=== PATIENT | female | born 1945 | race Caucasian/White ===

== ENCOUNTER 2016-06-17 09:09 | Inpatient (IN) | payer OTHER ==
[~2016-06-17] VITALS: Ht 160 cm; Wt 59.4 kg
[~2016-06-17 09:09] MED LIST: HYDROCHLOROTHIA25 M1 PO; TOPROL XL25 M1 PO
--- NOTE | 2016-06-17 09:21 | NUR ---
BIBA FROM HOME, C/O INCREASING WEAKNESS AND DIARRHEA X A FEW WEEKS. UNABLE TO GET OUT OF WHEELCHAIR INTO BED TODAY, WITH NEAR FALL. ALSO C/O DIZZINESS. RECENT WEIGHT LOSS.
--- NOTE | 2016-06-17 09:22 | NUR ---
ALSO REPORT SOB THIS AM, WITH LOW O2 SAT PER EMS (IN 80"S).
[2016-06-17 09:48] LABS: ABSOLUTE BASOPHIL COUNT 0 /CUMM (0.0-0.2); ABSOLUTE EOSINOPHIL COUNT 0.1 /CUMM (0.0-0.7); ABSOLUTE GRANULOCYTE CT 6.2 /CUMM (1.4-6.5); ABSOLUTE LYMPH COUNT 1.7 /CUMM (1.2-3.4); ABSOLUTE MONOCYTE COUNT 0.2 /CUMM (0.10-0.60); BASOPHIL % 0 % (0.0-2.0); GRANULOCYTE % 75.9 % (42.2-75.2); HEMATOCRIT 26.5 % (37-47); MEAN CORPUSCULAR HGB CONC 33.4 G/DL (33.0-37.0); MEAN CORPUSCULAR VOLUME 92.9 FL (81.0-99.0); MEAN PLATELET VOLUME 9.5 FL (7.4-10.4); PLATELET COUNT 204 /CUMM (130-400); RBC DISTRIBUTION WIDTH 25.7 % (11.5-14.5); RED BLOOD CELL CT 2.85 /CUMM (4.20-5.40); WHITE BLOOD CELL COUNT 8.1 /CUMM (4.8-10.8)
--- NOTE | 2016-06-17 09:50 | NUR ---
PT NOTED WITH CARIE LE SWELLING. STATES THIS STARTED TO OCCUR LAST WEEK. DENIES ANY HISTORY OF THIS OCCURING BEFORE. TRADE EDEMA NOTED. +PEDI PULSES.
[2016-06-17 09:52] LABS: PT 14.8 SEC (9.4-12.5); PTT 28 SEC (25-37)
--- NOTE | 2016-06-17 10:06 | ED GENERAL ADULT ---
History of Present Illness General Chief Complaint: General Adult Stated Complaint: BIBA INCREASED WEAKNESS Source: patient, family, old records, EMS Exam Limitations: no limitations Allergies Coded Allergies: Penicillins (UNKNOWN 03/15/16) Reconcile Medications Aspirin (Lite Coat Aspirin) 325 MG TABLET 1 TAB PO DAILY HEART HEALTH ( Reported) Atorvastatin Calcium 20 MG TABLET 1 TAB PO DAILY CHOL (Reported) Folic Acid 1 MG TABLET 1 TAB PO DAILY SUPPLEMENT (Reported) Methotrexate 2.5 MG TABLET 6 TAB PO QW ARTHRITIS (Reported) Metoprolol Succ XL (Toprol XL) 25 MG TAB 1 TAB PO DAILY htn Nystatin 100,000 UNIT/GRAM CREAM..G. 1 ROBIN TOP BID RASH (Reported) apply to affected area(s) Pantoprazole Sodium 40 MG TABLET.DR 1 TAB PO DAILY GERD (Reported) Tolterodine Tartrate 2 MG TABLET 1 TAB PO BID OVERACTIVE BLADDER (Reported) Triage Note: BIBA FROM HOME, C/O INCREASING WEAKNESS AND DIARRHEA X A FEW WEEKS. UNABLE TO GET OUT OF WHEELCHAIR INTO BED TODAY, WITH NEAR FALL. ALSO C/O DIZZINESS. Triage Nurses Notes Reviewed? yes HPI: Patient is a 70 year old female presents complaining of generalized weakness x 2 -3 weeks, worse today. Patient reports that she was unable to get out of her wheelchair this morning and fell against the bed. Patient normally ambulates with a walker. Diarrhea on Saturday and , 2-3 episodes of loose stools , none since then. Patient was having dyspnea this morning, which has since resolved. Weakness is severe, pain is 0/10. Denies chest pain, abdominal pain, head injury, fevers, chills, vomiting. (FABIOLA MADDOX) Vital Signs & Intake/Output Vital Signs & Intake/Output Vital Signs Date Time Temp Pulse Resp B/P Pulse O2 O2 Flow FiO2 Ox Delivery Rate 06/17 1512 96.2 86 16 143/72 100 Room Air 06/17 1144 94.7 86 16 147/72 100 Room Air 06/17 1040 88 136/74 06/17 0929 20 99 Room Air 06/17 0924 98.4 95 136/81 Past History Travel History Traveled to [place] past 21 day No Medical History Any Pertinent Medical History? see below for history Neurological: CVA Cardiovascular: hypertension, hyperlipidemia Gastrointestinal: GERD, hiatal hernia Musculoskeletal: rheumatoid arthritis Cancer(s): NONE Surgical History Surgical History: THYROID MASS REMOVED, OOPHRECTOMY Psychosocial History What is your primary language Mongolian Tobacco Use: Never used ETOH Use: denies use Family History Hx Contributory? No (FABIOLA MADDOX) Review of Systems Review of Systems Constitutional: Reports: malaise, weakness. Denies: chills, fever. EENTM: Reports: no symptoms. Respiratory: Denies: cough, short of breath. Cardiovascular: Denies: chest pain. GI: Reports: diarrhea (resolved). Denies: abdominal pain, nausea, vomiting. Musculoskeletal: Reports: no symptoms. Denies: back pain, neck pain. Skin: Reports: lesions (bed sores and rash left breast). Neurological/Psychological: Reports: weakness. Denies: headache, numbness, unable to move lower ext, unable to move upper ext. Hematologic/Endocrine: Reports: bruising. Denies: bleeding. Immunologic/Allergic: Denies: splenectomy. (FABIOLA MADDOX) Physical Exam Physical Exam General Appearance: alert, awake Head: atraumatic, normal appearance Eyes: Bilateral: normal appearance, PERRL, EOMI. Ears, Nose, Throat: hearing grossly normal, dry mucous membranes Neck: normal inspection, supple, full range of motion Respiratory: normal breath sounds, chest non-tender, no respiratory distress, lungs clear Cardiovascular: regular rate/rhythm Peripheral Pulses: 2+ dorsalis pedis (R), 2+ dorsalis pedis (L) Gastrointestinal: normal bowel sounds, soft, non-tender Rectal: heme negative stool Back: normal inspection Extremities: normal capillary refill, normal range of motion Neurologic/Psych: awake, alert, oriented x 3, legal researcher II-XII nml as tested, 3/5 bilateral lower extremity strength, 5/5 bilateral upper extremity strength Skin: warm/dry, 1 cm superficial ulceration, under left breast. skin breakdown Lymphatic: no anterior cervical bryan Core Measures ACS in differential dx? Yes ASA ordered for poss ACS? No-ACS ruled out CVA/TIA Diagnosis: No Severe Sepsis Present: No Septic Shock Present: No (FABIOLA MADDOX) Progress Differential Diagnoses I considered the following diagnoses in my evaluation of the patient: Diagnostic Imaging: Viewed by Me: Radiology Read. Discussed w/RAD: Radiology Read. Radiology Impression: PATIENT: ADRIEL LOAIZA PRESENT AGE: 70 PATIENT ACCOUNT NO: [id number] : 44 LOCATION: [facility] ORDERING PHYSICIAN: FABIOLA BENITEZ SERVICE DATE: 06/17/16 EXAM TYPE: US - US-LIMITED ABDOMEN EXAMINATION: US ABDOMEN LIMITED CLINICAL INFORMATION: Elevated liver function tests with weakness and elevated lactic acid. COMPARISON : None TECHNIQUE: Real-time imaging of the right upper quadrant abdominal viscera. FINDINGS: PANCREAS: Normal. LIVER: There is diffusely increased echogenicity consistent with fatty infiltration the hepatocellular disease of other etiology. No focal mass or intrahepatic bile duct dilatation is seen. GALLBLADDER: The gallbladder is difficult to differentiate from bowel with patient unable to follow breathing instructions. The gallbladder may be contracted with calculi causing shadowing. No free fluid collection no region of the gallbladder fossa was identified. No tenderness to palpation was elicited. COMMON BILE DUCT: Normal in caliber measuring 0.4 cm in diameter. RIGHT KIDNEY: Normal. No hydronephrosis. No renal calculi or focal parenchymal lesions. The kidney measures 9.1 cm in maximum dimension. FREE FLUID: None. IMPRESSION: Diffuse increased echogenicity of the liver which may be related to fatty infiltration. Gallbladder not definitely identified and contracted gallbladder with calculi not excluded. No tenderness to palpation present to suggest acute cholecystitis. DICTATED BY: MICK DEGROOT MD DATE/TIME DICTATED:06/17/161229 BROADCAST TRAFFIC COORDINATOR:LAYA DATE/TIME TRANSCRIBED:06/17/161229 CONFIDENTIAL, DO NOT COPY WITHOUT APPROPRIATE AUTHORIZATION. <Electronically signed in Other Vendor System> SIGNED BY: MICK DEGROOT MD 06/17/16 1240, PATIENT: ADRIEL LOAIZA PRESENT AGE: 70 PATIENT ACCOUNT NO: [id number] : 44 LOCATION: [facility] ORDERING PHYSICIAN: FABIOLA BENITEZ SERVICE DATE: 06/17/16 EXAM TYPE: CAT - CT ABD & PELVIS W/O IV CONTRAS EXAMINATION: CT ABDOMEN AND PELVIS WITHOUT CONTRAST CLINICAL INFORMATION: Weakness. Transaminitis. Lactic acid. Assess for intra-abdominal infection. COMPARISON: Abdominal ultrasound earlier today. TECHNIQUE: Multidetector volumetric imaging was performed from the superior aspect of the liver through the pubic symphysis. Sagittal and coronal reformatted images were obtained on the technologist's workstation. DLP: 227 mGy-cm. FINDINGS: Examination limited secondary to lack of intravenous contrast. LUNG BASES: Minimal subsegmental atelectasis at the bilateral lung bases. LIVER, GALLBLADDER, AND BILIARY TREE: Coarse calcification in the superior aspect of the liver. Slightly decreased hepatic radiodensity compared to the spleen could reflect a degree of hepatic steatosis. No suspicious hepatic lesion. No biliary ductal dilatation. Cholelithiasis is demonstrated without CT evidence of cholecystitis. PANCREAS: Suggestion of a 0.8 cm cyst extending anteriorly off the pancreatic head, axial image 23/75 and coronal image 29/83. No peripancreatic stranding. No pancreatic ductal dilatation. SPLEEN: Unremarkable. ADRENAL GLANDS: Unremarkable. KIDNEYS AND URETERS: No hydronephrosis. No convincing renal or ureteral calculi. Punctate calcification near the left renal hilum is favored to be vascular in nature. No suspicious renal mass. No asymmetric perinephric stranding. BLADDER: Predominantly decompressed. GASTROINTESTINAL TRACT: Bowel gas pattern is nonobstructive. No evidence of acute bowel inflammation. The appendix is not discretely delineated. ABDOMINAL WALL: No significant hernia is appreciated. Subcutaneous edema about the bilateral flanks and gluteal regions. No discrete fluid collection. LYMPH NODES: No pathologically enlarged lymph nodes are demonstrated. VASCULAR: Scattered atherosclerotic disease including coronary artery calcification. PELVIC VISCERA: No free pelvic fluid. The uterus is absent. No suspicious adnexal lesion. OSSEOUS STRUCTURES: No acute osseous abnormalities. Multilevel Schmorl's nodes/vertebral endplate compression, most notable at the inferior endplate of T11, superior endplate of L1, and superior endplate of L3. Multilevel degenerative changes of the spine. Decreased bone mineral density. IMPRESSION: 1. Cholelithiasis without CT evidence of cholecystitis. 2. No biliary ductal dilatation demonstrated. 3. Possible mild hepatic steatosis. 4. No acute bowel pathology demonstrated. 5. Suspect a 0.8 cm cyst extending anteriorly off of the pancreatic head. Recommend attention on follow-up imaging to ensure future stability. Comparison with any prior outside abdominal CT or MRI could be helpful to establish stability. 6. Additional findings as above. DICTATED BY: MILAGRO DUVAL MD DATE/TIME DICTATED:06/17/161433 BROADCAST TRAFFIC COORDINATOR:LAAY DATE/TIME TRANSCRIBED:06/17/161433 CONFIDENTIAL, DO NOT COPY WITHOUT APPROPRIATE AUTHORIZATION. <Electronically signed in Other Vendor System> SIGNED BY: MILAGRO DUVAL MD 06/17/16 1510 CXR Impression: PATIENT: ADRIEL LOAIZA PRESENT AGE: 70 PATIENT ACCOUNT NO: [id number] : 44 LOCATION: [facility] ORDERING PHYSICIAN: FABIOLA BENITEZ SERVICE DATE: 06/17/16-1014 EXAM TYPE: RAD - XRY- PORTABLE CHEST XRAY EXAMINATION: XR PORTABLE CHEST CLINICAL INFORMATION: Dyspnea. Weakness. Elevated lactic acid. COMPARISON: None. TECHNIQUE: Portable view of the chest was obtained. FINDINGS: Cardiac silhouette is not enlarged. There is tortuosity of the descending thoracic aorta. Hyperlucency is seen in the bilateral lungs compatible with emphysema. A focal oval 1.8 cm opacity is seen overlying the left sixth rib posteriorly. An underlying pulmonary lesion/ nodule is not excluded. No prior studies for comparison. No acute osseous abnormality. Advanced degenerative changes seen in the left shoulder. IMPRESSION : A vague rounded opacity is seen in the left upper lung overlying the left sixth rib posteriorly. Recommend CT thorax for further evaluation to exclude pulmonary lesion. Alternatively, follow-up PA and lateral chest radiographs could be obtained. The lungs are hyperlucent bilaterally suspicious for underlying emphysema. No evidence of pulmonary edema. DICTATED BY: JACK POMPA MD DATE/TIME DICTATED:06/17/161055 BROADCAST TRAFFIC COORDINATOR:LAYA DATE/TIME TRANSCRIBED:06/17/161055 CONFIDENTIAL, DO NOT COPY WITHOUT APPROPRIATE AUTHORIZATION. <Electronically signed in Other Vendor System> SIGNED BY: JACK POMPA MD 06/17/16 1103 Initial ED EKG: sinus rhythm at 86 bpm normal axis, normal intervals, nonspecific ST/T-wave changes, possible LVH Prior EKG: unchanged (ELIER BENITEZ,FABIOLA) Plan of Care: Orders Procedure Date/time Status Regular Diet 06/18 B Active Misc Message 06/17 1605 Active ED Holding Orders 06/17 1605 Active Vital Signs 06/17 1605 Active Code Status 06/17 1605 Active Patient Data 06/17 1555 Active Admit to inpatient 06/17 1541 Active LACTIC ACID 06/17 1228 Complete Add-on Test (ER Only) 06/17 1113 Active BLOOD CULTURE 06/17 1014 Active MISTAKE 06/17 1006 Active Telemetry/Gasoline Plant Operator 06/17 1006 Active Straight Cath 06/17 1006 Active URINALYSIS 06/17 1006 Complete LACTIC ACID 06/17 929 Complete TYPE & SCREEN (NOT X-MATCH) 06/17 929 Complete TROPONIN LEVEL 06/17 927 Complete PARTIAL THROMBOPLASTIN TIME 06/17 927 Complete PROTHROMBIN TIME 06/17 927 Complete COMPREHENSIVE METABOLIC PANEL 06/17 927 Complete CBC WITHOUT DIFFERENTIAL 06/17 927 Complete EKG 06/17 925 Active Laboratory Tests 06/17/16 1438: Lactic Acid 1.4 06/17/16 1138: Urinalysis MOD H, Urine Color YEL, Urine Clarity HAZY H, Urine pH 6.0, Ur Specific [place] 1.025, Urine Protein 30 H, Urine Ketones TRACE H, Urine Nitrite NEG, Urine Bilirubin MOD H, Urine Urobilinogen >=8.0 H, Ur Leukocyte Esterase NEG, Ur Microscopic SEDIMENT EXAMINED, Urine RBC 1-3, Urine WBC RARE, Ur Epithelial Cells MANY H, Hyaline Casts 10-15 H, Granular Casts 1-3 H, Urine Mucus MOD H, Urine Hemoglobin NEG, Urine Glucose NEG 06/17/16 1010: Anion Gap 16, Estimated GFR 49 L, BUN/Creatinine Ratio 29.1 H, Glucose 86, Calcium 8.3 L, Total Bilirubin 1.8 H, AST 227 H, ALT 122 H, Alkaline Phosphatase 195 H, Troponin I < 0.01, Total Protein 5.6 L, Albumin 2.3 L, Globulin 3.3, Albumin/Globulin Ratio 0.7 L 06/17/16 0930: Lactic Acid 5.0 H, PT 14.8 H, INR 1.41 H, APTT 28, CBC w Diff NO MAN DIFF REQ , RBC 2.85 L, MCV 92.9, MCH 31.0, RDW 25.7 H, MPV 9.5, Gran % 75.9 H, Lymphocytes % 20.4 L, Monocytes % 2.7, Eosinophils % 1.0, Basophils % 0 L, Absolute Granulocytes 6.2, Absolute Lymphocytes 1.7, Absolute Monocytes 0.2, Absolute Eosinophils 0.1, Absolute Basophils 0, PUBS MCHC 33.4 Microbiology 06/17 1438 BLOOD: Blood Culture - RECD 06/17 1120 BLOOD: Blood Culture - RECD Patient reevaluated multiple times. Results discussed with patient and her . Discussed with and seen by Dr. Gutierrez. Lactic acid improved with 1 liter normal saline. WBC normal, patient afebrile, no hypotension. Antibiotics deferred, as patient does not appear to meet criteria for sepsis. Discussed with Dr. Mendoza for admission (FABIOLA MADDOX) Departure Departure Time of Disposition: 1525 Disposition: STILL A PATIENT Condition: Stable Clinical Impression Primary Impression: Lactic acid acidosis Secondary Impressions: Generalized weakness, Transaminitis Referrals: KIMBERLEY BANERJEE MD (PCP/Family) Departure Forms: Customer Survey General Discharge Information Admission Note Spoke With: SHAHAB MENDOZA MD Documentation of Exam: Documentation of any treatments & extenuating circumstances including Concerns Regarding Discharge (functional status, medication knowledge or non-compliance, living conditions, etc.) that warrant an admission rather than observation: serial labs, serial exams, physical therapy consultation, GI consultation. Patient too weak to attempt ambulation, unsafe for discharge. (FABIOLA MADDOX) PA/EXTRACTOR LOADER AND UNLOADER Co-Sign Statement Statement: ED Attending supervision documentation- [X] I saw and evaluated the patient. I have also reviewed all the pertinent lab results and diagnostic results. I agree with the findings and the plan of care as documented in the PA's/EXTRACTOR LOADER AND UNLOADER's documentation. [] I have reviewed the ED Record and agree with the PA's/EXTRACTOR LOADER AND UNLOADER's documentation. [] Additions or exceptions (if any) to the PAs/EXTRACTOR LOADER AND UNLOADER's note and plan are summarized below: [] (CJ YOUNG,QUENTIN Parham) Critical Care Note Critical Care Note Critical Care Time: non-applicable (FABIOLA MADDOX)
--- NOTE | 2016-06-17 10:45 | NUR ---
ORTHOS PERFORMED ON PT. PT STATES SHE IS TOO WEAK TO TRY TO STAND UP. PT REPORTS THAT ON SATURDAY WHEN SHE HAD HER O/T EVAL SHE WAS DIZZY AND ON SATURDAY HER APPOINTMENT WAS CANCELLED DUE TO HER DIZZINESS WELL. PA AWARE.
--- NOTE | 2016-06-17 11:03 | RADIOLOGY REPORT ---
EXAMINATION: XR PORTABLE CHEST CLINICAL INFORMATION: Dyspnea. Weakness. Elevated lactic acid. COMPARISON: None. TECHNIQUE: Portable view of the chest was obtained. FINDINGS: Cardiac silhouette is not enlarged. There is tortuosity of the descending thoracic aorta. Hyperlucency is seen in the bilateral lungs compatible with emphysema. A focal oval 1.8 cm opacity is seen overlying the left sixth rib posteriorly. An underlying pulmonary lesion/nodule is not excluded. No prior studies for comparison. No acute osseous abnormality. Advanced degenerative changes seen in the left shoulder. IMPRESSION: A vague rounded opacity is seen in the left upper lung overlying the left sixth rib posteriorly. Recommend CT thorax for further evaluation to exclude pulmonary lesion. Alternatively, follow-up PA and lateral chest radiographs could be obtained. The lungs are hyperlucent bilaterally suspicious for underlying emphysema. No evidence of pulmonary edema.
--- NOTE | 2016-06-17 11:40 | NUR ---
URINE TRIO SENT TO LAB
--- NOTE | 2016-06-17 11:44 | NUR ---
PT STRAIGHT CATH FOR 200 CC DARK URINE, TOLERATED WELL, PT NOTED WITH TO BEDSORES ONE TO EACH UPPER INNER BUTTOCKS, MEASURE 3 CM X 3 CM, DRESSING REAPPLIED. PT DIFFICULT STICK , MST TO ATTEMPT SECOND SET OF BC AND PINK TOP. PT REPOSITIONED UP IN BED,
--- NOTE | 2016-06-17 12:04 | NUR ---
PT ALSO NOTED WITH REDNESS/EXCORIATION TO UNDER HER LT BREAST. PT STATES THAT THEY ARE GETTING BETTER FROM WHAT THEY WERE, HAS BEEN USING CREAM AT HOME FOR THEM.
--- NOTE | 2016-06-17 12:11 | NUR ---
PT TO U/S. PTS LEFT, STATES HE WILL CALL BACK SOON WITH A MEDICATION LIST.
--- NOTE | 2016-06-17 12:40 | ULTRASOUND REPORT ---
EXAMINATION: US ABDOMEN LIMITED CLINICAL INFORMATION: Elevated liver function tests with weakness and elevated lactic acid. COMPARISON: None TECHNIQUE: Real-time imaging of the right upper quadrant abdominal viscera. FINDINGS: PANCREAS: Normal. LIVER: There is diffusely increased echogenicity consistent with fatty infiltration the hepatocellular disease of other etiology. No focal mass or intrahepatic bile duct dilatation is seen. GALLBLADDER: The gallbladder is difficult to differentiate from bowel with patient unable to follow breathing instructions. The gallbladder may be contracted with calculi causing shadowing. No free fluid collection no region of the gallbladder fossa was identified. No tenderness to palpation was elicited. COMMON BILE DUCT: Normal in caliber measuring 0.4 cm in diameter. RIGHT KIDNEY: Normal. No hydronephrosis. No renal calculi or focal parenchymal lesions. The kidney measures 9.1 cm in maximum dimension. FREE FLUID: None. IMPRESSION: Diffuse increased echogenicity of the liver which may be related to fatty infiltration. Gallbladder not definitely identified and contracted gallbladder with calculi not excluded. No tenderness to palpation present to suggest acute cholecystitis.
--- NOTE | 2016-06-17 12:47 | NUR ---
SECOND RN UNABLE TO DRAW 2ND CULTURE OR BLOODWORK MST UNABLE TO WELL. LAB HERE TO ATTEMPT.
--- NOTE | 2016-06-17 12:52 | NUR ---
LAB AT BEDSIDE TO ATTEMPT DRAW, PINK, BOYER AND 2ND SET OF CULUTRES NEEDED
[2016-06-17] MEDS ORDERED: NYSTATIN15 G1 TOP (13:08)
[2016-06-17] MEDS ORDERED: LITE COAT ASPI325 MG PO (13:09)
[2016-06-17] MEDS ORDERED: PANTOPRAZOLE SO40 M1 PO (13:09)
[2016-06-17] MEDS ORDERED: ATORVASTATIN CA20 M1 PO (13:09)
[2016-06-17] MEDS ORDERED: METHOTREXATE2.5 M2 PO (13:09)
[2016-06-17] MEDS ORDERED: FOLIC ACID1 M1 PO (13:10)
[2016-06-17] MEDS ORDERED: TOLTERODINE TART2 M2 PO (13:10)
--- NOTE | 2016-06-17 13:18 | NUR ---
LAB UNABLE TO DRAW CULTURES
--- NOTE | 2016-06-17 14:18 | NUR ---
PT TO CAT SCAN. CAT SCAN CALLED SHORTLY AFTER STATING THAT HER IV BLEW OUT. PA AWARE
--- NOTE | 2016-06-17 14:44 | NUR ---
SECOND LINE OBTAINED AT THIS TIME. DR CORONA AT BEDSIDE TO DISCUSS PLAN OF CARE WITH PT AND HER
--- NOTE | 2016-06-17 15:10 | CT SCAN REPORT ---
EXAMINATION: CT ABDOMEN AND PELVIS WITHOUT CONTRAST CLINICAL INFORMATION: Weakness. Transaminitis. Lactic acid. Assess for intra-abdominal infection. COMPARISON: Abdominal ultrasound earlier today. TECHNIQUE: Multidetector volumetric imaging was performed from the superior aspect of the liver through the pubic symphysis. Sagittal and coronal reformatted images were obtained on the technologist's workstation. DLP: 227 mGy-cm. FINDINGS: Examination limited secondary to lack of intravenous contrast. LUNG BASES: Minimal subsegmental atelectasis at the bilateral lung bases. LIVER, GALLBLADDER, AND BILIARY TREE: Coarse calcification in the superior aspect of the liver. Slightly decreased hepatic radiodensity compared to the spleen could reflect a degree of hepatic steatosis. No suspicious hepatic lesion. No biliary ductal dilatation. Cholelithiasis is demonstrated without CT evidence of cholecystitis. PANCREAS: Suggestion of a 0.8 cm cyst extending anteriorly off the pancreatic head, axial image 23/75 and coronal image 29/83. No peripancreatic stranding. No pancreatic ductal dilatation. SPLEEN: Unremarkable. ADRENAL GLANDS: Unremarkable. KIDNEYS AND URETERS: No hydronephrosis. No convincing renal or ureteral calculi. Punctate calcification near the left renal hilum is favored to be vascular in nature. No suspicious renal mass. No asymmetric perinephric stranding. BLADDER: Predominantly decompressed. GASTROINTESTINAL TRACT: Bowel gas pattern is nonobstructive. No evidence of acute bowel inflammation. The appendix is not discretely delineated. ABDOMINAL WALL: No significant hernia is appreciated. Subcutaneous edema about the bilateral flanks and gluteal regions. No discrete fluid collection. LYMPH NODES: No pathologically enlarged lymph nodes are demonstrated. VASCULAR: Scattered atherosclerotic disease including coronary artery calcification. PELVIC VISCERA: No free pelvic fluid. The uterus is absent. No suspicious adnexal lesion. OSSEOUS STRUCTURES: No acute osseous abnormalities. Multilevel Schmorl's nodes/vertebral endplate compression, most notable at the inferior endplate of T11, superior endplate of L1, and superior endplate of L3. Multilevel degenerative changes of the spine. Decreased bone mineral density. IMPRESSION: 1. Cholelithiasis without CT evidence of cholecystitis. 2. No biliary ductal dilatation demonstrated. 3. Possible mild hepatic steatosis. 4. No acute bowel pathology demonstrated. 5. Suspect a 0.8 cm cyst extending anteriorly off of the pancreatic head. Recommend attention on follow-up imaging to ensure future stability. Comparison with any prior outside abdominal CT or MRI could be helpful to establish stability. 6. Additional findings as above.
--- NOTE | 2016-06-17 15:28 | History & Physical ---
MADHU BARRY 06/17/16 1528: General Information and HPI MD Statement: I have seen and personally examined ADRIEL LOAIZA and documented this H&P. The patient is a 70 year old F who presented with a patient stated chief complaint of weakness Source of Information: patient, old records Exam Limitations: no limitations History of Present Illness: 70-year-old woman with past medical history significant for rheumatoid arthritis on methotrexate, hypertension, hyperlipidemia, thyroid cancer status post surgery, history of stomach cancer in grandmother, recurrent falls brought here by for episode of witnessed mechanical fall. is at bedside. Patient had a fall earlier today when she was transferring from the bed to the wheelchair denies head strike, loss of consciousness, involuntary movements, bowel or bladder incontinence. The past 3 months she has fallen 2 times in both of them have been the conical falls due to weakness in her legs giving out. Patient also reports 47 pound weight loss over the past 6 months, decreased appetite and progressive weakness. States that she does have constipation denies any change in her stools, abdominal pain, nausea, vomiting. She did see a gastrointestinal specialist a few months ago and he recommended she do a CT abdomen as well as a colonoscopy but patient refused at that time. Allergies/Medications Allergies: Coded Allergies: Penicillins (UNKNOWN 03/15/16) Home Med list Aspirin (Lite Coat Aspirin) 325 MG TABLET 1 TAB PO DAILY HEART HEALTH ( Reported) Atorvastatin Calcium 20 MG TABLET 1 TAB PO DAILY CHOL (Reported) Folic Acid 1 MG TABLET 1 TAB PO DAILY SUPPLEMENT (Reported) Methotrexate 2.5 MG TABLET 6 TAB PO QW ARTHRITIS (Reported) Metoprolol Succ XL (Toprol XL) 25 MG TAB 1 TAB PO DAILY htn Nystatin 100,000 UNIT/GRAM CREAM..G. 1 ROBIN TOP BID RASH (Reported) apply to affected area(s) Pantoprazole Sodium 40 MG TABLET.DR 1 TAB PO DAILY GERD (Reported) Tolterodine Tartrate 2 MG TABLET 1 TAB PO BID OVERACTIVE BLADDER (Reported) Compliance With Home Meds: GOOD Past History Travel History Traveled to [place] past 21 day No Medical History Neurological: CVA Cardiovascular: hypertension, hyperlipidemia Gastrointestinal: GERD, hiatal hernia Musculoskeletal: rheumatoid arthritis Cancer(s): NONE Surgical History Surgical History: THYROID MASS REMOVED, OOPHRECTOMY Past Family/Social History Family History Relations & Conditions if any grandmother FHx: stomach cancer Psychosocial History ETOH Use: denies use Review of Systems Review of Systems Constitutional: Reports: malaise, weakness, unexplained weight loss. Denies: chills, diaphoresis, fever. Cardiovascular: Denies: chest pain, edema, orthopena, palpitations, peripheral edema, syncope. Respiratory: Denies: cough, hemoptysis, orthopnea, short of breath, sputum production, stridor, wheezing. GI: Denies: abdominal pain, bloating, constipation, diarrhea, distention, bowel incontinence, melena, nausea, bloody stool, changes in stool, vomiting, steatorrhea. Exam & Diagnostic Data Last 24 Hrs of Vital Signs/I&O Vital Signs Date Time Temp Pulse Resp B/P Pulse O2 O2 Flow FiO2 Ox Delivery Rate 06/17 1640 95.7 85 16 163/70 Room Air 06/17 1512 96.2 86 16 143/72 100 Room Air 06/17 1144 94.7 86 16 147/72 100 Room Air 06/17 1040 88 136/74 06/17 0929 20 99 Room Air 06/17 0924 98.4 95 136/81 Intake & Output 06/17 1600 06/17 0800 06/17 0000 Intake Total 10 Output Total Balance 10 Intake, IV 10 Patient 120 lb Weight Physical Exam General Appearance Alert, Oriented X3, Cooperative, No Acute Distress Cardiovascular Regular Rate, Normal S1, Normal S2 Lungs Clear to Auscultation, Normal Air Movement Abdomen Soft, Tenderness to palpation in lower abdomen Extremities cold extremities, increased swelling noted of left lower extremity Body Front and Back (Adult) 1) pressure ulcer 2) pressure ulcer 3) four areas of pressure ulcers under breast Last 24 Hrs of Labs/Taran: Laboratory Tests 06/17/16 1438: Lactic Acid 1.4 06/17/16 1138: Urinalysis MOD H, Urine Color YEL, Urine Clarity HAZY H, Urine pH 6.0, Ur Specific [place] 1.025, Urine Protein 30 H, Urine Ketones TRACE H, Urine Nitrite NEG, Urine Bilirubin MOD H, Urine Urobilinogen >=8.0 H, Ur Leukocyte Esterase NEG, Ur Microscopic SEDIMENT EXAMINED, Urine RBC 1-3, Urine WBC RARE, Ur Epithelial Cells MANY H, Hyaline Casts 10-15 H, Granular Casts 1-3 H, Urine Mucus MOD H, Urine Hemoglobin NEG, Urine Glucose NEG 06/17/16 1010: Anion Gap 16, Estimated GFR 49 L, BUN/Creatinine Ratio 29.1 H, Glucose 86, Calcium 8.3 L, Iron Pending, TIBC Pending, Ferritin Pending, Total Bilirubin 1.8 H, AST 227 H, ALT 122 H, Alkaline Phosphatase 195 H, Troponin I < 0.01, Total Protein 5.6 L, Albumin 2.3 L, Globulin 3.3, Albumin/Globulin Ratio 0.7 L, Vitamin B12 Pending, 25-OH Vitamin D Total Pending, Folate Pending 06/17/16 0930: Lactic Acid 5.0 H, PT 14.8 H, INR 1.41 H, APTT 28, CBC w Diff NO MAN DIFF REQ , RBC 2.85 L, MCV 92.9, MCH 31.0, RDW 25.7 H, MPV 9.5, Gran % 75.9 H, Lymphocytes % 20.4 L, Monocytes % 2.7, Eosinophils % 1.0, Basophils % 0 L, Absolute Granulocytes 6.2, Absolute Lymphocytes 1.7, Absolute Monocytes 0.2, Absolute Eosinophils 0.1, Absolute Basophils 0, PUBS MCHC 33.4 Microbiology 06/17 1438 BLOOD: Blood Culture - RECD 06/17 1120 BLOOD: Blood Culture - RECD Diagnostic Data CXR Results RAD - XRY-PORTABLE CHEST XRAY FINDINGS: Cardiac silhouette is not enlarged. There is tortuosity of the descending thoracic aorta. Hyperlucency is seen in the bilateral lungs compatible with emphysema. A focal oval 1.8 cm opacity is seen overlying the left sixth rib posteriorly. An underlying pulmonary lesion/nodule is not excluded. No prior studies for comparison. No acute osseous abnormality. Advanced degenerative changes seen in the left shoulder. IMPRESSION: A vague rounded opacity is seen in the left upper lung overlying the left sixth rib posteriorly. Recommend CT thorax for further evaluation to exclude pulmonary lesion. Alternatively, follow-up PA and lateral chest radiographs could be obtained. The lungs are hyperlucent bilaterally suspicious for underlying emphysema. No evidence of pulmonary edema. Other Results SERVICE DATE: 06/17/16 EXAM TYPE: US - US-LIMITED ABDOMEN FINDINGS: PANCREAS: Normal. LIVER: There is diffusely increased echogenicity consistent with fatty infiltration the hepatocellular disease of other etiology. No focal mass or intrahepatic bile duct dilatation is seen. GALLBLADDER: The gallbladder is difficult to differentiate from bowel with patient unable to follow breathing instructions. The gallbladder may be contracted with calculi causing shadowing. No free fluid collection no region of the gallbladder fossa was identified. No tenderness to palpation was elicited. COMMON BILE DUCT: Normal in caliber measuring 0.4 cm in diameter. RIGHT KIDNEY: Normal. No hydronephrosis. No renal calculi or focal parenchymal lesions. The kidney measures 9.1 cm in maximum dimension. FREE FLUID: None. IMPRESSION: Diffuse increased echogenicity of the liver which may be related to fatty infiltration. Gallbladder not definitely identified and contracted gallbladder with calculi not excluded. No tenderness to palpation present to suggest acute cholecystitis. CT ABD & PELVIS W/O IV CONTRAS FINDINGS: Examination limited secondary to lack of intravenous contrast. LUNG BASES: Minimal subsegmental atelectasis at the bilateral lung bases. LIVER, GALLBLADDER, AND BILIARY TREE: Coarse calcification in the superior aspect of the liver. Slightly decreased hepatic radiodensity compared to the spleen could reflect a degree of hepatic steatosis. No suspicious hepatic lesion. No biliary ductal dilatation. Cholelithiasis is demonstrated without CT evidence of cholecystitis. PANCREAS: Suggestion of a 0.8 cm cyst extending anteriorly off the pancreatic head, axial image 23/75 and coronal image 29/83. No peripancreatic stranding. No pancreatic ductal dilatation. SPLEEN: Unremarkable. ADRENAL GLANDS: Unremarkable. KIDNEYS AND URETERS: No hydronephrosis. No convincing renal or ureteral calculi. Punctate calcification near the left renal hilum is favored to be vascular in nature. No suspicious renal mass. No asymmetric perinephric stranding. BLADDER: Predominantly decompressed. GASTROINTESTINAL TRACT: Bowel gas pattern is nonobstructive. No evidence of acute bowel inflammation. The appendix is not discretely delineated. ABDOMINAL WALL: No significant hernia is appreciated. Subcutaneous edema about the bilateral flanks and gluteal regions. No discrete fluid collection. LYMPH NODES: No pathologically enlarged lymph nodes are demonstrated. VASCULAR: Scattered atherosclerotic disease including coronary artery calcification. PELVIC VISCERA: No free pelvic fluid. The uterus is absent. No suspicious adnexal lesion. OSSEOUS STRUCTURES: No acute osseous abnormalities. Multilevel Schmorl's nodes/vertebral endplate compression, most notable at the inferior endplate of T11, superior endplate of L1, and superior endplate of L3. Multilevel degenerative changes of the spine. Decreased bone mineral density. IMPRESSION: 1. Cholelithiasis without CT evidence of cholecystitis. 2. No biliary ductal dilatation demonstrated. 3. Possible mild hepatic steatosis. 4. No acute bowel pathology demonstrated. 5. Suspect a 0.8 cm cyst extending anteriorly off of the pancreatic head. Recommend attention on follow-up imaging to ensure future stability. Comparison with any prior outside abdominal CT or MRI could be helpful to establish stability. 6. Additional findings as above. Assessment/Plan Assessment: 70-year-old woman with past medical history significant for rheumatoid arthritis on methotrexate, hypertension, hyperlipidemia, thyroid cancer status post surgery, history of stomach cancer in grandmother, recurrent falls brought here by for episode of witnessed mechanical fall. As Ranked By This Provider Problem List: 1. Generalized weakness Assessment/Plan recurrent falls chronic anemia VS malignancy VS poor po intake will obtain GI consult 2. Transaminitis Assessment/Plan will repeat LFT tommorrow 3. Stage II decubitus ulcer Assessment/Plan wound care and wound consult 4. DVT prophylaxis 5. Full code status Core Measures/Miscellaneous Acute Coronary Syndrome ACS Diagnosis: No Cerebrovascular Accident CVA/TIA Diagnosis: No Congestive Heart Failure CHF Diagnosis: No Venous Thromboembolism VTE Risk Factors: Age > 40, Immobility, paresis VTE Prophylaxis Ordered Inpt: Mechanical (ALPS/TEDS) No Mech VTE prophylaxis d/t: No contraindications No VTE Pharm Prophylaxis d/t: Medical contraindication VTE Diagnosis: No VTE Type: NONE VTE Confirmed by (Test): NONE Severe Sepsis Severe Sepsis Present: No Septic Shock Septic Shock Present: No Miscellaneous Documentation Attending Case Discussed With: ALEJANDRO YOUNG,SHAHAB Chawla Primary Care Physician: KIMBERLEY BANERJEE MD Patient sees these Specialists None Level of Patient Care: General Medicine WILLIS CALLES MD 06/17/161928: Resident Review Statement Resident Statement: examined this patient, discussed with purchasing intern, agreed with purchasing intern, discussed with family Other Findings: 70-year-old female with past medical history of TIA, rheumatoid arthritis, hypertension, hyperlipidemia presents to the ED with complaints of weakness for the last 2-3 weeks which is worse today. History of fall 3 over the last 3 months, last fall yesterday. According to the it was more of weakness. Denies chest pain, palpitations, syncope, dizziness. Complains of diarrhea for 2 days about 5 days ago which resolved. Complaints of unintentional weight loss of about 47 pounds in the last 6 months. Poor by mouth intake for over 6 months. Increasing fatigue over the same period of time. Denies blood in stools. Never had colonoscopy or mammogram done. History of stomach cancer in grandmother never smoker nonalcoholic. Nice NSAID use On examination patient alert awake comfortable at rest Mucous membrane dry Cardiovascular: S1, S2 regular Respiratory: Bilateral breath sounds decreased Abdomen: Soft, tenderness present in the suprapubic area on deep palpation Extremities: Left leg more swollen than the right Back: Stage II pressure ulcers present Neurology grossly normal Assessment and plan 1. Weakness secondary to anemia versus underlying malignancy versus vitamin deficiency versus deconditioning: Patient remained stable will admit to general medical floor. We'll check iron studies, vitamin B12 and D. Guaiac in the ED was negative. Her CAT scan did not show evidence of abdominal malignancy. X- ray chest showed a 1.8 cm opacity overlying the left sixth rib posteriorly. Will obtain CAT scan in a.m. to rule out underlying malignancy. We'll obtain additional consult in a.m. PT consult in a.m. 2. Acute anemia: Etiology unknown no active evidence of bleeding. Iron studies were within normal limits. We'll continue to follow up on labs in a.m. Will obtain GI consult. Never had colonoscopy and endoscopy in the past. 3. Stage II pressure ulcers: We will obtain wound consult 4. Transaminitis: Urology unclear. Will recheck LFTs in a.m. 5. Elevated INR Full CODE STATUS DVT prophylaxis with ALPS YEIMI ALLENEEP 06/22/16 1039: Attending MD Review Statement Attending Statement Attending MD Statement: examined this patient, discuss w/resident/PA/CENTRAL SUPPLY MANAGER, agreed w/resident/PA/CENTRAL SUPPLY MANAGER, reviewed EMR data (avail) Attending Assessment/Plan: Pt admitted with falls at home and inability to walk with walker or get up from wheelchair. Found to have Acute anemia and lactic acidosis at admission. Pt gives h/o wt loss of 45 lbs since november last year. CXR done shows rounded opacity in left upper lung. will get CT chest to further evaluate that. Lactic acidosis resolved with hydration.cont with iv fluids. Sacral decubitus ulcer- will get wound care consult. Would also get PT Eval for recurrent falls. Will get nutrition consult for wt loos. GI consult in am for evaluation of anemai with wt loss. Increase LFTs- will repeat LFTs in am.
--- NOTE | 2016-06-17 16:17 | NUR ---
PT HAS BED ASSIGNMENT 220-1
--- NOTE | 2016-06-17 16:20 | NUR ---
HOUSE STAFF TO LAMAR.
[2016-06-17 19:05] VITALS: BP 132/70
--- NOTE | 2016-06-17 19:56 | Admission Certification ---
Admission Certification Certification Statement - As attending physician, I certify that at the time of - admission, based on clinical presentation, severity of - symptoms, need for further diagnostic testing and - therapeutic interventions, and risk of adverse outcomes - without in-hospital treatment, in my clinical assessment, - this patient requires an acute hospital stay for a minimum - of two nights or longer. I have also considered psychsocial - factors such as support system, advanced age, financial - issues, cognitive issues, and failed out-patient treatments, - past re-admission history, safety of patient, and lack of - compliance as applicable. Specific rationale supporting this admission is: lactic acidosis/ failure to thrive, Acute anemia/ Falls at home. decubitus ulcer sacral area.
--- NOTE | 2016-06-17 20:03 | PN- Att Addend ---
Attending MD Review Statement Attending Statement Attending MD Statement: examined this patient, discuss w/resident/PA/ADMIN ASST, agreed w/resident/PA/ADMIN ASST, reviewed EMR data (avail) Attending Assessment/Plan: Pt seen and examined at bedside. Pt admitted with falls at home and inability to walk with walker or get up from wheelchair. Found to have Acute anemia and lactic acidosis at admission. Pt gives h/o wt loss of 45 lbs since november last year. CXR done shows rounded opacity in left upper lung. will get CT chest to further evaluate that. Lactic acidosis resolved with hydration.cont with iv fluids. Sacral decubitus ulcer- will get wound care consult. Would also get PT Eval for recurrent falls. Will get nutrition consult for wt loos. GI consult in am for evaluation of anemai with wt loss. Increase LFTs- will repeat LFTs in am.
[2016-06-17 22:38] VITALS: BP 124/80
--- NOTE | 2016-06-18 01:11 | NUR ---
LATE ENTRY: PT UP TO FLOOR AT 1740. PT A/O X3, PT ON RA, VSS. AT BEDSIDE,. IV IN LF NOT FLUSHIGN AND REMOVED . NEW #24 PLACED TO LFA AND NS @100 ML.HR RUNNING PER ORDER. BREAKDOWN NOTED TO UNDERSIDE OF L BREAST. OPEN AREAS X 4 W 2X2 WOUND BASE 100% YELLOW. NYSTATIN APPLIED PER ORDER TO AREA. ABD SOFT, DENIES PAIN . L AND R BUTTOCKS WITH OPEN AREAS SEE SKIN MAN. AIR MATTRESS ORDERED. PT OFFLOADED OFF BUTTOCKS. PT DENIES NEED FOR PRN PAIN MED . OFFLOADED EFFECTIVE. BED ALARM IN PLACE. CALL CORONA USE INSTRUCTED. WILL MONITOR
[2016-06-18 05:37] VITALS: BP 120/80
--- NOTE | 2016-06-18 08:49 | PN- Housestaff ---
MADHU BARRY 06/18/16 0839: Subjective Follow-up For: weakness anemia Subjective: Seen and examined patient, continues to complain of weakness and tiredness. Denies chest pain, palpitations, shortness of breath. Review of Systems Constitutional: Reports: malaise, weakness. Denies: chills, diaphoresis, fever, unexplained weight loss. Cardiovascular: Denies: chest pain, edema, orthopena, palpitations, peripheral edema, syncope. Respiratory: Denies: cough, hemoptysis, orthopnea, short of breath, sputum production, stridor, wheezing. Objective Last 24 Hrs of Vital Signs/I&O Vital Signs Date Time Temp Pulse Resp B/P Pulse O2 O2 Flow FiO2 Ox Delivery Rate 06/18 0537 97.9 88 20 120/80 100 Room Air 06/17 2238 97.6 90 20 124/80 98 Room Air 06/17 1905 97.7 92 20 132/70 97 Room Air 06/17 1640 95.7 85 16 163/70 Room Air 06/17 1512 96.2 86 16 143/72 100 Room Air 06/17 1144 94.7 86 16 147/72 100 Room Air 06/17 1040 88 136/74 06/17 0929 20 99 Room Air 06/17 0924 98.4 95 136/81 Intake & Output 06/18 1600 06/18 0800 06/18 0000 Intake Total 800 440 Output Total 0 Balance 800 440 Intake, IV 800 200 Intake, Oral 240 Output, Urine 0 Patient 160 lb Weight Physical Exam General Appearance: Alert, Oriented X3, Cooperative, No Acute Distress Cardiovascular: Normal S1, Normal S2, No Murmurs Lungs: Clear to Auscultation, Normal Air Movement Abdomen: Normal Bowel Sounds, No Tenderness Current Medications: Current Medications Sig/Kvng Start time Last Medication Dose Route Stop Time Status Admin Acetaminophen 650 MG Q8P PRN 06/17 1800 AC PO Aspirin 325 MG DAILY 06/18 1000 AC PO Atorvastatin Calcium 20 MG DAILY 06/18 1000 CAN PO Folic Acid 1 MG DAILY 06/18 1000 AC PO Morphine Sulfate 2 MG DAILY PRN 06/17 1800 AC IV Nystatin 1 ROBIN BID 06/17 2200 AC 06/17 TOP 2135 Oxybutynin Chloride 2.5 MG BID 06/17 2200 AC 06/17 PO 2135 Sodium Chloride 1,000 ML .Q10H 06/17 1745 DC 06/17 IV 06/18 0344 1832 Sodium Chloride 1,000 ML BOLUS ONE 06/17 1015 DC 06/17 IV 06/17 1114 1123 Last 24 Hrs of Lab/Taran Results Last 24 Hrs of Labs/Mics: Laboratory Tests 06/17/16 1438: Lactic Acid 1.4 06/17/16 1138: Urinalysis MOD H, Urine Color YEL, Urine Clarity HAZY H, Urine pH 6.0, Ur Specific [place] 1.025, Urine Protein 30 H, Urine Ketones TRACE H, Urine Nitrite NEG, Urine Bilirubin MOD H, Urine Urobilinogen >=8.0 H, Ur Leukocyte Esterase NEG, Ur Microscopic SEDIMENT EXAMINED, Urine RBC 1-3, Urine WBC RARE, Ur Epithelial Cells MANY H, Hyaline Casts 10-15 H, Granular Casts 1-3 H, Urine Mucus MOD H, Urine Hemoglobin NEG, Urine Glucose NEG 06/17/16 1010: Anion Gap 16, Estimated GFR 49 L, BUN/Creatinine Ratio 29.1 H, Glucose 86, Calcium 8.3 L, Iron 41, TIBC 138 L, Ferritin 1470.0 H, Total Bilirubin 1.8 H , AST 227 H, ALT 122 H, Alkaline Phosphatase 195 H, Troponin I < 0.01, Total Protein 5.6 L, Albumin 2.3 L, Globulin 3.3, Albumin/Globulin Ratio 0.7 L, Vitamin B12 987 H, 25-OH Vitamin D Total 8.7 L, Folate 3.3 06/17/16 0930: Lactic Acid 5.0 H, PT 14.8 H, INR 1.41 H, APTT 28, CBC w Diff NO MAN DIFF REQ , RBC 2.85 L, MCV 92.9, MCH 31.0, RDW 25.7 H, MPV 9.5, Gran % 75.9 H, Lymphocytes % 20.4 L, Monocytes % 2.7, Eosinophils % 1.0, Basophils % 0 L, Absolute Granulocytes 6.2, Absolute Lymphocytes 1.7, Absolute Monocytes 0.2, Absolute Eosinophils 0.1, Absolute Basophils 0, PUBS MCHC 33.4 Microbiology 06/17 1438 BLOOD: Blood Culture - RECD 06/17 1120 BLOOD: Blood Culture - RES GRAM POSITIVE COCCI Assessment/Plan Assessment: 70-year-old woman with past medical history significant for rheumatoid arthritis on methotrexate, hypertension, hyperlipidemia, thyroid cancer status post surgery, history of stomach cancer in grandmother, recurrent falls, brought in for weakness and anemia. Continues to complain of weakness today Problem List: Generalized weakness/anemia vs malignancy PT to evaluate and treat Guaiac all stools One out of 2/2 cultures growing gram-positive cocci in clusters, she is afebrile overnight one dose of vancomycin given will obtain CT of chest with IV to look for any malignancy Vitamin D deficiency We'll start on 50,000 units weekly patient also be discharged on the same for a total of 8 weeks Transaminitis will repeat LFT tommorrow, unsure etiology at this time Stage II decubitus ulcer wound care and wound consult Full CODE STATUS DVT prophylaxis with ALPS Problem List: 1. HTN (hypertension) 2. Transaminitis 3. Stage II decubitus ulcer 4. Anemia Pain Ratin Pain Location: Not applicable Pain Goal: Pain 4 or less Pain Plan: current regimen Tomorrow's Labs & Rationales: cbc/bep/hepatitis panel SHERRY PATHAK MD 06/18/16 1158: Attending MD Review Statement Attending Statement Attending MD Statement: examined this patient, discuss w/resident/PA/FIELD ENGINEER, agreed w/resident/PA/FIELD ENGINEER, reviewed EMR data (avail) Attending Assessment/Plan: 70F PMH rheumatoid arthritis on methotrexate, HTN, HLD thyroid cancer status post surgery, history of stomach cancer in grandmother, recurrent falls admitted with generalized weakness, recurrent falls, and unable to ambulate. She was found on admission to have new anemia with Hgb 8.8, severe Vitamin D deficiency, CKD stage 3, transaminitis. She also reports 47 pound weight loss over the past 6 months. Symptoms are highly suspicious for underlying malignancy. Patient has not had any age-appropriate cancer screening. Patient also with large sacral decubitus ulcer. Blood cultures growing GPC in both sets. Afebrile, normal WBC. 1. Recurrent falls 2. Generalized weakness 3. Vitamin D deficiency 4. Chronic anemia 5. Unintentional weight loss 6. Transaminitis 7. Unable to ambulate 8. CKD stage 3 9. Rheumatoid arthritis 10. Essential hypertension 11. Sacral decubitus ulcer Plan - Continue on general medicine - May give dose of Vancomycin until culture results return - Wound care evaluation for sacral ulcer, possible source of bacteremia - Replete vitamin D with 50,000 units of ergocalciferol weekly plus daily vitamin D and calcium supplementation - Will require outpatient DEXA scan - Obtain CT chest with contrast to further characterize opacity on CXR - Outpatient colonoscopy and possible EGD - Send hepatitis serologies - Outpatient mammogram - PT evaluation - Check lipids, HbA1c - DVT PPx
[2016-06-18 11:40] LABS: ABSOLUTE BASOPHIL COUNT 0 /CUMM (0.0-0.2); ABSOLUTE EOSINOPHIL COUNT 0.1 /CUMM (0.0-0.7); ABSOLUTE GRANULOCYTE CT 8.4 /CUMM (1.4-6.5); ABSOLUTE MONOCYTE COUNT 0.2 /CUMM (0.10-0.60); BASOPHIL % 0 % (0.0-2.0); EOSINOPHIL % 0.6 % (0-5); HEMATOCRIT 26.9 % (37-47); MEAN CORPUSCULAR HGB 30.8 PG (27.0-31.0); MEAN CORPUSCULAR VOLUME 93.4 FL (81.0-99.0); MEAN PLATELET VOLUME 10.1 FL (7.4-10.4); PLATELET COUNT 204 /CUMM (130-400); RBC DISTRIBUTION WIDTH 26.4 % (11.5-14.5); RED BLOOD CELL CT 2.88 /CUMM (4.20-5.40); WHITE BLOOD CELL COUNT 10.6 /CUMM (4.8-10.8)
[2016-06-18 14:11] VITALS: BP 100/58
--- NOTE | 2016-06-18 15:29 | NUR ---
WOUND CARE: REQUESTED BY NURSING STAFF TO EVALUATE PT FOR SKIN ALTERATIONS PRESENT ON ADMISSION - PTS SON AND GRANDSON AT TIME OF ASSESSMENT OFFERED HX - REPORT THAT PT HAS HAD WOUNDS FOR WEEKS AT HOME, BEING CARED FOR BY [facility] WITH (?) ALGINATE DRESSING UPON ASSESSMENT, PT NOTED WTIH (2) UNSTAGEABLE PRESSURE INJURIES TO CARIE BUTTOCKS - LEFT BUTT 2.2 X 3.2 CM ADN RIGHT BUTTOCKS 3.5 X 2.8 CM 80% MOIST YELLOW SLOUGH THROUGHOUT WITH BUDS OF GRANULATION NOTED THROUGHOUT WOUND BASE - PERIWOUND UNREMARKABLE - SM AMOUNT SEROUS DRNG - NO EVIDENCE OF INFECTION - NO EXPOSED STRUCTURES VISUALIZED - LEFT ELBOW UNSTAGEABLE 0.2 X 0.1 CM PRESENTS DRIED SCABBED AREA - LEFT BREAST PRESENTS WITH MULTIPLE AREAS OF FULL THICNKESS BREAKDOWN TO INFERIOR ASPECT OF BREAST WITH PREDOMINANTLY YELLOW FILL MULTIPLE < 1 CM CIRCULAR SHAPED LESIONS - ATYPICAL TO PRESSURE RELATED CHANGES DUE TO LOCATION AND PRESENTATION - UNABLE TO PALPATE MASSES, HOWEVER INVERTED NIPPLE IS PRESENT ON LEFT WITH NORMAL PROTRUSION NOTED TO RIGHT NIPPLE - ETIOLOGY UNKNOWN AT THIS TIME IMPRESSION: UNSTAGEABLE PRESSURE INJURIES CARIE BUTTOCKS, UNSTAGEABLE LEFT ELBOW, FULL THICKNESS LESIONS UNKNOWN AT PRESENT IF PRESSURE RELATED LEFT BREAST RECOMMENDATION: CLEANSE CARIE BUTTOCKS WITH NS FB SANTYL OINTMENT FB XEROFORM GAUZE AND DPD DAILY AND PRN - SIDELYING POSITION - CONT WITH GROUP 2 MATTRESS PLEASE - CELANSE BREAST WOUNDS WITH NS FB ADAPTIC AND DPD DAILY - CONSIDER DERM OR PLASTICS EVAL LEFT BREAST TO FURTHER R/O CAUSATIVE FACTORS
--- NOTE | 2016-06-18 17:08 | Cons- Gastroenterology ---
General Information and HPI Consulting Request Date of Consult: 06/18/16 Requested By: SHERRY PATHAK MD Reason for Consult: Anemia, weight loss, abnormal LFTs. Source of Information: patient Exam Limitations: poor historian, medical records are elsewhere! History of Present Illness: 70-year-old female, HTN/HLD, non-DM, rheumatoid arthritis x 11 years, TIA/CVA , HH, GERD, followed by Dr. Zambrano for primary care & Dr. Orlando for GI in [place], [place]. Unfortunately, there are no old medical records in the [place] computer, prior to her admission of 06/17/2016. She reportedly had a "benign 16 lb tumor removed from her abdomen in 1999 at [facility]." *Records erroneously states she had thyroid surgery for a tumor, but this is not the case. *She was previously on Humira for rheumatoid arthritis, and most recently, switched to MTX for her RA. She is a horrible historian and cannot recall the name of her sprinkler repair technician who prescribes this for her in [place], [place]. She also is uncertain as to how long she has been on the MTX. The patient was admitted to [facility] 06/17/2016 after a witnessed mechanical fall, occurring after transferring from her bed to a wheelchair. There was no associated LOC, head trauma, CP, SOB, palpitations, or seizure activity. The falls have happened twice over the past 3 months. She also incidentally reported a 47 pound weight loss over the previous 6 months, going from 167 lbs to 120 lbs, since 11/2015. She has never had a baseline colonoscopy. She saw Dr. Orlando for this for GI a few months ago, in [place], [place], who recommended a colonoscopy and a CT of the abdomen, however the patient refuses this. She allegedly had an EGD around 1999 , results of which are unknown, but she denies any histoy of PUD. She notes generalized progressive weakness over the past few months. She also notes loss of appetite. No nausea, vomiting, or hematemesis. The patient has reflux, for which he is on outpatient Protonix. She is somewhat vague as to whether she has abdominal pain. There is no definite early satiety. There is mild constipation , without any diarrhea, obstipation, tenesmus or BRBPR. There are no rashes, but she has chronic arthralgias attributed to the RA. She does have some dyspnea on exertion. *We have no knowledge of her baseline LFTs or CBC. She denies any cigarettes, alcohol, illicit drug use, or NSAIDs. She is on full-strength aspirin 325 mg daily. Although she denies smoking, imaging studies are suggestive of COPD. *Stools were OB negative on digital exam on adnission, as per architectural intern. 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 *Imaging studies are limited without IV contrast, in view of decreased GFR. Family history for MGM- gastric Ca, M- "neck tumor", F- EtOH liver disease. *Of note, in addition to MTX, the patient reportedly was on Atorvastatin as an outpatient. 06/17/2016: WBC 8.1, H/H 8.8/26.5, nl MCV 92.9, elevated RDW 25.7, PLT 204, PT 14.8, INR 1.41, PTT 28; glucose 86, BUN/Cr 32/1.1, GFR 49, normal electrolytes, except bicarbonate 21, AG 16, albumin 2.3, globulin 3.3, TBil 1.8 (without fracs ), alk phos 195, AST 227, ALT 122, Fe 41, TIBC 138, Fe sat 29.7%, ferritin 1470, B12 987, low normal folate 3.3, low Vit D 8.7, troponin < .01, nl lactate 1.4; U /A- hazy, yellow, 1.025, 6.0, 1-3 RBC, rare WBC, 10-15 hyaline casts, 1-3 granular casts, few bacteria, tr ketone, mod bili, 30+ protein, > 8.0 urobilinogen; neg nitrite, neg esterase 06/18/2016: WBC 10.6, H/H 8.9/26.9, PLT 204, BUN/Cr 35/1.1, HCO3 18, AG 12, alb 2.3, glob 3.3, TBil 1.8, DBil 1.3, alk phos 199, AST 228, ALT 136 06/17/2016: PORTABLE CXR- A vague 1.8 cm rounded opacity is seen in the left upper lung overlying the left sixth rib posteriorly. DJD. Recommend CT thorax for further evaluation to exclude pulmonary lesion. Alternatively, follow-up PA and lateral chest radiographs could be obtained. The lungs are hyperlucent bilaterally suspicious for underlying emphysema. No evidence of pulmonary edema. 06/17/2016: US ABDOMEN LIMITED- Diffuse increased echogenicity of the liver which may be related to fatty infiltration. Gallbladder not definitely identified and contracted gallbladder with calculi not excluded. CBD 4 mm. No tenderness to palpation present to suggest acute cholecystitis. 06/17/2016: CT ABDOMEN AND PELVIS WITHOUT CONTRAST- 1. Cholelithiasis without CT evidence of cholecystitis. 2. No biliary ductal dilatation demonstrated. 3. Possible mild hepatic steatosis. 4. No acute bowel pathology demonstrated. 5. Suspect a 0.8 cm cyst extending anteriorly off of the pancreatic head. Recommend attention on follow-up imaging to ensure future stability. Comparison with any prior outside abdominal CT or MRI could be helpful to establish stability. 6. Additional findings as above. MYRNA. 06/17/2016: EKG- NSR @ 86, LVH, PRWP. 06/18/2016: CT CHEST WITHOUT CONTRAST- 1. Mild emphysema with several scattered benign-appearing noncalcified 0.2 to 0.3 cm noncalcified micronodules. In the setting of underlying obstructive lung disease, short interval follow-up CT scan in 12 months is recommended to exclude suspicious interval growth. 2. Scattered areas of mucus plugging in small airways. These can also be reassessed at the time of the above suggested follow-up CT scan. 3. No adenopathy. 4. Severe atherosclerotic calcifications of the coronary arteries and left renal artery. 5. Cholelithiasis. 6. Incompletely imaged 1 cm exophytic cyst in the region of the pancreatic head. Please refer to the CT scan of the abdomen and pelvis dictation from 06/17/2016 for further description and recommendation. 7. Osteopenia with multiple vertebral compression deformities. Allergies/Medications Allergies: Coded Allergies: Penicillins (UNKNOWN 03/15/16) Home Med List: Aspirin (Lite Coat Aspirin) 325 MG TABLET 1 TAB PO DAILY HEART HEALTH ( Reported) Atorvastatin Calcium 20 MG TABLET 1 TAB PO DAILY CHOL (Reported) Folic Acid 1 MG TABLET 1 TAB PO DAILY SUPPLEMENT (Reported) Methotrexate 2.5 MG TABLET 6 TAB PO QW ARTHRITIS (Reported) Metoprolol Succ XL (Toprol XL) 25 MG TAB 1 TAB PO DAILY htn Nystatin 100,000 UNIT/GRAM CREAM..G. 1 ROBIN TOP BID RASH (Reported) apply to affected area(s) Pantoprazole Sodium 40 MG TABLET.DR 1 TAB PO DAILY GERD (Reported) Tolterodine Tartrate 2 MG TABLET 1 TAB PO BID OVERACTIVE BLADDER (Reported) Current Medications: Current Medications Sig/Kvng Start time Last Medication Dose Route Stop Time Status Admin Acetaminophen 650 MG Q8P PRN 06/17 1800 AC PO Aspirin 325 MG DAILY 06/18 1000 AC 06/18 PO 1132 Ergocalciferol 50,000 IU ONCE ONE 06/18 1015 DC PO 06/18 1016 Folic Acid 1 MG DAILY 06/18 1000 AC 06/18 PO 1132 Morphine Sulfate 2 MG DAILY PRN 06/17 1800 AC IV Nystatin 1 ROBIN BID 06/17 2200 AC 06/18 TOP 1133 Oxybutynin Chloride 2.5 MG BID 06/17 2200 AC 06/18 PO 1132 Sodium Chloride 1,000 ML Q8H 06/18 1330 AC 06/18 IV 06/18 2129 1626 Sodium Chloride 1,000 ML .Q10H 06/17 1745 DC 06/17 IV 06/18 0344 1832 Vancomycin HCl 1,250 MG ONCE ONE 06/18 0945 DC 06/18 Dextrose/Water 250 ML IV 06/18 1044 1133 Vancomycin HCl 1,250 MG ONCE ONE 06/18 0900 CAN Dextrose/Water 250 ML IV 06/18 0959 Past History Travel History Traveled to [place] past 21 day No Medical History Blood Transfusion Hx: No (pt not sure) Neurological: CVA, TIA EENT: cataracts Cardiovascular: hypertension, hyperlipidemia Respiratory: COPD (by imaging studies) Gastrointestinal: GERD, hiatal hernia Hepatic: NONE Renal: CKD stage 3a Musculoskeletal: falls, osteoarthritis, rheumatoid arthritis, osteopenia Psychiatric: NONE Endocrine: vitamin D deficiency, osteopenia Blood Disorders: anemia Cancer(s): NONE 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 FHx: stomach cancer FATHER, ; Cause: Alcoholic liver disease. Psychosocial History Where Do You Live? Home Who Do You Live With? spouse Services at Home: Home Health Aide, Nursing, Occupational Therapy Primary Language: Greek Smoking Status: Never Smoked ETOH Use: denies use Illicit Drug Use: denies illicit drug use Living Will? no Power of Senior Consumer Insights Consultant/HCP? no Other Social History: Marrie. Poor historian . Lives with . No cigarettes, drugs or EtOH. 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 2 sons & 1 dtr- [employer]. Functional Ability ADLs Independent: dressing, eating. Unknown: toileting, bathing. Ambulation: walker IADLs Independent: telephone. Needs Assist: shopping, housework, transportation. Unknown: finances, food prep, medication admin. Employment History Employment: Retired Profession/Employer: [employer] Review of Systems Review of Systems: Full 14 point review of systems otherwise noncontributory, and as above, although the patient is a very poor historian. Review of Systems Constitutional: Reports: weakness, unexplained weight loss. Denies: chills, diaphoresis, fever, malaise. EENTM: Denies: blurred vision, double vision, visual changes, eye pain, eye drainage, eye tearing, icterus, ear discharge, ear pain, ear redness, hearing changes, nasal congestion, epistaxis, nasal pain, throat pain, throat swelling, mouth pain, tooth pain. Cardiovascular: Reports: chest pain (with exertion; SANTANA), peripheral edema. Denies: edema, orthopena, palpitations, syncope. Respiratory: Reports: short of breath. Denies: cough, hemoptysis, orthopnea, sputum production, stridor, wheezing. GI: Reports: constipation (mild). Denies: abdominal pain, bloating, diarrhea, distention, bowel incontinence, melena, nausea, bloody stool, changes in stool, vomiting, steatorrhea. Genitourinary: Denies: discharge, dysuria, frequency, hematuria, hesitation, nocturia, pain, urgency. Musculoskeletal: Reports: joint pain (RA). Denies: back pain, gout, joint swelling, muscle pain, muscle stiffness, neck pain. Skin: Reports: change in skin color (diffuse ecchymoses). Denies: see HPI, cysts, change in hair/nails, dryness, erythema, jaundice, lesions, lymphangitis, lumps, moles, rash. Neurological/Psychological: Reports: weakness. Denies: anxiety, ataxia, cognitive dysfunction, confusion, depressed, dementia, emotional problems, headache, numbness, paresthesia, pre- existing deficit, petit mal seizures, tingling, tremors, tonic-clonic seizures, unable to move lower ext, unable to move upper ext. Hematologic/Endocrine: Reports: bruising. Denies: bleeding, polyuria, polydipsia. Immunologic/Allergic: Denies: splenectomy, HIV/AIDS, lymphadenopathy. All Other Systems: Reviewed and Negative Exam & Diagnostic Data Vital Signs and I&O Vital Signs Date Time Temp Pulse Resp B/P Pulse O2 O2 Flow FiO2 Ox Delivery Rate 06/18 1411 97.7 91 20 100/58 99 Room Air 06/18 1408 Room Air 06/18 0537 97.9 88 20 120/80 100 Room Air 06/17 2238 97.6 90 20 124/80 98 Room Air 06/17 1905 97.7 92 20 132/70 97 Room Air Intake & Output 06/18 1600 06/18 0400 06/17 1600 06/17 0400 06/16 1600 06/16 0400 Intake Total 800 440 10 Output Total 0 Balance 800 440 10 Intake, IV 800 200 10 Intake, Oral 240 Output, Urine 0 Patient 120 lb 160 lb 120 lb Weight Physical Exam: Well-developed, malnourished, right handed, elderly female, in no apparent distress. Sclera anicteric. Conjunctiva pink. Oropharynx clear. Poor denttion. Slightly dry mucus membranes. No oral thrush. No aphthous ulcers. There is no adenopathy, thyromegaly, or JVD. No peripheral stigmata of inflammatory bowel disease or chronic liver disease on exam. No spiders on the anterior chest wall. Breast & pelvic: API. No CVA tenderness. Lungs: clear to A&P, with slightly prolonged expiratory phase. No wheezing, rales or rhonchi. Heart exam: regular rate rhythm, S1 and S2, without any murmur. Occasional ectopic beat. Abdominal exam: normal bowel sounds, soft belly, nontender, without guarding or rebound. No mass. No organomegaly. No fluid shift. No pulsatile mass. Repeat digital rectal exam: refused by patient (previously OB-negative API, earlier this admission). Extremities: without cyanosis or clubbing. 1+ pitting edema of LE B/ L. No palpable cords. Severe RA. Diffuse ecchymoses with history of multiple falls. Distal pulses 1+ bilaterally. DTRs 1+ bilaterally. Alert and oriented x 3, but very forgetful, tangential & a poor historian. Gait not assessed. CN II- XII intact. Motor 4/5 B/L. Results Pertinent Lab Results: Laboratory Tests 06/18 06/18 06/17 1110 1020 1438 Chemistry Sodium (137 - 145 mmol/L) 139 Potassium (3.5 - 5.1 mmol/L) 3.5 Chloride (98 - 107 mmol/L) 109 H Carbon Dioxide (22 - 30 mmol/L) 18 L Anion Gap (5 - 16) 12 BUN (7 - 17 mg/dL) 35 H Creatinine (0.5 - 1.0 mg/dL) 1.1 H Estimated GFR (>60 ml/min) 49 L BUN/Creatinine Ratio (7 - 25 %) 31.8 H Lactic Acid (0.7 - 2.1 mmol/L) 1.4 Total Bilirubin (0.2 - 1.3 mg/dL) 1.8 H Direct Bilirubin (< 0.4 mg/dL) 1.3 H AST (14 - 36 U/L) 228 H ALT (9 - 52 U/L) 136 H Alkaline Phosphatase (<127 U/L) 199 H Total Protein (6.3 - 8.2 g/dL) 5.6 L Albumin (3.5 - 5.0 g/dL) 2.3 L Hematology CBC w Diff NO MAN DIFF REQ WBC (4.8 - 10.8 /CUMM) 10.6 RBC (4.20 - 5.40 /CUMM) 2.88 L Hgb (12.0 - 16.0 G/DL) 8.9 L Hct (37 - 47 %) 26.9 L MCV (81.0 - 99.0 FL) 93.4 MCH (27.0 - 31.0 PG) 30.8 RDW (11.5 - 14.5 %) 26.4 H Plt Count (130 - 400 /CUMM) 204 MPV (7.4 - 10.4 FL) 10.1 Gran % (42.2 - 75.2 %) 79.0 H Lymphocytes % (20.5 - 51.1 %) 18.9 L Monocytes % (1.7 - 9.3 %) 1.5 L Eosinophils % (0 - 5 %) 0.6 Basophils % (0.0 - 2.0 %) 0 L Absolute Granulocytes (1.4 - 6.5 /CUMM) 8.4 H Absolute Lymphocytes (1.2 - 3.4 /CUMM) 2.0 Absolute Monocytes (0.10 - 0.60 /CUMM) 0.2 Absolute Eosinophils (0.0 - 0.7 /CUMM) 0.1 Absolute Basophils (0.0 - 0.2 /CUMM) 0 PUBS MCHC (33.0 - 37.0 G/DL) 33.0 06/17 06/17 1138 1010 Chemistry Sodium (137 - 145 mmol/L) 139 Potassium (3.5 - 5.1 mmol/L) 3.7 Chloride (98 - 107 mmol/L) 102 Carbon Dioxide (22 - 30 mmol/L) 21 L Anion Gap (5 - 16) 16 BUN (7 - 17 mg/dL) 32 H Creatinine (0.5 - 1.0 mg/dL) 1.1 H Estimated GFR (>60 ml/min) 49 L BUN/Creatinine Ratio (7 - 25 %) 29.1 H Glucose (65 - 99 mg/dL) 86 Calcium (8.4 - 10.2 mg/dL) 8.3 L Iron (37 - 170 ug/dL) 41 TIBC (265 - 497 ug/dL) 138 L Ferritin (11.1 - 264 ng/mL) 1470.0 H Total Bilirubin (0.2 - 1.3 mg/dL) 1.8 H AST (14 - 36 U/L) 227 H ALT (9 - 52 U/L) 122 H Alkaline Phosphatase (<127 U/L) 195 H Troponin I (< 0.11 ng/ml) < 0.01 Total Protein (6.3 - 8.2 g/dL) 5.6 L Albumin (3.5 - 5.0 g/dL) 2.3 L Globulin (1.9 - 4.2 gm/dL) 3.3 Albumin/Globulin Ratio (1.1 - 2.2 %) 0.7 L Vitamin B12 (239 - 931 pg/mL) 987 H 25-OH Vitamin D Total (30 - 100 ng/ml) 8.7 L Folate (2.76 - 20.0 ng/mL) 3.3 Urines Urinalysis MOD H Urine Color (YEL,AMB,STR) YEL Urine Clarity (CLEAR) HAZY H Urine pH (5.0 - 8.0) 6.0 Ur Specific [place] (1.001 - 1.035) 1.025 Urine Protein (NEG,<30 MG/DL) 30 H Urine Ketones (NEG) TRACE H Urine Nitrite (NEG) NEG Urine Bilirubin (NEG) MOD H Urine Urobilinogen (0.1 - 1.0 EU/dl) >=8.0 H Ur Leukocyte Esterase (NEG) NEG Ur Microscopic SEDIMENT EXAMINED Urine RBC (0 - 5 /HPF) 1-3 Urine WBC (0 - 2 /HPF) RARE Ur Epithelial Cells (NONE,FEW) MANY H Hyaline Casts (0/LPF) 10-15 H Granular Casts (NONE /LPF) 1-3 H Urine Mucus (FEW,NONE) MOD H Urine Hemoglobin (NEG) NEG Urine Glucose (N MG/DL) NEG 06/17 0930 Chemistry Lactic Acid (0.7 - 2.1 mmol/L) 5.0 H Coagulation PT (9.4 - 12.5 SEC) 14.8 H INR (0.90 - 1.19) 1.41 H APTT (25 - 37 SEC) 28 Hematology CBC w Diff NO MAN DIFF REQ WBC (4.8 - 10.8 /CUMM) 8.1 RBC (4.20 - 5.40 /CUMM) 2.85 L Hgb (12.0 - 16.0 G/DL) 8.8 L Hct (37 - 47 %) 26.5 L MCV (81.0 - 99.0 FL) 92.9 MCH (27.0 - 31.0 PG) 31.0 RDW (11.5 - 14.5 %) 25.7 H Plt Count (130 - 400 /CUMM) 204 MPV (7.4 - 10.4 FL) 9.5 Gran % (42.2 - 75.2 %) 75.9 H Lymphocytes % (20.5 - 51.1 %) 20.4 L Monocytes % (1.7 - 9.3 %) 2.7 Eosinophils % (0 - 5 %) 1.0 Basophils % (0.0 - 2.0 %) 0 L Absolute Granulocytes (1.4 - 6.5 /CUMM) 6.2 Absolute Lymphocytes (1.2 - 3.4 /CUMM) 1.7 Absolute Monocytes (0.10 - 0.60 /CUMM) 0.2 Absolute Eosinophils (0.0 - 0.7 /CUMM) 0.1 Absolute Basophils (0.0 - 0.2 /CUMM) 0 PUBS MCHC (33.0 - 37.0 G/DL) 33.4 Imaging/Other Studies: 06/17/2016: PORTABLE CXR- A vague 1.8 cm rounded opacity is seen in the left upper lung overlying the left sixth rib posteriorly. DJD. Recommend CT thorax for further evaluation to exclude pulmonary lesion. Alternatively, follow-up PA and lateral chest radiographs could be obtained. The lungs are hyperlucent bilaterally suspicious for underlying emphysema. No evidence of pulmonary edema. 06/17/2016: US ABDOMEN LIMITED- Diffuse increased echogenicity of the liver which may be related to fatty infiltration. Gallbladder not definitely identified and contracted gallbladder with calculi not excluded. CBD 4 mm. No tenderness to palpation present to suggest acute cholecystitis. 06/17/2016: CT ABDOMEN AND PELVIS WITHOUT CONTRAST- 1. Cholelithiasis without CT evidence of cholecystitis. 2. No biliary ductal dilatation demonstrated. 3. Possible mild hepatic steatosis. 4. No acute bowel pathology demonstrated. 5. Suspect a 0.8 cm cyst extending anteriorly off of the pancreatic head. Recommend attention on follow-up imaging to ensure future stability. Comparison with any prior outside abdominal CT or MRI could be helpful to establish stability. 6. Additional findings as above. MYRNA. 06/17/2016: EKG- NSR @ 86, LVH, PRWP. 06/18/2016: CT CHEST WITHOUT CONTRAST- 1. Mild emphysema with several scattered benign-appearing noncalcified 0.2 to 0.3 cm noncalcified micronodules. In the setting of underlying obstructive lung disease, short interval follow-up CT scan in 12 months is recommended to exclude suspicious interval growth. 2. Scattered areas of mucus plugging in small airways. These can also be reassessed at the time of the above suggested follow-up CT scan. 3. No adenopathy. 4. Severe atherosclerotic calcifications of the coronary arteries and left renal artery. 5. Cholelithiasis. 6. Incompletely imaged 1 cm exophytic cyst in the region of the pancreatic head. Please refer to the CT scan of the abdomen and pelvis dictation from 06/17/2016 for further description and recommendation. 7. Osteopenia with multiple vertebral compression deformities. Assessment/Plan Assessment/Recommendations: 70-year-old female, HTN/HLD, non-DM, rheumatoid arthritis x 11 years, TIA/CVA , HH, GERD, followed by Dr. Zambrano for primary care & Dr. Orlando for GI in [place], [place]. Unfortunately, there are no old medical records in the [place] computer, prior to her admission of 06/17/2016. She reportedly had a "benign 16 lb tumor removed from her abdomen in 1999 at [facility]." *Records erroneously states she had thyroid surgery for a tumor, but this is not the case. *She was previously on Humira for rheumatoid arthritis, and most recently, switched to MTX for her RA. She is a horrible historian and cannot recall the name of her sprinkler repair technician who prescribes this for her in [place], [place]. She also is uncertain as to how long she has been on the MTX. The patient was admitted to [facility] 06/17/2016 after a witnessed mechanical fall, occurring after transferring from her bed to a wheelchair. There was no associated LOC, head trauma, CP, SOB, palpitations, or seizure activity. The falls have happened twice over the past 3 months. She also incidentally reported a 47 pound weight loss over the previous 6 months, going from 167 lbs to 120 lbs, since 11/2015. She has never had a baseline colonoscopy. She saw Dr. Orlando for this for GI a few months ago, in [place], [place], who recommended a colonoscopy and a CT of the abdomen, however the patient refuses this. She allegedly had an EGD around 1999 , results of which are unknown, but she denies any histoy of PUD. She notes generalized progressive weakness over the past few months. She also notes loss of appetite. No nausea, vomiting, or hematemesis. The patient has reflux, for which he is on outpatient Protonix. She is somewhat vague as to whether she has abdominal pain. There is no definite early satiety. There is mild constipation , without any diarrhea, obstipation, tenesmus or BRBPR. There are no rashes, but she has chronic arthralgias attributed to the RA. She does have some dyspnea on exertion. *We have no knowledge of her baseline LFTs or CBC. She denies any cigarettes, alcohol, illicit drug use, or NSAIDs. She is on full-strength aspirin 325 mg daily. Although she denies smoking, imaging studies are suggestive of COPD. *Stools were OB negative on digital exam on adnission, as per architectural intern. 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 *Imaging studies are limited without IV contrast, in view of decreased GFR. Family history for MGM- gastric Ca, M- "neck tumor", F- EtOH liver disease. *Of note, in addition to MTX, the patient reportedly was on Atorvastatin as an outpatient. 06/17/2016: WBC 8.1, H/H 8.8/26.5, nl MCV 92.9, elevated RDW 25.7, PLT 204, PT 14.8, INR 1.41, PTT 28; glucose 86, BUN/Cr 32/1.1, GFR 49, normal electrolytes, except bicarbonate 21, AG 16, albumin 2.3, globulin 3.3, TBil 1.8 (without fracs ), alk phos 195, AST 227, ALT 122, Fe 41, TIBC 138, Fe sat 29.7%, ferritin 1470, B12 987, low normal folate 3.3, low Vit D 8.7, troponin < .01, nl lactate 1.4; U /A- hazy, yellow, 1.025, 6.0, 1-3 RBC, rare WBC, 10-15 hyaline casts, 1-3 granular casts, few bacteria, tr ketone, mod bili, 30+ protein, > 8.0 urobilinogen; neg nitrite, neg esterase 06/18/2016: WBC 10.6, H/H 8.9/26.9, PLT 204, BUN/Cr 35/1.1, HCO3 18, AG 12, alb 2.3, glob 3.3, TBil 1.8, DBil 1.3, alk phos 199, AST 228, ALT 136 06/17/2016: PORTABLE CXR- A vague 1.8 cm rounded opacity is seen in the left upper lung overlying the left sixth rib posteriorly. DJD. Recommend CT thorax for further evaluation to exclude pulmonary lesion. Alternatively, follow-up PA and lateral chest radiographs could be obtained. The lungs are hyperlucent bilaterally suspicious for underlying emphysema. No evidence of pulmonary edema. 06/17/2016: US ABDOMEN LIMITED- Diffuse increased echogenicity of the liver which may be related to fatty infiltration. Gallbladder not definitely identified and contracted gallbladder with calculi not excluded. CBD 4 mm. No tenderness to palpation present to suggest acute cholecystitis. 06/17/2016: CT ABDOMEN AND PELVIS WITHOUT CONTRAST- 1. Cholelithiasis without CT evidence of cholecystitis. 2. No biliary ductal dilatation demonstrated. 3. Possible mild hepatic steatosis. 4. No acute bowel pathology demonstrated. 5. Suspect a 0.8 cm cyst extending anteriorly off of the pancreatic head. Recommend attention on follow-up imaging to ensure future stability. Comparison with any prior outside abdominal CT or MRI could be helpful to establish stability. 6. Additional findings as above. MRYNA. 06/17/2016: EKG- NSR @ 86, LVH, PRWP. 06/18/2016: CT CHEST WITHOUT CONTRAST- 1. Mild emphysema with several scattered benign-appearing noncalcified 0.2 to 0.3 cm noncalcified micronodules. In the setting of underlying obstructive lung disease, short interval follow-up CT scan in 12 months is recommended to exclude suspicious interval growth. 2. Scattered areas of mucus plugging in small airways. These can also be reassessed at the time of the above suggested follow-up CT scan. 3. No adenopathy. 4. Severe atherosclerotic calcifications of the coronary arteries and left renal artery. 5. Cholelithiasis. 6. Incompletely imaged 1 cm exophytic cyst in the region of the pancreatic head. Please refer to the CT scan of the abdomen and pelvis dictation from 06/17/2016 for further description and recommendation. 7. Osteopenia with multiple vertebral compression deformities. The patient is an extremely poor historian. Her anemia & abnormal LFTs are noted, albeit with OB-negative stool. She has refused a baseline colonoscopy & continues to do so. Additionally, she refuses any GI/liver workup whatsoever. She remotely had an EGD in 1999, the results of which are unknown. I am not certain what her baseline labs are, as they are all in the [place] area. I am not certain as to the cumulative dose of her MTX, which is known to give hepatotoxicity, especially when the total dose is > 1 gram. In addition to this, she was also on Atorvastatin, which can also be hepatotoxic. Imaging studies are somewhat limited, without IV contrast, in view of low GFR. The cholelithiasis is noted, which may or may not be incidental. Her CBD should be cleared. Additionally, she has fatty liver. There is also a cystic lesion in the head of the pancreas. The pulmonary nodules are noted. Differential diagnosis certainly also includes malignancy, especially with the unintentional weight loss of 47 pounds over the past 6 months, be it pancreatic, cholangiocarcinoma, or metastatic disease. Additionally, although the patient's iron saturation is normal, the elevated ferritin of 1470 is noted, HHC versus acute phase reactant. SUGGEST: *MRCP as patient allows. *Advise checking CEA & CA 19-9. *Consider genetic testing for HHC (i.e.- H63D, C282Y mutatios, etc.). *Outpatient EUS/EGD to check CBD/pancreas/ampulla, etc. as patient allows. *Colonoscopy as patient allows. * Check full Hepatitis A, B, & C serologies, DIMITRIOS, AMA, PANCA, A1AT level. 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 Add Vitamin E 800 IU daily for fatty liver & risk factor modification (i.e.- BP, glucose, HLD, etc. - she denies EtOH). Consider outpatient PET/CT to rule out malignancy. Folate repletion. Consider checking celiac panel (IgA, tTG Ab, DGP Ab). Consider pulmonary input. *The above diagnostic possibilities were discussed with the patient in detail, and she continues to refuse any further testing. *She is A & O x 3, & is aware that I cannot be held responsible for any adverse outcome or misdiagnosis, due to her noncompliance. A message was left with Dr. Pathak regarding the above. Further inpatient GI follow up as needed. She claims she will follow up with her printing machinist she previously refused a colonoscopy with, namely Dr. Orlando , in [place], [place]. Problem List: 1. Unintentional weight loss 2. Anemia 3. Abnormal LFTs 4. Fatty liver 5. Pancreatic cyst 6. Cholelithiasis 7. Elevated ferritin 8. Malnutrition Copies To: ZO YOUNG,SHERRY; ALEJANDRO YOUNG,SHAHAB Chawla; ALLAN YOUNG,YAIMA Jenkins Acknowledgment - Thank you for your consult request.
--- NOTE | 2016-06-18 18:10 | CT SCAN REPORT ---
EXAMINATION: CT CHEST WITHOUT CONTRAST CLINICAL INFORMATION: Weight loss and fatigue. Oval opacity underlying the left 6th rib. Evaluate for malignancy. COMPARISON: CT scan of the abdomen and pelvis dated 06/17/2016. Chest x-ray dated 06/17/2016. TECHNIQUE: Multidetector volumetric CT imaging of the chest was obtained noncontrast. Sagittal and coronal reformations were obtained. DLP: 199.35 mGy-cm FINDINGS: LUNGS: Mild centrilobular and paraseptal emphysema is seen. There are several scattered tiny 0.2 to 0.3 cm noncalcified micronodules seen in both upper lobes. In addition, there are several small densities within peripheral airways, most prominently seen in a branch of the right upper lobe airways (series 4, image 163), measuring 0.3 cm in average size, most consistent with mucus plugging. Linear subpleural bands are seen in the left lower lobe, consistent with subsegmental atelectasis. No other suspicious focal lung nodule or mass. No effusion or pneumothorax. Central airways patent. LYMPHOVASCULAR STRUCTURES: Aortic and heart size normal. No pericardial effusion. There are severe atherosclerotic calcifications of the coronary arteries and left renal artery. There are moderate thoracic aortic calcifications and abdominal aortic calcifications. No mediastinal, hilar or axillary adenopathy or free fluid collection. THYROID GLAND: Unremarkable to the extent included. UPPER ABDOMEN: There is a coarse calcification within the central right lobe of the liver. Several peripherally rim calcified gallstones are seen within the gallbladder. An approximately 1 cm diameter exophytic cyst is seen in region of the pancreatic head, incompletely included, similar to the previous study. Included portions of the solid organs in the upper abdomen within normal limits. BONES: Degenerative changes are seen in both shoulder joints, left greater than right. There is a mild dorsal kyphosis with diffuse osteopenia and multiple compression deformities of the thoracic spine, most severely affecting the T7 vertebral body, which has a near vertebral plana appearance. IMPRESSION: 1. Mild emphysema with several scattered benign-appearing noncalcified 0.2 to 0.3 cm noncalcified micronodules. In the setting of underlying obstructive lung disease, short interval follow-up CT scan in 12 months is recommended to exclude suspicious interval growth. 2. Scattered areas of mucus plugging in small airways. These can also be reassessed at the time of the above suggested follow-up CT scan. 3. No adenopathy. 4. Severe atherosclerotic calcifications of the coronary arteries and left renal artery. 5. Cholelithiasis. 6. Incompletely imaged 1 cm exophytic cyst in the region of the pancreatic head. Please refer to the CT scan of the abdomen and pelvis dictation from 06/17/2016 for further description and recommendation. 7. Osteopenia with multiple vertebral compression deformities.
[2016-06-18 22:06] VITALS: BP 100/60
--- NOTE | 2016-06-18 22:40 | NUR ---
PT BLADDER SCANNED AT 1100, REVEALED 100 ML. PT STILL HADN'T VOIDED AT 1600, BLADDER SCANNER OUT OF SERVICE. SPOKE TO MD ABOUT ISSUE, PLACED STRAIGHT CATH 1 TIME ORDER. STRAIGHT CATH RESULTED IN 175ML DARK RUTH URINE
[2016-06-19 06:13] VITALS: BP 120/80
--- NOTE | 2016-06-19 07:11 | PN- Housestaff ---
SHARON YOUNG,YAIMA 06/19/16 0710: Subjective Follow-up For: Anemia Weakness Subjective: Patient seen and examined. She is seen lying flat in bed fast asleep. She appears to be in no acute distress. Currently she is refusing to answer questions but when asked if she is in any pain or has any issues she shakes her head indicating no. Review of systems is unobtainable. No overnight events reported. Review of Systems Constitutional: Reports: see HPI. Objective Last 24 Hrs of Vital Signs/I&O Vital Signs Date Time Temp Pulse Resp B/P Pulse O2 O2 Flow FiO2 Ox Delivery Rate 06/19 0613 97.4 68 20 120/80 96 Room Air 06/18 2206 97.7 64 20 100/60 96 06/18 1411 97.7 91 20 100/58 99 Room Air 06/18 1408 Room Air Intake & Output 06/19 1600 06/19 0800 06/19 0000 Intake Total 400 500 Output Total 0 175 Balance 400 325 Intake, IV 400 300 Intake, Oral 200 Output, Urine 0 175 Physical Exam General Appearance: Cooperative, No Acute Distress Other Physical Findings: General -thin/frail elderly woman in no acute distress HEENT - NCAT Cardio - S1, S2 w/o murmurs/gallops/rubs Resp - CTA bilaterally w/o wheezing/rhochi/crackles GI - soft, nontender, nondistended, bowel sounds present Neuro -somnolent/lethargic, Extremities - no edema, pulses intact Current Medications: Current Medications Sig/Kvng Start time Last Medication Dose Route Stop Time Status Admin Acetaminophen 650 MG Q8P PRN 06/17 1800 AC PO Alprazolam 0.25 MG ONCE ONE 06/18 2000 DC 06/18 PO 06/18 2001 203 Aspirin 325 MG DAILY 06/18 1000 AC 06/18 PO 1132 Ergocalciferol 50,000 IU ONCE ONE 06/18 1015 DC PO 06/18 1016 Folic Acid 1 MG DAILY 06/18 1000 AC 06/18 PO 1132 Morphine Sulfate 2 MG DAILY PRN 06/17 1800 AC IV Nystatin 1 ROBIN BID 06/17 2200 AC 06/18 TOP 2039 Oxybutynin Chloride 2.5 MG BID 06/17 2200 AC 06/18 PO 2036 Sodium Chloride 1,000 ML Q8H 06/19 0415 AC 06/19 IV 06/19 1214 0434 Sodium Chloride 1,000 ML Q8H 06/18 1330 DC 06/18 IV 06/18 2129 1626 Vancomycin HCl 1,250 MG ONCE ONE 06/18 0945 DC 06/18 Dextrose/Water 250 ML IV 06/18 1044 1133 Vancomycin HCl 1,250 MG ONCE ONE 06/18 0900 CAN Dextrose/Water 250 ML IV 06/18 0959 Vitamin E 800 IU DAILY 06/19 1000 AC PO Last 24 Hrs of Lab/Taran Results Last 24 Hrs of Labs/Mics: Laboratory Tests 06/19/16 0610: Hemoglobin A1c Pending 06/19/16 0610: Sodium Pending, Potassium Pending, Chloride Pending, Carbon Dioxide Pending, Anion Gap Pending, BUN Pending, Creatinine Pending, BUN/Creatinine Ratio Pending , Triglycerides Pending, Cholesterol Pending, LDL Cholesterol, Calc Pending, HDL Cholesterol Pending, Cholesterol/HDL Ratio Pending, CBC w Diff Pending, WBC Pending, RBC Pending, Hgb Pending, Hct Pending, MCV Pending, MCH Pending, RDW Pending, Plt Count Pending, MPV Pending, PUBS MCHC Pending, Hepatitis A IgM Ab Pending, Hep Bs Antigen Pending, Hep B Core IgM Ab Conf Pending, Hepatitis C Antibody Pending 06/18/16 1110: CBC w Diff NO MAN DIFF REQ, RBC 2.88 L, MCV 93.4, MCH 30.8, RDW 26.4 H, MPV 10.1, Gran % 79.0 H, Lymphocytes % 18.9 L, Monocytes % 1.5 L, Eosinophils % 0.6, Basophils % 0 L, Absolute Granulocytes 8.4 H, Absolute Lymphocytes 2.0, Absolute Monocytes 0.2, Absolute Eosinophils 0.1, Absolute Basophils 0, PUBS MCHC 33.0 06/18/16 1020: Anion Gap 12, Estimated GFR 49 L, BUN/Creatinine Ratio 31.8 H, Total Bilirubin 1.8 H, Direct Bilirubin 1.3 H, AST 228 H, ALT 136 H, Alkaline Phosphatase 199 H, Total Protein 5.6 L, Albumin 2.3 L, DIMITRIOS Titer Pending, Anti-Nuclear Antibody Pending, Hepatitis A IgM Ab Pending, Hep Bs Antigen Pending, Hep B Core IgM Ab Conf Pending, Hepatitis C Antibody Pending Assessment/Plan Assessment: Patient is currently refusing any GI workup inpatient. She will require an outpatient endoscopic ultrasound for further evaluation of the pancreatic cyst in addition to obtaining an upper/lower endoscopy. Blood culture is growing coag-negative staph which most likely represents a contaminant. She continues to have decreased urine output which will be monitored. CT chest/abdomen/pelvis with contrast will be obtained today for further assessment of occult malignancy. Patient has multiple wounds around her breasts with other skin changes possibly business center representative of malignancy. Weakness possibly secondary to occult malignancy: Patient has a reported recent history of weight loss and weakness. CXR demonstraed a 1.8cm opacitiy possibly business center representative of an pulmonary nodule/ lesion. Abdominal US was unremarkable. 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 CT Chest further commented on both the previously decribed lesions and further elicited the presence of emphysema. -Vitamin E 800 units by mouth daily -GI Consult -PT evaluation -Daily LFTs -Outpatient endoscopic ultrasound for further evaluation of pancreatic cyst -Outpatient EGD/colonoscopy -Follow up CT chest/abdomen/pelvis with contrast Bacteremia: Blood cultures on 06/17/16 are growing gram positive cocci in clusters. - BCx (06/17/16): Coag negative staph Vitamind D Deficiency - stable, Vitamine D 50,000 PO QWeekly x8 weeks Stage II decubitus ulcer - wound care/wound consult Urinary Incontinence-chronic, continue oxybutynin 2.5 mg by mouth twice a day PT Assessment - Assist of 2, DC to STR Pain Plan: -Acetaminophen 650 mg every 8 hours as needed for pain 1-3 -Morphine 2 mg IV daily as needed for pain 7-10 Diet - Regular DVT PPx - ALPS Code Status - FULL CODE Problem List: 1. Anemia Pain Ratin Pain Location: None Pain Goal: Pain 4 or less Pain Plan: As noted in plan Tomorrow[facility] Labs & Rationales: CBC BEP LFT SHERRY PATHAK MD 06/19/16 1110: Attending MD Review Statement Attending Statement Attending MD Statement: examined this patient, discuss w/resident/PA/PHOTOGRAPHY TEACHER, agreed w/resident/PA/PHOTOGRAPHY TEACHER, reviewed EMR data (avail) Attending Assessment/Plan: 70F PMH rheumatoid arthritis on methotrexate, HTN, HLD thyroid cancer status post surgery, history of stomach cancer in grandmother, recurrent falls admitted with generalized weakness, recurrent falls, and unable to ambulate. She was found on admission to have new anemia with Hgb 8.8, severe Vitamin D deficiency, CKD stage 3, transaminitis. She also reports 47 pound weight loss over the past 6 months. Symptoms are highly suspicious for underlying malignancy. Patient has not had any age-appropriate cancer screening. Patient also with large sacral decubitus ulcer. Blood cultures growing coagulase negative staph in both sets. Afebrile, normal WBC. 1. Recurrent falls 2. Generalized weakness 3. Vitamin D deficiency 4. Chronic anemia 5. Unintentional weight loss 6. Transaminitis 7. Unable to ambulate 8. CKD stage 3 9. Rheumatoid arthritis 10. Essential hypertension 11. Sacral decubitus ulcer Plan - Continue on general medicine - No antibiotics - Wound care evaluation for sacral ulcer, possible source of bacteremia - Replete vitamin D with 50,000 units of ergocalciferol weekly plus daily vitamin D and calcium supplementation - Will require outpatient DEXA scan - CT scans show pancreatic and lung lesions that are not well characterized. Will try to obtain CT chest and abdomen/pelvis with contrast to further characterize lesions - Outpatient colonoscopy and possible EGD - Send hepatitis serologies - Outpatient mammogram - PT evaluation - DVT PPx
[2016-06-19 09:38] LABS: MEAN CORPUSCULAR HGB 30.5 PG (27.0-31.0); WHITE BLOOD CELL COUNT 9.1 /CUMM (4.8-10.8)
[2016-06-19 09:44] LABS: HEMATOCRIT 26.4 % (37-47); MEAN CORPUSCULAR HGB CONC 32.6 G/DL (33.0-37.0); MEAN CORPUSCULAR VOLUME 93.6 FL (81.0-99.0); MEAN PLATELET VOLUME 9.5 FL (7.4-10.4); PLATELET COUNT 137 /CUMM (130-400); RBC DISTRIBUTION WIDTH 26.4 % (11.5-14.5); RED BLOOD CELL CT 2.82 /CUMM (4.20-5.40)
--- NOTE | 2016-06-19 11:53 | NUR ---
10:00- DR. PEREZ AND DR. PATHAK AWARE PT HAS NOT VOIDED OR BEEN STRAIGHT CATH'D SINCE 20:30 06/18/16. PT DENIES FEELING SHE NEEDS TO URINATE AND ATTEMPTED TO URINATE ON BEDPAN X 2. PT ON IVF @ 100 ML/HR. BLADDER SCANNER OUT OF SERVICE. 11:30- PT STRAIGHT CATH'D FOR 200 ML OF DARK URINE WITH SCANT SEDIMENT NOTED. DR. PEREZ NOTIFIED.
[2016-06-19 14:01] VITALS: BP 130/70
--- NOTE | 2016-06-19 15:51 | NUR ---
15:30- PT LEFT FLOOR VIA STRETCHER FOR CT SCAN
--- NOTE | 2016-06-19 15:53 | NUR ---
14:30- DR. PEREZ INFORMED OUTPUT FOR SHIFT 200 ML VIA STR CATH. CONTINUE IVF. PT TO HAVE CT SCAN WITH CONTRAST: ABD, PELVIS AND CHEST.
--- NOTE | 2016-06-19 17:34 | NUR ---
CALL FROM DR. KAUR STATING PT HAS POSSIBLE DVT TO L SIDE COMMON FEMORAL VEIN AND RECOMMENDS F/O WITH U/S. RUNNING INSTRUCTOR SPOKE WITH DR. REYNOLDS TO RELAY MESSAGE.
--- NOTE | 2016-06-19 18:10 | CT SCAN REPORT ---
EXAMINATION: CT CHEST, ABDOMEN AND PELVIS WITH CONTRAST CLINICAL INFORMATION: 70-year-old female found to have scattered tiny noncalcified micronodules at both upper lobes of the lung and possible mucus plugging within the right upper lobe on prior CT of the chest done on 06/18/2016. Patient is also known to have 1 cm exophytic cystic lesion within the pancreatic head, seen on prior CT of the abdomen and pelvis done on 06/17/2016. For followup. 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 COMPARISON: CT of the abdomen and pelvis done on 06/17/[address] of the chest done on 06/18/2016. TECHNIQUE: Multidetector volumetric imaging was performed from the thoracic inlet through the pubic symphysis following administration of intravenous contrast of 94 mL of [id number]-320 intravenous contrast. Sagittal and coronal reformatted images were obtained on the technologist's workstation. 339.62 mGy-cm FINDINGS: CHEST: Lungs: There is a persistent subtle linear, tubular density seen within the right upper lobe, most consistent with mucus plugging. A few tiny scattered micronodules measuring 2-3 mm seen predominantly at both upper lobes of the lung appear stable. No discrete lung mass or focal airspace consolidation or any other abnormality identified, unchanged since prior study. The tracheobronchial tree appeared patent. Mediastinum: Atherosclerotic changes are present within the aorta and its branches including coronary arterial calcifications. The ascending thoracic aorta at the level of the main pulmonary artery measures 3.4 cm. There is no pathologically enlarged mediastinal, hilar lymphadenopathy present. No significant change. Pericardium/Pleura: There is no significant effusion. No pleural mass or thickening. Chest Wall/Axilla: Unremarkable. ABDOMEN/PELVIS: Liver, Gallbladder, Biliary Tree: Solitary stable dense macrocalcification is noted along the central medial subdiaphragmatic aspect of the right lobe of the liver, unchanged. The remainder of the liver shows no other discrete focal abnormality. Multiple well-faceted partially calcified gallstones are present, without any CT features of superimposed acute cholecystitis. There is no intrahepatic or extremity biliary ductal dilatation present. No significant change. Pancreas: Possible 0.8 cm hypodensity is noted along the inferior posterior aspect of the head, uncinate process of the pancreas similar to prior study. In addition, there are 2 ill-defined hypodensities identified within the mid to distal part of the body of the pancreas, the smaller measures approximately 1.1 cm while the largest one measures approximately 1.5 cm at their maximum dimension (see the mc images). There is no peripancreatic fluid collection, ductal dilatation, lymphadenopathy identified. Spleen: Unremarkable. Adrenal Glands: Unremarkable. Kidneys And Ureters: The kidneys are normal in size, shape, and attenuation. No hydronephrosis or hydroureter or calculi seen. No perinephric stranding. Bladder: Unremarkable. Gastrointestinal Tract: The small and large bowel are unremarkable. The appendix is unremarkable. Abdominal Wall: Small stable periumbilical fat containing herniation is present. Lymph Nodes: Normal. Vascular: Diffuse atherosclerotic changes are noted within the aorta and its branches without aneurysm formation. Asymmetric hypodensity and prominence of the left common femoral, left external iliac and left internal iliac as well as the proximal part of the left common iliac veins is noted, may represent venous thrombosis. A follow-up left lower extremity deep venous Doppler study is recommended for further full detail evaluation. Pelvic Viscera: There is no pelvic mass present. There is no free fluid and/or free air present. The uterus and ovaries are not visualized. No significant change. Osseous Structures: Moderate diffuse osteopenia and superimposed multilevel compression deformities are noted at mid to lower thoracic spine and also involving L1 and L3 vertebral bodies, similar to prior studies. IMPRESSION: 1. Asymmetric prominence associated with low density is noted within the visualized part of the left common femoral, external iliac and common iliac veins, suspicious for deep venous thrombosis. Follow-up left lower extremity Doppler study is recommended for further clarification. 2. Abnormal pancreas showing hypodense lesions, as described above. Follow-up MRI with and without intravenous contrast per pancreatic mass protocol, including MRCP is recommended for further full detail evaluation. 3. Cholelithiasis without any CT features of superimposed acute cholecystitis or biliary obstruction. 4. Stable appearance of the chest. This critical result was discussed with Mei Lan RN at 5:22 PM on 06/19/2016 and it was ascertained that the content and urgency of the report was understood at the time of direct communication.
--- NOTE | 2016-06-19 20:20 | ULTRASOUND REPORT ---
EXAMINATION: US TRIPLEX LOWER EXTREMITY, BILATERAL CLINICAL INFORMATION: Suspected deep venous thrombosis in the left lower extremity. COMPARISON: CT scan of the chest abdomen and pelvis 06/19/2016. TECHNIQUE: Color-flow triplex imaging with spectral analysis and compression Doppler were performed on the bilateral lower extremities. FINDINGS: There is echogenic thrombus confirmed by graded compression that extends throughout the visualized left common femoral vein throughout the left superficial femoral vein into the popliteal vein. There is associated asymmetric edema within the left lower extremity that largely obscures the smaller calf veins. The right common femoral vein, superficial femoral vein, profunda femoral vein, popliteal vein and mid calf peroneal and posterior tibial venous segments show no evidence of deep venous thrombosis. IMPRESSION: Abnormal examination. There is extensive deep venous thrombosis within the left lower extremity. No deep venous thrombosis within the right lower extremity. This critical result was discussed with Dr. Smith at 06/19/2016 8:17 PM and it was ascertained that the content and urgency of the report was understood at the time of direct communication.
--- NOTE | 2016-06-19 21:05 | Event Note ---
Event Note Event Note: Situation1 Critical radiological result of extensive DVT Brief Patient underwent Urena CT which shows evidence of DVT, so a doppler ultrasound is ordered which shows DVT from common femoral vein to the popliteal vein in the setting of weight loss, suspected malignancy. Assessment and Plan Vascular surgery is consulted, is market consultant, informed about the event. Adviced to start anticoagulation while they are going to come and see the patient in the morning. Started patient on heparin drip after guiac is negative. The above plan is in agreement with my resident () and attending ( ). Situation2 Nosebleed after starting heparin drip Brief Patient started to bleed form the nose after starting on heparin drip. It is not a massive bleed, however it never stopped and slowly trickling. She is very anxious and persistently asking regarding whether she is gonna be ok. Assessment and plan We tried to control the bleed with oxymetazoline spray and nasal packing while heparin drip is on hold.
[2016-06-19 22:26] VITALS: BP 126/60
--- NOTE | 2016-06-20 | NUR ---
PT POSITIVE FOR DVT. GUAIC NEG. HEPARIN DRIP ORDERED AND HUNG PER MD ORDER WELL BOLUS PER ORDER. DRIP RATE AT 21.4ML/HR. AFTER APRX ONE HOUR OF HEPARIN DRIP RUNNING, PT STARTING BLEEDING FROM RIGHT NARES. HEPARIN HELD. DR. GORDILLO AWARE AND AT BS TO EVAL. BP 142/76, HR 100, O2 100% ON RA. PRESSURE APPLIED TO SITE, HOWEVER BLEEDING CONT APRX. 15 MIN LATER. CALLED BACK FOR FURTHER EVAL. RECEIVING NURSE AT BEDSIDE AND AWARE OF CURRENT ISSUE. CONT TO MONITOR FOR SIGNS OF BLEEDING.
--- NOTE | 2016-06-20 02:31 | NUR ---
AT CHANGE OF SHIFT 2300, ENTERED PT'S ROOM AND PT NOTED TO HAVE A NOSE BLEED FROM THE RIGHT NARE. HEPARIN DRIP WAS PUT ON HOLD, DOG TRAINER YENI GORDILLO MD PAGED, VITALS TAKEN BP 142/76, HR100, 99% ON RA, TEMP 97.5 RR 20. MD TO BEDSIDE TO ASSESS, PER KEEP HEPARIN DRIP ON HOLD FOR NOW AND SEE IF NOSE BLEED STOPS. AFTER ONE HOUR PT STILL HAS NOSE BLEED, LEUMEL CHIU MD TO BEDSIDE TO ASSESS, PER LEMUEL AT 0110 TWO HOURS AFTER HEPARIN DRIP WAS HELD, BEGIN HEPARIN DRIP IF NOSE BLEED STOPS. AT 0110 PT STILL HAS BLEEDING FROM LEFT NARE, DOG TRAINER ORDERED OXYMETAZOLINE NASAL SPRAY AND REASSESS IN ONE HOUR. WILL FOLLOW UP.
[2016-06-20 03:32] LABS: ABSOLUTE BASOPHIL COUNT 0 /CUMM (0.0-0.2); ABSOLUTE EOSINOPHIL COUNT 0.2 /CUMM (0.0-0.7); ABSOLUTE GRANULOCYTE CT 4.9 /CUMM (1.4-6.5); ABSOLUTE LYMPH COUNT 1.2 /CUMM (1.2-3.4); ABSOLUTE MONOCYTE COUNT 0.3 /CUMM (0.10-0.60); BASOPHIL % 0.1 % (0.0-2.0); EOSINOPHIL % 2.9 % (0-5); GRANULOCYTE % 74.4 % (42.2-75.2); HEMATOCRIT 22.2 % (37-47); MEAN CORPUSCULAR HGB CONC 33.1 G/DL (33.0-37.0); MEAN CORPUSCULAR VOLUME 93.6 FL (81.0-99.0); MEAN PLATELET VOLUME 10.9 FL (7.4-10.4); PLATELET COUNT 104 /CUMM (130-400); RED BLOOD CELL CT 2.37 /CUMM (4.20-5.40); WHITE BLOOD CELL COUNT 6.6 /CUMM (4.8-10.8)
[2016-06-20 03:37] LABS: PTT 69 SEC (25-37)
[2016-06-20 06:30] VITALS: BP 148/90
--- NOTE | 2016-06-20 07:41 | Cons- Hematology ---
General Information and HPI Consulting Request Date of Consult: 06/20/16 Requested By: SHERRY PATHAK MD History of Present Illness: 70-year-old woman extensive past medical history now found to have a markedly abnormal CBC, left DVT CAT scan suggesting possible pancreatic lesions. Patient does not given extremely detailed history. Her Biggest complaint is bladder pain. The patient is aware of the diagnosis of rheumatoid arthritis as well as an oral methotrexate for years. Patient now admits to significant weight loss associated with anorexia. She denies nausea vomiting change in bowel habits significant abdominal pain or dysphagia. Allergies/Medications Allergies: Coded Allergies: Penicillins (UNKNOWN 03/15/16) Home Med List: Aspirin (Lite Coat Aspirin) 325 MG TABLET 1 TAB PO DAILY HEART HEALTH ( Reported) Atorvastatin Calcium 20 MG TABLET 1 TAB PO DAILY CHOL (Reported) Folic Acid 1 MG TABLET 1 TAB PO DAILY SUPPLEMENT (Reported) Methotrexate 2.5 MG TABLET 6 TAB PO QW ARTHRITIS (Reported) Metoprolol Succ XL (Toprol XL) 25 MG TAB 1 TAB PO DAILY htn Nystatin 100,000 UNIT/GRAM CREAM..G. 1 ROBIN TOP BID RASH (Reported) apply to affected area(s) Pantoprazole Sodium 40 MG TABLET.DR 1 TAB PO DAILY GERD (Reported) Tolterodine Tartrate 2 MG TABLET 1 TAB PO BID OVERACTIVE BLADDER (Reported) Current Medications: Current Medications Sig/Kvng Start time Last Medication Dose Route Stop Time Status Admin Acetaminophen 650 MG Q8P PRN 06/17 1800 AC PO Aspirin 325 MG DAILY 06/18 1000 AC 06/19 PO 0945 Collagenase 1 ROBIN DAILY 06/19 1445 AC TOP Folic Acid 1 MG DAILY 06/18 1000 AC 06/19 PO 0945 Heparin Sodium 3,000 UNIT ONCE ONE 06/19 2145 DC 06/19 (Porcine) IV 06/19 214 2210 Heparin Sodium 25,000 UNIT Q24H 06/19 2045 AC 06/19 (Porcine) IV 2155 Sodium Chloride 500 ML Melatonin 5 MG ONCE ONE 06/20 0015 DC 06/20 PO 06/20 0016 0134 Morphine Sulfate 2 MG DAILY PRN 06/17 1800 AC IV Nystatin 1 ROBIN BID 06/17 2200 AC 06/19 TOP 2210 Oxybutynin Chloride 2.5 MG BID 06/17 2200 AC 06/19 PO 2156 Oxymetazoline HCl 2 SPRAY ONCE ONE 06/20 0130 DC 06/20 CHANA 06/20 0131 0134 Sodium Chloride 1,000 ML Q10H 06/19 1445 AC 06/20 IV 0437 Sodium Chloride 1,000 ML Q8H 06/19 0415 DC 06/19 IV 06/19 1214 0434 Vitamin E 800 IU DAILY 06/19 1000 AC PO Review of Systems Review of Systems: Patient denies headaches or dizziness. Patient denies new shortness of breath or chest pain or hemoptysis. Patient denies new bone aches or focal neurologic deficit. 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 FHx: stomach cancer FATHER, ; Cause: Alcoholic liver disease. Psychosocial History Where Do You Live? Home Who Do You Live With? spouse Services at Home: Home Health Aide, Nursing, Occupational Therapy Primary Language: Wolof Smoking Status: Never Smoked ETOH Use: denies use Illicit Drug Use: denies illicit drug use Living Will? 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 no Other Social History: Marrie. Poor historian . Lives with . No cigarettes, drugs or EtOH. 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 2 sons & 1 dtr- [employer]. Functional Ability ADLs Independent: dressing, eating. Unknown: toileting, bathing. Ambulation: walker IADLs Independent: telephone. Needs Assist: shopping, housework, transportation. Unknown: finances, food prep, medication admin. Employment History Employment: Retired Profession/Employer: [employer] Exam & Diagnostic Data Vital Signs and I&O Vital Signs Date Time Temp Pulse Resp B/P Pulse O2 O2 Flow FiO2 Ox Delivery Rate 06/20 0630 98.2 83 18 148/90 98 Room Air 06/19 2226 97.7 118 20 126/60 96 Room Air 06/19 1401 97.0 74 20 130/70 93 Room Air 06/19 1226 Room Air Intake & Output 06/20 0800 06/20 0000 06/19 1600 Intake Total 700 1040 1300 Output Total 110 100 200 Balance 670 238 9072 Intake, IV 500 800 800 Intake, Oral 200 240 500 Number 0 Bowel Movements Output, Urine 110 100 200 Patient 131 lb Weight Gen.: in NAD ENT: Sclera anicteric Chest: Normal respiratory effort, decreased breath sounds Cor: RRR, no extra sounds Abdomen: Soft, bowel sounds present, no tenderness, no rebound Extremities: Without clubbing, cyanosis, left lower extremity edema Neurology: Alert and oriented 3, no gross deficit Last 48 Hours of Lab Results: Laboratory Tests 06/20 06/19 0310 0928 Chemistry Sodium (137 - 145 mmol/L) 142 Potassium (3.5 - 5.1 mmol/L) 3.2 L Chloride (98 - 107 mmol/L) 113 H Carbon Dioxide (22 - 30 mmol/L) 20 L Anion Gap (5 - 16) 9 BUN (7 - 17 mg/dL) 28 H Creatinine (0.5 - 1.0 mg/dL) 0.9 Estimated GFR (>60 ml/min) > 60 BUN/Creatinine Ratio (7 - 25 %) 31.1 H Total Bilirubin (0.2 - 1.3 mg/dL) 1.6 H Direct Bilirubin (< 0.4 mg/dL) 1.2 H AST (14 - 36 U/L) 202 H ALT (9 - 52 U/L) 136 H Alkaline Phosphatase (<127 U/L) 195 H Total Protein (6.3 - 8.2 g/dL) 5.2 L Albumin (3.5 - 5.0 g/dL) 2.1 L Coagulation APTT (25 - 37 SEC) 69 H Hematology CBC w Diff NO MAN DIFF REQ MAN DIFF ORDERED WBC (4.8 - 10.8 /CUMM) 6.6 9.1 RBC (4.20 - 5.40 /CUMM) 2.37 L 2.82 L Hgb (12.0 - 16.0 G/DL) 7.3 *L 8.6 L Hct (37 - 47 %) 22.2 L 26.4 L MCV (81.0 - 99.0 FL) 93.6 93.6 MCH (27.0 - 31.0 PG) 31.0 30.5 RDW (11.5 - 14.5 %) 26.0 H 26.4 H Plt Count (130 - 400 /CUMM) 104 L 137 MPV (7.4 - 10.4 FL) 10.9 H 9.5 Gran % (42.2 - 75.2 %) 74.4 Lymphocytes % (20.5 - 51.1 %) 17.9 L Monocytes % (1.7 - 9.3 %) 4.7 Eosinophils % (0 - 5 %) 2.9 Basophils % (0.0 - 2.0 %) 0.1 Absolute Granulocytes (1.4 - 6.5 /CUMM) 4.9 Segmented Neutrophils (42.2 - 75.2 %) 83 H Absolute Lymphocytes (1.2 - 3.4 /CUMM) 1.2 Lymphocytes (20.5 - 51.1 %) 15 L Monocytes (1.7 - 9.3 %) 1 L Absolute Monocytes (0.10 - 0.60 /CUMM) 0.3 Eosinophils (0 - 5.0 %) 1 Absolute Eosinophils (0.0 - 0.7 /CUMM) 0.2 Absolute Basophils (0.0 - 0.2 /CUMM) 0 Platelet Estimate (ADEQUATE) DECREASED Polychromasia 1+ Hypochromic-Microcytic 2+ Poikilocytosis 4+ Anisocytosis 3+ Jigna Cells 3+ Schistocytes 1+ PUBS MCHC (33.0 - 37.0 G/DL) 33.1 32.6 L 06/19 06/19 06/18 0610 0610 1110 Chemistry Sodium (137 - 145 mmol/L) 141 Potassium (3.5 - 5.1 mmol/L) 3.5 Chloride (98 - 107 mmol/L) 111 H Carbon Dioxide (22 - 30 mmol/L) 21 L Anion Gap (5 - 16) 9 BUN (7 - 17 mg/dL) 34 H Creatinine (0.5 - 1.0 mg/dL) 1.0 Estimated GFR (>60 ml/min) 55 L BUN/Creatinine Ratio (7 - 25 %) 34.0 H Hemoglobin A1c Pending Total Bilirubin (0.2 - 1.3 mg/dL) 1.5 H Direct Bilirubin (< 0.4 mg/dL) 1.0 H AST (14 - 36 U/L) 179 H ALT (9 - 52 U/L) 122 H Alkaline Phosphatase (<127 U/L) 171 H Total Protein (6.3 - 8.2 g/dL) 4.9 L Albumin (3.5 - 5.0 g/dL) 2.0 L Triglycerides (<150 mg/dL) 67 Cholesterol (<200 MG/DL) 136 LDL Cholesterol, Calc (65 - 129 mg/dL) 104 HDL Cholesterol (40 - 60 mg/dL) 19 L Cholesterol/HDL Ratio (0.00 - 4.23 %) 7 H TSH (0.270 - 4.200 uIU/mL) 5.630 H Free T4 (0.78 - 2.44 ng/dL) 1.68 Hematology CBC w Diff NO MAN DIFF REQ WBC (4.8 - 10.8 /CUMM) 10.6 RBC (4.20 - 5.40 /CUMM) 2.88 L Hgb (12.0 - 16.0 G/DL) 8.9 L Hct (37 - 47 %) 26.9 L MCV (81.0 - 99.0 FL) 93.4 MCH (27.0 - 31.0 PG) 30.8 RDW (11.5 - 14.5 %) 26.4 H Plt Count (130 - 400 /CUMM) 204 MPV (7.4 - 10.4 FL) 10.1 Gran % (42.2 - 75.2 %) 79.0 H Lymphocytes % (20.5 - 51.1 %) 18.9 L Monocytes % (1.7 - 9.3 %) 1.5 L Eosinophils % (0 - 5 %) 0.6 Basophils % (0.0 - 2.0 %) 0 L Absolute Granulocytes (1.4 - 6.5 /CUMM) 8.4 H Absolute Lymphocytes (1.2 - 3.4 /CUMM) 2.0 Absolute Monocytes (0.10 - 0.60 /CUMM) 0.2 Absolute Eosinophils (0.0 - 0.7 /CUMM) 0.1 Absolute Basophils (0.0 - 0.2 /CUMM) 0 PUBS MCHC (33.0 - 37.0 G/DL) 33.0 Serology Hepatitis A IgM Ab (NONREACTIVE) NONREACTIVE Hep Bs Antigen (NONREACTIVE) NONREACTIVE Hep B Core IgM Ab Conf (NONREACTIVE) NONREACTIVE Hepatitis C Antibody (NONREACTIVE) NONREACTIVE 06/18 1020 Chemistry Sodium (137 - 145 mmol/L) 139 Potassium (3.5 - 5.1 mmol/L) 3.5 Chloride (98 - 107 mmol/L) 109 H Carbon Dioxide (22 - 30 mmol/L) 18 L Anion Gap (5 - 16) 12 BUN (7 - 17 mg/dL) 35 H Creatinine (0.5 - 1.0 mg/dL) 1.1 H Estimated GFR (>60 ml/min) 49 L BUN/Creatinine Ratio (7 - 25 %) 31.8 H Total Bilirubin (0.2 - 1.3 mg/dL) 1.8 H Direct Bilirubin (< 0.4 mg/dL) 1.3 H AST (14 - 36 U/L) 228 H ALT (9 - 52 U/L) 136 H Alkaline Phosphatase (<127 U/L) 199 H Total Protein (6.3 - 8.2 g/dL) 5.6 L Albumin (3.5 - 5.0 g/dL) 2.3 L Immunology DIMITRIOS Titer ND Anti-Nuclear Antibody (NEG,1:40) NEG 1:40 IFA ASSAY Serology Hepatitis A IgM Ab (NONREACTIVE) NONREACTIVE Hep Bs Antigen (NONREACTIVE) NONREACTIVE Hep B Core IgM Ab Conf (NONREACTIVE) NONREACTIVE Hepatitis C Antibody (NONREACTIVE) NONREACTIVE Ferritin and 1,470 Vitamin B12 987 Folic acid 3.3 Blood culture 2-coag -negative staph Imaging/Other Studies: CT chest abdomen pelvis-COPD, subcentimeter pulmonary nodules, question hypodense lesions within the pancreas Assessment/Plan Assessment: 1. Anemia/thrombocytopenia-blood cancer drop since admission. One must be concerned about methotrexate effect in the setting of rheumatoid arthritis and staph sepsis. Folic acid level is borderline. Given the mechanism of action of methotrexate, folic acid may not be effective. Recommend- Check stools for occult blood Endoscopy as per GI service RBC folic acid level Begin folinic acid 50 mg orally per day Check fibrinogen Obtain all records Transfuse red cell as indicated 2. DVT-patient was begun on heparin but discontinued after epistaxis noted. Question of underlying hypercoagulability ? Rheumatoid arthritis ? Malignancy Vascular service to see patient Consider starting anticoagulation No immediate plans for further hypercoagulability workup 3. Abnormal CT of pancreas Obtain MRI as recommended a GI 4. Weight loss 5. Rheumatoid arthritis Recommendations: .. Consult Acknowledgment - Thank you for your consult request.
--- NOTE | 2016-06-20 09:52 | PN- Housestaff ---
SHARON YOUNG,YAIMA 06/20/16 0952: Subjective Follow-up For: Anemia Weakness Subjective: Patient seen and examined. She is seen sitting upright in bed resting comfortably. She appears to be in no acute distress. At her bedside are her and son whom are up to date about her medical condition and have no questions at this time. She reports overnight that she developed nose bleed after the heparin medication was started. It continued for several hours until she fell asleep around 3am when the heparing drip was reportedly discontinued. Her left lower extremity is reportedly much more swollen than usual and painful. Otherwise she denies any headache, fever, chills, chest pain, shortness of breath, nausea, vomiting, diarrhea. Overnight events described as above. Review of Systems Constitutional: Reports: see HPI. Objective Last 24 Hrs of Vital Signs/I&O Vital Signs Date Time Temp Pulse Resp B/P Pulse O2 O2 Flow FiO2 Ox Delivery Rate 06/20 0630 98.2 83 18 148/90 98 Room Air 06/19 2226 97.7 118 20 126/60 96 Room Air 06/19 1401 97.0 74 20 130/70 93 Room Air 06/19 1226 Room Air Intake & Output 06/20 1600 06/20 0800 06/20 0000 Intake Total 700 1040 Output Total 110 100 Balance 590 940 Intake, IV 500 800 Intake, Oral 200 240 Number 0 Bowel Movements Output, Urine 110 100 Patient 59.421 kg Weight Physical Exam General Appearance: Alert, Oriented X3, Cooperative, No Acute Distress Other Physical Findings: General - well developed, well nourished elderly woman in no acute distress HEENT - NCAT, EOMI, anicteric sclera CVS - S1, S2 w/o m/g/r Resp - CTA bilaterally GI - soft, nontender, nondistended, bowel sounds present Neuro - Awake and Alert, CN II - XII grossly intact Ext - swollen/tender proximal left lower extremity, distal pulses intact Current Medications: Current Medications Sig/Kvng Start time Last Medication Dose Route Stop Time Status Admin Acetaminophen 650 MG Q8P PRN 06/17 1800 AC PO Aspirin 325 MG DAILY 06/18 1000 AC 06/20 PO 0904 Collagenase 1 ROBIN DAILY 06/19 1445 AC 06/20 TOP 0903 Folic Acid 1 MG DAILY 06/18 1000 AC 06/20 PO 0903 Heparin Sodium 3,000 UNIT ONCE ONE 06/19 214 DC 06/19 (Porcine) IV 06/19 2146 2210 Heparin Sodium 25,000 UNIT Q24H 06/195 DC 06/19 (Porcine) IV 215 Sodium Chloride 500 ML Leucovorin Calcium 50 MG DAILY 06/20 1000 AC 06/20 PO 0933 Melatonin 5 MG ONCE ONE 06/20 0015 DC 06/20 PO 06/20 0016 0134 Morphine Sulfate 2 MG DAILY PRN 06/17 1800 AC IV Nystatin 1 ROBIN BID 06/17 2200 AC 06/20 TOP 0904 Oxybutynin Chloride 2.5 MG BID 06/17 2200 AC 06/20 PO 0903 Oxymetazoline HCl 2 SPRAY ONCE ONE 06/20 0130 DC 06/20 CHANA 06/20 0131 0134 Sodium Chloride 1,000 ML Q10H 06/19 1445 AC 06/20 IV 0437 Sodium Chloride 1,000 ML Q8H 06/19 0415 DC 06/19 IV 06/19 1214 0434 Vitamin E 800 IU DAILY 06/19 1000 AC 06/20 PO 0903 Last 24 Hrs of Lab/Taran Results Last 24 Hrs of Labs/Mics: Laboratory Tests 06/20/16 0956: RBC Folate Pending, Fibrinogen Activity Pending 06/20/16 0310: Anion Gap 9, Estimated GFR > 60, BUN/Creatinine Ratio 31.1 H, Total Bilirubin 1.6 H, Direct Bilirubin 1.2 H, AST 202 H, ALT 136 H, Alkaline Phosphatase 195 H, Total Protein 5.2 L, Albumin 2.1 L, APTT 69 H, CBC w Diff NO MAN DIFF REQ, RBC 2.37 L, MCV 93.6, MCH 31.0, RDW 26.0 H, MPV 10.9 H, Gran % 74.4, Lymphocytes % 17.9 L, Monocytes % 4.7, Eosinophils % 2.9, Basophils % 0.1, Absolute Granulocytes 4.9, Absolute Lymphocytes 1.2, Absolute Monocytes 0.3, Absolute Eosinophils 0.2, Absolute Basophils 0, PUBS MCHC 33.1 Assessment/Plan Assessment: CT Chest/Abdomen/Pelvis performed yesterday further commented on the pancreatic mass and reccomended MRI w/o contrast (pancreatic mass protocol) and MRCP to further assess for occult disease. The study also was suggestive of a left lower extremity thrombus that was confirmed with bilateral lower extremity Doppler. She was started on a heparin drip, however subsequently developed profuse epistaxis for which the heparin drip was discontinued. Hematology/oncology and vascular surgery consults were placed. Hematology/software developer consultant recommended following up a panel of labs in addition to starting patient on folinic acid acid. Vascular surgeon was contacted and case was discussed. It was recommended to restart patient on Heparin with increased intervals of checking PTT which close monitoring for any apparent bleeing. Patient consistently has decreased urine output, for which a montejo catheter and a nephrology consult were placed. MRI of the abdomen with and without constrast is to be obtained to further assess pancreatic mass. GI linux consultant verbally mentioned that patient still will require an endoscopic ultrasound. She is to be kept nothing by mouth after midnight tonight for a IVC placement by Dr. Kenyon in the morning. Weakness/Anemia possibly secondary to occult malignancy: Patient has a reported recent history of weight loss and weakness. CXR demonstraed a 1.8cm opacitiy possibly front desk representative of an pulmonary nodule/ lesion. Abdominal US was unremarkable. 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 CT Chest further commented on both the previously decribed lesions and further elicited the presence of emphysema. CT Chest/Abdomen/Pelvis with contrast further commented on the lung and pancreas lesions noting several small other lesions and recommended follow up with MRI. -Vitamin E 800 units PO Daily -GI Consult -Heme/Onc consult -Daily LFTs -F/U MRI abdomen Left Lower Extremity Deep Vein Thrombosis: No history of a DVT/PE. CT Chest/Abdomen/Pelvis originally comment on possibility of LLE DVT which was confirmed with lower extremity doppler. -Heparin Drip -Vascular Surgery consult -NPO overnight for IVC placement in morning Low Urine Output: Patient has had consistently low urine output as documented by nursing staff. Straight cath has only removed small amounts of urine (<200cc) per shift. -I&Os -Montejo catheter -NS @ 100mL/hr -Nephrology consult -F/U Spot Urine Lytes/Creatinine Acute Blood Loss Anemia: Patient suffered profuse epistaxis after starting heparin dirp on 06/19/15. Hemoglobin drop was noted from 8.6 -> 7.3. -Type & Cross -Transfuse PRBC, hgb goal >7.0 -Closely monitor for signs of bleeding -Heparin drip as above -Daily CBC Elevated Liver Function Tests: Patient was maintained on methotraxate as a DMARD for Rheumatoid arthritis for which she tolerated for many years without side effects. LFTs were found to be elevated on discharge for which methotrexate was held. -Folinic Acid 50mg PO Daily -Continue to hold methotrexate -Daily LFTs -F/U RBC folatic acid level Positive Blood Culture: Blood cultures on 06/17/16 are growing gram positive cocci in clusters. - BCx (06/17/16): Coag negative staph Vitamind D Deficiency - stable, Vitamine D 50,000 PO QWeekly x8 weeks Stage II decubitus ulcer - wound care/wound consult Urinary Incontinence-chronic, continue oxybutynin 2.5 mg by mouth twice a day PT Assessment - Assist of 2, DC to STR Pain Plan: -Acetaminophen 650 mg every 8 hours as needed for pain 1-3 -Morphine 2 mg IV daily as needed for pain 7-10 Diet - Regular DVT PPx - ALPS Code Status - FULL CODE Discharge/Outpatient followup: -Outpatient endoscopic ultrasound for further evaluation of pancreatic cyst -Outpatient EGD/colonoscopy Problem List: 1. Anemia Pain Ratin Pain Location: None Pain Goal: Remain pain free Pain Plan: As noted in plan Tomorrow's Labs & Rationales: CBC BEP LFT SHERRY PATHAK MD 06/20/16 1636: Attending MD Review Statement Attending Statement Attending MD Statement: examined this patient, discuss w/resident/PA/ARCHEOLOGIST, agreed w/resident/PA/ARCHEOLOGIST, reviewed EMR data (avail) Attending Assessment/Plan: 70F PMH rheumatoid arthritis on methotrexate, HTN, HLD thyroid cancer status post surgery, history of stomach cancer in grandmother, recurrent falls admitted with generalized weakness, recurrent falls, and unable to ambulate. She was found on admission to have new anemia with Hgb 8.8, severe Vitamin D deficiency, CKD stage 3, transaminitis. She also reports 47 pound weight loss over the past 6 months. Symptoms are highly suspicious for underlying malignancy. Patient has not had any age-appropriate cancer screening. Patient also with large sacral decubitus ulcer. Blood cultures growing coagulase negative staph in both sets. Afebrile, normal WBC. Overnight was diagnosed with RLE DVT. Abdominal and chest imaging shows pancreatic mass that needs further evaluation. Patient refuses EGD/colonoscopy at this time, prefers her outpatient GI physician. Heparin drip was started overnight with profuse epistaxis and drop in Hgb. Heparin drip was stopped. 1. Recurrent falls 2. Generalized weakness 3. Vitamin D deficiency 4. Chronic anemia 5. Unintentional weight loss 6. Transaminitis 7. Unable to ambulate 8. CKD stage 3 9. Rheumatoid arthritis 10. Essential hypertension 11. Sacral decubitus ulcer 12. RLE DVT Plan - Continue on general medicine - Restart heparin drip per vascular. Patient will go for IVC filter placement tomorrow morning - NPO after midnight - No antibiotics - Wound care evaluation for sacral ulcer, possible source of bacteremia - Replete vitamin D with 50,000 units of ergocalciferol weekly plus daily vitamin D and calcium supplementation - Will require outpatient DEXA scan - MRI of abdomen with and without gadolinium with pancreatic protocol - Outpatient colonoscopy and possible EGD - Follow up hepatitis serologies - Outpatient mammogram - PT evaluation
[2016-06-20 12:20] LABS: ABSOLUTE BASOPHIL COUNT 0 /CUMM (0.0-0.2); ABSOLUTE EOSINOPHIL COUNT 0.1 /CUMM (0.0-0.7); ABSOLUTE GRANULOCYTE CT 5.5 /CUMM (1.4-6.5); ABSOLUTE MONOCYTE COUNT 0.4 /CUMM (0.10-0.60); BASOPHIL % 0 % (0.0-2.0); EOSINOPHIL % 1.6 % (0-5); GRANULOCYTE % 78.6 % (42.2-75.2); HEMATOCRIT 22.8 % (37-47); MEAN CORPUSCULAR HGB 31.7 PG (27.0-31.0); MEAN CORPUSCULAR HGB CONC 33.8 G/DL (33.0-37.0); MEAN CORPUSCULAR VOLUME 93.7 FL (81.0-99.0); PLATELET COUNT 108 /CUMM (130-400); RED BLOOD CELL CT 2.43 /CUMM (4.20-5.40)
[2016-06-20 12:25] LABS: PTT 35 SEC (25-37)
--- NOTE | 2016-06-20 14:26 | Cons- Vascular Surgery ---
General Information and HPI Consulting Request Date of Consult: 06/20/16 Requested By: SHERRY PATHAK MD Reason for Consult: DVT of lower extremity Source of Information: patient, family History of Present Illness: 70-year-old female with multiple medical problems who presents to [facility] with significant weight loss and possible intra-abdominal malignancy. She has had a 50 pound weight loss and was brought into the hospital with anemia. She has also complained of lower extremity swelling and has been diagnosed with a DVT. She has had significant discomfort and had a nosebleed related to bolus anticoagulation. She is now stable on a simple heparin drip. She denies rest pain or open ulceration. Here to discuss management of DVT. Patient also has a recent history of falls. Allergies/Medications Allergies: Coded Allergies: Penicillins (UNKNOWN 03/15/16) Home Med List: Aspirin (Lite Coat Aspirin) 325 MG TABLET 1 TAB PO DAILY HEART HEALTH ( Reported) Atorvastatin Calcium 20 MG TABLET 1 TAB PO DAILY CHOL (Reported) Folic Acid 1 MG TABLET 1 TAB PO DAILY SUPPLEMENT (Reported) Methotrexate 2.5 MG TABLET 6 TAB PO QW ARTHRITIS (Reported) Metoprolol Succ XL (Toprol XL) 25 MG TAB 1 TAB PO DAILY htn Nystatin 100,000 UNIT/GRAM CREAM..G. 1 ROBIN TOP BID RASH (Reported) apply to affected area(s) Pantoprazole Sodium 40 MG TABLET.DR 1 TAB PO DAILY GERD (Reported) Tolterodine Tartrate 2 MG TABLET 1 TAB PO BID OVERACTIVE BLADDER (Reported) Current Medications: Current Medications Sig/Kvng Start time Last Medication Dose Route Stop Time Status Admin Acetaminophen 650 MG Q8P PRN 06/17 1800 AC PO Aspirin 325 MG DAILY 06/18 1000 AC 06/20 PO 0904 Collagenase 1 ROBIN DAILY 06/19 1445 AC 06/20 TOP 0903 Folic Acid 1 MG DAILY 06/18 1000 AC 06/20 PO 0903 Heparin Sodium 25,000 UNIT Q24H 06/20 1130 AC 06/20 (Porcine) IV 1221 Sodium Chloride 500 ML Heparin Sodium 3,000 UNIT ONCE ONE 06/19 2145 DC 06/19 (Porcine) IV 06/19 214 2210 Heparin Sodium 25,000 UNIT Q24H 06/19 2045 DC 06/19 (Porcine) IV 2155 Sodium Chloride 500 ML Leucovorin Calcium 50 MG DAILY 06/20 1000 AC 06/20 PO 0933 Melatonin 5 MG ONCE ONE 06/20 0015 DC 06/20 PO 06/20 0016 0134 Morphine Sulfate 2 MG DAILY PRN 06/17 1800 AC IV Nystatin 1 ROBIN BID 06/17 2200 AC 06/20 TOP 0904 Oxybutynin Chloride 2.5 MG BID 06/17 2200 AC 06/20 PO 0903 Oxymetazoline HCl 2 SPRAY ONCE ONE 06/20 0130 DC 06/20 CHANA 06/20 0131 0134 Patient Medication 1 ED .STK-MED ONE 06/20 1407 DC Teaching ED 06/20 1408 Potassium Chloride 20 MEQ BID 06/20 1014 AC 06/20 PO 1301 Sodium Chloride 1,000 ML Q10H 06/19 1445 AC 06/20 IV 1221 Vitamin E 800 IU DAILY 06/19 1000 AC 06/20 PO 0903 Past History Medical History Blood Transfusion Hx: No (pt not sure) Neurological: CVA EENT: NONE Cardiovascular: hypertension, hyperlipidemia Respiratory: NONE Gastrointestinal: GERD, hiatal hernia Hepatic: NONE Renal: NONE Musculoskeletal: rheumatoid arthritis Psychiatric: NONE Endocrine: NONE Blood Disorders: NONE Cancer(s): NONE 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 FHx: stomach cancer FATHER, ; Cause: Alcoholic liver disease. Psychosocial History Where Do You Live? Home Who Do You Live With? spouse Services at Home: Home Health Aide, Nursing, Occupational Therapy Primary Language: St Helen[place] Smoking Status: Never Smoked ETOH Use: denies use Illicit Drug Use: denies illicit drug use Living Will? no Power of Radiation / Chemistry Technician/HCP? no Other Social History: Marrie. Poor historian . Lives with . No cigarettes, drugs or EtOH. 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 2 sons & 1 dtr- [employer]. Functional Ability ADLs Independent: dressing, eating. Unknown: toileting, bathing. Ambulation: walker IADLs Independent: telephone. Needs Assist: shopping, housework, transportation. Unknown: finances, food prep, medication admin. Employment History Employment: Retired Profession/Employer: [employer] Review of Systems Review of Systems: Complains of recent weight loss in addition to bilateral lower extremity swelling Review of Systems EENTM: Reports: epistaxis. Hematologic/Endocrine: Reports: bruising, bleeding. Exam & Diagnostic Data Vital Signs and I&O Vital Signs Date Time Temp Pulse Resp B/P Pulse O2 O2 Flow FiO2 Ox Delivery Rate 06/20 0630 98.2 83 18 148/90 98 Room Air 06/19 2226 97.7 118 20 126/60 96 Room Air Intake & Output 06/20 1600 06/20 0800 06/20 0000 06/19 1600 06/19 0800 06/19 0000 Intake Total 700 1040 1300 400 500 Output Total 110 100 200 0 175 Balance 489 308 2043 400 325 Intake, IV 500 800 800 400 300 Intake, Oral 200 240 500 200 Number 0 Bowel Movements Output, Urine 110 100 200 0 175 Patient 131 lb Weight Physical Exam: Extremity exam reveals bilateral lower extremity swelling. Both lower extremities are well perfused. She has ecchymosis. The left leg is more swollen than the right. There is no phlegmasia. Last 24 Hours of Labs: Laboratory Tests 06/20 06/20 06/20 1156 1100 0956 Chemistry RBC Folate Pending Coagulation APTT (25 - 37 SEC) 35 Fibrinogen Activity (200 - 393 MG/DL) 140 L Hematology CBC w Diff MAN DIFF ORDERED Cancelled WBC (4.8 - 10.8 /CUMM) 7.0 Cancelled RBC (4.20 - 5.40 /CUMM) 2.43 L Cancelled Hgb (12.0 - 16.0 G/DL) 7.7 L Cancelled Hct (37 - 47 %) 22.8 L Cancelled MCV (81.0 - 99.0 FL) 93.7 Cancelled MCH (27.0 - 31.0 PG) 31.7 H Cancelled RDW (11.5 - 14.5 %) 27.0 H Cancelled Plt Count (130 - 400 /CUMM) 108 L Cancelled MPV (7.4 - 10.4 FL) 11.0 H Cancelled Gran % (42.2 - 75.2 %) 78.6 H Lymphocytes % (20.5 - 51.1 %) 14.4 L Monocytes % (1.7 - 9.3 %) 5.4 Eosinophils % (0 - 5 %) 1.6 Basophils % (0.0 - 2.0 %) 0 L Absolute Granulocytes (1.4 - 6.5 /CUMM) 5.5 Segmented Neutrophils (42.2 - 75.2 %) 87 H Absolute Lymphocytes (1.2 - 3.4 /CUMM) 1.0 L Lymphocytes (20.5 - 51.1 %) 8 L Monocytes (1.7 - 9.3 %) 4 Absolute Monocytes (0.10 - 0.60 /CUMM) 0.4 Eosinophils (0 - 5.0 %) 1 Absolute Eosinophils (0.0 - 0.7 /CUMM) 0.1 Basophils (0.0 - 2.0 %) Pending Absolute Basophils (0.0 - 0.2 /CUMM) 0 Nucleated RBCs (0.0 - 0.0 /100WBC) 3 H Platelet Estimate (ADEQUATE) DECREASED Hypochromic-Microcytic 2+ Poikilocytosis 3+ Anisocytosis 3+ Ovalocytes 2+ [place] Cells 2+ Elliptocytes 1+ Schistocytes 1+ PUBS MCHC (33.0 - 37.0 G/DL) 33.8 Cancelled 06/20 0310 Chemistry Sodium (137 - 145 mmol/L) 142 Potassium (3.5 - 5.1 mmol/L) 3.2 L Chloride (98 - 107 mmol/L) 113 H Carbon Dioxide (22 - 30 mmol/L) 20 L Anion Gap (5 - 16) 9 BUN (7 - 17 mg/dL) 28 H Creatinine (0.5 - 1.0 mg/dL) 0.9 Estimated GFR (>60 ml/min) > 60 BUN/Creatinine Ratio (7 - 25 %) 31.1 H Total Bilirubin (0.2 - 1.3 mg/dL) 1.6 H Direct Bilirubin (< 0.4 mg/dL) 1.2 H AST (14 - 36 U/L) 202 H ALT (9 - 52 U/L) 136 H Alkaline Phosphatase (<127 U/L) 195 H Total Protein (6.3 - 8.2 g/dL) 5.2 L Albumin (3.5 - 5.0 g/dL) 2.1 L Coagulation APTT (25 - 37 SEC) 69 H Hematology CBC w Diff NO MAN DIFF REQ WBC (4.8 - 10.8 /CUMM) 6.6 RBC (4.20 - 5.40 /CUMM) 2.37 L Hgb (12.0 - 16.0 G/DL) 7.3 *L Hct (37 - 47 %) 22.2 L MCV (81.0 - 99.0 FL) 93.6 MCH (27.0 - 31.0 PG) 31.0 RDW (11.5 - 14.5 %) 26.0 H Plt Count (130 - 400 /CUMM) 104 L MPV (7.4 - 10.4 FL) 10.9 H Gran % (42.2 - 75.2 %) 74.4 Lymphocytes % (20.5 - 51.1 %) 17.9 L Monocytes % (1.7 - 9.3 %) 4.7 Eosinophils % (0 - 5 %) 2.9 Basophils % (0.0 - 2.0 %) 0.1 Absolute Granulocytes (1.4 - 6.5 /CUMM) 4.9 Absolute Lymphocytes (1.2 - 3.4 /CUMM) 1.2 Absolute Monocytes (0.10 - 0.60 /CUMM) 0.3 Absolute Eosinophils (0.0 - 0.7 /CUMM) 0.2 Absolute Basophils (0.0 - 0.2 /CUMM) 0 PUBS MCHC (33.0 - 37.0 G/DL) 33.1 Imaging Results: Ultrasound reveals fem-popliteal DVT on the left. Assessment/Plan Assessment/Plan 70-year-old female with a history of DVT, bleeding and a high fall risk Due to these issues will proceed with IVC filter placement in a.m. 06/21 Please keep n.p.o. after midnight If possible would continue anticoagulation as this will help with left lower extremity swelling and DVT Recommend compression with Rigo bandage from foot to upper thigh and discharge with thigh -high stocking Consent obtained. Consult Acknowledgment - Thank you for your consult request.
[2016-06-20 14:36] VITALS: BP 134/84
--- NOTE | 2016-06-20 14:36 | NUR ---
Physical Therapy: Pt's chart reviewed today prior to tx. Pt with + DVT in LLE and with low H&H at this time. Will cx treatment this day and follow up tomorrow as appropriate. Thank you.
--- NOTE | 2016-06-20 14:54 | NUR ---
14:15-DR. PEREZ NOTIFIED PT OUTPUT FOR SHIFT [address] PEREZ TO SPEAK TO AUTOMATIC LUMP MAKING MACHINE TENDER.
--- NOTE | 2016-06-20 15:41 | NUR ---
07:30- HEPARIN GTT CURRENTLY ON HOLD PER DR PEREZ DUE TO PERSISTANT NOSE BLEED. NOSE BLEED STOPPED AT 05:00. DR. PEREZ TO CONSULT WITH VASCULAR SURGERY FOR PLAN. H/H 7.3/22.2. PLATELETS 104. 12:30- HEPARIN GTT RESTARTED PER DR. BRICENO AND DR. PEREZ. PER DR. BRICENO, PT IS NOT TO RECEIVE ANY HEPARIN BOLUSES IF PTT SUB THERAPEUTIC. INCREASE RATE PER HEPARIN GTT ONLY, WITH NO BOLUSES. FREQUENCY OF PTT INCREASED WHILE ON HEPARIN GTT PER DR. PEREZ. MDS AWARE OF FIBRINOGEN LEVEL 140 (L) WELL.
--- NOTE | 2016-06-20 17:20 | MRI REPORT ---
EXAMINATION: MR ABDOMEN WITHOUT AND WITH CONTRAST INCLUDING MRCP IMAGING CLINICAL INFORMATION: Cystic pancreatic foci on CT imaging. COMPARISON: Abdominal and pelvic CT imaging 06/17/2016, 06/19/2016. TECHNIQUE: MRI of the abdomen before and after the IV administration of 12 mL of Magnevist was obtained using routine sequences. MRCP protocol was also performed. FINDINGS: There are 2 cystic foci identified in the pancreatic body/tail region which did not appear to communicate with the duct largest focus is in the pancreatic tail measuring 1.5 cm maximal dimension. Third lesion in the uncinate process may communicate with the pancreatic duct. There is no evidence of associated enhancing foci to suggest a cystic pancreatic neoplasm. Remaining pancreas is somewhat atrophic in appearance. There is cholelithiasis without evidence of acute cholecystitis. Small macrocalcification superiorly in the right lobe of liver medially is again noted. Otherwise imaging through the abdomen appears unremarkable. The biliary tree and pancreatic ducts are nondilated. IMPRESSION: 1. There are 3 small cystic foci in the pancreas likely incidental possibly related to previous pancreatitis. Remaining pancreas is somewhat atrophic. Interval follow-up in 6 months time is recommended to confirm stability. 2. Cholelithiasis without evidence of acute cholecystitis.
[2016-06-20 18:27] LABS: PTT > 120 SEC (25-37)
[2016-06-20 23:47] VITALS: BP 140/78
[2016-06-20 23:55] LABS: PTT > 120 SEC (25-37)
[2016-06-21 04:26] LABS: ABSOLUTE BASOPHIL COUNT 0 /CUMM (0.0-0.2); ABSOLUTE EOSINOPHIL COUNT 0.2 /CUMM (0.0-0.7); ABSOLUTE GRANULOCYTE CT 4.6 /CUMM (1.4-6.5); ABSOLUTE LYMPH COUNT 1.3 /CUMM (1.2-3.4); ABSOLUTE MONOCYTE COUNT 0.5 /CUMM (0.10-0.60); BASOPHIL % 0.4 % (0.0-2.0); EOSINOPHIL % 3.4 % (0-5); GRANULOCYTE % 69.5 % (42.2-75.2); MEAN CORPUSCULAR HGB 31.6 PG (27.0-31.0); MEAN CORPUSCULAR HGB CONC 33.8 G/DL (33.0-37.0); MEAN CORPUSCULAR VOLUME 93.7 FL (81.0-99.0); MEAN PLATELET VOLUME 11.4 FL (7.4-10.4); PLATELET COUNT 94 /CUMM (130-400); RBC DISTRIBUTION WIDTH 26.5 % (11.5-14.5); WHITE BLOOD CELL COUNT 6.6 /CUMM (4.8-10.8)
[2016-06-21 04:50] LABS: RED BLOOD CELL CT 2.04 /CUMM (4.20-5.40)
[2016-06-21 04:52] LABS: HEMATOCRIT 19.1 % (37-47)
[2016-06-21 04:54] LABS: PTT > 120 SEC (25-37)
[2016-06-21 06:42] VITALS: BP 114/80
--- NOTE | 2016-06-21 07:10 | PN- Housestaff ---
YAIMA HERRERA MD 06/21/16 0710: Subjective Follow-up For: Anemia Weakness Subjective: Patient seen and examined. She is seen sitting upright in her bed resting comfortably. She appears anxious but otherwise in no acute distress. She is asking many questions about her care - specifically "when can she eat/drink?", "How long will the procedure take?", etc. Overnight patients hemoglobin was found to be low for which consent for a blood transfusion was attempted for which she initially declined. After speaking with her this morning and investigating her concerns she was agreeable to the intervention and signed consent, which was placed on the chart. She is very anxious and repeatedly asked "Am I going to be okay?". She was encouraged to cooperate with her medical teams suggestions so that she may be given proper care. Otheriwse she denies any recurrent epistaxis, headache, fever, chills, chest pain, palpitations, shortness of breath, nausea, vomiting, diarrhea. No overnight events reported other than above. Review of Systems Constitutional: Reports: see HPI. Objective Last 24 Hrs of Vital Signs/I&O Vital Signs Date Time Temp Pulse Resp B/P Pulse O2 O2 Flow FiO2 Ox Delivery Rate 06/21 0642 97.9 90 18 114/80 95 Room Air 06/20 2347 98.1 97 18 140/78 94 Room Air 06/20 1436 97.5 78 18 134/84 95 Room Air Intake & Output 06/21 1600 06/21 0800 06/21 0000 Intake Total 850 580 Output Total 150 125 Balance 700 455 Intake, IV 850 480 Intake, Oral 100 Number 0 Bowel Movements Output, Urine 150 125 Physical Exam General Appearance: Alert, Oriented X3, Cooperative, Mild Distress Other Physical Findings: General - well developed, anxious elderly woman apperaing older than stated age in no acute distress HEENT - NCAT, EOMI, PERRL, anicteric sclera, no evidence of recurrent epistaxis, on room air CVS - S1, S2 w/o m/g/r Resp - CTA bilaterally, w/o crackles GI - Soft, NT/ND, bowel sounds + Neuro - Anxious, awake, alert, CN II - XII grossly intact Extremities - distal pulses 2+, no BL LE edema Current Medications: Current Medications Sig/Kvng Start time Last Medication Dose Route Stop Time Status Admin Acetaminophen 650 MG Q8P PRN 06/17 1800 AC PO Aspirin 325 MG DAILY 06/18 1000 AC 06/20 PO 0904 Calcium 600 MG DAILY 06/20 1908 AC 06/20 PO 2154 Cholecalciferol 400 IU DAILY 06/20 1907 AC 06/20 PO 2154 Collagenase 1 ROBIN DAILY 06/19 1445 AC 06/20 TOP 0903 Ergocalciferol 50,000 IU Q168H 06/21 1000 AC PO Folic Acid 1 MG DAILY 06/18 1000 AC 06/20 PO 0903 Heparin Sodium 25,000 UNIT Q24H 06/20 1130 AC 06/21 (Porcine) IV 0636 Sodium Chloride 500 ML Leucovorin Calcium 50 MG DAILY 06/20 1000 AC 06/20 PO 0933 Morphine Sulfate 2 MG DAILY PRN 06/17 1800 AC IV Nystatin 1 ROBIN BID 06/17 2200 AC 06/20 TOP 2205 Oxybutynin Chloride 2.5 MG BID 06/17 2200 AC 06/20 PO 2154 Patient Medication 1 ED .STK-MED ONE 06/20 1407 OR Teaching ED 06/20 1408 Potassium Chloride 20 MEQ BID 06/20 1014 AC 06/20 PO 2154 Sodium Chloride 1,000 ML Q10H 06/19 1445 AC 06/21 IV 0310 Vitamin E 800 IU DAILY 06/19 1000 AC 06/20 PO 0903 Last 24 Hrs of Lab/Taran Results Last 24 Hrs of Labs/Mics: Laboratory Tests 06/21/16 0405: Anion Gap 6, Estimated GFR > 60, BUN/Creatinine Ratio 24.4, Total Bilirubin 1.3, Direct Bilirubin 1.0 H, AST 163 H, ALT 129 H, Alkaline Phosphatase 163 H, Total Protein 4.6 L, Albumin 1.8 L, APTT > 120 *H, CBC w Diff NO MAN DIFF REQ, RBC 2.04 L, MCV 93.7, MCH 31.6 H, RDW 26.5 H, MPV 11.4 H, Gran % 69.5, Lymphocytes % 19.7 L, Monocytes % 7.0, Eosinophils % 3.4, Basophils % 0.4, Absolute Granulocytes 4.6, Absolute Lymphocytes 1.3, Absolute Monocytes 0.5, Absolute Eosinophils 0.2, Absolute Basophils 0, PUBS MCHC 33.8 06/20/16 2318: APTT > 120 *H 06/20/16 1730: APTT > 120 *H 06/20/16 1445: Ur Random Creatinine 109.9, Ur Random Sodium 31, Ur Random Potassium 33.9, Fraction Sodium Excret 0.2 06/20/16 1156: APTT 35, CBC w Diff MAN DIFF ORDERED, RBC 2.43 L, MCV 93.7, MCH 31.7 H, RDW 27.0 H, MPV 11.0 H, Gran % 78.6 H, Lymphocytes % 14.4 L, Monocytes % 5.4, Eosinophils % 1.6, Basophils % 0 L, Absolute Granulocytes 5.5, Segmented Neutrophils 87 H, Absolute Lymphocytes 1.0 L, Lymphocytes 8 L, Monocytes 4, Absolute Monocytes 0.4, Eosinophils 1, Absolute Eosinophils 0.1, Absolute Basophils 0, Nucleated RBCs 3 H, Platelet Estimate DECREASED, Hypochromic- Microcytic 2+, Poikilocytosis 3+, Anisocytosis 3+, Ovalocytes 2+, Jigna Cells 2+, Elliptocytes 1+, Schistocytes 1+, PUBS MCHC 33.8 06/20/16 1100: CBC w Diff Cancelled, WBC Cancelled, RBC Cancelled, Hgb Cancelled, Hct Cancelled , MCV Cancelled, MCH Cancelled, RDW Cancelled, Plt Count Cancelled, MPV Cancelled, PUBS MCHC Cancelled 06/20/16 0956: RBC Folate Pending, Fibrinogen Activity 140 L Assessment/Plan Assessment: Patient was found to have low hemoglobin overnight for which consent for blood transfusion was attempted but initally refused. Concerns were investigated this morning and consent was obtianed and placed on chart. Patient has difficult veins and access is limited to only a 22 gauge peripheral line. Patient was taken down to the OR for the placement of the IVC filter and peripheral access with a large bore needle with be attempted during anesthia so we can transfuse packed red blood cells. The 20 gauge placed in the left antecubital fossa during the procedure was infiltrated soon after the patient returned to the floor. Case was discussed with Dr. Trinidad of interventional radiologu and it was determined that due to patients unique anatomy it may be beneficial to have a central line place under IR guidance. Patient was placed with a right internal jugular tripple lumen catheter for which 2 units packed red blood cells will be transfused. Post transfusion CBC to be obtained. MRI further commented on the pancreas lesions and recommended interval follow up. Patient is to obtained GI workup with Dr. Waller of [facility]. Weakness/Anemia possibly secondary to occult malignancy: Patient has a reported recent history of weight loss and weakness. CXR demonstraed a 1.8cm opacitiy possibly delivery representative of an pulmonary nodule/ lesion. Abdominal US was unremarkable. 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 CT Chest further commented on both the previously decribed lesions and further elicited the presence of emphysema. CT Chest/Abdomen/Pelvis with contrast further commented on the lung and pancreas lesions noting several small other lesions and recommended follow up with MRI. -Vitamin E 800 units PO Daily -GI Consult -Heme/Onc consult -Fibrinogen monitoring, transfuse cryoprecipitate if <100 Left Lower Extremity Deep Vein Thrombosis: No history of a DVT/PE. CT Chest/Abdomen/Pelvis originally comment on possibility of LLE DVT which was confirmed with lower extremity doppler. -Heparin Drip -Vascular Surgery consult -NPO overnight for IVC placement in morning Low Urine Output: Patient has had consistently low urine output as documented by nursing staff. Straight cath has only removed small amounts of urine (<200cc) per shift. -I&Os -Whitt catheter -NS @ 100mL/hr -Nephrology consult Acute Blood Loss Anemia: Patient suffered profuse epistaxis after starting heparin dirp on 06/19/15. Hemoglobin drop was noted from 8.6 -> 7.3. -Type & Cross -Transfuse PRBC, hgb goal >7.0 -Closely monitor for signs of bleeding -Heparin drip discontinued -Daily CBC Elevated Liver Function Tests: Patient was maintained on methotraxate as a DMARD for Rheumatoid arthritis for which she tolerated for many years without side effects. LFTs were found to be elevated on discharge for which methotrexate was held. -Folinic Acid 50mg PO Daily -Continue to hold methotrexate -Daily LFTs -F/U RBC folatic acid level Positive Blood Culture: Blood cultures on 06/17/16 are growing gram positive cocci in clusters. - BCx (06/17/16): Coag negative staph Vitamind D Deficiency - stable, Vitamine D 50,000 PO QWeekly x8 weeks Stage II decubitus ulcer - wound care/wound consult Urinary Incontinence-chronic, continue oxybutynin 2.5 mg by mouth twice a day PT Assessment - Assist of 2, DC to STR Pain Plan: -Acetaminophen 650 mg every 8 hours as needed for pain 1-3 -Morphine 2 mg IV daily as needed for pain 7-10 Diet - Regular DVT PPx - ALPS Code Status - FULL CODE Discharge/Outpatient followup: -Outpatient endoscopic ultrasound for further evaluation of pancreatic cyst -Outpatient EGD/colonoscopy Problem List: 1. Anemia Pain Ratin Pain Location: None Pain Goal: Remain pain free Pain Plan: noted in plan Tomorrow's Labs & Rationales: CBC BEP Fibrinogen LFTs SHERRY PATHAK MD 06/21/16 1213: Attending MD Review Statement Attending Statement Attending MD Statement: examined this patient, discuss w/resident/PA/CARDIAC MONITOR TECHNICIAN, agreed w/resident/PA/CARDIAC MONITOR TECHNICIAN, reviewed EMR data (avail) Attending Assessment/Plan: 70F PMH rheumatoid arthritis on methotrexate, HTN, HLD thyroid cancer status post surgery, history of stomach cancer in grandmother, recurrent falls admitted with generalized weakness, recurrent falls, and unable to ambulate. She was found on admission to have new anemia with Hgb 8.8, severe Vitamin D deficiency, CKD stage 3, transaminitis. She also reports 47 pound weight loss over the past 6 months. Symptoms are highly suspicious for underlying malignancy. Patient has not had any age-appropriate cancer screening. Patient also with large sacral decubitus ulcer. Blood cultures growing coagulase negative staph in both sets. Afebrile, normal WBC. Overnight was diagnosed with RLE DVT. Patient refuses EGD/colonoscopy at this time, prefers her outpatient GI physician. Hgb dropped to 6.5 overnight with no evidence of bleeding. Heparin drip stopped and IVC filter placed this morning. Patient does not have IV access to get blood transfusion at this time, but is asymptomatic. 1. Recurrent falls 2. Generalized weakness 3. Vitamin D deficiency 4. Chronic anemia 5. Unintentional weight loss 6. Transaminitis 7. Unable to ambulate 8. CKD stage 3 9. Rheumatoid arthritis 10. Essential hypertension 11. Sacral decubitus ulcer 12. RLE DVT Plan - Continue on general medicine - IR for femoral line placement for transfusions and medications - No antibiotics - Wound care evaluation for sacral ulcer, possible source of bacteremia - Replete vitamin D with 50,000 units of ergocalciferol weekly plus daily vitamin D and calcium supplementation - Will require outpatient DEXA scan - Outpatient mammogram - PT evaluation
--- NOTE | 2016-06-21 07:21 | PN- Hematology ---
Subjective Subjective: Patient is unhappy and refuses to talk to me Review of Systems: Unobtainable Objective Vital Signs and I&Os Vital Signs Date Time Temp Pulse Resp B/P Pulse O2 O2 Flow FiO2 Ox Delivery Rate 06/21 0642 97.9 90 18 114/80 95 Room Air 06/20 2347 98.1 97 18 140/78 94 Room Air 06/20 1436 97.5 78 18 134/84 95 Room Air Intake & Output 06/21 0800 06/21 0000 06/20 1600 06/20 0800 06/20 0000 06/19 1600 Intake Total 580 2036 211 8708 1300 Output Total 150 125 100 110 100 200 Balance -173 870 9008 782 608 1224 Intake, IV 480 800 500 800 800 Intake, Oral 100 600 200 240 500 Number 0 0 Bowel Movements Output, Urine 150 125 100 110 100 200 Patient 131 lb Weight Refused physical exam Current Medications: Current Medications Sig/Kvng Start time Last Medication Dose Route Stop Time Status Admin Acetaminophen 650 MG Q8P PRN 06/17 1800 AC PO Aspirin 325 MG DAILY 06/18 1000 AC 06/20 PO 0904 Calcium 600 MG DAILY 06/20 1908 AC 06/20 PO 2154 Cholecalciferol 400 IU DAILY 06/20 1907 AC 06/20 PO 2154 Collagenase 1 ROBIN DAILY 06/19 1445 AC 06/20 TOP 0903 Ergocalciferol 50,000 IU Q168H 06/21 1000 AC PO Folic Acid 1 MG DAILY 06/18 1000 AC 06/20 PO 0903 Heparin Sodium 25,000 UNIT Q24H 06/20 1130 AC 06/21 (Porcine) IV 0636 Sodium Chloride 500 ML Heparin Sodium 25,000 UNIT Q24H 06/19 2045 DC 06/19 (Porcine) IV 2155 Sodium Chloride 500 ML Leucovorin Calcium 50 MG DAILY 06/20 1000 AC 06/20 PO 0933 Morphine Sulfate 2 MG DAILY PRN 06/17 1800 AC IV Nystatin 1 ROBIN BID 06/17 2200 AC 06/20 TOP 2205 Oxybutynin Chloride 2.5 MG BID 06/17 2200 AC 06/20 PO 2154 Patient Medication 1 ED .STK-MED ONE 06/20 1407 DC Teaching ED 06/20 1408 Potassium Chloride 20 MEQ BID 06/20 1014 AC 06/20 PO 2154 Sodium Chloride 1,000 ML Q10H 06/19 1445 AC 06/21 IV 0310 Vitamin E 800 IU DAILY 06/19 1000 AC 06/20 PO 0903 Results Last 24 Hours of Lab Results: Laboratory Tests 06/21 06/20 06/20 0405 2318 1730 Chemistry Sodium (137 - 145 mmol/L) 143 Potassium (3.5 - 5.1 mmol/L) 3.4 L Chloride (98 - 107 mmol/L) 117 H Carbon Dioxide (22 - 30 mmol/L) 20 L Anion Gap (5 - 16) 6 BUN (7 - 17 mg/dL) 22 H Creatinine (0.5 - 1.0 mg/dL) 0.9 Estimated GFR (>60 ml/min) > 60 BUN/Creatinine Ratio (7 - 25 %) 24.4 Total Bilirubin (0.2 - 1.3 mg/dL) 1.3 Direct Bilirubin (< 0.4 mg/dL) 1.0 H AST (14 - 36 U/L) 163 H ALT (9 - 52 U/L) 129 H Alkaline Phosphatase (<127 U/L) 163 H Total Protein (6.3 - 8.2 g/dL) 4.6 L Albumin (3.5 - 5.0 g/dL) 1.8 L Coagulation APTT (25 - 37 SEC) > 120 *H > 120 *H > 120 *H Hematology CBC w Diff NO MAN DIFF REQ WBC (4.8 - 10.8 /CUMM) 6.6 RBC (4.20 - 5.40 /CUMM) 2.04 L Hgb (12.0 - 16.0 G/DL) 6.5 *L Hct (37 - 47 %) 19.1 *L MCV (81.0 - 99.0 FL) 93.7 MCH (27.0 - 31.0 PG) 31.6 H RDW (11.5 - 14.5 %) 26.5 H Plt Count (130 - 400 /CUMM) 94 L MPV (7.4 - 10.4 FL) 11.4 H Gran % (42.2 - 75.2 %) 69.5 Lymphocytes % (20.5 - 51.1 %) 19.7 L Monocytes % (1.7 - 9.3 %) 7.0 Eosinophils % (0 - 5 %) 3.4 Basophils % (0.0 - 2.0 %) 0.4 Absolute Granulocytes (1.4 - 6.5 /CUMM) 4.6 Absolute Lymphocytes (1.2 - 3.4 /CUMM) 1.3 Absolute Monocytes (0.10 - 0.60 /CUMM) 0.5 Absolute Eosinophils (0.0 - 0.7 /CUMM) 0.2 Absolute Basophils (0.0 - 0.2 /CUMM) 0 PUBS MCHC (33.0 - 37.0 G/DL) 33.8 06/20 06/20 06/20 1445 1156 1100 Coagulation APTT (25 - 37 SEC) 35 Hematology CBC w Diff MAN DIFF ORDERED Cancelled WBC (4.8 - 10.8 /CUMM) 7.0 Cancelled RBC (4.20 - 5.40 /CUMM) 2.43 L Cancelled Hgb (12.0 - 16.0 G/DL) 7.7 L Cancelled Hct (37 - 47 %) 22.8 L Cancelled MCV (81.0 - 99.0 FL) 93.7 Cancelled MCH (27.0 - 31.0 PG) 31.7 H Cancelled RDW (11.5 - 14.5 %) 27.0 H Cancelled Plt Count (130 - 400 /CUMM) 108 L Cancelled MPV (7.4 - 10.4 FL) 11.0 H Cancelled Gran % (42.2 - 75.2 %) 78.6 H Lymphocytes % (20.5 - 51.1 %) 14.4 L Monocytes % (1.7 - 9.3 %) 5.4 Eosinophils % (0 - 5 %) 1.6 Basophils % (0.0 - 2.0 %) 0 L Absolute Granulocytes (1.4 - 6.5 /CUMM) 5.5 Segmented Neutrophils (42.2 - 75.2 %) 87 H Absolute Lymphocytes (1.2 - 3.4 /CUMM) 1.0 L Lymphocytes (20.5 - 51.1 %) 8 L Monocytes (1.7 - 9.3 %) 4 Absolute Monocytes (0.10 - 0.60 /CUMM) 0.4 Eosinophils (0 - 5.0 %) 1 Absolute Eosinophils (0.0 - 0.7 /CUMM) 0.1 Absolute Basophils (0.0 - 0.2 /CUMM) 0 Nucleated RBCs (0.0 - 0.0 /100WBC) 3 H Platelet Estimate (ADEQUATE) DECREASED Hypochromic-Microcytic 2+ Poikilocytosis 3+ Anisocytosis 3+ Ovalocytes 2+ Jigna Cells 2+ Elliptocytes 1+ Schistocytes 1+ PUBS MCHC (33.0 - 37.0 G/DL) 33.8 Cancelled Urines Ur Random Creatinine (mg/dL) 109.9 Ur Random Sodium (30 - 90 mmol/L) 31 Ur Random Potassium (mmol/L) 33.9 Fraction Sodium Excret (<1% %) 0.2 06/20 0956 Chemistry RBC Folate Pending Coagulation Fibrinogen Activity (200 - 393 MG/DL) 140 L PTT>120 Assessment/Plan Assessment/Recommendations: Hematologic status-continued drop in hematocrit, platelet count relatively stable, patient begun on folinic acid, decreased fibrinogen. Most likely explanation for the rapid drop in hematocrit is bleeding, doubt hemolysis. Recommend- Assess for bleeding Hold anticoagulation Transfuse cryoprecipitate if fibrinogen less than 100 and active bleeding noted Transfuse red blood cells IVC filter Await red blood cell folate As per GI service Check direct Nisha test 2.? Question pancreas lesion- ?MRI This situation is obviously very difficult given the patient's lack of cooperation
--- NOTE | 2016-06-21 07:44 | NUR ---
30- OR CALLED FOR PT TO GO DOWN FOR IVC FILTER. SPOKE TO JUAN WITH ANESTHESIA TO INFORM HER OF PT H/H 6.5/19.1, PTT >120 AND IV ACCESS WITH #24 GAUGE ONLY. PER JUAN, ABOVE DOES NOT QUALIFY FOR CANCELLING PROCEDURE. PT TO COME DOWN TO OR FOR PROCEDURE. 35- PER SURG ELI CASTRO, STOP HEPARIN GTT NOW FOR PROCEDURE SINCE PT SUPRA THERAPEUTIC. 40- PT HAD REFUSED BLOOD TRANSFUSION OVERNIGHT, PER DR. HERRERA, PT NOW AGREEABLE AND SIGNED CONSENT. PT TO HAVE IVC FILTER PLACED AND THEN TO BE TRANSFUSED TODAY AFTER ADEQUATE IV ACCESS OBTAINED. 12- PT LEFT FLOOR FOR OR
--- NOTE | 2016-06-21 08:14 | NUR ---
Physical Therapy: Pt's chart reviewed this morning for treatment. Pt currently EMILEE for IVC filter- then to have blood transfusion for Low H&H. Will cx treatment this day and follow up tomorrow as appropriate. Thank you.
--- NOTE | 2016-06-21 09:04 | Operative Report ---
Operative/Inv Procedure Report Surgery Date: 06/21/16 Name of Procedure: Insertion of IVC filter (Cook Celect) Pre-Operative Diagnosis: Left lower extremity extensive DVT with contraindication to long-term anticoagulation due to fall risk and recent bleeding Post-Operative Diagnosis: Left lower extremity extensive DVT with contraindication to long-term anticoagulation due to fall risk and recent bleeding Estimated Blood Loss: ervin Surgeon/Reporter: MD JANAK Anesthesia: local monitored anesthesi Implants: Coca Celect IVC filter Complications: None Condition: Stable to PACU Operative Indication: 70-year-old female with past medical history significant for multiple medical problems including recent left lower extremity swelling and some popliteal DVT. She's been on a heparin drip and her hemoglobin and hematocrit has been decreasing. She has relative contraindication to long-term anticoagulation due to her fall risk. She's also had recent epistaxis and her heparin drip had to be stopped. IVC filter was discussed and consent was obtained from the patient and her . Operative/Procedure Note Note: Patient brought to the operating room prepped and draped in usual sterile surgical fashion. She was laid supine on the table. Timeout was held in accordance with hospital policy. The right femoral vein will be accessed. 5 mL of lidocaine were used for analgesia. The right femoral vein was accessed with micropuncture needle. This was exchanged for a 0.018 inch wire and coaxial dilator system. Through this a Bentson wire was placed. A 5 Amharic sheath was placed. A venogram was then performed. Pelvic and IVC venogram demonstrates a patent right sided iliofemoral system. The IVC is widely patent. The level of the renal veins was clearly noted. A Cook Celect IVC filter was then advanced into the patient and deployed under fluoroscopy. There was a slight tilt noted but overall the filter was positioned well. Completion venography demonstrates the filter is in adequate position with no evidence of extravasation. The catheter sheath and wire systems were removed. Direct manual compression was held over the groin for 5 minutes. Bioocclusive glue and manual compression was used for hemostasis. The patient tolerated the procedure well. Sponge, needle and instrument counts were correct. The patient tolerated the procedure well.
--- NOTE | 2016-06-21 09:17 | RADIOLOGY REPORT ---
EXAMINATION: Intraoperative fluoroscopy CLINICAL INDICATION: IVC filter placement COMPARISON: Lower extremity ultrasound 06/19/2016 TECHNIQUE: Intraoperative fluoroscopy was provided for procedure performed by Dr. Kenyon. Several digital subtraction angiograms were saved to PACS. Total fluoroscopic time: 1.1 minutes. FINDINGS/IMPRESSION: Intraoperative fluoroscopy was provided for procedure performed by Dr. Kenyon. Please see operative note for detailed findings.
[2016-06-21 11:20] LABS: PTT 30 SEC (25-37)
--- NOTE | 2016-06-21 12:10 | NUR ---
1030- PT RETURNED TO FLOOR VIA STRETCHER FROM PACU. REPORT REC'D FROM DONNA/ HARNESS CUTTER. ANESTHESIA USED GUIDE WIRE TO PUT #[address] #24 TO RFA. INSERTION SITE TO RFA LEAKING BLOOD. PT HAD IVC FILTER PLACED. PUNCTURE TO R GROIN WITH DRESSING C,D,I. VSS. 1100-RUBBER COMPOUNDER MIXER IN TO EVAL IV ACCESS. UNABLE TO OBTAIN ADEQUATE IV ACCESS TO TRANSFUSE PRBC. DR. HERRERA NOTIFIED OF ABOVE AND TO DISCUSS WITH ATTENDING MD PLAN TO TRANSFUSE. MDS AWARE TRANSFUSION NOT POSSIBLE AT THIS TIME.
--- NOTE | 2016-06-21 13:23 | Cons- Nephrology ---
General Information and HPI Consulting Request Date of Consult: 06/21/16 Requested By: SHERRY PATHAK MD Reason for Consult: Decreased urine output Source of Information: patient, old records Exam Limitations: no limitations History of Present Illness: This 70-year-old with a history of hypertension in the past coupled with rheumatoid arthritis was admitted with weakness and found to have a deep venous thrombosis. It has been noted that her urine output has dropped off. She is recorded as having only 335 mL out yesterday and 150 mL today. She denies any previous history of kidney stones or kidney infections. She does not use Advil or naproxen. There is no family history of renal disease. She is concerned about her having a Whitt catheter in place. She is concerned that the Whitt catheter may be permanent. She does have a history of requiring Detrol after an operation 20 years ago to remove a benign tumor. Allergies/Medications Allergies: Coded Allergies: Penicillins (UNKNOWN 03/15/16) Home Med List: Aspirin (Lite Coat Aspirin) 325 MG TABLET 1 TAB PO DAILY HEART HEALTH ( Reported) Atorvastatin Calcium 20 MG TABLET 1 TAB PO DAILY CHOL (Reported) Folic Acid 1 MG TABLET 1 TAB PO DAILY SUPPLEMENT (Reported) Methotrexate 2.5 MG TABLET 6 TAB PO QW ARTHRITIS (Reported) Metoprolol Succ XL (Toprol XL) 25 MG TAB 1 TAB PO DAILY htn Nystatin 100,000 UNIT/GRAM CREAM..G. 1 ROBIN TOP BID RASH (Reported) apply to affected area(s) Pantoprazole Sodium 40 MG TABLET.DR 1 TAB PO DAILY GERD (Reported) Tolterodine Tartrate 2 MG TABLET 1 TAB PO BID OVERACTIVE BLADDER (Reported) Review of Systems Review of Systems Constitutional: Reports: unexplained weight loss. Denies: diaphoresis, fever, malaise. EENTM: Denies: blurred vision, double vision, visual changes, epistaxis. Cardiovascular: Denies: chest pain, edema, orthopena, palpitations, peripheral edema (reports ministroke in 03/2016). Respiratory: Denies: cough, hemoptysis, orthopnea, short of breath, sputum production. GI: Denies: bloating, constipation, diarrhea, distention, bowel incontinence. Genitourinary: Denies: dysuria, frequency, hematuria, hesitation, nocturia. Skin: Reports: no symptoms. Neurological/Psychological: Denies: headache, numbness, other (ministroke 2016). Hematologic/Endocrine: Reports: bleeding (after Heparin). 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 FHx: stomach cancer FATHER, ; Cause: Alcoholic liver disease. Psychosocial History Where Do You Live? Home Who Do You Live With? spouse Services at Home: Home Health Aide, Nursing, Occupational Therapy Primary Language: Slovak Smoking Status: Never Smoked ETOH Use: denies use Illicit Drug Use: denies illicit drug use Living Will? no Power of Environmental Engineering Aide/HCP? no Other Social History: Marrie. Poor historian . Lives with . No cigarettes, drugs or EtOH. 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 2 sons & 1 dtr- [employer]. Functional Ability ADLs Independent: dressing, eating. Unknown: toileting, bathing. Ambulation: walker IADLs Independent: telephone. Needs Assist: shopping, housework, transportation. Unknown: finances, food prep, medication admin. Employment History Employment: Retired Profession/Employer: [employer] Exam & Diagnostic Data Vital Signs and I&O Vital Signs Date Time Temp Pulse Resp B/P Pulse O2 O2 Flow FiO2 Ox Delivery Rate 06/21 0642 97.9 90 18 114/80 95 Room Air 06/20 2347 98.1 97 18 140/78 94 Room Air 06/20 1436 97.5 78 18 134/84 95 Room Air Intake & Output 06/21 1600 06/21 0400 06/20 1600 06/20 0400 06/19 1600 06/19 0400 Intake Total 642 814 4801 1040 1700 500 Output Total 150 125 210 100 200 175 Balance 629 445 8965 940 1500 325 Intake, IV 439 738 4105 800 1200 300 Intake, Oral 100 800 240 500 200 Number 0 0 Bowel Movements Output, Urine 150 125 210 100 200 175 Patient 131 lb Weight Physical Exam General Appearance: well developed/nourished, no apparent distress Head: atraumatic, normal appearance, active bleeding Eyes: Bilateral: PERRL, EOMI, pale conjunctivae. Neck: normal inspection, supple, full range of motion, no midline tenderness Respiratory: normal breath sounds, chest non-tender, lungs clear Cardiovascular: regular rate/rhythm, edema, gallop Peripheral Pulses: 3+ femoral (R), 3+ femoral (L), 3+ tibialis posterior (L), 3+ dorsalis pedis (R) , 3+ dorsalis pedis (L) Gastrointestinal: normal bowel sounds, soft, non-tender Extremities: Left leg Larger than the right Neurologic/Psych: awake, alert, oriented x 3 Skin: intact, normal color, warm/dry Lymphatic: no anterior cervical bryan Results Pertinent Lab Results: Laboratory Tests 06/21 06/21 06/20 1050 0405 2318 Chemistry Sodium (137 - 145 mmol/L) 143 Potassium (3.5 - 5.1 mmol/L) 3.4 L Chloride (98 - 107 mmol/L) 117 H Carbon Dioxide (22 - 30 mmol/L) 20 L Anion Gap (5 - 16) 6 BUN (7 - 17 mg/dL) 22 H Creatinine (0.5 - 1.0 mg/dL) 0.9 Estimated GFR (>60 ml/min) > 60 BUN/Creatinine Ratio (7 - 25 %) 24.4 Total Bilirubin (0.2 - 1.3 mg/dL) 1.3 Direct Bilirubin (< 0.4 mg/dL) 1.0 H AST (14 - 36 U/L) 163 H ALT (9 - 52 U/L) 129 H Alkaline Phosphatase (<127 U/L) 163 H Total Protein (6.3 - 8.2 g/dL) 4.6 L Albumin (3.5 - 5.0 g/dL) 1.8 L Coagulation APTT (25 - 37 SEC) 30 > 120 *H > 120 *H Fibrinogen Activity (200 - 393 MG/DL) 161 L Hematology CBC w Diff NO MAN DIFF REQ WBC (4.8 - 10.8 /CUMM) 6.6 RBC (4.20 - 5.40 /CUMM) 2.04 L Hgb (12.0 - 16.0 G/DL) 6.5 *L Hct (37 - 47 %) 19.1 *L MCV (81.0 - 99.0 FL) 93.7 MCH (27.0 - 31.0 PG) 31.6 H RDW (11.5 - 14.5 %) 26.5 H Plt Count (130 - 400 /CUMM) 94 L MPV (7.4 - 10.4 FL) 11.4 H Gran % (42.2 - 75.2 %) 69.5 Lymphocytes % (20.5 - 51.1 %) 19.7 L Monocytes % (1.7 - 9.3 %) 7.0 Eosinophils % (0 - 5 %) 3.4 Basophils % (0.0 - 2.0 %) 0.4 Absolute Granulocytes (1.4 - 6.5 /CUMM) 4.6 Absolute Lymphocytes (1.2 - 3.4 /CUMM) 1.3 Absolute Monocytes (0.10 - 0.60 /CUMM) 0.5 Absolute Eosinophils (0.0 - 0.7 /CUMM) 0.2 Absolute Basophils (0.0 - 0.2 /CUMM) 0 PUBS MCHC (33.0 - 37.0 G/DL) 33.8 06/2018 06/20 1730 1445 1156 Coagulation APTT (25 - 37 SEC) > 120 *H 35 Hematology CBC w Diff MAN DIFF ORDERED WBC (4.8 - 10.8 /CUMM) 7.0 RBC (4.20 - 5.40 /CUMM) 2.43 L Hgb (12.0 - 16.0 G/DL) 7.7 L Hct (37 - 47 %) 22.8 L MCV (81.0 - 99.0 FL) 93.7 MCH (27.0 - 31.0 PG) 31.7 H RDW (11.5 - 14.5 %) 27.0 H Plt Count (130 - 400 /CUMM) 108 L MPV (7.4 - 10.4 FL) 11.0 H Gran % (42.2 - 75.2 %) 78.6 H Lymphocytes % (20.5 - 51.1 %) 14.4 L Monocytes % (1.7 - 9.3 %) 5.4 Eosinophils % (0 - 5 %) 1.6 Basophils % (0.0 - 2.0 %) 0 L Absolute Granulocytes (1.4 - 6.5 /CUMM) 5.5 Segmented Neutrophils (42.2 - 75.2 %) 87 H Absolute Lymphocytes (1.2 - 3.4 /CUMM) 1.0 L Lymphocytes (20.5 - 51.1 %) 8 L Monocytes (1.7 - 9.3 %) 4 Absolute Monocytes (0.10 - 0.60 /CUMM) 0.4 Eosinophils (0 - 5.0 %) 1 Absolute Eosinophils (0.0 - 0.7 /CUMM) 0.1 Absolute Basophils (0.0 - 0.2 /CUMM) 0 Nucleated RBCs (0.0 - 0.0 /100WBC) 3 H Platelet Estimate (ADEQUATE) DECREASED Hypochromic-Microcytic 2+ Poikilocytosis 3+ Anisocytosis 3+ Ovalocytes 2+ [place] Cells 2+ Elliptocytes 1+ Schistocytes 1+ PUBS MCHC (33.0 - 37.0 G/DL) 33.8 Urines Ur Random Creatinine (mg/dL) 109.9 Ur Random Sodium (30 - 90 mmol/L) 31 Ur Random Potassium (mmol/L) 33.9 Fraction Sodium Excret (<1% %) 0.2 06/20 06/20 06/20 1100 0956 0310 Chemistry Sodium (137 - 145 mmol/L) 142 Potassium (3.5 - 5.1 mmol/L) 3.2 L Chloride (98 - 107 mmol/L) 113 H Carbon Dioxide (22 - 30 mmol/L) 20 L Anion Gap (5 - 16) 9 BUN (7 - 17 mg/dL) 28 H Creatinine (0.5 - 1.0 mg/dL) 0.9 Estimated GFR (>60 ml/min) > 60 BUN/Creatinine Ratio (7 - 25 %) 31.1 H Total Bilirubin (0.2 - 1.3 mg/dL) 1.6 H Direct Bilirubin (< 0.4 mg/dL) 1.2 H AST (14 - 36 U/L) 202 H ALT (9 - 52 U/L) 136 H Alkaline Phosphatase (<127 U/L) 195 H Total Protein (6.3 - 8.2 g/dL) 5.2 L Albumin (3.5 - 5.0 g/dL) 2.1 L RBC Folate (>280) 457 Coagulation APTT (25 - 37 SEC) 69 H Fibrinogen Activity (200 - 393 MG/DL) 140 L Hematology CBC w Diff Cancelled NO MAN DIFF REQ WBC (4.8 - 10.8 /CUMM) Cancelled 6.6 RBC (4.20 - 5.40 /CUMM) Cancelled 2.37 L Hgb (12.0 - 16.0 G/DL) Cancelled 7.3 *L Hct (37 - 47 %) Cancelled 22.2 L MCV (81.0 - 99.0 FL) Cancelled 93.6 MCH (27.0 - 31.0 PG) Cancelled 31.0 RDW (11.5 - 14.5 %) Cancelled 26.0 H Plt Count (130 - 400 /CUMM) Cancelled 104 L MPV (7.4 - 10.4 FL) Cancelled 10.9 H Gran % (42.2 - 75.2 %) 74.4 Lymphocytes % (20.5 - 51.1 %) 17.9 L Monocytes % (1.7 - 9.3 %) 4.7 Eosinophils % (0 - 5 %) 2.9 Basophils % (0.0 - 2.0 %) 0.1 Absolute Granulocytes (1.4 - 6.5 /CUMM) 4.9 Absolute Lymphocytes (1.2 - 3.4 /CUMM) 1.2 Absolute Monocytes (0.10 - 0.60 /CUMM) 0.3 Absolute Eosinophils (0.0 - 0.7 /CUMM) 0.2 Absolute Basophils (0.0 - 0.2 /CUMM) 0 PUBS MCHC (33.0 - 37.0 G/DL) Cancelled 33.1 06/19 06/19 06/19 0928 0610 0610 Chemistry Sodium (137 - 145 mmol/L) 141 Potassium (3.5 - 5.1 mmol/L) 3.5 Chloride (98 - 107 mmol/L) 111 H Carbon Dioxide (22 - 30 mmol/L) 21 L Anion Gap (5 - 16) 9 BUN (7 - 17 mg/dL) 34 H Creatinine (0.5 - 1.0 mg/dL) 1.0 Estimated GFR (>60 ml/min) 55 L BUN/Creatinine Ratio (7 - 25 %) 34.0 H Hemoglobin A1c (<5.7) 5.4 Total Bilirubin (0.2 - 1.3 mg/dL) 1.5 H Direct Bilirubin (< 0.4 mg/dL) 1.0 H AST (14 - 36 U/L) 179 H ALT (9 - 52 U/L) 122 H Alkaline Phosphatase (<127 U/L) 171 H Total Protein (6.3 - 8.2 g/dL) 4.9 L Albumin (3.5 - 5.0 g/dL) 2.0 L Triglycerides (<150 mg/dL) 67 Cholesterol (<200 MG/DL) 136 LDL Cholesterol, Calc (65 - 129 mg/dL) 104 HDL Cholesterol (40 - 60 mg/dL) 19 L Cholesterol/HDL Ratio (0.00 - 4.23 %) 7 H TSH (0.270 - 4.200 uIU/mL) 5.630 H Free T4 (0.78 - 2.44 ng/dL) 1.68 Hematology CBC w Diff MAN DIFF ORDERED WBC (4.8 - 10.8 /CUMM) 9.1 RBC (4.20 - 5.40 /CUMM) 2.82 L Hgb (12.0 - 16.0 G/DL) 8.6 L Hct (37 - 47 %) 26.4 L MCV (81.0 - 99.0 FL) 93.6 MCH (27.0 - 31.0 PG) 30.5 RDW (11.5 - 14.5 %) 26.4 H Plt Count (130 - 400 /CUMM) 137 MPV (7.4 - 10.4 FL) 9.5 Segmented Neutrophils (42.2 - 75.2 %) 83 H Lymphocytes (20.5 - 51.1 %) 15 L Monocytes (1.7 - 9.3 %) 1 L Eosinophils (0 - 5.0 %) 1 Platelet Estimate (ADEQUATE) DECREASED Polychromasia 1+ Hypochromic-Microcytic 2+ Poikilocytosis 4+ Anisocytosis 3+ [place] Cells 3+ Schistocytes 1+ PUBS MCHC (33.0 - 37.0 G/DL) 32.6 L Serology Hepatitis A IgM Ab (NONREACTIVE) NONREACTIVE Hep Bs Antigen (NONREACTIVE) NONREACTIVE Hep B Core IgM Ab Conf (NONREACTIVE) NONREACTIVE Hepatitis C Antibody (NONREACTIVE) NONREACTIVE Imaging/Other Studies: PATIENT: ADRIEL LOAIZA PRESENT AGE: 70 PATIENT ACCOUNT NO: [id number] : 44 LOCATION: A ORDERING PHYSICIAN: YAIMA EHRRERA MD SERVICE DATE: 06/19/16- EXAM TYPE: CAT - CT ABD & PELVIS W IV CONTRAST; CT CHEST W IV CONTRAST EXAMINATION: CT CHEST, ABDOMEN AND PELVIS WITH CONTRAST CLINICAL INFORMATION: 70-year-old female found to have scattered tiny noncalcified micronodules at both upper lobes of the lung and possible mucus plugging within the right upper lobe on prior CT of the chest done on 06/18/2016. Patient is also known to have 1 cm exophytic cystic lesion within the pancreatic head, seen on prior CT of the abdomen and pelvis done on 06/17/2016. For followup. Suspected occult BUSINESS ADMINISTRATION PROGRAM CHAIR malignancy. COMPARISON: CT of the abdomen and pelvis done on 06/17/[address] of the chest done on 06/18/2016. TECHNIQUE: Multidetector volumetric imaging was performed from the thoracic inlet through the pubic symphysis following administration of intravenous contrast of 94 mL of [id number]-320 intravenous contrast. Sagittal and coronal reformatted images were obtained on the technologist's workstation. 339.62 mGy-cm FINDINGS: CHEST: Lungs: There is a persistent subtle linear, tubular density seen within the right upper lobe, most consistent with mucus plugging. A few tiny scattered micronodules measuring 2-3 mm seen predominantly at both upper lobes of the lung appear stable. No discrete lung mass or focal airspace consolidation or any other abnormality identified, unchanged since prior study. The tracheobronchial tree appeared patent. Mediastinum: Atherosclerotic changes are present within the aorta and its branches including coronary arterial calcifications. The ascending thoracic aorta at the level of the main pulmonary artery measures 3.4 cm. There is no pathologically enlarged mediastinal, hilar lymphadenopathy present. No significant change. Pericardium/Pleura: There is no significant effusion. No pleural mass or thickening. Chest Wall/Axilla: Unremarkable. ABDOMEN/PELVIS: Liver, Gallbladder, Biliary Tree: Solitary stable dense macrocalcification is noted along the central medial subdiaphragmatic aspect of the right lobe of the liver, unchanged. The remainder of the liver shows no other discrete focal abnormality. Multiple well-faceted partially calcified gallstones are present, without any CT features of superimposed acute cholecystitis. There is no intrahepatic or extremity biliary ductal dilatation present. No significant change. Pancreas: Possible 0.8 cm hypodensity is noted along the inferior posterior aspect of the head, uncinate process of the pancreas similar to prior study. In addition, there are 2 ill-defined hypodensities identified within the mid to distal part of the body of the pancreas, the smaller measures approximately 1.1 cm while the largest one measures approximately 1.5 cm at their maximum dimension (see the mc images). There is no peripancreatic fluid collection, ductal dilatation, lymphadenopathy identified. Spleen: Unremarkable. Adrenal Glands: Unremarkable. Kidneys And Ureters: The kidneys are normal in size, shape, and attenuation. No hydronephrosis or hydroureter or calculi seen. No perinephric stranding. Bladder: Unremarkable. Gastrointestinal Tract: The small and large bowel are unremarkable. The appendix is unremarkable. Abdominal Wall: Small stable periumbilical fat containing herniation is present. Lymph Nodes: Normal. Vascular: Diffuse atherosclerotic changes are noted within the aorta and its branches without aneurysm formation. Asymmetric hypodensity and prominence of the left common femoral, left external iliac and left internal iliac as well as the proximal part of the left common iliac veins is noted, may represent venous thrombosis. A follow-up left lower extremity deep venous Doppler study is recommended for further full detail evaluation. Pelvic Viscera: There is no pelvic mass present. There is no free fluid and/or free air present. The uterus and ovaries are not visualized. No significant change. Osseous Structures: Moderate diffuse osteopenia and superimposed multilevel compression deformities are noted at mid to lower thoracic spine and also involving L1 and L3 vertebral bodies, similar to prior studies. IMPRESSION: 1. Asymmetric prominence associated with low density is noted within the visualized part of the left common femoral, external iliac and common iliac veins, suspicious for deep venous thrombosis. Follow-up left lower extremity Doppler study is recommended for further clarification. 2. Abnormal pancreas showing hypodense lesions, as described above. Follow-up MRI with and without intravenous contrast per pancreatic mass protocol, including MRCP is recommended for further full detail evaluation. 3. Cholelithiasis without any CT features of superimposed acute cholecystitis or biliary obstruction. 4. Stable appearance of the chest. This critical result was discussed with Mei Lan RN at 5:22 PM on 06/19/2016 and it was ascertained that the content and urgency of the report was understood at the time of direct communication. DICTATED BY: KEREN VARNER MD DATE/TIME DICTATED:06/19/161643 COFFEE MACHINE TECHNICIAN:LAYA DATE/TIME TRANSCRIBED:06/19/161643 CONFIDENTIAL, DO NOT COPY WITHOUT APPROPRIATE AUTHORIZATION. <Electronically signed in Other Vendor System> SIGNED BY: KEREN VARNER MD 06/19/16 1810 Assessment/Plan Assessment/Recommendations Assessment: 1. Decreased urine output. It is difficult to label this as acute renal failure except perhaps by the newer criteria. She was admitted with weakness and found to have a DVT and also received 93 mL of contrast. Her urine appears to be concentrated in the Whitt. She does have a history of needing to use Detrol after an operation many years ago, but I do not think that that is playing a role with Whitt catheter in place. My only other concern is that she is still quite intravascularly volume depleted. Her serum creatinine remained 0.9. Her hemoglobin has dropped from 8.8-6.5. She apparently had epistaxis with initiation of heparin drip. The only other observation in that regard is that this is a 2.3 g drop in hemoglobin. I would be concerned that she is bleeding elsewhere. In the interim, she needs fluids and transfusion. The notes indicate that she was initially resistant to that idea. Please note that her fractional excretion of sodium is consistent with prerenal azotemia. This being said, after contrast, the fractional excretion of sodium can be consistent with prerenal azotemia due to vasoconstriction mediated by the contrast. 2. Unexplained weight loss 3. Deep venous thrombosis. She is status post placement of a filter. 4. Anemia. She was anemic upon presentation. Dr. Garrison is following. Recommendations: 1. Would favor vigorous volume replacement. 2. Continue with daily weights. 3. Continue with daily labs.
[2016-06-21 14:15] VITALS: BP 138/70
--- NOTE | 2016-06-21 14:41 | PN- Gastroenterology ---
Assessment/Plan Assessment/Recommendations: 70-year-old female, HTN/HLD, non-DM, rheumatoid arthritis x 11 years, TIA/CVA , HH, GERD, followed by Dr. Zambrano for primary care & Dr. Orlando for GI in [place], [place]. Unfortunately, there are no old medical records in the [place] computer, prior to her admission of 06/17/2016. 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 *She was previously on Humira for rheumatoid arthritis, and most recently, switched to MTX for her RA. She is a horrible historian and cannot recall the name of her commercial helicopter pilot who prescribes this for her in [place], [place]. She also is uncertain as to how long she has been on the MTX. The patient was admitted to [facility] 06/17/2016 after a witnessed mechanical fall, occurring after transferring from her bed to a wheelchair. There was no associated LOC, head trauma, CP, SOB, palpitations, or seizure activity. The falls have happened twice over the past 3 months. She also incidentally reported a 47 pound weight loss over the previous 6 months, going from 167 lbs to 120 lbs, since 11/2015. She has never had a baseline colonoscopy. She saw Dr. Orlando for this for GI a few months ago, in [place], [place], who recommended a colonoscopy and a CT of the abdomen, however the patient refuses this. She allegedly had an EGD around 1999 , results of which are unknown, but she denies any histoy of PUD. She notes generalized progressive weakness over the past few months. She also notes loss of appetite. No nausea, vomiting, or hematemesis. The patient has reflux, for which he is on outpatient Protonix. She is somewhat vague as to whether she has abdominal pain. There is no definite early satiety. There is mild constipation , without any diarrhea, obstipation, tenesmus or BRBPR. There are no rashes, but she has chronic arthralgias attributed to the RA. She does have some dyspnea on exertion. *We have no knowledge of her baseline LFTs or CBC. She denies any cigarettes, alcohol, illicit drug use, or NSAIDs. She is on full-strength aspirin 325 mg daily. Although she denies smoking, imaging studies are suggestive of COPD. *Stools were OB negative on digital exam on adnission, as per director internal communications. The patient has been unable to ambulate for the past couple of weeks [employer], which is multifactorial, from generalized weakness, poor by mouth intake, malnutrition, etc. *Imaging studies are limited without IV contrast, in view of decreased GFR. Family history for MGM- gastric Ca, M- "neck tumor", F- EtOH liver disease. *Of note, in addition to MTX, the patient reportedly was on Atorvastatin as an outpatient. 06/17/2016: WBC 8.1, H/H 8.8/26.5, nl MCV 92.9, elevated RDW 25.7, PLT 204, PT 14.8, INR 1.41, PTT 28; glucose 86, BUN/Cr 32/1.1, GFR 49, normal electrolytes, except bicarbonate 21, AG 16, albumin 2.3, globulin 3.3, TBil 1.8 (without fracs ), alk phos 195, AST 227, ALT 122, Fe 41, TIBC 138, Fe sat 29.7%, ferritin 1470, B12 987, low normal folate 3.3, low Vit D 8.7, troponin < .01, nl lactate 1.4; U /A- hazy, yellow, 1.025, 6.0, 1-3 RBC, rare WBC, 10-15 hyaline casts, 1-3 granular casts, few bacteria, tr ketone, mod bili, 30+ protein, > 8.0 urobilinogen; neg nitrite, neg esterase 06/18/2016: WBC 10.6, H/H 8.9/26.9, PLT 204, BUN/Cr 35/1.1, HCO3 18, AG 12, alb 2.3, glob 3.3, TBil 1.8, DBil 1.3, alk phos 199, AST 228, ALT 136 06/17/2016: PORTABLE CXR- A vague 1.8 cm rounded opacity is seen in the left upper lung overlying the left sixth rib posteriorly. DJD. Recommend CT thorax for further evaluation to exclude pulmonary lesion. Alternatively, follow-up PA and lateral chest radiographs could be obtained. The lungs are hyperlucent bilaterally suspicious for underlying emphysema. No evidence of pulmonary edema. 06/17/2016: US ABDOMEN LIMITED- Diffuse increased echogenicity of the liver which may be related to fatty infiltration. Gallbladder not definitely identified and contracted gallbladder with calculi not excluded. CBD 4 mm. No tenderness to palpation present to suggest acute cholecystitis. 06/17/2016: CT ABDOMEN AND PELVIS WITHOUT CONTRAST- 1. Cholelithiasis without CT evidence of cholecystitis. 2. No biliary ductal dilatation demonstrated. 3. Possible mild hepatic steatosis. 4. No acute bowel pathology demonstrated. 5. Suspect a 0.8 cm cyst extending anteriorly off of the pancreatic head. Recommend attention on follow-up imaging to ensure future stability. Comparison with any prior outside abdominal CT or MRI could be helpful to establish stability. 6. Additional findings as above. MYRNA. 06/17/2016: EKG- NSR @ 86, LVH, PRWP. 06/18/2016: CT CHEST WITHOUT CONTRAST- 1. Mild emphysema with several scattered benign-appearing noncalcified 0.2 to 0.3 cm noncalcified micronodules. In the setting of underlying obstructive lung disease, short interval follow-up CT scan in 12 months is recommended to exclude suspicious interval growth. 2. Scattered areas of mucus plugging in small airways. These can also be reassessed at the time of the above suggested follow-up CT scan. 3. No adenopathy. 4. Severe atherosclerotic calcifications of the coronary arteries and left renal artery. 5. Cholelithiasis. 6. Incompletely imaged 1 cm exophytic cyst in the region of the pancreatic head. Please refer to the CT scan of the abdomen and pelvis dictation from 06/17/2016 for further description and recommendation. 7. Osteopenia with multiple vertebral compression deformities. The patient is an extremely poor historian. Her anemia & abnormal LFTs are noted, albeit with OB-negative stool. She has refused a baseline colonoscopy & continues to do so. Additionally, she refused any GI/liver workup whatsoever. She remotely had an EGD in 1999, the results of which are unknown. I am not certain what her baseline labs are, as they are all in the [place] area. I am not certain as to the cumulative dose of her MTX, which is known to give hepatotoxicity, especially when the total dose is > 1 gram. In addition to this, she was also on Atorvastatin, which can also be hepatotoxic. Imaging studies are somewhat limited, without IV contrast, in view of low GFR. The cholelithiasis is noted, which may or may not be incidental. Her CBD should be cleared. Additionally, she has fatty liver. There is also a cystic lesion in the head of the pancreas. The pulmonary nodules are noted. Differential diagnosis certainly also includes malignancy, especially with the unintentional weight loss of 47 pounds over the past 6 months, be it pancreatic, cholangiocarcinoma, or metastatic disease. Additionally, although the patient's iron saturation is normal, the elevated ferritin of 1470 is noted, HHC versus acute phase reactant. *I was called back today 06/21/2016 to reassess patient for potential GI bleeding, at the request of Dr. Tucker. *Extensive records reviewed. *The patient has previously refused GI workup multiple times (with Dr. Orlando, as an outpatient , in [place], [place], as well as with myself), & so I signed off after my 06/18/2016: GI consult. The patient previously could not divulge to me who her commercial helicopter pilot was. *Since I signed off due to patient non-compliance, the patient was incidentally found to have LLE DVT on 06/19/2016: CT CAP with IV cont, treated with IV heparin. The CT also showed nonspecific hypodense pancreatic lesions. LLE DVT was verified by 06/19/2016: Doppler. 06/20/2016: MRI of abdomen with and without gadolinium/MRCP - 3 small cystic foci in pancreas (possible sequelae of remote pancreatitis), along with chronic cholelithiasis. *The patient reportedly had OB-negative stool prior to being started on IV heparin for the LLE DVT, followed by significant epistaxis. At this point, IV heparin was stopped and an IVC filter was placed 06/21/2016. She is now off anticoagulation therapy, *although she is on full-strength aspirin 325 mg daily. *We were again called to reassess the patient for potential EGD/colonoscopy, which the patient still is not committing to. This is in spite of encouragement by her , Jagdish, to do so, as he was present in the patient's room. He was given my office number. Additionally, she ate solid food 06/21/2016, which would make colonoscopy tomorrow 06/22/2016 impossible, even if she did agree to it. *The patient is highly anxious. At various times, she has kicked multiple specialists out of her room. She has been seen by multiple disciplines. Despite her irrational behavior, she is A and O 3, and appears fully competent. *She has become more anemic, and is awaiting placement of a line in her left groin for access for blood. She was seen by hematology, and her anemia was felt to be more from possible folate deficiency post MTX > blood loss > hemolysis. Finally, she was seen by renal for a drop in her urine output, which was felt to be from intravascular depletion, as her GFR is normal. A Whitt was placed and she did not appear to have any significant residual. * The patient is a very poor historian, but at present, her GI review of systems are essentially negative. She remains hemodynamically stable and afebrile, with O2 sat RA- 90%. *The patient's numerous physicians include Dr. So Zambrano- PCP, Dr. Tucker- Hosp, Dr. Hernandez- Heme, Dr. Victoria- Rheum, Dr. Jay Jay Arrieta, Dr. Batres- Renal. 06/18/2016: DIMITRIOS- negative 1:40. 06/19/2016: *Hep A Ab, Hep Bs Ag, Hep B core Ab, * Hep C Ab- all negative, TSH 5.63 06/20/2016: *nl RBC folate 457 (>280). 06/19/2016: CT ABD & PELVIS W IV CONTRAST; CT CHEST W IV CONTRAST- 1. Asymmetric prominence associated with low density is noted within the visualized part of the left common femoral, external iliac and common iliac veins, suspicious for deep venous thrombosis. Follow-up left lower extremity Doppler study is recommended for further clarification. 2. Abnormal pancreas showing hypodense lesions, as described above. Follow-up MRI with and without intravenous contrast per pancreatic mass protocol, including MRCP is recommended for further full detail evaluation. 3. Cholelithiasis without any CT features of superimposed acute cholecystitis or biliary obstruction. 4. Stable appearance of the chest. 06/19/2016: US TRIPLEX LOWER EXTREMITY, BILATERAL- Abnormal examination. There is extensive deep venous thrombosis within the left lower extremity. No deep venous thrombosis within the right lower extremity. 06/20/2016: MR ABDOMEN WITHOUT AND WITH CONTRAST INCLUDING MRCP IMAGING- 1. There are 3 small cystic foci in the pancreas likely incidental possibly related to previous pancreatitis. Remaining pancreas is somewhat atrophic. Interval follow-up in 6 months time is recommended to confirm stability. 2. Cholelithiasis without evidence of acute cholecystitis. 06/21/2016: [id number] VIEWS (Intraoperative fluoroscopy/IVC filter placement)- Intraoperative fluoroscopy was provided for procedure performed by Dr. Kenyon. Please see operative note for detailed findings. The patient is still very nebulous as to whether she wishes to proceed with EGD/colonoscopy, and at this point, as she is no longer on heparin & has IVC filter, assuming her blood count stabilizes after transfusion via line to be placed in left groin later on 06/21/2016, the above can be done as an outpatient , as the patient allows. She reportedly is to go to [place] for rehabilitation if her HCT stabilizes off heparin and her urine output improves. SUGGEST: *Advise checking CEA & CA 19-9. *Consider genetic testing for HHC (i.e.- H63D, C282Y mutations, etc.- elevated ferritin & elevated LFTs). *Outpatient EUS to check CBD/pancreas/ampulla, etc. as patient allows. *Outpatient EGD/colonoscopy, as patient allows. *Check AMA, PANCA, A1AT level. *Would hold MTX & Atorvastatin for now (patient is unsure as to the name of her commercial helicopter pilot- subsequently noted to be Dr. Victoria). Continue Vitamin E 800 IU daily for fatty liver & risk factor modification (i.e.- BP, glucose, HLD, etc. - she denies EtOH). *Consider outpatient PET/CT to rule out malignancy. Continue folate repletion. *Consider checking celiac panel (IgA, tTG Ab, DGP Ab). Consider pulmonary input. *The above diagnostic possibilities were again discussed with the patient in detail, in the presence of her , Jagdish, on 06/21/2016, and she currently refuses any further testing. She is very anxious, but may reconsider this as an outpatient.*She is A & O x 3, & is aware that I cannot be held responsible for any adverse outcome or misdiagnosis, due to her noncompliance. *Consider psychiatric input to determine competency, but the patient appears competent to make these decisions. She is aware of the possibility of an underlying malignancy, as is her , who was given my office number, if they reconsider. I spoke with Dr. Tucker extensively regarding the above, as well as with the medical house staff. Further inpatient GI follow up as needed. I will be happy to proceed with outpatient EGD/colonoscopy as the patient allows. I contacted my office and gave [place] the name of [facility], to try to coordinate the above after discharge, as the patient allows. Problem List: 1. Unintentional weight loss 2. Anemia 3. Abnormal LFTs 4. Fatty liver 5. Pancreatic cyst 6. Cholelithiasis 7. Elevated ferritin 8. Malnutrition Subjective Subjective: *I was called back today 06/21/2016 to reassess patient for potential GI bleeding, at the request of Dr. Tucker. *Extensive records reviewed. *The patient has previously refused GI workup multiple times (with Dr. Orlando, as an outpatient , in [place], [place], as well as with myself), & so I signed off after my 06/18/2016: GI consult. The patient previously could not divulge to me who her commercial helicopter pilot was. *Since I signed off due to patient non-compliance, the patient was incidentally found to have LLE DVT on 06/19/2016: CT CAP with IV cont, treated with IV heparin. The CT also showed nonspecific hypodense pancreatic lesions. LLE DVT was verified by 06/19/2016: Doppler. 06/20/2016: MRI of abdomen with and without gadolinium/MRCP - 3 small cystic foci in pancreas (possible sequelae of remote pancreatitis), along with chronic cholelithiasis. *The patient reportedly had OB-negative stool prior to being started on IV heparin for the LLE DVT, followed by significant epistaxis. At this point, IV heparin was stopped and an IVC filter was placed 06/21/2016. She is now off anticoagulation therapy, *although she is on full-strength aspirin 325 mg daily. *We were again called to reassess the patient for potential EGD/colonoscopy, which the patient still is not committing to. This is in spite of encouragement by her , Jagdish, to do so, as he was present in the patient's room. He was given my office number. Additionally, she ate solid food 06/21/2016, which would make colonoscopy tomorrow 06/22/2016 impossible, even if she did agree to it. *The patient is highly anxious. At various times, she has kicked multiple specialists out of her room. She has been seen by multiple disciplines. Despite her irrational behavior, she is A and O 3, and appears fully competent. *She has become more anemic, and is awaiting placement of a line in her left groin for access for blood. She was seen by hematology, and her anemia was felt to be more from possible folate deficiency post MTX > blood loss > hemolysis. Finally, she was seen by renal for a drop in her urine output, which was felt to be from intravascular depletion, as her GFR is normal. A Whitt was placed and she did not appear to have any significant residual. * The patient is a very poor historian, but at present, her GI review of systems are essentially negative. She remains hemodynamically stable and afebrile, with O2 sat RA- 90%. *The patient's numerous physicians include Dr. So Zambrano- PCP, Dr. Tucker- Hosp, Dr. Hernandez- Heme, Dr. Victoria- Rheum, Dr. Jay Jay Arrieta, Dr. Batres- Renal. 06/18/2016: DIMITRIOS- negative 1:40. 06/19/2016: *Hep A Ab, Hep Bs Ag, Hep B core Ab, * Hep C Ab- all negative, TSH 5.63 06/20/2016: *nl RBC folate 457 (>280). 06/19/2016: CT ABD & PELVIS W IV CONTRAST; CT CHEST W IV CONTRAST- 1. Asymmetric prominence associated with low density is noted within the visualized part of the left common femoral, external iliac and common iliac veins, suspicious for deep venous thrombosis. Follow-up left lower extremity Doppler study is recommended for further clarification. 2. Abnormal pancreas showing hypodense lesions, as described above. Follow-up MRI with and without intravenous contrast per pancreatic mass protocol, including MRCP is recommended for further full detail evaluation. 3. Cholelithiasis without any CT features of superimposed acute cholecystitis or biliary obstruction. 4. Stable appearance of the chest. 06/19/2016: US TRIPLEX LOWER EXTREMITY, BILATERAL- Abnormal examination. There is extensive deep venous thrombosis within the left lower extremity. No deep venous thrombosis within the right lower extremity. 06/20/2016: MR ABDOMEN WITHOUT AND WITH CONTRAST INCLUDING MRCP IMAGING- 1. There are 3 small cystic foci in the pancreas likely incidental possibly related to previous pancreatitis. Remaining pancreas is somewhat atrophic. Interval follow-up in 6 months time is recommended to confirm stability. 2. Cholelithiasis without evidence of acute cholecystitis. 06/21/2016: [id number] VIEWS (Intraoperative fluoroscopy/IVC filter placement)- Intraoperative fluoroscopy was provided for procedure performed by Dr. Kenyon. Please see operative note for detailed findings. Review of Systems: Full 14 point review of systems otherwise noncontributory, and as above, although the patient is a very poor historian. Review of Systems Constitutional: Reports: weakness, unexplained weight loss. Denies: chills, diaphoresis, fever, malaise. EENTM: Denies: blurred vision, double vision, visual changes, eye pain, eye drainage, eye tearing, icterus, ear discharge, ear pain, ear redness, hearing changes, nasal congestion, epistaxis, nasal pain, throat pain, throat swelling, mouth pain, tooth pain. Cardiovascular: Reports: chest pain (with exertion; SANTANA), peripheral edema. Denies: edema, orthopena, palpitations, syncope. Respiratory: Reports: short of breath. Denies: cough, hemoptysis, orthopnea, sputum production, stridor, wheezing. GI: Reports: constipation (mild). Denies: abdominal pain, bloating, diarrhea, distention, bowel incontinence, melena, nausea, bloody stool, changes in stool, vomiting, steatorrhea. Genitourinary: Denies: discharge, dysuria, frequency, hematuria, hesitation, nocturia, pain, urgency. Musculoskeletal: Reports: joint pain (RA). Denies: back pain, gout, joint swelling, muscle pain, muscle stiffness, neck pain. Skin: Reports: change in skin color (diffuse ecchymoses). Denies: see HPI, cysts, change in hair/nails, dryness, erythema, jaundice, lesions, lymphangitis, lumps, moles, rash. Neurological/Psychological: Reports: weakness, anxiety. Denies: ataxia, cognitive dysfunction, confusion, depressed, dementia, emotional problems, headache, numbness, paresthesia, pre-existing deficit, petit mal seizures, tingling, tremors, tonic-clonic seizures, unable to move lower ext, unable to move upper ext. Hematologic/Endocrine: Reports: bruising. Denies: bleeding, polyuria, polydipsia. Immunologic/Allergic: Denies: splenectomy, HIV/AIDS, lymphadenopathy. All Other Systems: Reviewed and Negative Objective Vital Signs and I&Os Vital Signs Date Time Temp Pulse Resp B/P Pulse O2 O2 Flow FiO2 Ox Delivery Rate 06/21 1415 97.0 58 20 138/70 90 Room Air 06/21 1346 Room Air 06/21 0642 97.9 90 18 114/80 95 Room Air 06/20 2347 98.1 97 18 140/78 94 Room Air Intake & Output 06/21 1600 06/21 0400 06/20 1600 06/20 0400 06/19 1600 06/19 0400 Intake Total 922 395 0507 1040 1700 500 Output Total 350 125 210 100 200 175 Balance 844 035 8578 940 1500 325 Intake, IV 173 595 6267 800 1200 300 Intake, Oral 100 800 240 500 200 Number 0 0 Bowel Movements Output, Urine 350 125 210 100 200 175 Patient 131 lb Weight Physical Exam: Well-developed, malnourished, right handed, elderly female, in no apparent distress. Sclera anicteric. Conjunctiva pale. Oropharynx clear. Poor denttion. Slightly dry mucus membranes. No oral thrush. No aphthous ulcers. There is no adenopathy, thyromegaly, or JVD. No peripheral stigmata of inflammatory bowel disease or chronic liver disease on exam. No spiders on the anterior chest wall. Breast & pelvic: API. No CVA tenderness. Lungs: clear to A&P, with slightly prolonged expiratory phase. No wheezing, rales or rhonchi. Heart exam: regular rate rhythm, S1 and S2, without any murmur. Occasional ectopic beat. Abdominal exam: normal bowel sounds, soft belly, nontender, without guarding or rebound. No mass. No organomegaly. No fluid shift. No pulsatile mass. Repeat digital rectal exam: refused by patient (previously OB-negative API, earlier this admission). Extremities: without cyanosis or clubbing. 2-3+ pitting edema of LLE , which is elevated & warm, without any definite palpable cord. < 1+ piting edema RLE. Severe RA. Diffuse ecchymoses with history of multiple falls. Distal pulses 1+ bilaterally. DTRs 1+ bilaterally. Alert and oriented x 3, but somewhat forgetful, tangential & a poor historian (*the patient is her own POA). Gait not assessed. CN II-XII intact. Motor 4/5 B/L. Current Medications: Current Medications Sig/Kvng Start time Last Medication Dose Route Stop Time Status Admin Acetaminophen 650 MG Q8P PRN 06/17 1800 AC PO Aspirin 325 MG DAILY 06/18 1000 AC 06/21 PO 1138 Calcium 600 MG DAILY 06/20 1908 AC 06/21 PO 1138 Cholecalciferol 400 IU DAILY 06/20 1907 AC 06/21 PO 1137 Collagenase 1 ROBIN DAILY 06/19 1445 AC 06/21 TOP 1137 Ergocalciferol 50,000 IU Q168H 06/21 1000 AC PO Fentanyl Citrate 100 MCG .STK-MED ONE 06/21 0655 DC IM 06/21 0656 Folic Acid 1 MG DAILY 06/18 1000 AC 06/21 PO 1138 Heparin Sodium 25,000 UNIT Q24H 06/20 1130 DC 06/21 (Porcine) IV 0636 Sodium Chloride 500 ML Leucovorin Calcium 50 MG DAILY 06/20 1000 AC 06/21 PO 1138 Lidocaine 0 .STK-MED ONE 06/21 1422 DC .ROUTE Midazolam HCl 2 MG .STK-MED ONE 06/21 0655 DC IM 06/21 0656 Morphine Sulfate 2 MG DAILY PRN 06/17 1800 AC IV Nystatin 1 ROBIN BID 06/17 2200 AC 06/21 TOP 1137 Oxybutynin Chloride 2.5 MG BID 06/17 2200 AC 06/21 PO 1138 Patient Medication 1 ED .STK-MED ONE 06/21 1355 DC Teaching ED 06/21 1356 Potassium Chloride 40 MEQ ONCE ONE 06/21 1030 DC 06/21 PO 06/21 1031 1138 Potassium Chloride 20 MEQ BID 06/20 1014 AC 06/21 PO 1137 Sodium Chloride 1,000 ML Q10H 06/19 1445 AC 06/21 IV 1048 Vitamin E 800 IU DAILY 06/19 1000 AC 06/20 PO 0903 Results Pertinent Lab Results: Laboratory Tests 06/21 06/21 06/20 1050 0405 2318 Chemistry Sodium (137 - 145 mmol/L) 143 Potassium (3.5 - 5.1 mmol/L) 3.4 L Chloride (98 - 107 mmol/L) 117 H Carbon Dioxide (22 - 30 mmol/L) 20 L Anion Gap (5 - 16) 6 BUN (7 - 17 mg/dL) 22 H Creatinine (0.5 - 1.0 mg/dL) 0.9 Estimated GFR (>60 ml/min) > 60 BUN/Creatinine Ratio (7 - 25 %) 24.4 Total Bilirubin (0.2 - 1.3 mg/dL) 1.3 Direct Bilirubin (< 0.4 mg/dL) 1.0 H AST (14 - 36 U/L) 163 H ALT (9 - 52 U/L) 129 H Alkaline Phosphatase (<127 U/L) 163 H Total Protein (6.3 - 8.2 g/dL) 4.6 L Albumin (3.5 - 5.0 g/dL) 1.8 L Coagulation APTT (25 - 37 SEC) 30 > 120 *H > 120 *H Fibrinogen Activity (200 - 393 MG/DL) 161 L Hematology CBC w Diff NO MAN DIFF REQ WBC (4.8 - 10.8 /CUMM) 6.6 RBC (4.20 - 5.40 /CUMM) 2.04 L Hgb (12.0 - 16.0 G/DL) 6.5 *L Hct (37 - 47 %) 19.1 *L MCV (81.0 - 99.0 FL) 93.7 MCH (27.0 - 31.0 PG) 31.6 H RDW (11.5 - 14.5 %) 26.5 H Plt Count (130 - 400 /CUMM) 94 L MPV (7.4 - 10.4 FL) 11.4 H Gran % (42.2 - 75.2 %) 69.5 Lymphocytes % (20.5 - 51.1 %) 19.7 L Monocytes % (1.7 - 9.3 %) 7.0 Eosinophils % (0 - 5 %) 3.4 Basophils % (0.0 - 2.0 %) 0.4 Absolute Granulocytes (1.4 - 6.5 /CUMM) 4.6 Absolute Lymphocytes (1.2 - 3.4 /CUMM) 1.3 Absolute Monocytes (0.10 - 0.60 /CUMM) 0.5 Absolute Eosinophils (0.0 - 0.7 /CUMM) 0.2 Absolute Basophils (0.0 - 0.2 /CUMM) 0 PUBS MCHC (33.0 - 37.0 G/DL) 33.8 01/18 01/18 01/18 1730 1445 1156 Coagulation APTT (25 - 37 SEC) > 120 *H 35 Hematology CBC w Diff MAN DIFF ORDERED WBC (4.8 - 10.8 /CUMM) 7.0 RBC (4.20 - 5.40 /CUMM) 2.43 L Hgb (12.0 - 16.0 G/DL) 7.7 L Hct (37 - 47 %) 22.8 L MCV (81.0 - 99.0 FL) 93.7 MCH (27.0 - 31.0 PG) 31.7 H RDW (11.5 - 14.5 %) 27.0 H Plt Count (130 - 400 /CUMM) 108 L MPV (7.4 - 10.4 FL) 11.0 H Gran % (42.2 - 75.2 %) 78.6 H Lymphocytes % (20.5 - 51.1 %) 14.4 L Monocytes % (1.7 - 9.3 %) 5.4 Eosinophils % (0 - 5 %) 1.6 Basophils % (0.0 - 2.0 %) 0 L Absolute Granulocytes (1.4 - 6.5 /CUMM) 5.5 Segmented Neutrophils (42.2 - 75.2 %) 87 H Absolute Lymphocytes (1.2 - 3.4 /CUMM) 1.0 L Lymphocytes (20.5 - 51.1 %) 8 L Monocytes (1.7 - 9.3 %) 4 Absolute Monocytes (0.10 - 0.60 /CUMM) 0.4 Eosinophils (0 - 5.0 %) 1 Absolute Eosinophils (0.0 - 0.7 /CUMM) 0.1 Absolute Basophils (0.0 - 0.2 /CUMM) 0 Nucleated RBCs (0.0 - 0.0 /100WBC) 3 H Platelet Estimate (ADEQUATE) DECREASED Hypochromic-Microcytic 2+ Poikilocytosis 3+ Anisocytosis 3+ Ovalocytes 2+ [place] Cells 2+ Elliptocytes 1+ Schistocytes 1+ PUBS MCHC (33.0 - 37.0 G/DL) 33.8 Urines Ur Random Creatinine (mg/dL) 109.9 Ur Random Sodium (30 - 90 mmol/L) 31 Ur Random Potassium (mmol/L) 33.9 Fraction Sodium Excret (<1% %) 0.2 06/20 06/20 06/20 1100 0956 5860 Chemistry Sodium (137 - 145 mmol/L) 142 Potassium (3.5 - 5.1 mmol/L) 3.2 L Chloride (98 - 107 mmol/L) 113 H Carbon Dioxide (22 - 30 mmol/L) 20 L Anion Gap (5 - 16) 9 BUN (7 - 17 mg/dL) 28 H Creatinine (0.5 - 1.0 mg/dL) 0.9 Estimated GFR (>60 ml/min) > 60 BUN/Creatinine Ratio (7 - 25 %) 31.1 H Total Bilirubin (0.2 - 1.3 mg/dL) 1.6 H Direct Bilirubin (< 0.4 mg/dL) 1.2 H AST (14 - 36 U/L) 202 H ALT (9 - 52 U/L) 136 H Alkaline Phosphatase (<127 U/L) 195 H Total Protein (6.3 - 8.2 g/dL) 5.2 L Albumin (3.5 - 5.0 g/dL) 2.1 L RBC Folate (>280) 457 Coagulation APTT (25 - 37 SEC) 69 H Fibrinogen Activity (200 - 393 MG/DL) 140 L Hematology CBC w Diff Cancelled NO MAN DIFF REQ WBC (4.8 - 10.8 /CUMM) Cancelled 6.6 RBC (4.20 - 5.40 /CUMM) Cancelled 2.37 L Hgb (12.0 - 16.0 G/DL) Cancelled 7.3 *L Hct (37 - 47 %) Cancelled 22.2 L MCV (81.0 - 99.0 FL) Cancelled 93.6 MCH (27.0 - 31.0 PG) Cancelled 31.0 RDW (11.5 - 14.5 %) Cancelled 26.0 H Plt Count (130 - 400 /CUMM) Cancelled 104 L MPV (7.4 - 10.4 FL) Cancelled 10.9 H Gran % (42.2 - 75.2 %) 74.4 Lymphocytes % (20.5 - 51.1 %) 17.9 L Monocytes % (1.7 - 9.3 %) 4.7 Eosinophils % (0 - 5 %) 2.9 Basophils % (0.0 - 2.0 %) 0.1 Absolute Granulocytes (1.4 - 6.5 /CUMM) 4.9 Absolute Lymphocytes (1.2 - 3.4 /CUMM) 1.2 Absolute Monocytes (0.10 - 0.60 /CUMM) 0.3 Absolute Eosinophils (0.0 - 0.7 /CUMM) 0.2 Absolute Basophils (0.0 - 0.2 /CUMM) 0 PUBS MCHC (33.0 - 37.0 G/DL) Cancelled 33.1 06/19 06/19 06/19 0928 0610 0610 Chemistry Sodium (137 - 145 mmol/L) 141 Potassium (3.5 - 5.1 mmol/L) 3.5 Chloride (98 - 107 mmol/L) 111 H Carbon Dioxide (22 - 30 mmol/L) 21 L Anion Gap (5 - 16) 9 BUN (7 - 17 mg/dL) 34 H Creatinine (0.5 - 1.0 mg/dL) 1.0 Estimated GFR (>60 ml/min) 55 L BUN/Creatinine Ratio (7 - 25 %) 34.0 H Hemoglobin A1c (<5.7) 5.4 Total Bilirubin (0.2 - 1.3 mg/dL) 1.5 H Direct Bilirubin (< 0.4 mg/dL) 1.0 H AST (14 - 36 U/L) 179 H ALT (9 - 52 U/L) 122 H Alkaline Phosphatase (<127 U/L) 171 H Total Protein (6.3 - 8.2 g/dL) 4.9 L Albumin (3.5 - 5.0 g/dL) 2.0 L Triglycerides (<150 mg/dL) 67 Cholesterol (<200 MG/DL) 136 LDL Cholesterol, Calc (65 - 129 mg/dL) 104 HDL Cholesterol (40 - 60 mg/dL) 19 L Cholesterol/HDL Ratio (0.00 - 4.23 %) 7 H TSH (0.270 - 4.200 uIU/mL) 5.630 H Free T4 (0.78 - 2.44 ng/dL) 1.68 Hematology CBC w Diff MAN DIFF ORDERED WBC (4.8 - 10.8 /CUMM) 9.1 RBC (4.20 - 5.40 /CUMM) 2.82 L Hgb (12.0 - 16.0 G/DL) 8.6 L Hct (37 - 47 %) 26.4 L MCV (81.0 - 99.0 FL) 93.6 MCH (27.0 - 31.0 PG) 30.5 RDW (11.5 - 14.5 %) 26.4 H Plt Count (130 - 400 /CUMM) 137 MPV (7.4 - 10.4 FL) 9.5 Segmented Neutrophils (42.2 - 75.2 %) 83 H Lymphocytes (20.5 - 51.1 %) 15 L Monocytes (1.7 - 9.3 %) 1 L Eosinophils (0 - 5.0 %) 1 Platelet Estimate (ADEQUATE) DECREASED Polychromasia 1+ Hypochromic-Microcytic 2+ Poikilocytosis 4+ Anisocytosis 3+ [place] Cells 3+ Schistocytes 1+ PUBS MCHC (33.0 - 37.0 G/DL) 32.6 L Serology Hepatitis A IgM Ab (NONREACTIVE) NONREACTIVE Hep Bs Antigen (NONREACTIVE) NONREACTIVE Hep B Core IgM Ab Conf (NONREACTIVE) NONREACTIVE Hepatitis C Antibody (NONREACTIVE) NONREACTIVE Imaging/Other Studies: 06/17/2016: PORTABLE CXR- A vague 1.8 cm rounded opacity is seen in the left upper lung overlying the left sixth rib posteriorly. DJD. Recommend CT thorax for further evaluation to exclude pulmonary lesion. Alternatively, follow-up PA and lateral chest radiographs could be obtained. The lungs are hyperlucent bilaterally suspicious for underlying emphysema. No evidence of pulmonary edema. 06/17/2016: US ABDOMEN LIMITED- Diffuse increased echogenicity of the liver which may be related to fatty infiltration. Gallbladder not definitely identified and contracted gallbladder with calculi not excluded. CBD 4 mm. No tenderness to palpation present to suggest acute cholecystitis. 06/17/2016: CT ABDOMEN AND PELVIS WITHOUT CONTRAST- 1. Cholelithiasis without CT evidence of cholecystitis. 2. No biliary ductal dilatation demonstrated. 3. Possible mild hepatic steatosis. 4. No acute bowel pathology demonstrated. 5. Suspect a 0.8 cm cyst extending anteriorly off of the pancreatic head. Recommend attention on follow-up imaging to ensure future stability. Comparison with any prior outside abdominal CT or MRI could be helpful to establish stability. 6. Additional findings as above. MYRNA. 06/17/2016: EKG- NSR @ 86, LVH, PRWP. 06/18/2016: CT CHEST WITHOUT CONTRAST- 1. Mild emphysema with several scattered benign-appearing noncalcified 0.2 to 0.3 cm noncalcified micronodules. In the setting of underlying obstructive lung disease, short interval follow-up CT scan in 12 months is recommended to exclude suspicious interval growth. 2. Scattered areas of mucus plugging in small airways. These can also be reassessed at the time of the above suggested follow-up CT scan. 3. No adenopathy. 4. Severe atherosclerotic calcifications of the coronary arteries and left renal artery. 5. Cholelithiasis. 6. Incompletely imaged 1 cm exophytic cyst in the region of the pancreatic head. Please refer to the CT scan of the abdomen and pelvis dictation from 06/17/2016 for further description and recommendation. 7. Osteopenia with multiple vertebral compression deformities. 06/19/2016: CT ABD & PELVIS W IV CONTRAST; CT CHEST W IV CONTRAST- 1. Asymmetric prominence associated with low density is noted within the visualized part of the left common femoral, external iliac and common iliac veins, suspicious for deep venous thrombosis. Follow-up left lower extremity Doppler study is recommended for further clarification. 2. Abnormal pancreas showing hypodense lesions, as described above. Follow-up MRI with and without intravenous contrast per pancreatic mass protocol, including MRCP is recommended for further full detail evaluation. 3. Cholelithiasis without any CT features of superimposed acute cholecystitis or biliary obstruction. 4. Stable appearance of the chest. 06/19/2016: US TRIPLEX LOWER EXTREMITY, BILATERAL- Abnormal examination. There is extensive deep venous thrombosis within the left lower extremity. No deep venous thrombosis within the right lower extremity. 06/20/2016: MR ABDOMEN WITHOUT AND WITH CONTRAST INCLUDING MRCP IMAGING- 1. There are 3 small cystic foci in the pancreas likely incidental possibly related to previous pancreatitis. Remaining pancreas is somewhat atrophic. Interval follow-up in 6 months time is recommended to confirm stability. 2. Cholelithiasis without evidence of acute cholecystitis. 06/21/2016: [id number] VIEWS (Intraoperative fluoroscopy/IVC filter placement)- Intraoperative fluoroscopy was provided for procedure performed by Dr. Kenyon. Please see operative note for detailed findings.
--- NOTE | 2016-06-21 14:54 | NUR ---
14:50- PT LEFT FLOOR VIA STRETCHER WITH AT BEDSIDE FOR IR FOR VENOUS ACCESS PLACEMENT. NO IV ACCESS AT THIS TIME.
--- NOTE | 2016-06-21 16:43 | NUR ---
1430-PT RETURNED TO FLOOR VIA STRETCHER. REPORT RECEIVED FROM [facility] IN INTERVENTIONAL RADIOLOGY. R IJ TRIPLE LUMEN PLACED. CONFIRMED WITH FLOROSCOPY. ALL LUMENS FLUSH WITH POSITIVE BLOOD RETURN. DRESSING C,D,I.
--- NOTE | 2016-06-21 16:57 | ULTRASOUND REPORT ---
PROCEDURE: ULTRASOUND AND FLUOROSCOPICALLY GUIDED RIGHT INTERNAL JUGULAR VEIN TRIPLE-LUMEN PLACEMENT Interventional radiologist: Lamine Trinidad M.D. CLINICAL HISTORY: 70-year-old female with poor venous access and requirement for blood transfusion. Request was made for a triple-lumen placement. COMPARISON: Chest CT 06/19/2015 MEDICATION: 1% lidocaine was used for local anesthetic. FLUOROSCOPIC TIME: 0.9 minutes TECHNIQUE: Informed consent was obtained from the patient and her prior to the procedure. During this process, the procedure and potential alternatives were explained along with the intended outcome and benefits. The risks of the procedure, including the possibility of an unsuccessful procedure, as well as the risk of not doing the procedure were discussed. The patient and her were given the opportunity to ask questions regarding the procedure and appeared competent to make medical decisions. A signed consent form which documents this discussion was placed in the medical record. A timeout procedure was performed. Following informed consent the patient was placed supine on the fluoroscopic table. The right neck and chest were prepped and draped in usual sterile fashion. Using ultrasound guidance the right internal jugular vein was localized. The right internal jugular vein was tortuous but patent. Ultrasound was utilized to assess the vascular structures for access. A standard puncture into the right internal jugular vein was performed with a Micro-Stick system. The wire was advanced into the IVC to confirm venous placement. Over the wire dilatation was performed and a triple lumen catheter was advanced over the wire. Catheter terminates in right atrium. Silk suture was utilized for catheter securement. A sterile dressing was placed. The patient tolerated the procedure well. The patient was transferred back to the floor in stable condition. ULTRASOUND-GUIDED VASCULAR ACCESS: Ultrasound was used to identify the right internal jugular vein. The right internal jugular vein was confirmed to be patent. Real time imaging confirmed needle access into the right internal jugular vein. An image was saved for permanent recording in PACS. IMPRESSION: Successful placement of triple-lumen catheter via the right internal jugular vein.
--- NOTE | 2016-06-21 17:26 | NUR ---
1700- PER CHRISTINA IN BLOOD TRANSFUSION, NEED NEW TYPE AND SCREEN AND CROSS MATCH NEEDED. SPECIMEN FROM THIS MORNING WITH INADEQUATE AMOUNT OF BLOOD. CHRISTINA SENDING LABEL TO PRINTER. 1715- TYPE AND SCREEN AND CROSS MATCH DRAWN BUT SYSTEM NOT RECEIVING DUE TO DRAWN THIS MORNING. PER CHRISTINA IN LAB, SEND LABELED SPECIMENS DOWN UNRECEIVED. LABELED SPECIMENS SENT.
[2016-06-21 19:20] VITALS: BP 130/84
[2016-06-21 19:35] VITALS: BP 128/82
[2016-06-21 23:00] VITALS: BP 150/80
[2016-06-22 02:56] LABS: ABSOLUTE BASOPHIL COUNT 0 /CUMM (0.0-0.2); ABSOLUTE EOSINOPHIL COUNT 0.2 /CUMM (0.0-0.7); ABSOLUTE GRANULOCYTE CT 4.9 /CUMM (1.4-6.5); ABSOLUTE LYMPH COUNT 1.3 /CUMM (1.2-3.4); ABSOLUTE MONOCYTE COUNT 0.7 /CUMM (0.10-0.60); BASOPHIL % 0.5 % (0.0-2.0); EOSINOPHIL % 2.9 % (0-5); GRANULOCYTE % 68.8 % (42.2-75.2); MEAN CORPUSCULAR HGB CONC 33.8 G/DL (33.0-37.0); MEAN CORPUSCULAR VOLUME 91.4 FL (81.0-99.0); MEAN PLATELET VOLUME 10.1 FL (7.4-10.4); PLATELET COUNT 74 /CUMM (130-400); RBC DISTRIBUTION WIDTH 21.4 % (11.5-14.5); RED BLOOD CELL CT 3.38 /CUMM (4.20-5.40); WHITE BLOOD CELL COUNT 7.1 /CUMM (4.8-10.8)
[2016-06-22 02:57] LABS: HEMATOCRIT 30.9 % (37-47)
--- NOTE | 2016-06-22 07:28 | PN- Housestaff ---
See Addendum SHARON YOUNGYAIMA 06/22/16 0727: Subjective Follow-up For: Anemia Weakness Anuria Subjective: Patient seen and examined. She is seen sitting upright in her chair at bedside enjoying her breakfast. She appears to be in no acute distress. She appears more lively today but is somewhat forgetful. She is asking questions about how long the montejo will stay in place, and when she can get her hair done. She is talkative and pleasant. She is requestiing to have the montejo catheter and internal jugular line removed as soon as possible. Additionally she denies any headache, fever, chills, chest pain, shortness of breath, nausea, vomiting, diarrhea. No overnight events reported. Review of Systems Constitutional: Reports: see HPI. Objective Last 24 Hrs of Vital Signs/I&O Vital Signs Date Time Temp Pulse Resp B/P Pulse O2 O2 Flow FiO2 Ox Delivery Rate 06/22 1334 97.2 60 18 120/60 90 Room Air 06/22 0748 97.8 70 20 120/60 98 Room Air 06/21 2300 97.7 102 18 150/80 94 Room Air 06/21 1935 97.4 96 18 128/82 96 06/21 1920 97.5 98 18 130/84 96 06/21 1415 97.0 58 20 138/70 90 Room Air Intake & Output 06/22 1600 06/22 0800 06/22 0000 Intake Total 1800 1200 900 Output Total 200 250 100 Balance 1600 950 800 Intake, Blood 350 Product Intake, IV 850 800 Intake, Oral 1800 100 Number 0 Bowel Movements Output, Urine 200 250 100 Physical Exam General Appearance: Alert, Cooperative, No Acute Distress Other Physical Findings: General - well developed, anxious elderly woman in no acute distress HEENT - NCAT, EOMI, PERRL, anicteric sclera, on room air CVS - S1, S2 w/o m/g/r Assessment/Plan Assessment: Patient was given 2 units of packed red blood cells for her anemia and responded well. She has no obvious source of bleeding at this time. Currently she still is making on minor amounts of urine despite aggressive intravenous fluid administration. She is an anticipated discharge over the weekend assuming her urine output improves with instruction to follow up with her various consultants as outpatietn for further evaluation. Weakness/Anemia possibly secondary to occult malignancy: Patient has a reported recent history of weight loss and weakness. CXR demonstraed a 1.8cm opacitiy possibly admitting representative of an pulmonary nodule/ lesion. Abdominal US was unremarkable. 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 CT Chest further commented on both the previously decribed lesions and further elicited the presence of emphysema. CT Chest/Abdomen/Pelvis with contrast further commented on the lung and pancreas lesions noting several small other lesions and recommended follow up with MRI. -PRBC Transfused:2 -Vitamin E 800 units PO Daily -GI Consult -Heme/Onc consult -Fibrinogen monitoring, transfuse cryoprecipitate if <100 Left Lower Extremity Deep Vein Thrombosis: No history of a DVT/PE. CT Chest/Abdomen/Pelvis originally comment on possibility of LLE DVT which was confirmed with lower extremity doppler. -Vascular Surgery consult Low Urine Output: Patient has had consistently low urine output as documented by nursing staff. Straight cath has only removed small amounts of urine (<200cc) per shift. -I&Os -Montejo catheter -NS @ 100mL/hr -Nephrology consult Acute Blood Loss Anemia: Patient suffered profuse epistaxis after starting heparin dirp on 06/19/15. Hemoglobin drop was noted from 8.6 -> 7.3. -Type & Cross -Transfuse PRBC, hgb goal >7.0 -Closely monitor for signs of bleeding -Daily CBC Elevated Liver Function Tests: Patient was maintained on methotraxate as a DMARD for Rheumatoid arthritis for which she tolerated for many years without side effects. LFTs were found to be elevated on discharge for which methotrexate was held. -Folinic Acid 50mg PO Daily -Continue to hold methotrexate -Daily LFTs -F/U RBC folatic acid level Positive Blood Culture: Blood cultures on 06/17/16 are growing gram positive cocci in clusters. - BCx (06/17/16): Coag negative staph Vitamind D Deficiency - stable, Vitamine D 50,000 PO QWeekly x8 weeks Stage II decubitus ulcer - wound care/wound consult Urinary Incontinence-chronic, continue oxybutynin 2.5 mg by mouth twice a day PT Assessment - Assist of 2, DC to STR Pain Plan: -Acetaminophen 650 mg every 8 hours as needed for pain 1-3 -Morphine 2 mg IV daily as needed for pain 7-10 Diet - Regular DVT PPx - ALPS Code Status - FULL CODE Discharge/Outpatient followup: -Outpatient endoscopic ultrasound for further evaluation of pancreatic cyst -Outpatient EGD/colonoscopy Problem List: 1. Anemia Pain Ratin Pain Location: None Pain Goal: Remain pain free Pain Plan: As noted in plan Tomorrow's Labs & Rationales: CBC, BEP ZO YOUNGSHERRY 06/22/16 1203: Attending MD Review Statement Attending Statement Attending MD Statement: examined this patient, discuss w/resident/PA/BULL CHAIN OPERATOR, agreed w/resident/PA/BULL CHAIN OPERATOR, reviewed EMR data (avail) Attending Assessment/Plan: 70F PMH rheumatoid arthritis on methotrexate, HTN, HLD thyroid cancer status post surgery, history of stomach cancer in grandmother, recurrent falls admitted with generalized weakness, recurrent falls, and unable to ambulate. She was found on admission to have new anemia with Hgb 8.8, severe Vitamin D deficiency, CKD stage 3, transaminitis. She also reports 47 pound weight loss over the past 6 months. Symptoms are highly suspicious for underlying malignancy. Patient has not had any age-appropriate cancer screening. Patient also with large sacral decubitus ulcer. Blood cultures growing coagulase negative staph in both sets. Afebrile, normal WBC. Overnight was diagnosed with RLE DVT. Patient refuses EGD/colonoscopy at this time, prefers her outpatient GI physician. Hgb had dropped after heparin was re-initiated, IVC filter placed 06/21, heparin drip stopped. Later on 06/21 RIJ line was placed as peripheral IV access could not be obtained. Patient was transfused 2 units pRBC and Hgb went from 6.5 to 10.6. Patient looks and feels better. She is still having anxiety but reports feeling stronger and breathing easier. Still oliguric despite IV hydration. Poor PO intake and hypoalbuminemia contributing to decreased intravascular volume. 1. Recurrent falls 2. Generalized weakness 3. Vitamin D deficiency 4. Chronic anemia 5. Unintentional weight loss 6. Transaminitis 7. Unable to ambulate 8. CKD stage 3 9. Rheumatoid arthritis 10. Essential hypertension 11. Sacral decubitus ulcer 12. RLE DVT 13. Severe protein calorie malnutrition Plan - Continue on general medicine - No antibiotics - Wound care evaluation for sacral ulcer, possible source of bacteremia - Replete vitamin D with 50,000 units of ergocalciferol weekly plus daily vitamin D and calcium supplementation - Will require outpatient DEXA scan - Outpatient mammogram - PT evaluation - Monitor CBC - Follow nephrology recommendations for oliguria
[2016-06-22 07:48] VITALS: BP 120/60
[2016-06-22] MEDS ORDERED: CALCIUM CARBON500 M2 PO (10:50)
[2016-06-22] MEDS ORDERED: VITAMIN D250000 UNIT PO (10:57)
[2016-06-22] MEDS ORDERED: VITAMIN E400 UNI1 PO (10:57)
[2016-06-22] MEDS ORDERED: TYLENOL325 M1 PO (10:59)
[2016-06-22] MEDS ORDERED: SENNA-TIME S T1 EACH PO (11:02)
[2016-06-22] MEDS ORDERED: MIRALAX119 GM PO (11:02)
--- NOTE | 2016-06-22 11:58 | Patient Discharge Instructions ---
Discharge Instructions General Discharge Information You were seen/treated for: Generalized weakness / unintetional weight loss DVT on Lt. lower extremity s/p IVC filter Acute on chronic anemia Transaminitis Vitamin D deficiency Sacral decubitus ulcer present on admission You had these procedures: IVC filter placement 06/21/16 Other wound care: Continue wound care for sacral ulcer and apply santyl to area. Special Instructions: Please follow up Dr. Waller for outpatient EGD/Colonoscopy/possible EUS. Please follow up a primary doctor for mammogram / dexa scan Follow up with Dr. Hernandez for evaluation of your low blood counts. Diet Continue normal diet: Yes Recommended Diet: Regular Activity Full Activity/No Limits: Yes Activity Self Limited: No Other activity limits: Increase activity as tolerated Acute Coronary Syndrome Inclusion Criteria At DC or during hospital stay patient has or had the following: ACS DIAGNOSIS No Discharge Core Measures Meds if any: Prescribed or Continued at Discharge Meds if any: NOT Prescribed or Continued at Discharge Congestive Heart Failure Inclusion Criteria At DC or during hospital stay patient has or had the following: CHF DIAGNOSIS No Discharge Core Measures Meds if any: Prescribed or Continued at Discharge Meds if any: NOT Prescribed or Continued at Discharge Cerebrovascular accident Inclusion Criteria At DC or during hospital stay patient has or had the following: CVA/TIA Diagnosis No Discharge Core Measures Meds if any: Prescribed or Continued at Discharge Meds if any: NOT Prescribed or Continued at Discharge Venous thromboembolism Inclusion Criteria VTE Diagnosis Yes VTE Type Deep Venous Thrombosis VTE Confirmed by (Test) EXT BILATERAL VENOUS DOPP Discharge Core Measures - Per Current guidelines, there needs to be overlap - treatment for the first 5 days of Warfarin therapy. - If discharged on Warfarin prior to 5 days of - overlap therapy, the patient will need to be - assessed for post discharge needs including - *Post discharge parental anticoagulation - *Warfarin and/or parental anticoagulation education - *Follow up date to check INR post discharge At least 5 days overlap therapy as Inpatient No Why was Parental Med stopped Increased risk, bleeding Meds if any: Prescribed or Continued at Discharge Warfarin No Overlap Therapy No Note: Overlap Therapy is Warfarin and Anticoagulant Meds if any: NOT Prescribed or Continued at Discharge No Warfarin d/t Medical Contraindication No Overlap Therapy d/t Medical Contraindication Comment s/p IVC filter on 06/21/16
[2016-06-22] MEDS ORDERED: SANTYL30 GM TOP (13:20)
[2016-06-22 13:34] VITALS: BP 120/60
--- NOTE | 2016-06-22 13:36 | Discharge Summary ---
Visit Information Visit Dates Admission Date: 06/17/16 Discharge Date: 06/25/16 Hospital Course Course Attending Physician: SHERRY PATHAK MD Primary Care Physician: KIMBERLEY BANERJEE MD Other Care Providers: GI: Dr. Orlando Rheumatology: Dr. Victoria Consulting Request: 1 Consulting Specialty: Hematology/Oncology Consulting Physician: Dr. Hernandez Reason for Consult: Possible malignancy / DVT Consulting Request: 2 Consulting Specialty: Nephrology Consulting Physician: Dr. Batres Reason for Consult: Oliguria Consulting Request: 3 Consulting Specialty: Thoracic/Vascular Surgery Consulting Physician: Dr. Kenyon Reason for Consult: IVC filter placement for DVT Hospital Course: 70-year-old female with pmh of HTN, HLD, rheumatoid arthritis on methotrexate, Hx of TIA/CVA(03/2016), thyroid ca s/p surgery, GERD came from home due to recurrent falls x 3 times and generalized weakness for last 2-3 weeks. She was unable to walk with a walker or get up from a wheelchair. Pt c/o unintentional wt loss of 45 lbs since november last year, decreased appetite and progressive weakness. She has constipation but denies abdominal pain/nausea/vomiting, change in stool or blood in stools. Patient never had colonoscopy or mammogram as she declined them. Initial V/S: 98.4F DE 95 RR 20 BP 136/81 99% on RA, On examination patient alert awake comfortable at rest, Mucous membrane dry, Cardiovascular: S1, S2 regular, Respiratory: Bilateral breath sounds decreased, Abdomen: Soft, tenderness present in the suprapubic area on deep palpation, Extremities: Left leg more swollen than the right, Back: Stage II pressure ulcers present, Neurology: grossly normal Laboratory: Hb/hct 8.8/26.5, BUN/Cr 32/1.1, lactic acid 5, AST/ALT 227/122, ALP 195, total bilirubin 1.8, direct bilirubin 1.3, trop < 0.01, Vit B12 987, Vit D 8.7, albumin 2.3, iron 41, TIBC 138, ferritin 1470 Initial imaging tests - CXR: A vague rounded opacity is seen in the left upper lung overlying the left sixth rib posteriorly. Recommend CT thorax for further evaluation to exclude pulmonary lesion. Alternatively, follow-up PA and lateral chest radiographs could be obtained. The lungs are hyperlucent bilaterally suspicious for underlying emphysema. No evidence of pulmonary edema. - Abdomen CT/pelvis wo contrast: 1. Cholelithiasis without CT evidence of cholecystitis. 2. No biliary ductal dilatation demonstrated. 3. Possible mild hepatic steatosis. 4. No acute bowel pathology demonstrated. 5. Suspect a 0.8 cm cyst extending anteriorly off of the pancreatic head. Recommend attention on follow-up imaging to ensure future stability. Comparison with any prior outside abdominal CT or MRI could be helpful to establish stability. - Abdomen US: Diffuse increased echogenicity of the liver which may be related to fatty infiltration. Gallbladder not definitely identified and contracted gallbladder with calculi not excluded. No tenderness to palpation present to suggest acute cholecystitis. She was admitted in general medicine floor for following lists. 1. Generalized weakness with weight loss: Work-ups for possible intra-abdominal malignancy were pursued. CT chest/abdomen/pelvis & MRI abdomen were done revealing 3 small cystic foci in the pancreas likely incidental possibly related to previous pancreatitis. Remaining pancreas is somewhat atrophic. Interval follow-up in 6 months time is recommended to confirm stability. Cholelithiasis without evidence of acute cholecystitis was found. Stable appearance of the chest. She needs to follow Dr. Waller for EGD/colonoscopy/EUS and a primary doctor for mammogram. Please continue physical therapy in [facility] and avoid fall risk. 2. DVT on Lt. lower extremity: DVT was diagnosed with doppler and IV heparin drip was initiated on 06/19. However, she started having epistaxis after getting IV heparin drip. Hb/hct decreased from 8.6/26.4 to 7.3/22.2, and vascular surgery was consulted for placement of IVC filter. IVC filter was placed on 06/21 and she should be on aspirin 325mg. 3. Acute on chronic anemia: Likely from GI bleeding source with IV heparinization. She was given 2 PRBCs on 06/21 and Hb/Hct improved from 6.5/19.1 to 10.5/30.9. She needs to follow up Dr. Waller as outpatient for EGD/ colonoscopy and possible EUS. 4. Stage II pressure ulcers with malnutrition: Sacral ulcers were present on admission. Wound consult and nutritional consult were obtained. She was given santyl and vitamin supplement and ensure. Please contniue wound care in [facility]. 5. Transaminitis: GI consult was obtained. Patient has fatty liver and incidental cholelithiasis. Hepatitis panels were checked negative. DIIMTRIOS was normal. Methotrexate and statin were held. Vitamin E 800 IU daily was added for fatty liver & risk factor modification. Her LFTs slowly improved. 6. Vitamin D deficiency: Vit D level was 8.7. She was given po supplement. She will be discharged with Vit D 50,000 IU weekly for 8 weeks. She needs to follow up a primary doctor for DEXA scan. 7. Oliguria: She was given IV fluid during hospitalization, and she remained at positive I/O balance with decreased urine output. Nephrology consult was obtained. With possible internal bleeding with IV heparin, intravascularly volume depletion was suspected. Also, she got IV contrast for CT scan. The fractional excretion of sodium can be consistent with prerenal azotemia due to vasoconstriction mediated by the contrast. She continued on IV NS and I/Os were checked. BUN/Cr ratio became < 20 with IV fluid, and oliguria slowly improved. 8. RA: Methotrexate was held due to transaminitis. She needs to follow up her expeller operator after discharge. Full CODE STATUS DVT prophylaxis with ALPS Allergies: Coded Allergies: Penicillins (UNKNOWN 03/15/16) Significant Procedures: IVC filter placement 06/21/16 : Left lower extremity extensive DVT with contraindication to long-term anticoagulation due to fall risk and recent bleeding Rt. IJ central line placement on 06/21/16 for blood transfusion/venous access, removed on 06/25. Pertinent Lab Results: Hb/Hct : 6.5/19.1 (06/21) -> 10.5/30.9 (06/22) post transfusion 2PRBC Disposition Summary Disposition Principal Diagnosis: Generalized weakness / unintetional weight loss DVT on Lt. lower extremity s/p IVC filter Acute on chronic anemia Transaminitis Vitamin D deficiency Stage II pressure ulcer with malnutrition Oliguria Additional Diagnosis: Rheumatoid arthritis Essential hypertension Discharge Disposition: SNF Discharge Instructions General Discharge Information Code Status: Full Code Patient's Diet: Regular diet Patient's Activity: Increase as tolerated Follow-Up Instructions/Appts: Please follow up Dr. Waller for outpatient EGD/Colonoscopy/possible EUS. Please follow up a primary doctor for mammogram / dexa scan Medications at Discharge Discharge Medications: Stop taking the following medications: Metoprolol Succ XL (Toprol XL) 25 MG TAB ORAL DAILY Qty = 30 Atorvastatin Calcium (Atorvastatin Calcium) 20 MG TABLET ORAL DAILY Qty = 90 Methotrexate (Methotrexate) 2.5 MG TABLET ORAL Once a Week Qty = 78 Continue taking these medications: Nystatin (Nystatin) 100,000 UNIT/GRAM CREAM..G. 1 Application On the skin TWICE DAILY Qty = 30 Instructions: apply to affected area(s) Comments: NOT GIVEN IN HOSPITAL Aspirin (Lite Coat Aspirin) 325 MG TABLET 1 Tablet ORAL DAILY Qty = 90 Comments: NOT GIVEN IN HOSPITAL Pantoprazole Sodium (Pantoprazole Sodium) 40 MG TABLET.DR 1 Tablet ORAL DAILY Qty = 90 Comments: NOT GIVEN IN HOSPITAL Tolterodine Tartrate (Tolterodine Tartrate) 2 MG TABLET 1 Tablet ORAL TWICE DAILY Qty = 180 Comments: NOT GIVEN IN HOSPITAL Folic Acid (Folic Acid) 1 MG TABLET 1 Tablet ORAL DAILY Qty = 100 Comments: Last Taken: 06/25/16 Time: 12 PM Start taking the following new medications: Acetaminophen (Tylenol) 325 MG TABLET 650 Milligram ORAL EVERY 8 HOURS NEEDED as needed for PAIN SCALE 1-3 ( MILD) Days = 30 No Refills Calcium Carbonate (Calcium Carbonate) 500 MG CALCIUM (1,250 MG) TABLET 600 Milligram ORAL DAILY Days = 30 No Refills Polyethylene Glycol 3350 (Miralax) 17 GRAM/DOSE POWDER 17 Gram ORAL DAILY Days = 30 No Refills Sennosides/Docusate Sodium (Senna-Time S Tablet) 8.6 MG-50 MG TABLET 187 Milligram ORAL AT BEDTIME Days = 30 No Refills Ergocalciferol (Vitamin D2) (Vitamin D2) 50,000 UNIT CAPSULE 50,000 International Unit ORAL ONCE A WEEK Qty = 8 No Refills Vitamin E (Dl,Tocopheryl Acet) (Vitamin E) 400 UNIT CAPSULE 800 International Unit ORAL DAILY Days = 30 No Refills Collagenase Clostridium Hist. (Santyl) 250 UNIT/GRAM OINT...G. 1 Application On the skin DAILY Days = 30 No Refills Copies To: GOKUL YOUNG,JANIA Zarco; SONI YOUNG,GARCIA Holder; ALONZO YOUNG,GRAEME Calix; CHRISS YOUNG,KIMBERLEY; JANAK YOUNG,FABIOLA
[2016-06-22 22:19] VITALS: BP 130/80
--- NOTE | 2016-06-23 06:58 | PN- Housestaff ---
GAIL WAGNER 06/23/16 0658: Subjective Follow-up For: 1. anemia Subjective: The patient was comfortable this morning. She had urine output of approximately 450 mL overnight. Remains stable. Review of Systems Constitutional: Reports: see HPI. Objective Last 24 Hrs of Vital Signs/I&O Vital Signs Date Time Temp Pulse Resp B/P Pulse O2 O2 Flow FiO2 Ox Delivery Rate 06/22 2219 98.6 82 20 130/80 98 Room Air 06/22 1334 97.2 60 18 120/60 90 Room Air 06/22 0748 97.8 70 20 120/60 98 Room Air Intake & Output 06/23 0800 06/23 0000 06/22 1600 Intake Total 024 976 3860 Output Total 75 150 200 Balance 571 790 6787 Intake, IV 800 300 Intake, Oral 1800 Output, Urine 75 150 200 Physical Exam General Appearance: No Acute Distress Other Physical Findings: General Exam: AAOx3, No acute distress, Skin: No rashes, no breakdown HEENT: PERRLA, EOMI Neck: Supple, No JVD, IJ in place, no tenderness or erythema surrounding. No cervical lymphadenopathy CVS: Reg Rate, Normal S1,S2, No MGR Resp: Normal air entry, no ronchi/rales Abdomen: Soft, No tenderness, Normal Bowel Sounds, Whitt catheter in place. Neuro: Normal Speech, Strength 5/5 b/l x 4 extremities, Sensation intact, CN III -XII NL, Reflexes 2+ Extremities: No cyanosis, pedal edema Current Medications: Current Medications Sig/Kvng Start time Last Medication Dose Route Stop Time Status Admin Acetaminophen 650 MG Q8P PRN 06/17 1800 AC PO Aspirin 325 MG DAILY 06/18 1000 AC 06/22 PO 0913 Calcium 600 MG DAILY 06/20 1908 AC 06/22 PO 0912 Cholecalciferol 400 IU DAILY 06/20 1907 AC 06/22 PO 0912 Collagenase 1 ROBIN DAILY 06/19 1445 AC 06/22 TOP 0916 Docusate Sodium 100 MG DAILY 06/22 1000 AC 06/22 PO 1056 Ergocalciferol 50,000 IU Q168H 06/21 1000 AC PO Folic Acid 1 MG DAILY 06/18 1000 AC 06/22 PO 0915 Leucovorin Calcium 50 MG DAILY 06/20 1000 AC 06/22 PO 0914 Morphine Sulfate 2 MG DAILY PRN 06/17 1800 AC IV Oxybutynin Chloride 2.5 MG BID 06/17 2199 AC 06/22 PO 2052 Patient Medication 1 ED .STK-MED ONE 06/22 1303 PR Teaching ED 06/22 1304 Polyethylene Glycol 17 GM DAILY 06/22 1000 AC 06/22 PO 1056 Senna 187 MG AT BEDTIME 06/220 AC 06/22 PO 2052 Sodium Chloride 1,000 ML Q10H 06/19 1445 AC 06/22 IV 2258 Vitamin E 800 IU DAILY 06/19 1000 AC 06/20 PO 0903 Last 24 Hrs of Lab/Taran Results Last 24 Hrs of Labs/Mics: Laboratory Tests 06/23/16 0630: Sodium Pending, Potassium Pending, Chloride Pending, Carbon Dioxide Pending, Anion Gap Pending, BUN Pending, Creatinine Pending, BUN/Creatinine Ratio Pending , Fibrinogen Activity Pending, CBC w Diff Pending, WBC Pending, RBC Pending, Hgb Pending, Hct Pending, MCV Pending, MCH Pending, RDW Pending, Plt Count Pending, MPV Pending, PUBS MCHC Pending Assessment/Plan Assessment: Patient was given 2 units of packed red blood cells for her anemia and responded well. She has no obvious source of bleeding at this time. Currently she still is making on minor amounts of urine despite aggressive intravenous fluid administration. She is an anticipated discharge over the weekend assuming her urine output improves with instruction to follow up with her various consultants as outpatietn for further evaluation. Weakness/Anemia possibly secondary to occult malignancy: Patient has a reported recent history of weight loss and weakness. CXR demonstraed a 1.8cm opacitiy possibly customer solutions representative of an pulmonary nodule/ lesion. Abdominal US was unremarkable. 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 CT Chest further commented on both the previously decribed lesions and further elicited the presence of emphysema. CT Chest/Abdomen/Pelvis with contrast further commented on the lung and pancreas lesions noting several small other lesions and recommended follow up with MRI. -PRBC Transfused:2 -Vitamin E 800 units PO Daily -GI Consult -Heme/Onc consult -Fibrinogen monitoring, transfuse cryoprecipitate if <100. Fibrinogen activity 108 this morning. Left Lower Extremity Deep Vein Thrombosis: No history of a DVT/PE. CT Chest/Abdomen/Pelvis originally comment on possibility of LLE DVT which was confirmed with lower extremity doppler. -Vascular Surgery consult Low Urine Output: Patient has had consistently low urine output as documented by nursing staff. -I&Os. Monitor urine ouput. -Whitt catheter -NS @ 100mL/hr -Nephrology consult Acute Blood Loss Anemia: Patient suffered profuse epistaxis after starting heparin dirp on 06/19/15. Hemoglobin drop was noted from 8.6 -> 7.3. -Type & Cross -Transfuse PRBC, hgb goal >7.0 -Closely monitor for signs of bleeding -Daily CBC Elevated Liver Function Tests: Patient was maintained on methotraxate as a DMARD for Rheumatoid arthritis for which she tolerated for many years without side effects. LFTs were found to be elevated on discharge for which methotrexate was held. -Folinic Acid 50mg PO Daily -Continue to hold methotrexate -Daily LFTs. Trending down -F/U RBC folatic acid level Positive Blood Culture: Blood cultures on 06/17/16 are growing gram positive cocci in clusters. - BCx (06/17/16): Coag negative staph which could likely be a contaminant Vitamind D Deficiency - stable, Vitamine D 50,000 PO QWeekly x8 weeks Stage II decubitus ulcer - wound care/wound consult Urinary Incontinence-chronic, continue oxybutynin 2.5 mg by mouth twice a day PT Assessment - Assist of 2, DC to [facility] Pain Plan: -Acetaminophen 650 mg every 8 hours as needed for pain 1-3 -Morphine 2 mg IV daily as needed for pain 7-10 Diet - Regular DVT PPx - ALPS Code Status - FULL CODE Discharge/Outpatient followup: -Outpatient endoscopic ultrasound for further evaluation of pancreatic cyst -Outpatient EGD/colonoscopy Problem List: 1. Anemia 2. Abnormal LFTs 3. Unintentional weight loss Pain Ratin Pain Location: none Pain Goal: Pain 4 or less Pain Plan: tylenol Tomorrow's Labs & Rationales: CBC to monitor for cytosis, H&H. Fibrinogen activity Consulting Request: Consulting Specialty: Thoracic/Vascular Surgery Consulting Physician: Dr. Kenyon Reason for Consult: IVC filter placement for DVT SHERRY PATHAK MD 06/23/16 1535: Attending MD Review Statement Attending Statement Attending MD Statement: examined this patient, discuss w/resident/PA/JUNIOR FINANCIAL ANALYST, agreed w/resident/PA/JUNIOR FINANCIAL ANALYST, reviewed EMR data (avail) Attending Assessment/Plan: 70F PMH rheumatoid arthritis on methotrexate, HTN, HLD thyroid cancer status post surgery, history of stomach cancer in grandmother, recurrent falls admitted with generalized weakness, recurrent falls, and unable to ambulate. She was found on admission to have new anemia with Hgb 8.8, severe Vitamin D deficiency, CKD stage 3, transaminitis. She also reports 47 pound weight loss over the past 6 months. Symptoms are highly suspicious for underlying malignancy. Patient has not had any age-appropriate cancer screening. Patient also with large sacral decubitus ulcer. Blood cultures growing coagulase negative staph in both sets. Afebrile, normal WBC. Overnight was diagnosed with RLE DVT. Patient refuses EGD/colonoscopy at this time, prefers her outpatient GI physician. Hgb had dropped after heparin was re-initiated, IVC filter placed 06/21, heparin drip stopped. Later on 06/21 RIJ line was placed as peripheral IV access could not be obtained. Patient was transfused 2 units pRBC and Hgb went from 6.5 to 10.6. Patient looks and feels better. She is still having anxiety but reports feeling stronger and breathing easier. Still oliguric despite IV hydration. Poor PO intake and hypoalbuminemia contributing to decreased intravascular volume. 1. Recurrent falls 2. Generalized weakness 3. Vitamin D deficiency 4. Chronic anemia 5. Unintentional weight loss 6. Transaminitis 7. Unable to ambulate 8. CKD stage 3 9. Rheumatoid arthritis 10. Essential hypertension 11. Sacral decubitus ulcer 12. RLE DVT 13. Severe protein calorie malnutrition Plan - Continue on general medicine - No antibiotics - Wound care evaluation for sacral ulcer, possible source of bacteremia - Replete vitamin D with 50,000 units of ergocalciferol weekly plus daily vitamin D and calcium supplementation - Will require outpatient DEXA scan - Outpatient mammogram - PT evaluation - Monitor CBC - Follow nephrology recommendations for oliguria - Possible discharge to [facility] tomorrow or Saturday if urine output continues to improve
[2016-06-23 07:03] VITALS: BP 130/80
[2016-06-23 08:27] LABS: ABSOLUTE BASOPHIL COUNT 0 /CUMM (0.0-0.2); ABSOLUTE EOSINOPHIL COUNT 0.4 /CUMM (0.0-0.7); ABSOLUTE GRANULOCYTE CT 5.1 /CUMM (1.4-6.5); ABSOLUTE LYMPH COUNT 1.5 /CUMM (1.2-3.4); ABSOLUTE MONOCYTE COUNT 0.7 /CUMM (0.10-0.60); BASOPHIL % 0.6 % (0.0-2.0); EOSINOPHIL % 4.6 % (0-5); GRANULOCYTE % 66.3 % (42.2-75.2); HEMATOCRIT 29.8 % (37-47); MEAN CORPUSCULAR HGB 30.8 PG (27.0-31.0); MEAN CORPUSCULAR HGB CONC 33.4 G/DL (33.0-37.0); MEAN CORPUSCULAR VOLUME 92.2 FL (81.0-99.0); MEAN PLATELET VOLUME 9.7 FL (7.4-10.4); RBC DISTRIBUTION WIDTH 22.5 % (11.5-14.5); RED BLOOD CELL CT 3.23 /CUMM (4.20-5.40); WHITE BLOOD CELL COUNT 7.7 /CUMM (4.8-10.8)
[2016-06-23 11:09] LABS: PLATELET COUNT 58 /CUMM (130-400)
[2016-06-23 13:45] VITALS: BP 122/80
--- NOTE | 2016-06-23 13:55 | NUR ---
0900-OPEN AREAS TO COCCYX AND R BUTTOCKS NOTED WHEN CHANGING DRESSINGS TO R AND L BUTTOCKS EXISTING OPEN AREAS. PT ON SIZEWISE MATTRESS. REPOS Q2. AREA OFFLOADED. BARRIER CREAM APPLIED. PT IN SIDELYING POSITION. SKIN MAN COMPLETED. WOUND CARE CONSULT PENDING.
--- NOTE | 2016-06-23 13:58 | NUR ---
PHYSICAL THERAPY: PT INTERVENTION DEFFERRED FOR THIS RX DATE DUE TO PENDING LAB FOR PLT. PREVIOUS LAB INDICATED SIGNIFICANT DROP IN COUNT. WILL CONT TO FOLLOW AND TREAT APPROPRIATE.
[2016-06-23 21:39] VITALS: BP 142/80
[2016-06-24 06:21] VITALS: BP 130/80
[2016-06-24 08:03] LABS: ABSOLUTE BASOPHIL COUNT 0.1 /CUMM (0.0-0.2); ABSOLUTE EOSINOPHIL COUNT 0.4 /CUMM (0.0-0.7); ABSOLUTE GRANULOCYTE CT 4.9 /CUMM (1.4-6.5); ABSOLUTE LYMPH COUNT 1.3 /CUMM (1.2-3.4); ABSOLUTE MONOCYTE COUNT 0.7 /CUMM (0.10-0.60); BASOPHIL % 0.9 % (0.0-2.0); EOSINOPHIL % 5.3 % (0-5); GRANULOCYTE % 66.8 % (42.2-75.2); HEMATOCRIT 28.8 % (37-47); MEAN CORPUSCULAR HGB 30.9 PG (27.0-31.0); MEAN CORPUSCULAR HGB CONC 33.4 G/DL (33.0-37.0); MEAN CORPUSCULAR VOLUME 92.7 FL (81.0-99.0); MEAN PLATELET VOLUME 11.1 FL (7.4-10.4); PLATELET COUNT 66 /CUMM (130-400); RBC DISTRIBUTION WIDTH 22.6 % (11.5-14.5); RED BLOOD CELL CT 3.11 /CUMM (4.20-5.40); WHITE BLOOD CELL COUNT 7.4 /CUMM (4.8-10.8)
--- NOTE | 2016-06-24 08:18 | PN- Housestaff ---
Subjective Follow-up For: 1. anemia Review of Systems Constitutional: Reports: see HPI. Objective Last 24 Hrs of Vital Signs/I&O Vital Signs Date Time Temp Pulse Resp B/P Pulse O2 O2 Flow FiO2 Ox Delivery Rate 06/24 620 98.2 52 20 130/80 95 Room Air 06/23 2139 97.6 82 20 142/80 92 06/23 1345 98.1 98 18 122/80 92 Room Air Intake & Output 06/24 1600 06/24 0800 06/24 0000 Intake Total 920 920 Output Total 350 300 Balance 570 620 Intake, IV 800 800 Intake, Oral 120 120 Output, Urine 350 300 Physical Exam General Appearance: No Acute Distress Current Medications: Current Medications Sig/Kvng Start time Last Medication Dose Route Stop Time Status Admin Acetaminophen 650 MG Q8P PRN 06/17 1800 AC PO Aspirin 325 MG DAILY 06/18 1000 AC 06/23 PO 1016 Calcium 600 MG DAILY 06/20 1908 AC 06/23 PO 1016 Cholecalciferol 400 IU DAILY 06/20 1907 AC 06/23 PO 1016 Collagenase 1 ROBIN DAILY 06/19 1445 AC 06/23 TOP 1016 Docusate Sodium 100 MG DAILY 06/22 1000 AC 06/23 PO 1016 Ergocalciferol 50,000 IU ONCE ONE 06/23 1700 DC PO 06/23 1701 Ergocalciferol 50,000 IU Q168H 06/21 1000 AC PO Folic Acid 1 MG DAILY 06/18 1000 AC 06/23 PO 1016 Leucovorin Calcium 50 MG DAILY 06/20 1000 AC 06/23 PO 1018 Morphine Sulfate 2 MG DAILY PRN 06/17 1800 AC IV Oxybutynin Chloride 2.5 MG BID 06/17 2200 AC 06/23 PO 2215 Polyethylene Glycol 17 GM DAILY 06/22 1000 AC 06/23 PO 1017 Senna 187 MG AT BEDTIME 06/22 2200 AC 06/23 PO 2215 Sodium Chloride 1,000 ML Q10H 06/19 1445 AC 06/24 IV 0400 Vitamin E 800 IU DAILY 06/19 1000 AC 06/20 PO 0903 Last 24 Hrs of Lab/Taran Results Last 24 Hrs of Labs/Mics: Laboratory Tests 06/24/16 0620: Sodium Pending, Potassium Pending, Chloride Pending, Carbon Dioxide Pending, Anion Gap Pending, BUN Pending, Creatinine Pending, BUN/Creatinine Ratio Pending , Fibrinogen Activity Pending, CBC w Diff Pending, WBC Pending, RBC Pending, Hgb Pending, Hct Pending, MCV Pending, MCH Pending, RDW Pending, Plt Count Pending, MPV Pending, PUBS MCHC Pending Assessment/Plan Assessment: Patient was given 2 units of packed red blood cells for her anemia and responded well. She has no obvious source of bleeding at this time. Currently she still is making on minor amounts of urine despite aggressive intravenous fluid administration. She is an anticipated discharge over the weekend assuming her urine output improves with instruction to follow up with her various consultants as outpatietn for further evaluation. Weakness/Anemia possibly secondary to occult malignancy: Patient has a reported recent history of weight loss and weakness. CXR demonstraed a 1.8cm opacitiy possibly entry level account representative of an pulmonary nodule/ lesion. Abdominal US was unremarkable. 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 CT Chest further commented on both the previously decribed lesions and further elicited the presence of emphysema. CT Chest/Abdomen/Pelvis with contrast further commented on the lung and pancreas lesions noting several small other lesions and recommended follow up with MRI. -PRBC Transfused:2 -Vitamin E 800 units PO Daily -GI Consult -Heme/Onc consult -Fibrinogen monitoring, transfuse cryoprecipitate if <100. Fibrinogen activity 108 this morning. Left Lower Extremity Deep Vein Thrombosis: No history of a DVT/PE. CT Chest/Abdomen/Pelvis originally comment on possibility of LLE DVT which was confirmed with lower extremity doppler. -Vascular Surgery consult Low Urine Output: Patient has had consistently low urine output as documented by nursing staff. -I&Os. Monitor urine ouput. -Whitt catheter -NS @ 100mL/hr -Nephrology consult Acute Blood Loss Anemia: Patient suffered profuse epistaxis after starting heparin dirp on 06/19/15. Hemoglobin drop was noted from 8.6 -> 7.3. -Type & Cross -Transfuse PRBC, hgb goal >7.0 -Closely monitor for signs of bleeding -Daily CBC Elevated Liver Function Tests: Patient was maintained on methotraxate as a DMARD for Rheumatoid arthritis for which she tolerated for many years without side effects. LFTs were found to be elevated on discharge for which methotrexate was held. -Folinic Acid 50mg PO Daily -Continue to hold methotrexate -Daily LFTs. Trending down -F/U RBC folatic acid level Positive Blood Culture: Blood cultures on 06/17/16 are growing gram positive cocci in clusters. - BCx (06/17/16): Coag negative staph which could likely be a contaminant Vitamind D Deficiency - stable, Vitamine D 50,000 PO QWeekly x8 weeks Stage II decubitus ulcer - wound care/wound consult Urinary Incontinence-chronic, continue oxybutynin 2.5 mg by mouth twice a day PT Assessment - Assist of 2, DC to STR Pain Plan: -Acetaminophen 650 mg every 8 hours as needed for pain 1-3 -Morphine 2 mg IV daily as needed for pain 7-10 Diet - Regular DVT PPx - ALPS Code Status - FULL CODE Discharge/Outpatient followup: -Outpatient endoscopic ultrasound for further evaluation of pancreatic cyst -Outpatient EGD/colonoscopy Consulting Request: Consulting Specialty: Thoracic/Vascular Surgery Consulting Physician: Dr. Kenyon Reason for Consult: IVC filter placement for DVT
--- NOTE | 2016-06-24 10:06 | PN- Housestaff ---
CJ YOUNG,QUANG 06/24/16 1006: Subjective Follow-up For: Acute ON Chronic anemia Subjective: The patient is doing fine, She is anxious to leave today. She was not willing to give any history of her night events. Review of Systems Constitutional: Reports: see HPI. Objective Last 24 Hrs of Vital Signs/I&O Vital Signs Date Time Temp Pulse Resp B/P Pulse O2 O2 Flow FiO2 Ox Delivery Rate 06/24 0621 98.2 52 20 130/80 95 Room Air 06/23 2139 97.6 82 20 142/80 92 06/23 1345 98.1 98 18 122/80 92 Room Air Intake & Output 06/24 1600 06/24 0800 06/24 0000 Intake Total 920 920 Output Total 350 300 Balance 570 620 Intake, IV 800 800 Intake, Oral 120 120 Output, Urine 350 300 Physical Exam General Appearance: Alert, Oriented X3 Skin: No Rashes, No Breakdown HEENT: Atraumatic, PERRLA Lymphatic: Axillary nl, Cervical nl Cardiovascular: Regular Rate, Normal S1, Normal S2 Lungs: Clear to Auscultation, Normal Air Movement Abdomen: Normal Bowel Sounds, Soft, No Tenderness Neurological: Normal Speech, Strength at 5/5 X4 Ext Extremities: No Cyanosis, No Edema Assessment/Plan Assessment: Patient was given 2 units of packed red blood cells(06/21/16) for her anemia and responded well. She has no obvious source of bleeding at this time. Currently she still is making on minor amounts of urine despite aggressive intravenous fluid administration. She is an anticipated discharge over the weekend assuming her urine output improves with instruction to follow up with her various consultants as outpatietn for further evaluation. Weakness/Anemia possibly secondary to occult malignancy: Patient has a reported recent history of weight loss and weakness. CXR demonstraed a 1.8cm opacitiy possibly printing sales representative of an pulmonary nodule/ lesion. Abdominal US was unremarkable. 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 CT Chest further commented on both the previously decribed lesions and further elicited the presence of emphysema. CT Chest/Abdomen/Pelvis with contrast further commented on the lung and pancreas lesions noting several small other lesions and recommended follow up with MRI. -PRBC Transfused:2 -Vitamin E 800 units PO Daily GI consult appreciated -Heme/Onc consult appreciated. And Dr. Bruno's note from 06/21/2016 was reviewed. I spoke with the heme ox staff Dr. Welch (was covering over the weekend for Dr. Bruno) and he recommended considering the patients for fibrinogen activity 93 and the other cell lines being stable we can defer the cryoprecipitate transfusion at this point. Recommended that we should repeat PT, INR, APTT, and protrusion activity again along with the CBC and platelets in the morning and if further dropping or any signs of active bleeding the patient should receive the cryoprecipitate at this point Left Lower Extremity Deep Vein Thrombosis: No history of a DVT/PE. CT Chest/Abdomen/Pelvis originally comment on possibility of LLE DVT which was confirmed with lower extremity doppler. -Vascular Surgery consult Low Urine Output: Patient has had consistently low urine output as documented by nursing staff. -I&Os. Monitor urine ouput. -Whitt catheter -NS @ 100mL/hr and finish up with this bag -Nephrology consult Acute Blood Loss Anemia: Patient suffered profuse epistaxis after starting heparin dirp on 06/19/15. Hemoglobin drop was noted from 8.6 -> 7.3. -Type & Cross -Transfuse PRBC, hgb goal >7.0 -Closely monitor for signs of bleeding -Daily CBC Elevated Liver Function Tests: Patient was maintained on methotraxate as a DMARD for Rheumatoid arthritis for which she tolerated for many years without side effects. LFTs were found to be elevated on discharge for which methotrexate was held. -Folinic Acid 50mg PO Daily -Continue to hold methotrexate -Daily LFTs. Trending down -F/U RBC folatic acid level Positive Blood Culture: Blood cultures on 06/17/16 are growing gram positive cocci in clusters. - BCx (06/17/16): Coag negative staph which could likely be a contaminant Vitamind D Deficiency - stable, Vitamine D 50,000 PO QWeekly x8 weeks Stage II decubitus ulcer - wound care/wound consult Urinary Incontinence-chronic, continue oxybutynin 2.5 mg by mouth twice a day PT Assessment - Assist of 2, DC to STR Pain Plan: -Acetaminophen 650 mg every 8 hours as needed for pain 1-3 -Morphine 2 mg IV daily as needed for pain 7-10 Diet - Regular DVT PPx - ALPS Code Status - FULL CODE Discharge/Outpatient followup: -Outpatient endoscopic ultrasound for further evaluation of pancreatic cyst -Outpatient EGD/colonoscopy Problem List: 1. Malnutrition 2. Elevated ferritin Pain Ratin Pain Location: abdominal pain Pain Goal: Remain pain free Pain Plan: Acetaminophen 650 mg every 8 hours as needed for pain 1-3 -Morphine 2 mg IV daily as needed for pain 7-10 Tomorrow's Labs & Rationales: CBC, PT, APTT, INR and PT Consulting Request: Consulting Specialty: Thoracic/Vascular Surgery Consulting Physician: Dr. Kenyon Reason for Consult: IVC filter placement for DVT SHERRY PATHAK MD 06/24/160: Attending MD Review Statement Attending Statement Attending MD Statement: examined this patient, discuss w/resident/PA/PAVING RAMMER, agreed w/resident/PA/PAVING RAMMER, reviewed EMR data (avail) Attending Assessment/Plan: 70F PMH rheumatoid arthritis on methotrexate, HTN, HLD thyroid cancer status post surgery, history of stomach cancer in grandmother, recurrent falls admitted with generalized weakness, recurrent falls, and unable to ambulate. She was found on admission to have new anemia with Hgb 8.8, severe Vitamin D deficiency, CKD stage 3, transaminitis. She also reports 47 pound weight loss over the past 6 months. Symptoms are highly suspicious for underlying malignancy. Patient has not had any age-appropriate cancer screening. Patient also with large sacral decubitus ulcer. Blood cultures growing coagulase negative staph in both sets. Afebrile, normal WBC. Overnight was diagnosed with RLE DVT. Patient refuses EGD/colonoscopy at this time, prefers her outpatient GI physician. Hgb had dropped after heparin was re-initiated, IVC filter placed 06/21, heparin drip stopped. Later on 06/21 RIJ line was placed as peripheral IV access could not be obtained. Patient was transfused 2 units pRBC and Hgb went from 6.5 to 10.6. Patient looks and feels better. She is still having anxiety but reports feeling stronger and breathing easier. Still oliguric despite IV hydration. Poor PO intake and hypoalbuminemia contributing to decreased intravascular volume. Fibrinogen level decreasing. 1. Recurrent falls 2. Generalized weakness 3. Vitamin D deficiency 4. Chronic anemia 5. Unintentional weight loss 6. Transaminitis 7. Unable to ambulate 8. CKD stage 3 9. Rheumatoid arthritis 10. Essential hypertension 11. Sacral decubitus ulcer 12. RLE DVT 13. Severe protein calorie malnutrition Plan - Continue on general medicine to monitor for bleeding - No antibiotics - Wound care evaluation for sacral ulcer, possible source of bacteremia - Replete vitamin D with 50,000 units of ergocalciferol weekly plus daily vitamin D and calcium supplementation - Will require outpatient DEXA scan - Outpatient mammogram - PT evaluation - Monitor CBC - Follow nephrology recommendations for oliguria - Possible discharge to [facility] Saturday if urine output continues to improve
[2016-06-24 13:48] VITALS: BP 138/80
[2016-06-24 21:48] VITALS: BP 134/82
[2016-06-25 06:50] VITALS: BP 132/80
--- NOTE | 2016-06-25 06:54 | PN- Hematology ---
Subjective Subjective: Complaining of Whitt catheter Review of Systems: 12 port review of systems otherwise unchanged Objective Vital Signs and I&Os Vital Signs Date Time Temp Pulse Resp B/P Pulse O2 O2 Flow FiO2 Ox Delivery Rate 06/25 0650 97.9 111 20 132/80 99 Room Air 06/24 2148 98.1 100 20 134/82 96 06/24 1348 97.7 67 20 138/80 93 Room Air Intake & Output 06/25 0800 06/25 0000 06/24 1600 06/24 0800 06/24 0000 06/23 1600 Intake Total 500 1400 999 604 9444 Output Total 150 200 200 350 300 200 Balance -572 120 5386 713 968 3941 Intake, IV 400 800 800 800 800 Intake, Oral 100 600 120 120 600 Number 3 3 Bowel Movements Output, Urine 150 200 200 350 300 200 Gen.: in NAD ENT: Sclera anicteric Chest: Normal respiratory effort, decreased breath sounds Cor: RRR, no extra sounds Abdomen: Soft, bowel sounds present, no tenderness, no rebound Extremities: Without clubbing, cyanosis, or asymmetric edema Neurology: Alert Current Medications: Current Medications Sig/Kvng Start time Last Medication Dose Route Stop Time Status Admin Acetaminophen 650 MG Q8P PRN 06/17 1800 AC PO Aspirin 325 MG DAILY 06/18 1000 AC 06/24 PO 0942 Bisacodyl 10 MG ONCE ONE 06/24 0945 DC 06/24 KS 06/24 0946 1003 Calcium 600 MG DAILY 06/20 1908 AC 06/24 PO 0942 Cholecalciferol 400 IU DAILY 06/20 1907 AC 06/24 PO 0942 Collagenase 1 ROBIN DAILY 06/19 1445 AC 06/24 TOP 0942 Docusate Sodium 100 MG DAILY 06/22 1000 AC 06/23 PO 1016 Ergocalciferol 50,000 IU Q168H 06/21 1000 AC PO Folic Acid 1 MG DAILY 06/18 1000 AC 06/24 PO 0942 Leucovorin Calcium 50 MG DAILY 06/20 1000 AC 06/24 PO 0940 Magnesium Oxide 400 MG ONE ONE 06/24 1800 CAN PO 06/24 1801 Magnesium Sulfate 1 GM ONCE ONE 06/25 0000 DC 06/25 Dextrose/Water 100 ML IV 06/25 0359 0037 Magnesium Sulfate 1 GM ONCE ONE 06/24 2000 DC 06/24 Dextrose/Water 100 ML IV 06/24 2359 2150 Morphine Sulfate 2 MG DAILY PRN 06/17 1800 DC IV Oxybutynin Chloride 2.5 MG BID 06/17 220 AC 06/24 PO 2148 Polyethylene Glycol 17 GM DAILY 06/22 1000 AC 06/24 PO 0943 Potassium Chloride 10 MEQ ONCE ONE 06/24 1999 DC 06/24 IV 06/24 2000 231 Potassium Chloride 10 MEQ ONCE ONE 06/24 1999 DC 06/24 IV 06/24 Potassium Chloride 40 MEQ ONCE ONE 06/24 1800 CAN PO 06/24 1801 Potassium Chloride 40 MEQ ONCE ONE 06/24 1700 CAN PO 06/24 1701 Senna 187 MG AT BEDTIME 06/22 2200 AC 06/23 PO 2215 Sodium Chloride 1,000 ML Q13H 06/25 0430 AC 06/25 IV 0433 Sodium Chloride 1,000 ML Q10H 06/19 1445 DC 06/24 IV 06/24 1700 1406 Vitamin E 800 IU DAILY 06/19 1000 AC 06/20 PO 0903 Results Last 24 Hours of Lab Results: Laboratory Tests 06/24 1702 Chemistry Sodium Cancelled Potassium Cancelled Chloride Cancelled Carbon Dioxide Cancelled Anion Gap Cancelled BUN Cancelled Creatinine Cancelled BUN/Creatinine Ratio Cancelled Fibrinogen <100 RBC folate 457 Reticulocyte count-not drawn Assessment/Plan Assessment/Recommendations: 1. Pancytopenia-thus far no effects from folinic acid, ?? Hypersplenism Recommend- Have supplied my business card to the patient and happy to follow up as an outpatient Discontinue folinic acid 2. Gastroenterology-bleeding to be worked up, abnormal liver functions and hypofibrinogenemia to be worked up, ? Secondary to methotrexate
--- NOTE | 2016-06-25 07:23 | PN- Housestaff ---
SHARON YOUNG,YAIMA 06/25/16 0723: Subjective Follow-up For: Anemia Weakness Subjective: Patient seen and examined. She is seen sitting upright in bed resting comfortably. She states that she feels weak and is afraid something is wrong with her and doesnt "wanna go" until she "can walk again" and this "blood issue " is corrected. She is still complaining about the montejo catheter and asking if its going to be permanent. She appears anxious and concerned. Otherwise she denies any recurrent bleeding episodes, headache, fever, chills, chest pain, shortness of breath, nausea, vomiting, diarrhea. No overnight events reported. Review of Systems Constitutional: Reports: see HPI. Objective Last 24 Hrs of Vital Signs/I&O Vital Signs Date Time Temp Pulse Resp B/P Pulse O2 O2 Flow FiO2 Ox Delivery Rate 06/25 0650 97.9 111 20 132/80 99 Room Air 06/24 2148 98.1 100 20 134/82 96 06/24 1348 97.7 67 20 138/80 93 Room Air Intake & Output 06/25 1600 06/25 0800 06/25 0000 Intake Total 950 500 Output Total 150 200 Balance 800 300 Intake, IV 850 400 Intake, Oral 100 100 Number 3 Bowel Movements Output, Urine 150 200 Physical Exam General Appearance: Alert, Oriented X3, Cooperative, No Acute Distress Other Physical Findings: General - thin, anxious woman appearing older than stated age HEENT - NCAT, PERRL, EOMI, anicteric sclera CVS - S1, S2 w/o m/g/r Resp - CTA bilaterally GI - soft, nontender, nondistended, bowel sounds + Neuro - Awake, alert, anxious, mildly confused, CN II - XII grossly intact Ext - 2+ bilateral nonpitting lower extremity edema, pulses 2+ Current Medications: Current Medications Sig/Kvng Start time Last Medication Dose Route Stop Time Status Admin Acetaminophen 650 MG Q8P PRN 06/17 1800 AC PO Aspirin 325 MG DAILY 06/18 1000 AC 06/24 PO 0942 Bisacodyl 10 MG ONCE ONE 06/24 0945 DC 06/24 ND 06/24 0946 1003 Calcium 600 MG DAILY 06/20 1908 AC 06/24 PO 0942 Cholecalciferol 400 IU DAILY 06/20 1907 AC 06/24 PO 0942 Collagenase 1 ROBIN DAILY 06/19 1445 AC 06/24 TOP 0942 Docusate Sodium 100 MG DAILY 06/22 1000 AC 06/23 PO 1016 Ergocalciferol 50,000 IU Q168H 06/21 1000 AC PO Folic Acid 1 MG DAILY 06/18 1000 AC 06/24 PO 0942 Leucovorin Calcium 50 MG DAILY 06/20 1000 DC 06/24 PO 0940 Magnesium Oxide 400 MG ONE ONE 06/24 1800 CAN PO 06/24 1801 Magnesium Sulfate 1 GM ONCE ONE 06/25 0000 DC 06/25 Dextrose/Water 100 ML IV 06/25 0359 0037 Magnesium Sulfate 1 GM ONCE ONE 06/24 2000 DC 06/24 Dextrose/Water 100 ML IV 06/24 2359 2150 Morphine Sulfate 2 MG DAILY PRN 06/17 1800 DC IV Oxybutynin Chloride 2.5 MG BID 06/17 2200 AC 06/24 PO 2148 Polyethylene Glycol 17 GM DAILY 06/22 1000 AC 06/24 PO 0943 Potassium Chloride 10 MEQ ONCE ONE 06/24 1999 DC 06/24 IV 06/24 2000 231 Potassium Chloride 10 MEQ ONCE ONE 06/24 2000 DC 06/24 IV 06/24 2000 202 Potassium Chloride 40 MEQ ONCE ONE 06/24 1800 CAN PO 06/24 1801 Potassium Chloride 40 MEQ ONCE ONE 06/24 1700 CAN PO 06/24 1701 Senna 187 MG AT BEDTIME 06/22 2200 AC 06/23 PO 2215 Sodium Chloride 1,000 ML Q13H 06/25 0430 AC 06/25 IV 0433 Sodium Chloride 1,000 ML Q10H 06/19 1445 DC 06/24 IV 06/24 1700 1406 Vitamin E 800 IU DAILY 06/19 1000 AC 06/20 PO 0903 Last 24 Hrs of Lab/Taran Results Last 24 Hrs of Labs/Mics: Laboratory Tests 06/25/16 0540: Anion Gap 6, Estimated GFR > 60, BUN/Creatinine Ratio 17.5, PT Pending, INR Pending, Fibrinogen Activity Pending, CBC w Diff NO MAN DIFF REQ, RBC 3.27 L, MCV 93.3, MCH 31.0, RDW 22.7 H, MPV 11.3 H, Gran % 64.1, Lymphocytes % 19.8 L , Monocytes % 9.3, Eosinophils % 6.2 H, Basophils % 0.6, Absolute Granulocytes 6.0, Absolute Lymphocytes 1.8, Absolute Monocytes 0.9 H, Absolute Eosinophils 0.6, Absolute Basophils 0.1, PUBS MCHC 33.2 06/24/16 1703: Sodium Cancelled, Potassium Cancelled, Chloride Cancelled, Carbon Dioxide Cancelled, Anion Gap Cancelled, BUN Cancelled, Creatinine Cancelled, BUN/ Creatinine Ratio Cancelled Assessment/Plan Assessment: Patient continues to deny any recurrent bleeding episodes while off the heparin drip and has had consistently stable hemoglobin levels. Lecovorin was discontinued today and patient is to follow up as outpatient with Dr. Hernandez. Montejo catheter was removed this morning to attempt a voiding trial as patients urine output as improved somewhat. She does now have grossly edematous ankles possibly secondary to overcorrection of her intravascular fluid depletion. She is to be discharged to [facility] today for further rehabilitation and care. Weakness/Anemia possibly secondary to occult malignancy: Patient has a reported recent history of weight loss and weakness. CXR demonstraed a 1.8cm opacitiy possibly development representative of an pulmonary nodule/ lesion. Abdominal US was unremarkable. 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 CT Chest further commented on both the previously decribed lesions and further elicited the presence of emphysema. CT Chest/Abdomen/Pelvis with contrast further commented on the lung and pancreas lesions noting several small other lesions and recommended follow up with MRI. -PRBC Transfused:2 -Vitamin E 800 units PO Daily GI consult appreciated -Heme/Onc consult following Left Lower Extremity Deep Vein Thrombosis: No history of a DVT/PE. CT Chest/Abdomen/Pelvis originally comment on possibility of LLE DVT which was confirmed with lower extremity doppler. -Vascular Surgery consult Low Urine Output: Patient has had consistently low urine output as documented by nursing staff. -I&Os. Monitor urine ouput. -Montejo catheter removed -NS @ 100mL/hr and finish up with this bag -Nephrology consult Acute Blood Loss Anemia: Patient suffered profuse epistaxis after starting heparin dirp on 06/19/15. Hemoglobin drop was noted from 8.6 -> 7.3. -Type & Cross -Transfuse PRBC, hgb goal >7.0 -Closely monitor for signs of bleeding -Daily CBC Elevated Liver Function Tests: Patient was maintained on methotraxate as a DMARD for Rheumatoid arthritis for which she tolerated for many years without side effects. LFTs were found to be elevated on discharge for which methotrexate was held. -Folinic Acid 50mg PO Daily -Continue to hold methotrexate -Daily LFTs -F/U RBC folatic acid level Positive Blood Culture: Blood cultures on 06/17/16 are growing gram positive cocci in clusters. - BCx (06/17/16): Coag negative staph which could likely be a contaminant Vitamind D Deficiency - stable, Vitamine D 50,000 PO QWeekly x8 weeks Stage II decubitus ulcer - wound care/wound consult Urinary Incontinence-chronic, continue oxybutynin 2.5 mg by mouth twice a day PT Assessment - Assist of 2, DC to STR Pain Plan: -Acetaminophen 650 mg every 8 hours as needed for pain 1-3 -Morphine 2 mg IV daily as needed for pain 7-10 Diet - Regular DVT PPx - ALPS Code Status - FULL CODE Discharge/Outpatient followup: -Outpatient endoscopic ultrasound for further evaluation of pancreatic cyst -Outpatient EGD/colonoscopy Problem List: 1. Generalized weakness Pain Ratin Pain Location: None Pain Goal: Remain pain free Pain Plan: As noted in plan Tomorrow's Labs & Rationales: None Consulting Request: Consulting Specialty: Thoracic/Vascular Surgery Consulting Physician: Dr. Kenyon Reason for Consult: IVC filter placement for DVT SHERRY PATHAK MD 06/25/16 1125: Attending MD Review Statement Attending Statement Attending MD Statement: examined this patient, discuss w/resident/PA/CORNER FORMER, agreed w/resident/PA/CORNER FORMER, reviewed EMR data (avail) Attending Assessment/Plan: 70F PMH rheumatoid arthritis on methotrexate, HTN, HLD thyroid cancer status post surgery, history of stomach cancer in grandmother, recurrent falls admitted with generalized weakness, recurrent falls, and unable to ambulate. She was found on admission to have new anemia with Hgb 8.8, severe Vitamin D deficiency, CKD stage 3, transaminitis. She also reports 47 pound weight loss over the past 6 months. Symptoms are highly suspicious for underlying malignancy. Patient has not had any age-appropriate cancer screening. Patient also with large sacral decubitus ulcer. Blood cultures growing coagulase negative staph in both sets. Afebrile, normal WBC. Overnight was diagnosed with RLE DVT. Patient refuses EGD/colonoscopy at this time, prefers her outpatient GI physician. Hgb had dropped after heparin was re-initiated, IVC filter placed 06/21, heparin drip stopped. Later on 06/21 RIJ line was placed as peripheral IV access could not be obtained. Patient was transfused 2 units pRBC and Hgb went from 6.5 to 10.6. 1. Recurrent falls 2. Generalized weakness 3. Vitamin D deficiency 4. Chronic anemia 5. Unintentional weight loss 6. Transaminitis 7. Unable to ambulate 8. CKD stage 3 9. Rheumatoid arthritis 10. Essential hypertension 11. Sacral decubitus ulcer 12. RLE DVT 13. Severe protein calorie malnutrition Plan - Discontinue Montejo for voiding trial. If patient does not void then can be straight cathed at [facility] after 8 hours - Wound care evaluation for sacral ulcer, possible source of bacteremia - Replete vitamin D with 50,000 units of ergocalciferol weekly plus daily vitamin D and calcium supplementation - Will require outpatient DEXA scan - Outpatient mammogram - PT evaluation - Stable for discharge to [facility] with outpatient hematology, nephrology, PCP follow up
[2016-06-25 08:12] LABS: ABSOLUTE BASOPHIL COUNT 0.1 /CUMM (0.0-0.2); ABSOLUTE EOSINOPHIL COUNT 0.6 /CUMM (0.0-0.7); ABSOLUTE LYMPH COUNT 1.8 /CUMM (1.2-3.4); ABSOLUTE MONOCYTE COUNT 0.9 /CUMM (0.10-0.60); BASOPHIL % 0.6 % (0.0-2.0); EOSINOPHIL % 6.2 % (0-5); GRANULOCYTE % 64.1 % (42.2-75.2); HEMATOCRIT 30.5 % (37-47); MEAN CORPUSCULAR HGB CONC 33.2 G/DL (33.0-37.0); MEAN CORPUSCULAR VOLUME 93.3 FL (81.0-99.0); MEAN PLATELET VOLUME 11.3 FL (7.4-10.4); PLATELET COUNT 76 /CUMM (130-400); RBC DISTRIBUTION WIDTH 22.7 % (11.5-14.5); RED BLOOD CELL CT 3.27 /CUMM (4.20-5.40); WHITE BLOOD CELL COUNT 9.3 /CUMM (4.8-10.8)
--- NOTE | 2016-06-25 08:21 | Cons- Wound Care ---
General Information and HPI Consulting Request Date of Consult: 06/25/16 Requested By: SHERRY PATHAK MD Reason for Consult: Bilateral buttock ulcers present on admission left breast ulcers present on admission coccyx ulcer present on admission. History of Present Illness: Patient is 70-year-old admitted with weakness and found to have DVT blood loss anemia abnormal LFTs. She is status post IVC filter. Patient was found to have multiple pressure injury ulcers present on admission. Allergies/Medications Allergies: Coded Allergies: Penicillins (UNKNOWN 03/15/16) Home Med List: Aspirin (Lite Coat Aspirin) 325 MG TABLET 1 TAB PO DAILY HEART HEALTH/IVC filter (Reported) Atorvastatin Calcium 20 MG TABLET 1 TAB PO DAILY CHOL (Reported) Folic Acid 1 MG TABLET 1 TAB PO DAILY SUPPLEMENT (Reported) Methotrexate 2.5 MG TABLET 6 TAB PO QW ARTHRITIS (Reported) Metoprolol Succ XL (Toprol XL) 25 MG TAB 1 TAB PO DAILY htn Nystatin 100,000 UNIT/GRAM CREAM..G. 1 ROBIN TOP BID RASH (Reported) apply to affected area(s) Pantoprazole Sodium 40 MG TABLET.DR 1 TAB PO DAILY GERD (Reported) Tolterodine Tartrate 2 MG TABLET 1 TAB PO BID OVERACTIVE BLADDER (Reported) Review of Systems Review of Systems: Patient is poorly mobile she has lost significant weight with redundant tissue causing Past History Travel History Traveled to [place] past 21 day No Medical History Blood Transfusion Hx: No (pt not sure) Neurological: CVA EENT: NONE Cardiovascular: hypertension, hyperlipidemia Respiratory: NONE Gastrointestinal: GERD, hiatal hernia Hepatic: NONE Renal: NONE Musculoskeletal: rheumatoid arthritis Psychiatric: NONE Endocrine: NONE Blood Disorders: NONE Cancer(s): NONE 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 FHx: stomach cancer FATHER, ; Cause: Alcoholic liver disease. Psychosocial History Where Do You Live? Home Who Do You Live With? spouse Services at Home: Home Health Aide, Nursing, Occupational Therapy Primary Language: Mosotho Smoking Status: Never Smoked ETOH Use: denies use Illicit Drug Use: denies illicit drug use Living Will? no Power of Industrial Engineering Intern/HCP? no Other Social History: Marrie. Poor historian . Lives with . No cigarettes, drugs or EtOH. 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 2 sons & 1 dtr- [employer]. Functional Ability ADLs Independent: dressing, eating. Unknown: toileting, bathing. Ambulation: walker IADLs Independent: telephone. Needs Assist: shopping, housework, transportation. Unknown: finances, food prep, medication admin. Employment History Employment: Retired Profession/Employer: [employer] Exam & Diagnostic Data Vital Signs and I&O Vital Signs Result Date Time Pulse Ox 99 06/25 0650 B/P 132/80 06/25 0650 O2 Delivery Room Air 06/25 0650 Temp 97.9 06/25 0650 Pulse 111 06/25 0650 Resp 20 06/25 0650 Intake & Output 06/25 0000 06/24 1600 06/24 0800 Intake Total 500 1400 920 Output Total 200 200 350 Balance 300 1200 570 Intake, IV 400 800 800 Intake, Oral 100 600 120 Number 3 3 Bowel Movements Output, Urine 200 200 350 Physical Exam: Over the left buttock is a 2 x 3 cm stage III pressure ulcer with red and yellow fill there is no undermining sinus tracking exposed bone there is asymmetrical right buttock ulcer measuring 3 x 3 cm with red and yellow fill without undermining sinus tracking or exposed bone is no periwound erythema in the upper intergluteal fold is a 2.5 x 0.5 cm stage III ulcer with probably red fill under left breast multiple small ulcers likely due to pressure and maceration these vary between stage II and stage III and range between 1 and 2 cm. Assessment/Plan Impression/Plan: 70-year-old woman admitted with anemia DVT possible occult malignancy is found to have multiple pressure ulcers present on admission in the setting of weight loss. Recommend use of calcium alginate for the left breast ulcers to help prevent maceration. Alginate silver can be applied to the buttock and coccyx ulcers changed every 2 days as long as they remain in place patient should be offloaded on a low air loss mattress assess nutritional status given significant weight loss Consult Acknowledgment - Thank you for your consult request.
[2016-06-25 08:30] LABS: PT 13.2 SEC (9.4-12.5)
[2016-06-25 13:44] VITALS: BP 130/90
[2016-06-25 15:20] VITALS: BP 130/90
== END 2016-06-25 15:40 | DRG 628 ==
LOC: ERH 09:09 → 2NA 15:55 → ERHI 15:55 → 2NA 17:29
PROVIDERS: Emergency Medicine; Internal Medicine; Internal Medicine Endocrinology, Diabetes & Metabolism; Internal Medicine Interventional Cardiology; Internal Medicine Nephrology; ADMIT Internal Medicine
PROC: 06H03DZ Insertion of Intraluminal Device into Inferior Vena Cava, Percutaneous Approach (ICD-10-PCS; principal; 2016-06-21)
PROC: 30233N1 Transfusion of Nonautologous Red Blood Cells into Peripheral Vein, Percutaneous Approach (ICD-10-PCS; 2016-06-21)
DX: R62.7 Adult failure to thrive (principal); E43 Unspecified severe protein-calorie malnutrition; L89.310 Pressure ulcer of right buttock, unstageable; I82.412 Acute embolism and thrombosis of left femoral vein; L89.320 Pressure ulcer of left buttock, unstageable; N18.3 Chronic kidney disease, stage 3 (moderate); I82.432 Acute embolism and thrombosis of left popliteal vein; D64.9 Anemia, unspecified; Z68.21 Body mass index [BMI] 21.0-21.9, adult; E55.9 Vitamin D deficiency, unspecified; M06.9 Rheumatoid arthritis, unspecified; I10 Essential (primary) hypertension; E78.5 Hyperlipidemia, unspecified; Z85.850 Personal history of malignant neoplasm of thyroid; Z80.0 Family history of malignant neoplasm of digestive organs; K21.9 Gastro-esophageal reflux disease without esophagitis; K44.9 Diaphragmatic hernia without obstruction or gangrene
CPT/HCPCS: 2NASP; 75661; 84133; 84300; 36415; 74020; 74176; 74177; 74183; 77001; 81001; 82436; 82570; 86920; 87040; 87147; 93005; 93010; 93970; 96360; 97112-GO; 97162-GP; 97530-GO; A9579; C1769; J0690; J1642; J1644; J3370; J3490; J7060; P9016; Q9967

== ENCOUNTER 2016-08-16 13:02 | Inpatient (IN) | payer OTHER ==
[~2016-08-16] VITALS: Ht 160 cm; Wt 70.8 kg
[~2016-08-16 13:02] MED LIST changes: +ATORVASTATIN CA20 M1 PO; +CALCIUM CARBON500 M2 PO; +FOLIC ACID1 M1 PO; +LITE COAT ASPI325 MG PO; +METHOTREXATE2.5 M2 PO; +MIRALAX119 GM PO; +NYSTATIN15 G1 TOP; +PANTOPRAZOLE SO40 M1 PO; +SANTYL30 GM TOP; +SENNA-TIME S T1 EACH PO; +TOLTERODINE TART2 M2 PO; +TYLENOL325 M1 PO; +VITAMIN D250000 UNIT PO; +VITAMIN E400 UNI1 PO
--- NOTE | 2016-08-16 13:17 | NUR ---
PT BROUGHT IN FROM ENDOSCOPY UNIT FOR REPORTED SVT PRE COLONOSCOPY. PT WAS GETTING A WORK UP FOR ANEMIA AND LFTS. WAS RECENTLY TAKEN OFF METHOTREXATE AND LIPITOR DUE TO ANEMIA/LFTS. EXAM NOT DONE DUE TO SVT. PT CURRENTLY AT [facility] S/P CVA. UPON ARRIVAL TO ED. PT IN AFIB WITH RATE 90-115. PT AWAKE, ALERT AND AGIATED. PT VERY UPSET THAT SHE IS HERE, UNCONSOLABLE AND SOMEWHAT UNCOOPERATIVE IN ANSWERING QUESTIONS.
--- NOTE | 2016-08-16 13:30 | NUR ---
PT ON MONITOR AND IS IN AFIB. PT ANGRY AND AGITATED. STATES SHE IS HUNGRY AND THIRSTY. MAD THAT SHE HAD TO TAKE BOWEL PREP FOR PROCEDURE. PT AT FIRST REFUSING TO ANSWER QUESTIONS. STARTING TO CALM DOWN AND BE COOPERATIVE. REASSURED PT THAT WE WILL GIVE HER SOMETHING TO EAT AND DRINK VICKI
--- NOTE | 2016-08-16 13:55 | NUR ---
SEEN BY FABIOLA BENITEZ
--- NOTE | 2016-08-16 14:01 | ED CARDIAC/CP/PALPITATIONS ---
History of Present Illness General Chief Complaint: General Adult Stated Complaint: BROUGHT OVER FROM GI FOR ?SVT Source: patient, family, old records Exam Limitations: no limitations Allergies Coded Allergies: Penicillins (UNKNOWN 03/15/16) Reconcile Medications Acetaminophen (Acephen) 650 MG SUPP.RECT 1 SUPP NC Q4H PRN PAIN/TEMP>101 ( Reported) Acetaminophen 325 MG TABLET 2 TAB PO Q4H PRN PAIN/TEMP>101 (Reported) Amino AC/Protein Hydr/Whey Pro (Prosource Protein Liquid) 10 GRAM-100 KCAL/30 ML LIQUID 30 ML PO TID SUPPLEMENT (Reported) Aspirin (Lite Coat Aspirin) 325 MG TABLET 1 TAB PO DAILY HEART HEALTH/IVC filter (Reported) Bisacodyl 10 MG SUPP.RECT 1 SUP RC DAILY PRN CONSTIPATION (Reported) Calcium Carbonate (Calcium) 500 MG CALCIUM (1,250 MG) TAB.CHEW 1 TAB PO DAILY SUPPLEMENT/GI (Reported) Calcium Carbonate 500 MG CALCIUM (1,250 MG) TABLET 600 MG PO DAILY Supplement Cholecalciferol (Vitamin D3) (Vitamin D3) 50,000 UNIT CAPSULE 1 CAP PO QFRI SUPPLEMENT (Reported) Collagenase Clostridium Hist. (Santyl) 250 UNIT/GRAM OINT...G. 1 ROBIN TOP DAILY Sacral ulcer Escitalopram Oxalate (Lexapro) 10 MG TABLET 1 TAB PO DAILY MENTAL HEALTH ( Reported) Folic Acid 1 MG TABLET 1 TAB PO DAILY SUPPLEMENT (Reported) Leucovorin Calcium 25 MG TABLET 2 TAB PO DAILY UNKNOWN (Reported) [magic cup] 1 UNIT PO BID SUPPLEMENT (Reported) Magnesium Hydroxide (Milk Of Magnesia) 400 MG/5 ML ORAL.SUSP 30 ML PO DAILY PRN CONSTIPATION (Reported) Na Phos,M-B/Na Phos,Di-Ba (Fleet Enema) 19 GRAM-7 GRAM/118 ML ENEMA 1 E RC DAILY PRN CONSTIPATION (Reported) Nystatin 100,000 UNIT/GRAM CREAM..G. 1 ROBIN TOP BID RASH (Reported) apply to affected area(s) Pantoprazole Sodium 40 MG TABLET.DR 1 TAB PO DAILY GERD (Reported) Polyethylene Glycol 3350 17 GRAM POWD.PACK 1 PAC PO Saturday GI ( Reported) Potassium Chloride 20 MEQ TAB.ER.PRT 1 TAB PO DAILY SUPPLEMENT (Reported) Sennosides/Docusate Sodium (Senna-Time S Tablet) 8.6 MG-50 MG TABLET 187 MG PO AT BEDTIME constipation Tolterodine Tartrate 2 MG TABLET 1 TAB PO BID OVERACTIVE BLADDER (Reported) Vitamin E (Dl,Tocopheryl Acet) (Vitamin E) 400 UNIT CAPSULE 800 IU PO DAILY supplement Triage Note: PT BROUGHT IN FROM ENDOSCOPY UNIT FOR REPORTED SVT PRE COLONOSCOPY. PT WAS GETTING A WORK UP FOR ANEMIA AND LFTS. WAS RECENTLY TAKEN OFF METHOTREXATE AND LIPITOR DUE TO ANEMIA/LFTS. EXAM NOT DONE DUE TO SVT. PT CURRENTLY AT [facility] S/P CVA. UPON ARRIVAL TO ED. PT IN AFIB WITH RATE 90-115. PT AWAKE, ALERT AND AGIATED. PT VERY UPSET THAT SHE IS HERE, UNCONSOLABLE AND SOMEWHAT UNCOOPERATIVE IN ANSWERING QUESTIONS. Triage Nurses Notes Reviewed? yes HPI: 70-year-old female presents to the ER from the GI suite with complaints of an irregular heartbeat. She was placed on the monitor there and they noted a preprocedural "SVT" and was sent here for further evaluation. Patient is asymptomatic. 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 She has no symptoms of chest pain or palpitations or fluttering in her chest. Her rhythm strip from the preop GI suite shows atrial fibrillation approximately 110 bpm. She has held her medication this morning because of her impending colonoscopy. She is given a colonoscopy for weight loss, she has no history of GI bleeds, she does have history of anemia, she has had a workup for GI bleeds in the past which is negative. She is on a 325 mg aspirin. Previously she was on heparin but she had to stop because of nosebleeds this was secondary to a DVT. She has an IVC filter at this time. (FABIOLA CAI) Vital Signs & Intake/Output Vital Signs & Intake/Output Vital Signs Date Time Temp Pulse Resp B/P Pulse O2 O2 Flow FiO2 Ox Delivery Rate 08/16 2159 107 170/98 08/16 2044 98.4 72 22 178/90 98 Room Air 08/16 1922 97.6 128 18 118/60 98 Room Air 08/16 1623 112 160/90 08/16 1525 112 18 97 Room Air 08/16 1515 126 20 160/90 08/16 1444 108 160/80 08/16 1356 Room Air 08/16 1305 97.0 108 18 160/80 97 Room Air Past History Travel History Traveled to [place] past 21 day No Medical History Any Pertinent Medical History? see below for history Neurological: CVA EENT: NONE Cardiovascular: hypertension, hyperlipidemia Respiratory: NONE Gastrointestinal: GERD, hiatal hernia Hepatic: NONE Renal: NONE Musculoskeletal: rheumatoid arthritis Psychiatric: NONE Endocrine: NONE Blood Disorders: NONE Cancer(s): NONE [address] VENDOR/Reproductive: NONE History of MRSA: No History of VRE: No History of CDIFF: No Surgical History Surgical History: "BENIGN TUMOR REMOVED FROM ABDOMEN 1999- [facility] Tonsillectomy Psychosocial History Who do you live with Spouse Services at Home Home Health Aide, Nursing, Occupational Therapy What is your primary language Wolof Tobacco Use: Never used Family History Family History, If Any: grandmother, ; Cause: Gastric cancer. FHx: stomach cancer FATHER, ; Cause: Alcoholic liver disease. Hx Contributory? No (FABIOLA CAI) Review of Systems Review of Systems Constitutional: Reports: see HPI. EENTM: Reports: no symptoms. Respiratory: Reports: no symptoms. Cardiovascular: Reports: no symptoms, see HPI. GI: Reports: no symptoms. Genitourinary: Reports: no symptoms. Musculoskeletal: Reports: no symptoms. Skin: Reports: no symptoms. Neurological/Psychological: Reports: no symptoms. Hematologic/Endocrine: Reports: no symptoms. Immunologic/Allergic: Reports: no symptoms. All Other Systems: Reviewed and Negative (FABIOLA CAI) Physical Exam Physical Exam Cardiovascular: irregularly irregular Comments: Elderly female, looks stated age, in no acute distress HEENT: Poor dentition, extraocular motion intact, no nystagmus. Pupils equally round and reactive to light. Nose is atraumatic. Dry mucous membranes. Neck: Supple, no lymphadenopathy, normal range of motion without pain or tenderness Back: Nontender, no CVA tenderness. Cardiovascular: Irregularly irregular, tachycardic, no murmur, no JVD Respiratory: Chest nontender. No respiratory distress. Breath sounds clear to auscultation bilaterally Abdomen: Soft, nontender nondistended, no appreciable organomegaly. Normal bowel sounds. No ascites Extremity: Bilateral lower extremity 2+ edema, no calf tenderness to palpation, normal and equal pulses. Neuro: Alert oriented x3, motor sensory normal, cranial nerves II through XII grossly intact. Skin: No appreciable rash on exposed skin, skin is warm and dry. Psych: Mood and affect is normal, memory and judgment is normal. Core Measures ACS in differential dx? Yes Severe Sepsis Present: No Septic Shock Present: No (DENICE BENITEZ,FABIOLA) Progress Differential Diagnosis: AMI, aortic dissection, atrial fibrillation, cholecystitis, CHF/pulm edema, costochondritis, hyperkalemia, hypovolemia, hyperthyroid, hyperventilation, intracranial hemorrhage, musculoskeletal pain, myocarditis, pancreatitis, pericarditis, pneumonia, pneumothorax, PSVT, pulmonary embolism, PUD/GERD, PVCs/PACs, respiratory failure, rib fracture, sepsis, unstable angina, V-fib/V-Tach, WPW syndrome Diagnostic Imaging: Viewed by Me: Radiology Read. Discussed w/RAD: Radiology Read. CXR Impression: PATIENT: ADRIEL LOAIZA PRESENT AGE: 70 PATIENT ACCOUNT NO: [id number] : 44 LOCATION: [facility] ORDERING PHYSICIAN: FABIOLA BENITEZ SERVICE DATE: 08/16/16 EXAM TYPE: RAD - XRY-PORTABLE CHEST XRAY EXAMINATION: XR PORTABLE CHEST CLINICAL INFORMATION: New onset of atrial fibrillation. COMPARISON: Chest x-ray 06/17/2016 TECHNIQUE: Portable AP view of the chest was obtained. FINDINGS: Cardiac silhouette is enlarged. There is mild central vascular congestion but no no overt pulmonary edema. There is new hazy airspace opacity in the right medial lower lung. No significant effusion. No pneumothorax. IMPRESSION: Enlarged heart with central vascular congestion, but no overt pulmonary edema. New hazy opacity in the right lower medial lung which may reflect atelectasis or pneumonia. Recommend follow-up with a PA and lateral chest radiograph when clinically able to do so. At a minimum, recommend follow-up in 4-6 weeks to document resolution. DICTATED BY: CLEO MAYO MD DATE/TIME DICTATED:08/16/161430 BAILIFF:LAYA DATE/TIME TRANSCRIBED:08/16/161430 Initial ED EKG: LIKELY ATRIAL FIBRILLATION AT 130 BEATS PER MINUTES, p WAVES ARE NOTED BUT pr SEGMENT IS IRREGULAR AND RHYTHM IS IRREGULAR. nO SIGNIFICANT st OR t-WAVE CHANGES. rHYTHM IS CHANGE FROM PREVIOUS ekg OF june 2016 Prior EKG: changed Rhythm Strip: atrial fibrillation (130 BPM) Comments: Suspect new onset atrial fibrillation, patient also hypertensive 160/80, she is given IV fluids for fear of dehydration secondary to her own ostomy prep last evening and 10 mg of Cardizem IV. Discussed with Dr. Gutierrez Patient heart rate now 100-112 on reevaluation. Discussed with Dr. Alicia, question of A. fib versus MAT, possibly mild new-onset CHF as well, given 20 of Lasix IV and 30 of Cardizem by mouth immediate relief, will follow up on the coagulation at this time due to problems with heparin secondary to nosebleeds and anemia. We'll admit to Dr. Alicia's service (DENICE BENITEZ,FABIOLA) Plan of Care: Orders Procedure Date/time Status CHF Diet 08/17 B Active EKG 08/17 2100 Active TROPONIN LEVEL 08/17 0300 Active MAGNESIUM 08/17 0300 Active CBC WITHOUT DIFFERENTIAL 08/17 0300 Active BASIC ELECTROLYTES PLUS BUN&CR 08/17 0300 Active EKG 08/17 0300 Active Regular Diet 08/16 D Complete EKG 08/16 2154 Active TROPONIN LEVEL 08/16 2100 Active Vital Signs 08/16 2044 Active Teach/Educate 08/16 204 Active Pain Treatment and Response 08/17 2043 Active Nutritional Intake, Monitor 08/16 204 Active Isolation 08/16 204 Active Intake & Output 08/16 2044 Active Patient Care Conference 08/16 2044 Active Activity/Ambulation 08/16 2044 Active Misc Message 08/16 1708 Active ED Holding Orders 08/16 1708 Active Admit to inpatient 08/16 1708 Active Pathway - chart 08/16 1639 Active House Staff 08/16 1639 Active Code Status 08/16 1639 Active Patient Data 08/16 1555 Active Saline Lock 08/16 1356 Active Telemetry/Branch Assistant 08/16 1356 Active TSH REFLEX 08/16 1356 Complete TROPONIN LEVEL 08/16 1356 Complete MAGNESIUM 08/16 1356 Complete COMPREHENSIVE METABOLIC PANEL 08/16 1356 Complete CBC WITHOUT DIFFERENTIAL 08/16 1356 Complete B-TYPE NATRIURETIC PEP (BNP) 08/16 1356 Complete EKG 08/16 1356 Active TRC EVALUATION (GEN) 08/16 UNK Active Weight 08/16 UNK Active VTE Mechanical Prophylaxis 08/16 UNK Active Vital Signs 08/16 UNK Active Intake & Output 08/16 UNK Active ECHOCARDIOGRAM 08/16 UNK Active Current Medications Sig/Kvng Start time Last Medication Dose Stop Time Status Admin Aspirin 325 MG DAILY 08/17 1000 AC (Aspirin) Folic Acid 1 MG DAILY 08/17 1000 AC (Folic Acid) Furosemide 40 MG DAILY 08/17 1000 AC (Lasix) Omeprazole 40 MG DAILY AC 08/17 0700 AC (Prilosec) Acetaminophen 650 MG Q6P PRN 08/16 1645 AC (Tylenol) Oxycodone/ 1 TAB Q6P PRN 08/16 1645 AC Acetaminophen (Percocet) Laboratory Tests 08/16/16 2215: Troponin I Pending 08/16/16 1445: Anion Gap 7, Estimated GFR > 60, BUN/Creatinine Ratio 25.6 H, Glucose 116 H, Calcium 8.4, Magnesium 1.7, Total Bilirubin 0.6, AST 21, ALT 32, Alkaline Phosphatase 92, Troponin I 0.01, Fca-N-[id number] Pept 98698 H, Total Protein 6.0 L, Albumin 2.5 L, Globulin 3.5, Albumin/Globulin Ratio 0.7 L, TSH &T3 & Free T4 Intrp 3.900, CBC w Diff NO MAN DIFF REQ, RBC 3.03 L, MCV 93.1, MCH 31.1 H, RDW 14.1, MPV 9.5, Gran % 59.9, Lymphocytes % 30.4, Monocytes % 7.7, Eosinophils % 1.6, Basophils % 0.4, Absolute Granulocytes 3.1, Absolute Lymphocytes 1.6, Absolute Monocytes 0.4, Absolute Eosinophils 0.1, Absolute Basophils 0, PUBS MCHC 33.4 Departure Departure Disposition: STILL A PATIENT Condition: Stable Clinical Impression Primary Impression: Atrial fibrillation with rapid ventricular response Secondary Impressions: CHF (congestive heart failure) Qualifiers: Congestive heart failure type: unspecified congestive heart failure type Congestive heart failure chronicity: acute Qualified Code: I50.9 - Heart failure, unspecified HTN (hypertension) Qualifiers: Hypertension type: essential hypertension Qualified Code: I10 - Essential (primary) hypertension Referrals: MARIANNA BIGGS MD (PCP/Family) Departure Forms: Customer Survey General Discharge Information Admission Note Spoke With: MICK ALICIA MD Documentation of Exam: Documentation of any treatments & extenuating circumstances including Concerns Regarding Discharge (functional status, medication knowledge or non-compliance, living conditions, etc.) that warrant an admission rather than observation: Patient with supraventricular arrhythmia, A. fib versus multifocal atrial tachycardia, requires cardiology consult telemetry monitoring , rate control, possible echo and evaluation of fluid status secondary to mild central vascular congestion seen on chest x-ray suggestive of CHF which is new onset as well. (FABIOLA CAI) PA/MOLTEN IRON POURER Co-Sign Statement Statement: ED Attending supervision documentation- [X] I saw and evaluated the patient. I have also reviewed all the pertinent lab results and diagnostic results. I agree with the findings and the plan of care as documented in the PA's/MOLTEN IRON POURER's documentation. [] I have reviewed the ED Record and agree with the PA's/MOLTEN IRON POURER's documentation. [] Additions or exceptions (if any) to the PAs/MOLTEN IRON POURER's note and plan are summarized below: [] (CJ YOUNG,QUENTIN Parham) Critical Care Note Critical Care Note Critical Care Time: non-applicable (FABIOLA CAI)
--- NOTE | 2016-08-16 14:15 | NUR ---
PT CALMER AND MORE COOPERATIVE.
--- NOTE | 2016-08-16 14:39 | RADIOLOGY REPORT ---
EXAMINATION: XR PORTABLE CHEST CLINICAL INFORMATION: New onset of atrial fibrillation. COMPARISON: Chest x-ray 06/17/2016 TECHNIQUE: Portable AP view of the chest was obtained. FINDINGS: Cardiac silhouette is enlarged. There is mild central vascular congestion but no no overt pulmonary edema. There is new hazy airspace opacity in the right medial lower lung. No significant effusion. No pneumothorax. IMPRESSION: Enlarged heart with central vascular congestion, but no overt pulmonary edema. New hazy opacity in the right lower medial lung which may reflect atelectasis or pneumonia. Recommend follow-up with a PA and lateral chest radiograph when clinically able to do so. At a minimum, recommend follow-up in 4-6 weeks to document resolution.
--- NOTE | 2016-08-16 14:40 | NUR ---
EKG AND LAB WORK DRAWN. PT GIVEN SNACK TO EAT. PT AWARE SHE HAS NEW ONSET AFIB AND WILL LIKELY BE ADMITTED TO HOSPITAL. PTS MAIN CONCERN IS BEING HUNGRY
--- NOTE | 2016-08-16 14:45 | NUR ---
PT GIVEN IV CARDIAZEM FOR ELEVATED HEART RATE. HEART RATE 110-133 PRIOR TO ADMINISTRATION. TRANSIENTLY RATE DROPPED TO 95-120 AFTER ADMINISTRATION
--- NOTE | 2016-08-16 15:04 | NUR ---
PT LOGROLLED FOR [facility]. SCARS NOTED ON SACRUM AND BILATERAL BUTTOCKS. PT STATES SHE HAS HAD WOUNDS THERE IN THE PAST. SKIN ON BUTTOCKS AND SACRUM WITH BLANCHABLE REDNESS. BARRIER CREAM APPLIED. DIAPER REMOVED AND PT ON BLUE INCONTINENT PAD. PT WITH WOUND ON RIGHT WRIST THAT MEASURES 2CM X 1CM AND IS DRY WITH YELLOW TISSUE. PT STATES SHE GOT THIS WOUND WHEN SHE WAS PROPELLING HERSELF IN WHEELCHAIR AT REHAB. EDMEA NOTED FROM WAIST DOWN INCLUDING PERINEAL AREA. SKIN ON ARMS THIN, FRAGILE AND ECCHYMOTIC-RED ECCHYMOSIS ESPECIALLY ON LUE
--- NOTE | 2016-08-16 15:10 | NUR ---
HEART RATE AT PRESENT 129
[2016-08-16 15:33] LABS: ABSOLUTE BASOPHIL COUNT 0 /CUMM (0.0-0.2); ABSOLUTE EOSINOPHIL COUNT 0.1 /CUMM (0.0-0.7); ABSOLUTE GRANULOCYTE CT 3.1 /CUMM (1.4-6.5); ABSOLUTE LYMPH COUNT 1.6 /CUMM (1.2-3.4); ABSOLUTE MONOCYTE COUNT 0.4 /CUMM (0.10-0.60); BASOPHIL % 0.4 % (0.0-2.0); EOSINOPHIL % 1.6 % (0-5); GRANULOCYTE % 59.9 % (42.2-75.2); HEMATOCRIT 28.2 % (37-47); MEAN CORPUSCULAR HGB 31.1 PG (27.0-31.0); MEAN CORPUSCULAR HGB CONC 33.4 G/DL (33.0-37.0); MEAN CORPUSCULAR VOLUME 93.1 FL (81.0-99.0); MEAN PLATELET VOLUME 9.5 FL (7.4-10.4); PLATELET COUNT 164 /CUMM (130-400); RBC DISTRIBUTION WIDTH 14.1 % (11.5-14.5); RED BLOOD CELL CT 3.03 /CUMM (4.20-5.40); WHITE BLOOD CELL COUNT 5.3 /CUMM (4.8-10.8)
--- NOTE | 2016-08-16 16:17 | History & Physical ---
[facility]ORAIDA YOUNG,[facility] 08/16/16 1617: General Information and HPI MD Statement: I have seen and personally examined ADRIEL LOAIZA and documented this H&P. The patient is a 70 year old F who presented with a patient stated chief complaint of [they told me my heart rate was fast]. Source of Information: patient Exam Limitations: no limitations History of Present Illness: This is a 70-year-old lady with a past history significant for rheumatoid arthritis, maintained on methotrexate currently on a drug holiday secondary to elevated LFTs, recent diagnosis of left lower extremity DVT on aspirin 325 mg daily secondary to nosebleeds and also [place] filter placement presented to the emergency room from the GI suite where prior to her colonoscopy she was found to have a suspected supraventricular tachycardia. Patient states that she did her bowel prep as requested of her yesterday, today when she presented to the GI suite she was told by the anesthesiologist that her heart rate was irregular and she had to go to the emergency room. Her colonoscopy could not be done. She does not admit to any chest pain, shortness of breath, nausea, vomiting, diarrhea, fevers, chills, recent illnesses or sick contacts. She states that if it weren't for the anesthesiologist noting her heart rate she wouldn't really be here. Allergies/Medications Allergies: Coded Allergies: Penicillins (UNKNOWN 03/15/16) Past History Travel History Traveled to [place] past 21 day No Medical History Neurological: CVA EENT: NONE Cardiovascular: hypertension, hyperlipidemia Respiratory: NONE Gastrointestinal: GERD, hiatal hernia Hepatic: NONE Renal: NONE Musculoskeletal: rheumatoid arthritis Psychiatric: NONE Endocrine: NONE Blood Disorders: NONE Cancer(s): NONE BASKET MENDER/Reproductive: NONE History of MRSA: No History of VRE: No History of CDIFF: No Surgical History Surgical History: "BENIGN TUMOR REMOVED FROM ABDOMEN 1999- BPT HOSP [facility] Tonsillectomy Past Family/Social History Family History Relations & Conditions if any grandmother, ; Cause: Gastric cancer. FHx: stomach cancer FATHER, ; Cause: Alcoholic liver disease. Psychosocial History Who Do You Live With? spouse Services at Home: Home Health Aide, Nursing, Occupational Therapy Primary Language: Kiswahili Living Will? no Power of Heating Element Builder/HCP? no Functional Ability ADLs Independent: dressing, eating. Unknown: toileting, bathing. Ambulation: walker IADLs Independent: telephone. Needs Assist: shopping, housework, transportation. Unknown: finances, food prep, medication admin. Review of Systems Review of Systems Constitutional: Denies: see HPI. Exam & Diagnostic Data Last 24 Hrs of Vital Signs/I&O Vital Signs Date Time Temp Pulse Resp B/P Pulse O2 O2 Flow FiO2 Ox Delivery Rate 08/16 1525 112 18 97 Room Air 08/16 1515 126 20 160/90 08/16 1444 108 160/80 08/16 1356 Room Air 08/16 1305 97.0 108 18 160/80 97 Room Air Intake & Output 08/16 1600 08/16 0800 08/16 0000 Intake Total 1000 Output Total Balance 1000 Intake, IV 1000 Patient 165 lb Weight Physical Exam General Appearance Alert, Oriented X3, Cooperative HEENT Atraumatic, PERRLA, EOMI Cardiovascular Normal S1, Normal S2, tachycardic Lungs Clear to Auscultation, Normal Air Movement Abdomen Normal Bowel Sounds, Soft, No Hepatospenomegaly Neurological Normal Speech, Strength at 5/5 X4 Ext, Normal Tone, Sensation Intact, Cranial Nerves 3-12 NL Extremities No Clubbing, No Cyanosis, 1+ b/l le edema Last 24 Hrs of Labs/Atran: Laboratory Tests 08/16/16 1445: Anion Gap 7, Estimated GFR > 60, BUN/Creatinine Ratio 25.6 H, Glucose 116 H, Calcium 8.4, Magnesium 1.7, Total Bilirubin 0.6, AST 21, ALT 32, Alkaline Phosphatase 92, Troponin I 0.01, Jhy-A-Qituodthjbg Pept 53009 H, Total Protein 6.0 L, Albumin 2.5 L, Globulin 3.5, Albumin/Globulin Ratio 0.7 L, TSH &T3 & Free T4 Intrp 3.900, CBC w Diff NO MAN DIFF REQ, RBC 3.03 L, MCV 93.1, MCH 31.1 H, RDW 14.1, MPV 9.5, Gran % 59.9, Lymphocytes % 30.4, Monocytes % 7.7, Eosinophils % 1.6, Basophils % 0.4, Absolute Granulocytes 3.1, Absolute Lymphocytes 1.6, Absolute Monocytes 0.4, Absolute Eosinophils 0.1, Absolute Basophils 0, PUBS MCHC 33.4 Diagnostic Data EKG Results Rate 130, NV 176, QRS 74, QTC 453 next line sinus tachycardia, most likely suggestive of multifocal atrial tachycardia CXR Results IMPRESSION: Enlarged heart with central vascular congestion, but no overt pulmonary edema. New hazy opacity in the right lower medial lung which may reflect atelectasis or pneumonia. Recommend follow-up with a PA and lateral chest radiograph when clinically able to do so. At a minimum, recommend follow-up in 4-6 weeks to document resolution. Assessment/Plan Assessment: Assessment- 1. Tachycardia, SVT versus VT; there are discernible P waves on the EKG hence this is not in atrial fibrillation 2. Hypertension 3. New onset congestive heart failure with a proBNP greater than 17,000, no previous echocardiogram in the medical record 4. History of hyperlipidemia 5. History rheumatoid arthritis 6. Recent diagnosis of left lower extremity DVT; on full aspirin and IVC filter placement secondary to epistaxis with full anticoagulation Plan- Admit to telemetry Vitals per protocol Trend troponin EKG Echocardiogram Cardiology evaluation Start on Cardizem per cardiology, 30 mg Q8 Lasix 40 mg IV daily Continue to hold her statin and methotrexate Heart healthy diet Daily weights Strict intake and output Pain pathway DVT prophylaxis with subcutaneous heparin Full code As Ranked By This Provider Problem List: 1. HTN (hypertension) Qualifiers Hypertension type: essential hypertension Qualified Code: I10 - Essential ( primary) hypertension 2. SVT (supraventricular tachycardia) Core Measures/Miscellaneous Acute Coronary Syndrome ACS Diagnosis: No Cerebrovascular Accident CVA/TIA Diagnosis: No Congestive Heart Failure CHF Diagnosis: Yes Comment: no previous echo Venous Thromboembolism VTE Risk Factors: Age > 40 No [facility] VTE prophylaxis d/t: No contraindications No VTE Pharm Prophylaxis d/t: No contraindications VTE Diagnosis: No VTE Type: NONE VTE Confirmed by (Test): NONE Severe Sepsis Severe Sepsis Present: No Septic Shock Septic Shock Present: No Miscellaneous Documentation Attending Case Discussed With: DR. ALICIA Primary Care Physician: MARIANNA BIGGS MD Patient sees these Specialists RHEUM Level of Patient Care: Telemetry Resident Review Statement Resident Statement: examined this patient, discussed with international account executive MICK ALICIA MD 08/16/16 9934: General Information and HPI Allergies/Medications Home Med list Amino AC/Protein Hydr/Whey Pro (Prosource Protein Liquid) 10 GRAM-100 KCAL/30 ML LIQUID 30 ML PO TID SUPPLEMENT (Reported) Aspirin (Lite Coat Aspirin) 325 MG TABLET 1 TAB PO DAILY HEART HEALTH/IVC filter (Reported) Bisacodyl 10 MG SUPP.RECT 1 SUP RC DAILY PRN CONSTIPATION (Reported) Calcium Carbonate (Calcium) 500 MG CALCIUM (1,250 MG) TAB.CHEW 1 TAB PO DAILY SUPPLEMENT/GI (Reported) Calcium Carbonate 500 MG CALCIUM (1,250 MG) TABLET 600 MG PO DAILY Supplement Cholecalciferol (Vitamin D3) (Vitamin D3) 50,000 UNIT CAPSULE 1 CAP PO QFRI SUPPLEMENT (Reported) Collagenase Clostridium Hist. (Santyl) 250 UNIT/GRAM OINT...G. 1 ROBIN TOP DAILY Sacral ulcer Diltiazem HCl (Cardizem Cd) 360 MG CAP.ER.24H 1 CAP PO DAILY MAT Escitalopram Oxalate (Lexapro) 10 MG TABLET 1 TAB PO DAILY MENTAL HEALTH ( Reported) Folic Acid 1 MG TABLET 1 TAB PO DAILY SUPPLEMENT (Reported) Leucovorin Calcium 25 MG TABLET 2 TAB PO DAILY UNKNOWN (Reported) [magic cup] 1 UNIT PO BID SUPPLEMENT (Reported) Magnesium Hydroxide (Milk Of Magnesia) 400 MG/5 ML ORAL.SUSP 30 ML PO DAILY PRN CONSTIPATION (Reported) Na Phos,M-B/Na Phos,Di-Ba (Fleet Enema) 19 GRAM-7 GRAM/118 ML ENEMA 1 E RC DAILY PRN CONSTIPATION (Reported) Pantoprazole Sodium 40 MG TABLET.DR 1 TAB PO DAILY GERD (Reported) Polyethylene Glycol 3350 17 GRAM POWD.PACK 1 PAC PO Saturday GI ( Reported) Potassium Chloride 20 MEQ TAB.ER.PRT 1 TAB PO DAILY SUPPLEMENT (Reported) Sennosides/Docusate Sodium (Senna-Time S Tablet) 8.6 MG-50 MG TABLET 187 MG PO AT BEDTIME constipation Vitamin E (Dl,Tocopheryl Acet) (Vitamin E) 400 UNIT CAPSULE 800 IU PO DAILY supplement Attending MD Review Statement Attending Statement Attending MD Statement: examined this patient, discuss w/resident/PA/TRIAL CONSULTANT, agreed w/resident/PA/TRIAL CONSULTANT, discussed with family, reviewed EMR data (avail), discussed with nursing, reviewed images, amended to note Attending Assessment/Plan: Agree with house staff note above. The patient is a 78-year-old female under with history of rheumatoid arthritis, and recent left lower extremity DVT, Treated with IVC filter placement secondary to epistaxis while on anticoagulation. She was scheduled for a colonoscopy, however in the GI suite she was noted to be tachycardic. She was transferred to the emergency department where she was found to be in multifocal atrial tachycardia. Rate was controlled on IV diltiazem. she was noted to be hypokalemic, and to have borderline low magnesium. she is noted to have evidence of possible congestive heart failure on chest x-ray. Review of systems: No fever. No rash. No melena. No nausea. All other systems are reviewed and are noted to be negative. Physical examination: Gen: The patient is in no acute distress HEENT: Normal nose, ears, and oropharynx. Pupils equal bilaterally. Conjunctiva normal. Neck: Supple with no JVD, no masses, and no thyromegaly Lungs: Clear to auscultation with normal respiratory effort Heart: RRR, S1, S2, no murmurs. 1+ peripheral edema, 2+ pulses in the lower extremities bilaterally Abdomen: Soft, nontender, no masses. No hepatomegaly. No splenomegaly Extremities: No clubbing or cyanosis. Normal muscle strength in the upper and lower extremities. Skin: Normal skin turgor with no skin ulcers or lesions noted. Neuro: Cranial nerves intact. Sensation intact Psych: Alert and oriented 3 with appropriate affect EKG tracing is independently reviewed, and reveals multifocal atrial tachycardia rate of 130 chest x-ray: Enlarged heart with central vascular congestion, but no overt pulmonary edema. New hazy opacity in the right lower medial lung which may reflect atelectasis or pneumonia. Recommend follow-up with a PA and lateral chest radiograph when clinically able to do so. At a minimum, recommend follow-up in 4-6 weeks to document resolution. Assessment: * History of DVT, status post IVC filter * Multifocal atrial tachycardia * Acute diastolic heart failure Recommendations: * Admit to telemetry * Diltiazem 30 milligrams p.o. q.8 hours * Echocardiogram * Check serial troponin * Lasix 40 milligrams IV daily for possible congestive heart failure
[2016-08-16] MEDS ORDERED: MAGIC CUP PO (17:28)
[2016-08-16] MEDS ORDERED: PROSOURCE PROT946 M1 PO (17:29)
[2016-08-16] MEDS ORDERED: CALCIUM500 M2 PO (17:30)
[2016-08-16] MEDS ORDERED: LEUCOVORIN CALC25 MG PO (17:32)
[2016-08-16] MEDS ORDERED: VITAMIN D350000 UNIT PO (17:34)
[2016-08-16] MEDS ORDERED: POTASSIUM CHLO20 ME2 PO (17:35)
[2016-08-16] MEDS ORDERED: LEXAPRO10 M1 PO (17:35)
[2016-08-16] MEDS ORDERED: ACEPHEN650 M1 PR (17:46)
[2016-08-16] MEDS ORDERED: ACETAMINOPHEN325 M2 PO (17:47)
[2016-08-16] MEDS ORDERED: FLEET ENEMA133 ML RC (17:48)
[2016-08-16] MEDS ORDERED: MILK OF MA400 MG/52 PO (17:49)
[2016-08-16] MEDS ORDERED: BISACODYL10 M1 RC (17:49)
--- NOTE | 2016-08-16 17:49 | NUR ---
BEDSIDE ECHO BEING DONE. PT TALKING THROUGH ENTIRE PROCEDURE DESPITE BEING TOLD TO STAY QUIET. PT AGAIN AGITATED AND UPSET ABOUT BEING IN HOSPITAL. ANXIETY WORSE WHEN HSB NOT AT BEDSIDE. PT CURRENTLY REFUSING TO TAKE MG OX AND POTASSIUM
[2016-08-16] MEDS ORDERED: POLYETHYLENE GL17 GM PO (17:52)
--- NOTE | 2016-08-16 18:08 | NUR ---
PT VERY AGITATED. UNCONSOLABLE. GIVEN ATIVAN.5MG.
--- NOTE | 2016-08-16 18:27 | NUR ---
HUSBANDS NAME (CHAI) [phone]
--- NOTE | 2016-08-16 19:08 | NUR ---
PT GIVEN ATIVAN. THEN ATE DINNER. NOW RESTING QUIETLY AND CALMER. PT AGREED AND TOOK MAGNESIUM AND POTASSIUM- K DUR TABS DISSOLVED IN WATER SINCE PT CANNOT SWALLOW PILLS WHOLE
--- NOTE | 2016-08-16 19:22 | NUR ---
PT LOGROLLED AND STEPHANIE CARE DONE DUE TO INCONTINENCE. PT STATES SHE IS VERY COMFORTABLE AT PRESENT. ENJOYED HER DINNER.
--- NOTE | 2016-08-16 19:23 | NUR ---
BLOOD PRESSURE LOWER THEN PRIOR PRESSURES-PT S/P ATIVAN AND CARDIAZEM. WILL MONITOR PRESSURE
--- NOTE | 2016-08-16 19:40 | NUR ---
PT TO ROOM 180 BED 2
--- NOTE | 2016-08-16 19:59 | NUR ---
REPORT CALLED TO CINDY ON TELE UNIT. CINDY NOTIFIED THAT PT HAS WOUND ON RIGHT WRIST AND IS DUE FOR TROPONIN AT 2100
[2016-08-16 20:44] VITALS: BP 178/90
[2016-08-17 00:56] VITALS: BP 160/82
--- NOTE | 2016-08-17 02:26 | NUR ---
LATE ENTRY" PT ADMITTED TO ROOM 180-02 FROM ER VIA STRETCHER.ORIENTED TO ROOM, CALL [place], STAFF. A/O, FORGETFUL AT TIMES. PT ANXIOUS. LCTA. HR-90-140. RED, BLANCHABLE AREAS TO BUTTOCKS, SIZE HALL ORDERED. SKIN TEAR TO RW. DRESSING CDI. +2 BLE. FALL RISK. PT C/O BACK PAIN. PT CONSULT ORDERED, WEAK BLE. TROPONIN AND EKG ORDERED. WILL CONTINUE TO MONITOR.
[2016-08-17 04:09] LABS: ABSOLUTE BASOPHIL COUNT 0 /CUMM (0.0-0.2); ABSOLUTE EOSINOPHIL COUNT 0.3 /CUMM (0.0-0.7); ABSOLUTE GRANULOCYTE CT 3.7 /CUMM (1.4-6.5); ABSOLUTE LYMPH COUNT 1.9 /CUMM (1.2-3.4); ABSOLUTE MONOCYTE COUNT 0.5 /CUMM (0.10-0.60); BASOPHIL % 0.4 % (0.0-2.0); EOSINOPHIL % 4.1 % (0-5); HEMATOCRIT 29.9 % (37-47); MEAN CORPUSCULAR HGB 30.7 PG (27.0-31.0); MEAN CORPUSCULAR HGB CONC 32.6 G/DL (33.0-37.0); MEAN CORPUSCULAR VOLUME 94.1 FL (81.0-99.0); MEAN PLATELET VOLUME 9.4 FL (7.4-10.4); PLATELET COUNT 188 /CUMM (130-400); RED BLOOD CELL CT 3.18 /CUMM (4.20-5.40); WHITE BLOOD CELL COUNT 6.4 /CUMM (4.8-10.8)
[2016-08-17 07:42] VITALS: BP 150/78
--- NOTE | 2016-08-17 08:42 | NUR ---
WOUND CARE: REQUESTED BY NURSING TO EVALUATE PT FOR SKIN ALTERATION PRESENT ON ADMISSION - PT REPORTS HAVING HAD SKIN BREAKDOWN FOR "MANY WEEKS AT [place]" - RIGHT WRIST SKIN TEAR SUSTAINED FROM WHEELCHAIR INJURY AT [facility] - FULL THICNKESS CATEGORY 3 0.9 X 0.4 CM YELLOW FILL - NO EVIDENCE OF INFECTION - CARIE UPPER BUTTOCKS (2) STAGE 1 MINIMALLY BLANCHING AREAS OF ERYTHEMA - SL INDURATION - RIGHT BUTTOCKS SUPERFICIAL BREAKDOWN 1X1 CM SCANT MOIST - RECOMMEDNATION: SIZE HALL MATTRESS (ALREADY ORDERED BY NIGHT STAFF) - APPLY MOISTURE BARRIER TO BUTTOCKS QS AND PRN AFTER INC EPISODES - CLEANSE HAND WOUND WITH NS FB BACITRACIN OINTMENT, XEROFORM, AND DPD DAILY
--- NOTE | 2016-08-17 10:33 | PN- Housestaff ---
Subjective Follow-up For: Palpitation secondary to atrial fibrillation/multifocal atrial tachycardia Complaints: no complaints Tele-Events Since Last Visit: Atrial fibrillation, heart rate between 89-150 with premature atrial complexes Subjective: Patient is seen and examined at the bedside. She was complaining of upper abdominal pain. Denies of any headache, chest pain, palpitation, shortness of breath, weakness, dysuria, constipation. Review of Systems Constitutional: Reports: weakness. Denies: no symptoms, fever, malaise. EENTM: Denies: no symptoms. Cardiovascular: Reports: palpitations. Denies: chest pain, edema, orthopena, peripheral edema. Respiratory: Denies: cough, hemoptysis, orthopnea, short of breath, sputum production. Gastrointestinal: Reports: abdominal pain. Denies: bloating, constipation, diarrhea, distention, bowel incontinence, melena, nausea. Genitourinary: Denies: discharge, dysuria, frequency, hematuria, hesitation. Musculoskeletal: Reports: joint pain. Denies: back pain. Skin: Reports: erythema. Neurological/Psychological: Denies: no symptoms. Objective Last 24 Hrs of Vital Signs/I&O Vital Signs Date Time Temp Pulse Resp B/P Pulse O2 O2 Flow FiO2 Ox Delivery Rate 08/17 1545 97.7 88 18 124/60 100 08/17 1405 117 144/72 08/17 0800 Room Air 08/17 0742 97.4 85 16 150/78 97 Room Air 08/17 0627 96 140/90 08/17 0056 97.3 140 16 160/82 97 Room Air 08/16 2159 107 170/98 08/16 2044 98.4 72 22 178/90 98 Room Air 08/16 1922 97.6 128 18 118/60 98 Room Air Intake & Output 08/17 1600 08/17 0800 08/17 0000 Intake Total 960 120 120 Output Total 250 Balance 710 120 120 Intake, Oral 960 120 120 Output, Urine 250 Patient 73.085 kg 74.843 kg Weight Physical Exam General Appearance: Alert, Oriented X3, Cooperative, No Acute Distress Skin: areas of ecchymosis Cardiovascular: irregularly and regular with murmur Lungs: Clear to Auscultation, Normal Air Movement Abdomen: Soft, No Tenderness Neurological: Normal Speech Extremities: No Clubbing, No Cyanosis, No Edema Vascular: Normal Pulses Assessment/Plan Assessment: Patient is a 70-year-old female with significant past medical history of hypertension, hyperlipidemia, rheumatoid arthritis(methotrexate is on hold due to elevated LFT), recent left lower extremity DVT on aspirin and had IVC filter, sent to [place] ED from GI suite, as she was found to have tachycardia/SVT before colonoscopy. Vital signs -temprature-97.6,P-128, respiration -18, BP-118/60, SPO2-98% Plan - SVT/multifocal atrial tachycardia - We will continue telemetry monitoring Discussed with the supervisor aircraft cleaning and according them, as the patient is still having tachycardia we will increase the dose of tab Diltiazem 60 milligrams by mouth every 8 hour If she remained stable overnight/tomorrow we will change the tablet diltiazem to Tablet Cardizem CD 180 or 240 milligrams and discharge on it. CHF, probably secondary to tachycardia We'll follow cardiology recommendation Echocardiogram showed stage I diastolic dysfunction with LVEF 50-55% Continue patient on the Lasix 40 milligrams daily We will continue telemetry monitoring Stick intake output charting Rheumatoid arthritis Because of the abnormal LFT, methotrexate was stopped We will give pain medication according to the pain scale Hyperlipidemia Patient was on statins but probably it was stopped secondary to high LFT. Anemia of chronic disease Probably secondary to chronic rheumatoid arthritis We advised the patient to follow-up with PCP as an outpatient Diet-heart healthy diet DVT prophylaxis-ALP S/ Heparin CODE STATUS-full code Problem List: 1. CHF (congestive heart failure) 2. Atrial fibrillation with rapid ventricular response Pain Ratin Pain Location: Multiple joints, upper abdomen Pain Goal: Remain pain free Pain Plan: [id number] Tomorrow's Labs & Rationales: none DVT/Prophylaxis: mechanical, pharmacological
[2016-08-17 15:45] VITALS: BP 124/60
--- NOTE | 2016-08-17 16:16 | ECHOCARDIOGRAM REPORT ---
ADRIEL LOAIZA Age: 70 : 1945 Gender: F Exam Date: 08/16/2016 17:28 Exam Location: ER Ht (in): 63 Wt (lb): 165 BSA: 1.85 BP: 160 / 90 Ordering Physician: KEO CONWAY M Referring Physician: Abrahan Sifuentes MD Technologist: Rosalina Quevedo RDCS Room Number: [id number] Indications: HEART FAILURE Rhythm: PACs Technical Quality: Technically difficult study FINDINGS Left Ventricle Normal size left ventricle. Low normal left ventricular systolic function. Left ventricular ejection fraction is estimated at 50- 55%. No obvious regional wall motion abnormalities. Abnormal relaxation filling pattern of the left ventricle for age (stage 1 diastolic dysfunction). Right Ventricle Normal right ventricular size and function. Right Atrium Normal right atrial size. Left Atrium Mild left atrial dilatation. Mitral Valve Mitral valve thickened. Trace mitral regurgitation. Aortic Valve Thickened aortic valve. No aortic stenosis. No aortic regurgitation. Tricuspid Valve Tricuspid valve not well visualized, grossly normal. Trace tricuspid regurgitation. No evidence of pulmonary hypertension. Pulmonic Valve Pulmonic valve not well visualized, grossly normal. Pericardium Small pericardial effusion, not hemodynamically significant. Great Vessels Normal size aortic root. CONCLUSIONS Normal size left ventricle. Low normal left ventricular systolic function. Left ventricular ejection fraction is estimated at 50-55%. Abnormal relaxation filling pattern of the left ventricle for age (stage 1 diastolic dysfunction). Mild left atrial dilatation. Trace mitral regurgitation. Trace tricuspid regurgitation. Abrahan Sifuentes M.D. (Electronically Signed) Final Date: 17 August 2016 16:15 MEASUREMENTS (Male / Female) Normal Values 2D ECHO LV Diastolic Diameter PLAX 4.4 cm 4.2 - 5.9 / 3.9 - 5.3 cm LV Systolic Diameter PLAX 2.4 cm 2.1 - 4.0 cm LV Fractional Shortening PLAX 45.5 % 25 - 46 % LV Ejection Fraction 2D Teich 77.0 % IVS Diastolic Thickness 1.1 cm LVPW Diastolic Thickness 1.1 cm LV Relative Wall Thickness 0.5 RV Internal Dim ED PLAX 2.7 cm 1.9 - 3.8 cm LVOT Diameter 2.0 cm Aortic Root Diameter 2.8 cm LA Systolic Diameter LX 4.2 cm 3.0 - 4.0 / 2.7 - 3.8 cm LA Volume 60.0 cm 18 - 58 / 22 - 52 cm Ascending Aorta Diameter 3.3 cm DOPPLER AV Peak Velocity 149.0 cm/s AV Peak Gradient 8.9 mmHg AV Mean Velocity 104.0 cm/s AV Mean Gradient 5.0 mmHg AV Velocity Time Integral 29.3 cm LVOT Peak Velocity 102.0 cm/s LVOT Peak Gradient 4.2 mmHg LVOT Mean Velocity 75.2 cm/s LVOT Mean Gradient 3.0 mmHg LVOT Velocity Time Integral 21.8 cm LVOT Stroke Volume 68.5 cm AV Area Cont Eq vti 2.3 cm AV Area Cont Eq pk 2.2 cm MV Peak Velocity 118.0 cm/s MV Peak Gradient 5.6 mmHg MV Mean Velocity 66.2 cm/s MV Mean Gradient 2.0 mmHg Mitral E Point Velocity 53.3 cm/s Mitral A Point Velocity 88.8 cm/s Mitral E to A Ratio 0.6 MV PHT Velocity 109.0 cm/s MV Deceleration [place] 486.0 cm/s MV Pressure Half Time 67.3 ms MV Area PHT 3.3 cm MV Deceleration Time 349.0 ms TR Peak Velocity 194.0 cm/s TR Peak Gradient 15.1 mmHg Right Atrial Pressure 5.0 mmHg Pulmonary Artery Systolic Pressu 20.1 mmHg Right Ventricular Systolic Press 20.1 mmHg PV Peak Velocity 134.0 cm/s PV Peak Gradient 7.2 mmHg PV Mean Velocity 89.1 cm/s PV Mean Gradient 4.0 mmHg PV Velocity Time Integral 25.7 cm LV E' Lateral Velocity 5.2 cm/s Mitral E to LV E' Lateral Ratio 10.3 LV E' Septal Velocity 3.6 cm/s Mitral E to LV E' Septal Ratio 14.8
--- NOTE | 2016-08-17 16:56 | Patient Discharge Instructions ---
Discharge Instructions General Discharge Information You were seen/treated for: Palpitation secondary to Supraventricular tachycardia. Special Instructions: Please follow-up with your telecommunications repairer within a week of discharge. Please continue the medication as advised. Please check the blood pressure regularly. Please follow up with urologist with in a week of discharge. Diet Continue normal diet: No Recommended Diet: Heart Healthy Activity Full Activity/No Limits: No (as tolerated) Acute Coronary Syndrome Inclusion Criteria At DC or during hospital stay patient has or had the following: ACS DIAGNOSIS No Discharge Core Measures Meds if any: Prescribed or Continued at Discharge Meds if any: NOT Prescribed or Continued at Discharge Congestive Heart Failure Inclusion Criteria At DC or during hospital stay patient has or had the following: CHF DIAGNOSIS Yes Discharge Core Measures Meds if any: Prescribed or Continued at Discharge Meds if any: NOT Prescribed or Continued at Discharge Cerebrovascular accident Inclusion Criteria At DC or during hospital stay patient has or had the following: CVA/TIA Diagnosis No Discharge Core Measures Meds if any: Prescribed or Continued at Discharge Meds if any: NOT Prescribed or Continued at Discharge Venous thromboembolism Inclusion Criteria VTE Diagnosis No VTE Type NONE VTE Confirmed by (Test) NONE Discharge Core Measures - Per Current guidelines, there needs to be overlap - treatment for the first 5 days of Warfarin therapy. - If discharged on Warfarin prior to 5 days of - overlap therapy, the patient will need to be - assessed for post discharge needs including - *Post discharge parental anticoagulation - *Warfarin and/or parental anticoagulation education - *Follow up date to check INR post discharge At least 5 days overlap therapy as Inpatient No Meds if any: Prescribed or Continued at Discharge Warfarin No Note: Overlap Therapy is Warfarin and Anticoagulant Meds if any: NOT Prescribed or Continued at Discharge
[2016-08-17] MEDS ORDERED: CARDIZEM CD360 M1 PO (17:00)
--- NOTE | 2016-08-17 17:23 | PN- Cardiology ---
Subjective Subjective: The patient is doing OK and feeling somewhat better. Persistent tachycardia noted however Objective Vital Signs and I&Os Vital Signs Date Time Temp Pulse Resp B/P Pulse O2 O2 Flow FiO2 Ox Delivery Rate 08/17 1545 97.7 88 18 124/60 100 08/17 1405 117 144/72 08/17 0800 Room Air 08/17 0742 97.4 85 16 150/78 97 Room Air 08/17 0627 96 140/90 08/17 0056 97.3 140 16 160/82 97 Room Air 08/16 2159 107 170/98 08/16 2044 98.4 72 22 178/90 98 Room Air 08/16 1922 97.6 128 18 118/60 98 Room Air Intake & Output 08/17 1600 08/17 0800 08/17 0000 08/16 1600 08/16 0800 08/16 0000 Intake Total 960 475 056 5480 Output Total 250 Balance 710 688 986 1053 Intake, IV 1000 Intake, Oral 960 120 120 Output, Urine 250 Patient 161 lb 165 lb 165 lb Weight Physical Exam: General Appearance Alert, Oriented X3, Cooperative HEENT Atraumatic, PERRLA, EOMI Cardiovascular Normal S1, Normal S2, tachycardic, irregular Lungs Clear to Auscultation, Normal Air Movement Abdomen Normal Bowel Sounds, Soft, No Hepatospenomegaly Neurological Normal Speech, Strength at 5/5 X4 Ext, Normal Tone, Sensation Intact, Cranial Nerves 3-12 NL Extremities No Clubbing, No Cyanosis, 1+ b/l le edema Current Medications: Current Medications Sig/Kvng Start time Last Medication Dose Route Stop Time Status Admin Acetaminophen 650 MG Q6P PRN 08/16 1645 AC PO Aspirin 325 MG DAILY 08/17 1000 AC 08/17 PO 1028 Diltiazem HCl 60 MG Q8 08/17 1400 AC 08/17 PO 1405 Diltiazem HCl 30 MG Q8 08/16 2200 DC 08/17 PO 0627 Folic Acid 1 MG DAILY 08/17 1000 AC 08/17 PO 1028 Furosemide 40 MG DAILY 08/17 1000 AC 08/17 PO 1028 Heparin Sodium 5,000 UNIT Q8 08/16 2200 AC 08/17 (Porcine) SC 1405 Lorazepam 0.5 MG AT BEDTIME 08/16 2199 AC 08/16 PO 08/23 2158 2159 Lorazepam 0 .STK-MED ONE 08/16 1802 DC .ROUTE Lorazepam 0.5 MG ONCE ONE 08/16 1800 DC 08/16 IV 08/16 1801 1808 Magnesium Oxide 0 .STK-MED ONE 08/16 1724 DC PO Omeprazole 40 MG DAILY AC 08/17 0700 AC 08/17 PO 0626 Oxycodone HCl 10 MG Q6P PRN 08/16 1645 AC 08/17 PO 0627 Oxycodone/ 1 TAB Q6P PRN 08/16 1645 AC Acetaminophen PO Potassium Chloride 0 .STK-MED ONE 08/16 1733 DC PO Senna/Docusate Sodium 1 TAB AT BEDTIME 08/16 2200 AC 08/16 PO 2159 Results Last 48 Hrs of Labs/Mics: Laboratory Tests 08/17/16 0320: Anion Gap 9, Estimated GFR 44 L, BUN/Creatinine Ratio 19.2, Magnesium 1.9, Troponin I 0.01, CBC w Diff NO MAN DIFF REQ, RBC 3.18 L, MCV 94.1, MCH 30.7, RDW 14.0, MPV 9.4, Gran % 58.0, Lymphocytes % 29.4, Monocytes % 8.1, Eosinophils % 4.1, Basophils % 0.4, Absolute Granulocytes 3.7, Absolute Lymphocytes 1.9, Absolute Monocytes 0.5, Absolute Eosinophils 0.3, Absolute Basophils 0, PUBS MCHC 32.6 L 08/16/16 2215: Troponin I 0.01 08/16/16 1445: Anion Gap 7, Estimated GFR > 60, BUN/Creatinine Ratio 25.6 H, Glucose 116 H, Calcium 8.4, Magnesium 1.7, Total Bilirubin 0.6, AST 21, ALT 32, Alkaline Phosphatase 92, Troponin I 0.01, Qca-Q-Xpgepdycwrh Pept 32328 H, Total Protein 6.0 L, Albumin 2.5 L, Globulin 3.5, Albumin/Globulin Ratio 0.7 L, TSH &T3 & Free T4 Intrp 3.900, CBC w Diff NO MAN DIFF REQ, RBC 3.03 L, MCV 93.1, MCH 31.1 H, RDW 14.1, MPV 9.5, Gran % 59.9, Lymphocytes % 30.4, Monocytes % 7.7, Eosinophils % 1.6, Basophils % 0.4, Absolute Granulocytes 3.1, Absolute Lymphocytes 1.6, Absolute Monocytes 0.4, Absolute Eosinophils 0.1, Absolute Basophils 0, PUBS MCHC 33.4 Assessment/Plan Assessment/Plan Assessment- 1. MAT vs SR/ST with bursts fo atrial ectopy and SVT 2. Hypertension 3. New onset congestive heart failure with a proBNP greater than 17,000, no previous echocardiogram in the medical record 4. History of hyperlipidemia 5. History rheumatoid arthritis 6. Recent diagnosis of left lower extremity DVT; on full aspirin and IVC filter placement secondary to epistaxis with full anticoagulation Recommendations: - COntinue cardizem and increase dose as discussed with the housestaff. - In AM transition to cardizem CD 180 or 240 daily. - Echo pending - OOB as tolerated. - If heart rate stable; probable discharge in AM for outpatient followup with Dr Sifuentes. - Plan discussed with the patient. Continue telemetry? Yes
--- NOTE | 2016-08-17 18:33 | Discharge Summary ---
Visit Information Visit Dates Admission Date: 08/16/16 Discharge Date: 08/22/2016 Hospital Course Course Attending Physician: MICK ALICIA MD Primary Care Physician: DIAN YOUNG,[facility] Hospital Course: Patient is a 70-year-old female with significant past medical history of hypertension, hyperlipidemia, rheumatoid arthritis(methotrexate is on hold due to elevated LFT), recent left lower extremity DVT on aspirin and had IVC filter, sent to [facility] from GI suite, as she was found to have tachycardia/SVT before colonoscopy. Vital signs at the time of admission-temperature 97.0, pulse 108, respiratory rate 18, blood pressure 160/80, SPO2 97% on room air. Multifocal atrial tachycardia She was scheduled for a colonoscopy, however in the GI suite she was noted to be tachycardic. She was transferred to the emergency department where she was found to be in multifocal atrial tachycardia. She was given IV Cardizem drip for rate control. Chest x-ray was done which shows the evidence of CHF, and proBNP was elevated to 16,700 so we started patient on Lasix. Patient was admitted into telemetry floor for observation. Serial EKGs shows the same changes and troponins were negative. Patient responded well with the Cardizem, and was evantually placed on cardizem 360 CD daily. Rate is controlled. We discharged patient with advise to follow-up with Dr. Alicia as an outpatient. Congestive heart failure Patient presented with tachycardia and chest x-ray showed central vascular congestion without any overt pulmonary edema. We started patient on the Lasix. Echocardiogram was done which showed stage I diastolic dysfunction with ejection fraction of 50-55%. We stopped the Lasix as patient improved, and advised for fluid restriction. Urinary retention under evaluation (patient refused for Whitt catheterization) She was on toleterodine at home, but was not given during the hospital admission. Initially she did well but later after couple of days she started having urinary retention. Bladder scans every time showed more than 500 mL of the urine in bladder. We did straight cath, started her on oxybutynin initially and took urological consultation. Later, patient refused for straight cath. We discussed the patient in detail about the benefit of Whitt catheter,in assisting her bladder to empty. We also told the risk of not having Whitt catheter. in terms of bladder rupture and secondary hydronephrosis. She is aware of the benefits and the risks of not having the catheter, but defers at this time. Patient was stable from the cardiac point of view. As urologist suggested, we advised to stop oxybutynin, have renal ultrasound and follow-up with as an outpatient. Allergies: Coded Allergies: Penicillins (UNKNOWN 03/15/16) Disposition Summary Disposition Principal Diagnosis: Multifocal atrial tachycardia Acute CHF Urinary retention Under evaluation Additional Diagnosis: Hypertension Hyperlipidemia Rheumatoid arthritis(not on methotrexate secondary to elevated LFT) Recent DVT on aspirin and IVC filter placement secondary to epistaxis with full anticoagulation Discharge Disposition: short term rehabilitation Discharge Instructions General Discharge Information Code Status: Full Code Patient's Diet: Heart healthy diet with fluid restriction Patient's Activity: As tolerated Follow-Up Instructions/Appts: Please follow-up with your health and safety coordinator/Dr Alicia within a week of discharge. Please follow-up with your PCP for further management Please follow-up with Dr. Lucero on scheduled appointment. Please take the medication as advised. Medications at Discharge Discharge Medications: Stop taking the following medications: Nystatin (Nystatin) 100,000 UNIT/GRAM CREAM..G. On the skin TWICE DAILY Qty = 30 Acetaminophen (Acephen) 650 MG SUPP.RECT RECTALLY Q4H as needed for PAIN/TEMP> 101 Acetaminophen (Acetaminophen) 325 MG TABLET ORAL Q4H as needed for PAIN/TEMP>101 Continue taking these medications: Aspirin (Lite Coat Aspirin) 325 MG TABLET 1 Tablet ORAL DAILY Qty = 90 Comments: NOT GIVEN IN HOSPITAL Pantoprazole Sodium (Pantoprazole Sodium) 40 MG TABLET.DR 1 Tablet ORAL DAILY Qty = 90 Comments: NOT GIVEN IN HOSPITAL Tolterodine Tartrate (Tolterodine Tartrate) 2 MG TABLET 1 Tablet ORAL TWICE DAILY Qty = 180 Comments: NOT GIVEN IN HOSPITAL Folic Acid (Folic Acid) 1 MG TABLET 1 Tablet ORAL DAILY Qty = 100 Comments: Last Taken: 06/25/16 Time: 12 PM Calcium Carbonate (Calcium Carbonate) 500 MG CALCIUM (1,250 MG) TABLET 600 Milligram ORAL DAILY Days = 30 Sennosides/Docusate Sodium (Senna-Time S Tablet) 8.6 MG-50 MG TABLET 187 Milligram ORAL AT BEDTIME Days = 30 Vitamin E (Dl,Tocopheryl Acet) (Vitamin E) 400 UNIT CAPSULE 800 International Unit ORAL DAILY Days = 30 Collagenase Clostridium Hist. (Santyl) 250 UNIT/GRAM OINT...G. 1 Application On the skin DAILY Days = 30 [magic cup] 1 Unit ORAL TWICE DAILY Comments: PER MAR Amino AC/Protein Hydr/Whey Pro (Prosource Protein Liquid) 10 GRAM-100 KCAL/30 ML LIQUID 30 Milliliters ORAL THREE TIMES DAILY Calcium Carbonate (Calcium) 500 MG CALCIUM (1,250 MG) TAB.CHEW 1 Tablet ORAL DAILY Leucovorin Calcium (Leucovorin Calcium) 25 MG TABLET 2 Tablet ORAL DAILY Cholecalciferol (Vitamin D3) (Vitamin D3) 50,000 UNIT CAPSULE 1 Capsule ORAL EVERY AILEEN Escitalopram Oxalate (Lexapro) 10 MG TABLET 1 Tablet ORAL DAILY Potassium Chloride (Potassium Chloride) 20 MEQ TAB.ER.PRT 1 Tablet ORAL DAILY Na Phos,M-B/Na Phos,Di-Ba (Fleet Enema) 19 GRAM-7 GRAM/118 ML ENEMA 1 Enema RECTAL DAILY as needed for CONSTIPATION Magnesium Hydroxide (Milk Of Magnesia) 400 MG/5 ML ORAL.SUSP 30 Milliliters ORAL DAILY as needed for CONSTIPATION Bisacodyl (Bisacodyl) 10 MG SUPP.RECT 1 Suppository RECTAL DAILY as needed for CONSTIPATION Polyethylene Glycol 3350 (Polyethylene Glycol 3350) 17 GRAM POWD.PACK 1 Packet ORAL SATURDAY, SATURDAY AND SATURDAY Start taking the following new medications: Diltiazem HCl (Cardizem Cd) 360 MG CAP.ER.24H 1 Capsule ORAL DAILY Qty = 30 No Refills Copies To: DIAN YOUNG,MARIANNA Attending Review Statement Documenting Attending: MICK ALICIA MD
[2016-08-18 08:00] VITALS: BP 132/70
--- NOTE | 2016-08-18 08:40 | PN- Housestaff ---
Assessment/Plan Assessment: Patient is a 70-year-old female with significant past medical history of hypertension, hyperlipidemia, rheumatoid arthritis(methotrexate is on hold due to elevated LFT), recent left lower extremity DVT on aspirin and had IVC filter, sent to [facility] from GI suite, as she was found to have tachycardia/SVT before colonoscopy. Vital signs -temprature-97.6,P-128, respiration -18, BP-118/60, SPO2-98% Plan - SVT/multifocal atrial tachycardia - We will continue telemetry monitoring Discussed with the jail keeper and according them, as the patient is still having tachycardia we will increase the dose of tab Diltiazem 60 milligrams by mouth every 8 hour If she remained stable overnight/tomorrow we will change the tablet diltiazem to Tablet Cardizem CD 180 or 240 milligrams and discharge on it. CHF, probably secondary to tachycardia We'll follow cardiology recommendation Echocardiogram showed stage I diastolic dysfunction with LVEF 50-55% Continue patient on the Lasix 40 milligrams daily We will continue telemetry monitoring Stick intake output charting Rheumatoid arthritis Because of the abnormal LFT, methotrexate was stopped We will give pain medication according to the pain scale Hyperlipidemia Patient was on statins but probably it was stopped secondary to high LFT. Anemia of chronic disease Probably secondary to chronic rheumatoid arthritis We advised the patient to follow-up with PCP as an outpatient Diet-heart healthy diet DVT prophylaxis-ALP S/ Heparin CODE STATUS-full code
--- NOTE | 2016-08-18 08:56 | PN- Housestaff ---
Subjective Follow-up For: multifocal atrial tach Tele-Events Since Last Visit: JOHN riley a tachycardic rate in the 70s-high 120s Subjective: Pt seen and exacmined at the bedside. She states she had a good night and has no acute complaints. She denied any palpitations, dyspnea, chest pain and states she feels better. She states she feels her swelling improving. Review of Systems Constitutional: Reports: see HPI. Objective Last 24 Hrs of Vital Signs/I&O Vital Signs Date Time Temp Pulse Resp B/P Pulse O2 O2 Flow FiO2 Ox Delivery Rate 08/18 1726 98.3 75 18 157/83 08/18 1604 98.3 75 18 157/83 96 Room Air 08/18 1222 110 142/70 08/18 0800 97.3 94 16 132/70 97 Room Air 08/18 0608 116 08/17 2113 108 138/70 Intake & Output 08/18 1600 08/18 0800 08/18 0000 Intake Total 480 875 Output Total Balance 480 875 Intake, IV 10 Intake, Oral 480 865 Patient 71.668 kg Weight Physical Exam General Appearance: Alert, Oriented X3, Cooperative, No Acute Distress HEENT: Atraumatic, EOMI Cardiovascular: irreg rate w/o murmur appreciated. normal s1s2 Lungs: Clear to Auscultation, Normal Air Movement Abdomen: Normal Bowel Sounds, Soft, No Tenderness Extremities: No Cyanosis, +1 edema to proximal parker Current Medications: Current Medications Sig/Kvng Start time Last Medication Dose Route Stop Time Status Admin Acetaminophen 650 MG Q6P PRN 08/16 1645 AC PO Aspirin 325 MG DAILY 08/17 1000 AC 08/18 PO 0955 Diltiazem HCl 240 MG DAILY 08/19 1000 AC PO Diltiazem HCl 60 MG Q6 08/18 1200 AC 08/18 PO 08/19 0000 1726 Diltiazem HCl 60 MG Q8 08/17 1400 DC 08/18 PO 0608 Folic Acid 1 MG DAILY 08/17 1000 AC 08/18 PO 0954 Furosemide 40 MG DAILY 08/17 1000 AC 08/18 PO 0955 Heparin Sodium 5,000 UNIT Q8 08/16 2200 AC 08/18 (Porcine) SC 1432 Lorazepam 0.5 MG AT BEDTIME 08/16 2200 AC 08/17 PO 08/23 2159 2113 Magnesium Chloride 64 MG ONCE ONE 08/18 1600 DC 08/18 PO 08/18 1601 1653 Omeprazole 40 MG DAILY AC 08/17 0700 AC 08/18 PO 0607 Oxycodone HCl 10 MG Q6P PRN 08/16 1645 AC 08/17 PO 0627 Oxycodone/ 1 TAB Q6P PRN 08/16 1645 AC Acetaminophen PO Potassium Chloride 10 MEQ DAILY 08/18 1551 AC 08/18 IV 1653 Senna/Docusate Sodium 1 TAB AT BEDTIME 08/16 2200 AC 08/17 PO 2113 Assessment/Plan Assessment: Mrs. Dickens is a 70-year-old female with significant past medical history of hypertension, hyperlipidemia, rheumatoid arthritis (methotrexate is on hold due to elevated LFT), recent left lower extremity DVT on aspirin s/p IVC filter, who was sent to [facility] ED from GI suite after being found to have tachycardia/SVT before colonoscopy. Plan - Multifocal atrial tachycardia - * We titrated her cardizem to 60 q6 today instead of q8h. * WE will begin cardizem 240 CD tomorrow and will continue telemetry monitoring * Plan to d/c tomorrow if rate is well controlled and she has no acute events. CHF * Continue diuresis w Lasix 40 milligrams daily, but note that she did have a small bump in Cr to 1.2 - recheck tomorrow. * Echocardiogram showed stage I diastolic dysfunction with LVEF 50-55% * Stick ins/outs Rheumatoid arthritis * MTX being held due to elevated LFTs Hyperlipidemia * Patient was on statins but probably it was stopped secondary to high LFT. Anemia of chronic disease * Probably secondary to chronic rheumatoid arthritis * We advised the patient to follow-up with PCP as an outpatient Diet-heart healthy diet DVT prophylaxis-ALPS/ Heparin CODE STATUS-full code Problem List: 1. Rheumatoid arthritis 2. Abnormal LFTs 3. Multifocal atrial tachycardia Pain Ratin Pain Location: na Pain Goal: Remain pain free Pain Plan: na Tomorrow's Labs & Rationales: BEP
--- NOTE | 2016-08-18 15:05 | PN- Cardiology ---
Subjective Subjective: * No complaints of lightheadedness or palpitations. * sinus rhythm * creatinine 1.2 Objective Vital Signs and I&Os Vital Signs Date Time Temp Pulse Resp B/P Pulse O2 O2 Flow FiO2 Ox Delivery Rate 08/18 1222 110 142/70 08/18 0800 97.3 94 16 132/70 97 Room Air 08/18 0608 116 08/17 2113 108 138/70 08/17 1545 97.7 88 18 124/60 100 Intake & Output 08/18 1600 08/18 0800 08/18 0000 08/17 1600 08/17 0800 08/17 0000 Intake Total 480 875 960 120 120 Output Total 250 Balance 480 875 710 120 120 Intake, IV 10 Intake, Oral 480 865 960 120 120 Output, Urine 250 Patient 158 lb 161 lb 165 lb Weight Physical Exam: General: WD/ WN female in NAD; alert and oriented x 3 Neck: no JVD Heart: RRR w/o murmur Lungs: clear bilaterally Extremities: 1-2+ edema of right LE Assessment/Plan Assessment/Plan * Continue current dose of Lasix while monitoring patient's creatinine. * Add potassium 10meq daily * Change to Cardizem CD 240mg daily and monitor on telemetry for another day. Continue telemetry? Yes
[2016-08-18 16:04] VITALS: BP 157/83
[2016-08-18 22:00] VITALS: BP 150/72
--- NOTE | 2016-08-19 06:34 | PN- Housestaff ---
Subjective Follow-up For: Multifocal atrial tachycardia Complaints: no complaints Tele-Events Since Last Visit: Multifocal atrial tachycardia, heart rate between 80-90 Subjective: Patient is seen and examined at the bedside. She denies of any chest pain, palpitation, dyspnea on exertion, abdominal pain, diarrhea, constipation,. Review of Systems Constitutional: Denies: no symptoms. Cardiovascular: Denies: no symptoms. Respiratory: Denies: no symptoms. Objective Last 24 Hrs of Vital Signs/I&O Vital Signs Date Time Temp Pulse Resp B/P Pulse O2 O2 Flow FiO2 Ox Delivery Rate 08/19 1628 98.4 90 18 140/72 93 Room Air 08/19 1333 97 146/62 08/19 0841 97.8 89 17 161/84 98 Room Air 08/18 2325 83 146/80 08/18 2200 98.3 90 16 150/72 97 Room Air Intake & Output 08/19 1600 08/19 0800 08/19 0000 Intake Total 360 50 50 Output Total Balance 360 50 50 Intake, Oral 360 50 50 Patient 69.4 kg Weight Physical Exam General Appearance: Alert, Oriented X3, Cooperative, No Acute Distress Cardiovascular: IRREGULAR RHYTHM WITH MURMUR Lungs: Clear to Auscultation, Normal Air Movement Abdomen: Soft, No Tenderness Neurological: Normal Gait, Normal Speech Extremities: No Clubbing, No Cyanosis, No Edema Vascular: Normal Pulses, Pulses Symmetrical Current Medications: Current Medications Sig/Kvng Start time Last Medication Dose Route Stop Time Status Admin Acetaminophen 650 MG Q6P PRN 08/16 1645 AC PO Aspirin 325 MG DAILY 08/17 1000 AC 08/19 PO 0952 Diltiazem HCl 360 MG DAILY 08/20 1000 AC PO Diltiazem HCl 120 MG ONCE ONE 08/19 1600 DC 08/19 PO 08/19 1601 1725 Diltiazem HCl 240 MG DAILY 08/19 1000 DC 08/19 PO 1025 Diltiazem HCl 60 MG Q6 08/18 1200 DC 08/18 PO 08/19 0000 2325 Docusate Sodium 100 MG DAILY NEEDED PRN 08/19 1615 AC PO Folic Acid 1 MG DAILY 08/17 1000 AC 08/19 PO 0952 Furosemide 40 MG DAILY 08/17 1000 AC 08/19 PO 0952 Heparin Sodium 5,000 UNIT Q8 08/16 2200 AC 08/19 (Porcine) SC 1331 Lorazepam 0.5 MG AT BEDTIME 08/16 2200 AC 08/18 PO 08/23 2159 2142 Omeprazole 40 MG DAILY AC 08/17 0700 AC 08/19 PO 0552 Oxycodone HCl 10 MG Q6P PRN 08/16 1645 AC 08/17 PO 0627 Oxycodone/ 1 TAB Q6P PRN 08/16 1645 AC Acetaminophen PO Potassium Chloride 10 MEQ DAILY 08/19 1000 AC 08/19 PO 0952 Potassium Chloride 10 MEQ DAILY 08/18 1551 DC 08/18 IV 1653 Senna/Docusate Sodium 1 TAB AT BEDTIME 08/16 2200 AC 08/18 PO 2142 Last 24 Hrs of Lab/Taran Results Last 24 Hrs of Labs/Mics: Laboratory Tests 08/19/16 0600: Anion Gap 7, Estimated GFR 37 L, BUN/Creatinine Ratio 17.9, Magnesium 1.9 Assessment/Plan Assessment: Mrs. Dickens is a 70-year-old female with significant past medical history of hypertension, hyperlipidemia, rheumatoid arthritis (methotrexate is on hold due to elevated LFT), recent left lower extremity DVT on aspirin s/p IVC filter, who was sent to [facility] ED from GI suite after being found to have tachycardia/SVT before colonoscopy. Plan - Multifocal atrial tachycardia - * Increase the dose of cardizem 240 CD to 360 CD and will continue telemetry monitoring * Plan to d/c tomorrow if rate is well controlled and she has no acute events. CHF * Continue diuresis w Lasix 40 milligrams daily, but note that she did have a small bump in Cr to 1.4 - recheck tomorrow. * Echocardiogram showed stage I diastolic dysfunction with LVEF 50-55% * Stict ins/outs Rheumatoid arthritis * MTX being held due to elevated LFTs Hyperlipidemia * Patient was on statins but probably it was stopped secondary to high LFT. Anemia of chronic disease * Probably secondary to chronic rheumatoid arthritis * We advised the patient to follow-up with PCP as an outpatient Diet-heart healthy diet DVT prophylaxis-ALPS/ Heparin CODE STATUS-full code Problem List: 1. Multifocal atrial tachycardia 2. Rheumatoid arthritis 3. CHF (congestive heart failure) Pain Ratin Pain Location: Joints Pain Goal: Remain pain free Pain Plan: Avoid NSAIDs Tomorrow's Labs & Rationales: CBC, BEP, magnesium DVT/Prophylaxis: mechanical, pharmacological
[2016-08-19 08:41] VITALS: BP 161/84
[2016-08-19 13:33] VITALS: BP 146/62
--- NOTE | 2016-08-19 15:05 | PN- Cardiology ---
Subjective Subjective: * No complaints of lightheadedness or palpitations. * sinus rhythm with brief paroxysms of MAT noted on telemetry. * creatinine 1.4 Objective Vital Signs and I&Os Vital Signs Date Time Temp Pulse Resp B/P Pulse O2 O2 Flow FiO2 Ox Delivery Rate 08/19 1333 97 146/62 08/19 0841 97.8 89 17 161/84 98 Room Air 08/18 2325 83 146/80 08/18 2200 98.3 90 16 150/72 97 Room Air 08/18 1726 98.3 75 18 157/83 08/18 1604 98.3 75 18 157/83 96 Room Air Intake & Output 08/19 1600 08/19 0800 08/19 0000 08/18 1600 08/18 0800 08/18 0000 Intake Total 360 50 50 480 875 Output Total Balance 360 50 50 480 875 Intake, IV 10 Intake, Oral 360 50 50 480 865 Patient 153 lb 158 lb Weight Physical Exam: General: WD/ WN female in NAD; alert and oriented x 3 Neck: no JVD Heart: RRR w/o murmur Lungs: clear bilaterally Extremities: 1-2+ edema of right LE Assessment/Plan Assessment/Plan * Continue current dose of Lasix for one more day while monitoring patient's creatinine. * Change to Cardizem CD 360mg daily and monitor on telemetry for another day. Continue telemetry? Yes
[2016-08-19 16:28] VITALS: BP 140/72
[2016-08-20 00:12] VITALS: BP 160/70
--- NOTE | 2016-08-20 07:55 | PN- Housestaff ---
NAEEM YOUNG,BENIGNO 08/20/16 0755: Subjective Follow-up For: Multifocal atrial tachycardia Urinary retention Complaints: pain in epigastrium Tele-Events Since Last Visit: Multifocal atrial tachycardia with heart rate between 84-107, no any overnight event Subjective: Patient is seen and examined at the bedside. She was complaining of pain in the epigastrium. On palpation , we found globular mass on lower part of the abdomen. It was nontender in touch and movable. We did the bladder scan which showed more than 400 mL of urine in the bladder. Patient was saying that she is going to the bathroom and incontinent at the baseline. We did straight cath and around 1.3 liters of urine came out. We also discussed with Dr. Alicia and he advised to take the consult from urologist and start her on toleterodine. It is not available in our pharmacy, so we started patient on Ditropan. Review of Systems Constitutional: Reports: weakness. EENTM: Denies: no symptoms. Cardiovascular: Reports: peripheral edema. Denies: chest pain, edema, orthopena, palpitations. Respiratory: Denies: cough, hemoptysis, orthopnea, short of breath, sputum production. Gastrointestinal: Reports: abdominal pain, bloating, constipation, distention. Denies: diarrhea. Skin: Denies: no symptoms. Neurological/Psychological: Denies: no symptoms. Objective Last 24 Hrs of Vital Signs/I&O Vital Signs Date Time Temp Pulse Resp B/P Pulse O2 O2 Flow FiO2 Ox Delivery Rate 08/20 1555 98.0 79 18 138/72 97 Room Air 08/20 1355 Room Air 08/20 0821 97.5 79 18 142/80 95 Room Air 08/20 0012 98.7 88 20 160/70 95 Room Air Intake & Output 08/20 1600 08/20 0800 08/20 0000 Intake Total 400 600 Output Total 300 Balance 100 600 Intake, Oral 400 600 Number 1 Bowel Movements Output, Urine 300 Patient 71.668 kg Weight Physical Exam General Appearance: Alert, Oriented X3, Cooperative, No Acute Distress Cardiovascular: irregular, murmur Lungs: Clear to Auscultation, Normal Air Movement Abdomen: Soft, No Tenderness, globular mass in the lower part of the abdomen, nontender, mobile Neurological: Normal Speech, walks with a walker Extremities: No Clubbing, No Cyanosis, No Edema Vascular: Normal Pulses, Pulses Symmetrical Assessment/Plan Assessment: Mrs. Dickens is a 70-year-old female with significant past medical history of hypertension, hyperlipidemia, rheumatoid arthritis (methotrexate is on hold due to elevated LFT), recent left lower extremity DVT on aspirin s/p IVC filter, who was sent to [place] ED from GI suite after being found to have tachycardia/SVT before colonoscopy. Plan - Planned for discharge tomorrow Urinary retention, probably stopping of her home medicationTolterodine * We did straight cath and 1.3 liters of urine came out * We will place urological consult * Strict intake output charting * The patient on tab Detropan 2.5 mgs BID Multifocal atrial tachycardia - * We will continue tablet, Cardizem CD 360 and will continue telemetry monitoring * Plan to d/c tomorrow if rate is well controlled and she has no acute events. CHF * Continue diuresis w Lasix 40 milligrams daily, but note that she did have a small bump in Cr to 1.6 - recheck tomorrow. * Echocardiogram showed stage I diastolic dysfunction with LVEF 50-55% * Strict ins/outs Rheumatoid arthritis * MTX being held due to elevated LFTs Hyperlipidemia * Patient was on statins but probably it was stopped secondary to high LFT. Anemia of chronic disease * Probably secondary to chronic rheumatoid arthritis * We advised the patient to follow-up with PCP as an outpatient Diet-heart healthy diet DVT prophylaxis-ALPS/ Heparin CODE STATUS-full code Problem List: 1. Multifocal atrial tachycardia 2. Rheumatoid arthritis 3. CHF (congestive heart failure) 4. Urinary retention Pain Ratin Pain Location: Joints Pain Goal: Remain pain free Pain Plan: [id number] rate avoid NSAIDs Tomorrow's Labs & Rationales: none DVT/Prophylaxis: mechanical, pharmacological MICK ALICIA MD 08/20/16 1418: Attending MD Review Statement Attending Statement Attending MD Statement: examined this patient, discuss w/resident/PA/MICROBIOLOGY LAB TECHNICIAN, agreed w/resident/PA/MICROBIOLOGY LAB TECHNICIAN, discussed with family, reviewed EMR data (avail), discussed with nursing, reviewed images, amended to note Attending Assessment/Plan: Agree with house staff noted above. The patient had an episode of urinary retention this morning. She was noted to have a distended bladder which she was unable to empty by urinating. A straight catheterization was performed and greater than 1 liter of urine was produced. The patient notes that she is normally on Detrol however that was discontinued on admission. Assessment- 1. MAT vs SR/ST with bursts fo atrial ectopy and SVT 2. Hypertension 3. New onset congestive heart failure with a proBNP greater than 17,000, no previous echocardiogram in the medical record 4. History of hyperlipidemia 5. History rheumatoid arthritis 6. Recent diagnosis of left lower extremity DVT; on full aspirin and IVC filter placement secondary to epistaxis with full anticoagulation Plan: * Restart Detrol for urinary retention * check with Neurology regarding whether a consultation is indicated and whether any further measures are indicated. * Bowel regimen for constipation * likely ready for discharge tomorrow * continue current medications
[2016-08-20 08:07] LABS: ABSOLUTE BASOPHIL COUNT 0 /CUMM (0.0-0.2); ABSOLUTE EOSINOPHIL COUNT 0.3 /CUMM (0.0-0.7); ABSOLUTE GRANULOCYTE CT 2.6 /CUMM (1.4-6.5); ABSOLUTE LYMPH COUNT 2.2 /CUMM (1.2-3.4); ABSOLUTE MONOCYTE COUNT 0.4 /CUMM (0.10-0.60); BASOPHIL % 0.6 % (0.0-2.0); EOSINOPHIL % 4.9 % (0-5); GRANULOCYTE % 47.2 % (42.2-75.2); HEMATOCRIT 26.3 % (37-47); MEAN CORPUSCULAR HGB 30.1 PG (27.0-31.0); MEAN CORPUSCULAR HGB CONC 32.4 G/DL (33.0-37.0); MEAN CORPUSCULAR VOLUME 92.9 FL (81.0-99.0); MEAN PLATELET VOLUME 9.5 FL (7.4-10.4); PLATELET COUNT 168 /CUMM (130-400); RBC DISTRIBUTION WIDTH 13.7 % (11.5-14.5); RED BLOOD CELL CT 2.84 /CUMM (4.20-5.40); WHITE BLOOD CELL COUNT 5.6 /CUMM (4.8-10.8)
[2016-08-20 08:21] VITALS: BP 142/80
[2016-08-20 15:55] VITALS: BP 138/72
[2016-08-20 23:56] VITALS: BP 144/74
--- NOTE | 2016-08-21 07:42 | PN- Housestaff ---
Subjective Follow-up For: Multifocal atrial tachycardia Urinary retention Complaints: no complaints Tele-Events Since Last Visit: Multifocal atrial tachycardia, with heart rate between 75-96, no any overnight events Subjective: Patient is seen and examined at the bedside. She was not having any active complaints. According to her , she is urinating adequately without any difficulty,4-5 times in a day.On examination of the abdomen, bladder was distended. On bladder scan 900cc of urine was in it. We advised for straight cath. Patient refused for it. We discussed about the complication of retaining urine, including bladder rupture and bilateral hydronephrosis of the kidney. She understood all the complication despite of that,she was refusing for straight catheterization. We advised for ambulation with nursing help and watch for urine output. She is not able to urinate in 1-2 hours, then we will decide and discuss again about the straight cath. We also placed a consult for urologist. Review of Systems Constitutional: Denies: no symptoms. EENTM: Denies: no symptoms. Cardiovascular: Denies: no symptoms. Respiratory: Denies: no symptoms. Gastrointestinal: Denies: no symptoms. Genitourinary: Denies: no symptoms. Objective Last 24 Hrs of Vital Signs/I&O Vital Signs Date Time Temp Pulse Resp B/P Pulse O2 O2 Flow FiO2 Ox Delivery Rate 08/21 0800 97.3 98 20 144/80 95 Room Air 08/20 2356 98.0 84 18 144/74 96 Room Air 08/20 1555 98.0 79 18 138/72 97 Room Air 08/20 1355 Room Air Intake & Output 08/21 1600 08/21 0800 08/21 0000 Intake Total 60 300 Output Total Balance 60 300 Intake, IV 10 Intake, Oral 50 300 Patient 70.307 kg Weight Physical Exam General Appearance: Alert, Oriented X3, Cooperative, No Acute Distress Skin: areas of ecchymotic patches on the skin Cardiovascular: is irregularly irregular with murmur Lungs: Clear to Auscultation, Normal Air Movement Abdomen: Soft, No Tenderness Neurological: Normal Speech, walks with a walker Extremities: No Clubbing, No Cyanosis, bilateral lower leg edema, nonpitting in nature Vascular: Normal Pulses, Pulses Symmetrical Assessment/Plan Assessment: Mrs. Dickens is a 70-year-old female with significant past medical history of hypertension, hyperlipidemia, rheumatoid arthritis (methotrexate is on hold due to elevated LFT), recent left lower extremity DVT on aspirin s/p IVC filter, who was sent to [place] ED from GI suite after being found to have tachycardia/SVT before colonoscopy. Plan - Planned for discharge tomorrow Urinary retention, probably stopping of her home medicationTolterodine * Patient appears for straight cath * We placed urological consult * Strict intake output charting * The patient was on tab Detropan 2.5 mgs BID, we increased to 5mg BID. Multifocal atrial tachycardia - * We will continue tablet, Cardizem CD 360 and will continue telemetry monitoring * Plan to d/c tomorrow if rate is well controlled and she has no acute events. CHF * Continue diuresis w Lasix 40 milligrams daily, but note that she did have a small bump in Cr to 1.6 - recheck tomorrow. * Echocardiogram showed stage I diastolic dysfunction with LVEF 50-55% * Strict ins/outs Rheumatoid arthritis * MTX being held due to elevated LFTs Hyperlipidemia * Patient was on statins but probably it was stopped secondary to high LFT. Anemia of chronic disease * Probably secondary to chronic rheumatoid arthritis * We advised the patient to follow-up with PCP as an outpatient Diet-heart healthy diet DVT prophylaxis-ALPS/ Heparin CODE STATUS-full code Problem List: 1. Urinary retention 2. Multifocal atrial tachycardia 3. Rheumatoid arthritis 4. CHF (congestive heart failure) Pain Ratin Pain Location: joints Pain Goal: Remain pain free Pain Plan: Avoid NSAIDs Tomorrow's Labs & Rationales: bep DVT/Prophylaxis: mechanical, pharmacological
[2016-08-21 08:00] VITALS: BP 144/80
--- NOTE | 2016-08-21 12:42 | PN- Cardiology ---
Subjective Subjective: The patient is noted to have recurrent urinary retention. 900 ml of urine were seen on bladder scan. The patient declines straight cath. Detrol was restarted. She has been stable from a cardiac standpoint. Objective Vital Signs and I&Os Vital Signs Date Time Temp Pulse Resp B/P Pulse O2 O2 Flow FiO2 Ox Delivery Rate 08/21 08 97.3 98 20 144/80 95 Room Air 08/20 2356 98.0 84 18 144/74 96 Room Air 08/20 1555 98.0 79 18 138/72 97 Room Air 08/20 1355 Room Air Intake & Output 08/21 1600 08/21 0800 08/21 0000 08/20 1600 08/20 0800 08/20 0000 Intake Total 60 300 400 600 Output Total 300 Balance 60 300 100 600 Intake, IV 10 Intake, Oral 50 300 400 600 Number 1 Bowel Movements Output, Urine 300 Patient 155 lb 158 lb Weight Physical Exam: Gen: NAD HEENT: normal Lungs: clear to auscultation, normal resp. effort Heart: RRR, S1, S2, no murmurs Abdomen: Soft, nontender, no masses Extremities: 1+ edema Neuro: Alert and oriented x 3, cranial nerves intact Current Medications: Current Medications Sig/Kvng Start time Last Medication Dose Route Stop Time Status Admin Acetaminophen 650 MG Q6P PRN 08/16 1645 AC PO Aspirin 325 MG DAILY 08/17 1000 AC 08/21 PO 0928 Diltiazem HCl 360 MG DAILY 08/20 1000 AC 08/21 PO 0928 Docusate Sodium 100 MG DAILY NEEDED PRN 08/19 1615 AC 08/19 PO 205 Folic Acid 1 MG DAILY 08/17 1000 AC 08/21 PO 0929 Furosemide 40 MG DAILY 08/17 1000 AC 08/21 PO 0929 Heparin Sodium 5,000 UNIT Q8 08/160 AC 08/21 (Porcine) SC 0616 Lorazepam 0.5 MG AT BEDTIME 08/16 2199 AC 08/20 PO 08/23 Omeprazole 40 MG DAILY AC 08/17 0700 AC 08/21 PO 0616 Oxybutynin Chloride 5 MG BID 08/21 2200 AC PO Oxybutynin Chloride 2.5 MG BID 08/20 1320 DC 08/21 PO 0928 Oxycodone HCl 10 MG Q6P PRN 08/16 1645 AC 08/17 PO 0627 Oxycodone/ 1 TAB Q6P PRN 08/16 1645 AC Acetaminophen PO Potassium Chloride 10 MEQ DAILY 08/19 1000 AC 08/21 PO 0929 Senna/Docusate Sodium 1 TAB AT BEDTIME 08/16 2200 AC 08/20 PO 2050 Results Last 48 Hrs of Labs/Mics: Laboratory Tests 08/20/16 1645: Urine Color YEL, Urine Clarity HAZY H, Urine pH 6.0, Ur Specific [place] 1.010, Urine Protein NEG, Urine Ketones NEG, Urine Nitrite NEG, Urine Bilirubin NEG, Urine Urobilinogen 0.2, Ur Leukocyte Esterase MOD H, Ur Microscopic SEDIMENT EXAMINED, Urine RBC 5-10 H, Urine WBC 15-25 H, Ur Epithelial Cells MANY H, Urine Crystals 1+ CA OX H, Urine Bacteria MOD H, Urine Hemoglobin SMALL H, Urine Glucose NEG 08/20/16 0658: Anion Gap 6, Estimated GFR 32 L, BUN/Creatinine Ratio 15.6, Magnesium 1.9, CBC w Diff NO MAN DIFF REQ, RBC 2.84 L, MCV 92.9, MCH 30.1, RDW 13.7, MPV 9.5, Gran % 47.2, Lymphocytes % 39.5, Monocytes % 7.8, Eosinophils % 4.9, Basophils % 0.6, Absolute Granulocytes 2.6, Absolute Lymphocytes 2.2, Absolute Monocytes 0.4, Absolute Eosinophils 0.3, Absolute Basophils 0, PUBS MCHC 32.4 L Assessment/Plan Assessment/Plan Assessment- 1. MAT vs SR/ST with bursts fo atrial ectopy and SVT 2. Hypertension 3. Acute diastolic heart failure, improved 4. History of hyperlipidemia 5. History rheumatoid arthritis 6. Recent diagnosis of left lower extremity DVT; on full aspirin and IVC filter placement secondary to epistaxis with full anticoagulation Plan: * Urology consult pending for urinary retention * Continue Detrol * Discontinue Lasix * Continue other cardiac medications. * Possible discharge later today if stable. * Follow up in one week after discharge Continue telemetry? No
[2016-08-21 15:48] VITALS: BP 120/64
[2016-08-21 23:34] VITALS: BP 124/62
--- NOTE | 2016-08-22 07:46 | PN- Housestaff ---
Subjective Follow-up For: Multifocal atrial tachycardia Urinary retention Complaints: no complaints Tele-Events Since Last Visit: Multifocal atrial tachycardia, with heart rate between 75-118, no any overnight events Subjective: Patient is seen and examined at the bedside. She was not having any active complaints. According to her , she is urinating adequately without any difficulty,4-5 times in a day.On examination of the abdomen, bladder was distended. Advised to do bladder scan. Review of Systems Constitutional: Denies: no symptoms. Comments: Denies for any active complain. Objective Last 24 Hrs of Vital Signs/I&O Vital Signs Date Time Temp Pulse Resp B/P Pulse O2 O2 Flow FiO2 Ox Delivery Rate 08/21 2334 98.0 68 18 124/62 97 Room Air 08/21 1548 97.9 69 18 120/64 100 Room Air 08/21 1510 Room Air 08/21 1454 Room Air 08/21 0800 97.3 98 20 144/80 95 Room Air Intake & Output 08/22 0800 08/22 0000 08/21 1600 Intake Total 200 980 Output Total 1450 Balance 200 -470 Intake, IV 0 Intake, Oral 200 980 Number 2 Bowel Movements Output, Urine 1450 Patient 70.76 kg 70.364 kg Weight Physical Exam General Appearance: Alert, Oriented X3, Cooperative, No Acute Distress Skin: multiple ecchymotic patches Cardiovascular: tachycardia, murmur Lungs: Clear to Auscultation, Normal Air Movement Abdomen: Soft, bladder diatended, advised for bladder scan Neurological: Normal Speech Extremities: No Clubbing, No Cyanosis, bilateral lower leg non pitting edema Vascular: Normal Pulses, Pulses Symmetrical Current Medications: Current Medications Sig/Kvng Start time Last Medication Dose Route Stop Time Status Admin Acetaminophen 650 MG Q6P PRN 08/16 1645 AC PO Aspirin 325 MG DAILY 08/17 1000 AC 08/21 PO 0928 Diltiazem HCl 360 MG DAILY 08/20 1000 AC 08/21 PO 927 Docusate Sodium 100 MG DAILY NEEDED PRN 08/19 1615 AC 08/19 PO 2053 Folic Acid 1 MG DAILY 08/17 1000 AC 08/21 PO 09 Furosemide 40 MG DAILY 08/17 1000 DC 08/21 PO 09 Heparin Sodium 5,000 UNIT Q8 08/160 AC 08/22 (Porcine) SC 0600 Lorazepam 0.5 MG AT BEDTIME 08/16 220 AC 08/21 PO 08/23 2159 2146 Omeprazole 40 MG DAILY AC 08/17 0700 AC 08/22 PO 0705 Oxybutynin Chloride 5 MG BID 08/21 2200 AC 08/21 PO 2145 Oxybutynin Chloride 2.5 MG BID 08/20 1320 DC 08/21 PO 0928 Oxycodone HCl 10 MG Q6P PRN 08/16 1645 AC 08/17 PO 0627 Oxycodone/ 1 TAB Q6P PRN 08/16 1645 AC Acetaminophen PO Patient Medication 1 ED .STK-MED ONE 08/21 1358 DC Teaching ED 08/21 1359 Potassium Chloride 10 MEQ DAILY 08/19 1000 AC 08/21 PO 0929 Senna/Docusate Sodium 1 TAB AT BEDTIME 08/16 2199 AC 08/21 PO 2146 Assessment/Plan Assessment: Mrs. Dickens is a 70-year-old female with significant past medical history of hypertension, hyperlipidemia, rheumatoid arthritis (methotrexate is on hold due to elevated LFT), recent left lower extremity DVT on aspirin s/p IVC filter, who was sent to [place] ED from GI suite after being found to have tachycardia/SVT before colonoscopy. Plan - Planned for discharge today Urinary retention, probably stopping of her home medicationTolterodine * Patient refused for staright cath, advised for mobilization and watch for urine output. * We placed urological consult, according to them. We will stop oxybutynin and that the renal ultrasound and urology consult with Dr Lucero as an outpatient. Multifocal atrial tachycardia - * We will continue tablet, Cardizem CD 360 and will continue telemetry monitoring * Plan to d/c today, if rate is between 90 -118, she has no acute events. CHF * we discontinued lasix on 08/21/2016. * Cr is 1.6 * Echocardiogram showed stage I diastolic dysfunction with LVEF 50-55% * Strict ins/outs Rheumatoid arthritis * MTX being held due to elevated LFTs Hyperlipidemia * Patient was on statins but probably it was stopped secondary to high LFT. Anemia of chronic disease * Probably secondary to chronic rheumatoid arthritis * We advised the patient to follow-up with PCP as an outpatient Diet-heart healthy diet DVT prophylaxis-ALPS/ Heparin CODE STATUS-full code Problem List: 1. Urinary retention 2. Multifocal atrial tachycardia 3. Rheumatoid arthritis 4. CHF (congestive heart failure) Pain Ratin Pain Location: joints Pain Goal: Remain pain free Pain Plan: mild, avoid NSAIDs Tomorrow's Labs & Rationales: none DVT/Prophylaxis: mechanical, pharmacological
[2016-08-22 07:57] VITALS: BP 154/72
--- NOTE | 2016-08-22 09:28 | Cons- Urology ---
General Information and HPI Consulting Request Date of Consult: 08/22/16 Requested By: MICK ALICIA MD Reason for Consult: Urinary retention Source of Information: patient, old records Exam Limitations: no limitations History of Present Illness: Patient is a 70-year-old woman who was noted to have cardiac arrhythmia prior to colonoscopy. She was admitted for that reason, and was noted to have poor bladder emptying. She was catheterized twice, and has had multiple bladder scan stability with about 500 mL remaining in her bladder. She describes a long history of urinary difficulties with an overactive bladder and incontinence, treated with Detrol, by Dr. Lucero. She describes a preadmission urinary pattern including nocturia 2, with occasional incontinence wearing typically 1 pad/day. Allergies/Medications Allergies: Coded Allergies: Penicillins (UNKNOWN 03/15/16) Home Med List: Acetaminophen (Acephen) 650 MG SUPP.RECT 1 SUPP [place] Q4H PRN PAIN/TEMP>101 ( Reported) Acetaminophen 325 MG TABLET 2 TAB PO Q4H PRN PAIN/TEMP>101 (Reported) Amino AC/Protein Hydr/Whey Pro (Prosource Protein Liquid) 10 GRAM-100 KCAL/30 ML LIQUID 30 ML PO TID SUPPLEMENT (Reported) Aspirin (Lite Coat Aspirin) 325 MG TABLET 1 TAB PO DAILY HEART HEALTH/IVC filter (Reported) Bisacodyl 10 MG SUPP.RECT 1 SUP RC DAILY PRN CONSTIPATION (Reported) Calcium Carbonate (Calcium) 500 MG CALCIUM (1,250 MG) TAB.CHEW 1 TAB PO DAILY SUPPLEMENT/GI (Reported) Calcium Carbonate 500 MG CALCIUM (1,250 MG) TABLET 600 MG PO DAILY Supplement Cholecalciferol (Vitamin D3) (Vitamin D3) 50,000 UNIT CAPSULE 1 CAP PO QFRI SUPPLEMENT (Reported) Collagenase Clostridium Hist. (Santyl) 250 UNIT/GRAM OINT...G. 1 ROBIN TOP DAILY Sacral ulcer Escitalopram Oxalate (Lexapro) 10 MG TABLET 1 TAB PO DAILY MENTAL HEALTH ( Reported) Folic Acid 1 MG TABLET 1 TAB PO DAILY SUPPLEMENT (Reported) Leucovorin Calcium 25 MG TABLET 2 TAB PO DAILY UNKNOWN (Reported) [magic cup] 1 UNIT PO BID SUPPLEMENT (Reported) Magnesium Hydroxide (Milk Of Magnesia) 400 MG/5 ML ORAL.SUSP 30 ML PO DAILY PRN CONSTIPATION (Reported) Na Phos,M-B/Na Phos,Di-Ba (Fleet Enema) 19 GRAM-7 GRAM/118 ML ENEMA 1 E RC DAILY PRN CONSTIPATION (Reported) Nystatin 100,000 UNIT/GRAM CREAM..G. 1 ORBIN TOP BID RASH (Reported) apply to affected area(s) Pantoprazole Sodium 40 MG TABLET.DR 1 TAB PO DAILY GERD (Reported) Polyethylene Glycol 3350 17 GRAM POWD.PACK 1 PAC PO Saturday GI ( Reported) Potassium Chloride 20 MEQ TAB.ER.PRT 1 TAB PO DAILY SUPPLEMENT (Reported) Sennosides/Docusate Sodium (Senna-Time S Tablet) 8.6 MG-50 MG TABLET 187 MG PO AT BEDTIME constipation Tolterodine Tartrate 2 MG TABLET 1 TAB PO BID OVERACTIVE BLADDER (Reported) Vitamin E (Dl,Tocopheryl Acet) (Vitamin E) 400 UNIT CAPSULE 800 IU PO DAILY supplement Current Medications: Current Medications Sig/Kvng Start time Last Medication Dose Route Stop Time Status Admin Acetaminophen 650 MG Q6P PRN 08/16 1645 AC PO Aspirin 325 MG DAILY 08/17 1000 AC 08/21 PO 0928 Diltiazem HCl 360 MG DAILY 08/20 1000 AC 08/21 PO 0928 Docusate Sodium 100 MG DAILY NEEDED PRN 08/19 1615 AC 08/19 PO 2054 Folic Acid 1 MG DAILY 08/17 1000 AC 08/21 PO 0929 Furosemide 40 MG DAILY 08/17 1000 DC 08/21 PO 0929 Heparin Sodium 5,000 UNIT Q8 08/16 2200 AC 08/22 (Porcine) SC 0600 Lorazepam 0.5 MG AT BEDTIME 08/16 2200 AC 08/21 PO 08/23 2159 2146 Omeprazole 40 MG DAILY AC 08/17 0700 AC 08/22 PO 0705 Oxybutynin Chloride 5 MG BID 08/21 2200 AC 08/21 PO 2145 Oxybutynin Chloride 2.5 MG BID 08/20 1320 DC 08/21 PO 0928 Oxycodone HCl 10 MG Q6P PRN 08/16 1645 AC 08/17 PO 0627 Oxycodone/ 1 TAB Q6P PRN 08/16 1645 AC Acetaminophen PO Patient Medication 1 ED .STK-MED ONE 08/21 1358 DC Teaching ED 08/21 1359 Potassium Chloride 10 MEQ DAILY 08/19 1000 AC 08/21 PO 0929 Senna/Docusate Sodium 1 TAB AT BEDTIME 08/16 2200 AC 08/21 PO 2146 Past History Medical History Neurological: CVA EENT: NONE Cardiovascular: hypertension, hyperlipidemia Respiratory: NONE Gastrointestinal: GERD, hiatal hernia Hepatic: NONE Renal: NONE Musculoskeletal: rheumatoid arthritis Psychiatric: anxiety Endocrine: NONE Blood Disorders: NONE Cancer(s): NONE GEOTECHNICAL DEPARTMENT MANAGER/Reproductive: NONE Surgical History Pertinent Surgical History: "BENIGN TUMOR REMOVED FROM ABDOMEN 1999- [facility]PT [facility] Tonsillectomy Family History Relations & Conditions If Any: grandmother, ; Cause: Gastric cancer. FHx: stomach cancer FATHER, ; Cause: Alcoholic liver disease. Psychosocial History Who Do You Live With? spouse Services at Home: Home Health Aide, Nursing, Occupational Therapy Primary Language: Marshallese Smoking Status: Never Smoked Living Will? no Power of Meteorology Professor/HCP? no Functional Ability ADLs Independent: dressing, eating. Unknown: toileting, bathing. Ambulation: walker IADLs Independent: telephone. Needs Assist: shopping, housework, transportation. Unknown: finances, food prep, medication admin. Review of Systems Review of Systems: See HPI Exam & Diagnostic Data Vital Signs and I&O Vital Signs Date Time Temp Pulse Resp B/P Pulse O2 O2 Flow FiO2 Ox Delivery Rate 08/22 0757 98.5 68 18 154/72 97 Room Air 08/21 2334 98.0 68 18 124/62 97 Room Air 08/21 1548 97.9 69 18 120/64 100 Room Air 08/21 1510 Room Air 08/21 1454 Room Air Intake & Output 08/22 1600 08/22 0800 08/22 0000 08/21 1600 08/21 0800 08/21 0000 Intake Total 100 200 980 60 300 Output Total 1450 Balance 100 200 -470 60 300 Intake, IV 0 10 Intake, Oral 100 200 980 50 300 Number 2 Bowel Movements Output, Urine 1450 Patient 156 lb 155 lb 155 lb Weight Physical Exam: Patient is sitting comfortably in no apparent distress. Abdomen is soft. No CVA tenderness. Physical Exam General Appearance: well developed/nourished Head: atraumatic Assessment/Plan Assessment/Plan Patient has history of overactive bladder with nocturia and incontinence, treated with Detrol. She now has poor bladder emptying, and should undergo a renal ultrasound. I recommended discontinuing her Detrol until she can see Dr. Lucero as an outpatient. She is presently on oxybutynin, which should be discontinued during hospitalization. I discussed the value of a Whitt catheter during this period of time for output monitoring and assisting her bladder to empty better. She is aware of the benefits and the risks of not having the catheter, but defers at this time. She is quite clear in her thinking, and verbalizes good understanding of the situation and the risks inherent in her chosen regimen. Consult Acknowledgment - Thank you for your consult request. Attending MD Review Statement Attending Statement Attending MD Statement: examined this patient
--- NOTE | 2016-08-22 09:46 | PN- Cardiology ---
Subjective Subjective: Atrial ectopy and brief runs of nonsustained supraventricular tachycardia. No cardiac symptoms noted. The patient apparently voided 700 mL early this morning. Post void residual evaluation is pending. Urology input noted. Discharge planning. Objective Vital Signs and I&Os Vital Signs Date Time Temp Pulse Resp B/P Pulse O2 O2 Flow FiO2 Ox Delivery Rate 08/22 0757 98.5 68 18 154/72 97 Room Air 08/21 2334 98.0 68 18 124/62 97 Room Air 08/21 1548 97.9 69 18 120/64 100 Room Air 08/21 1510 Room Air 08/21 1454 Room Air Intake & Output 08/22 1600 08/22 0800 08/22 0000 08/21 1600 08/21 0800 08/21 0000 Intake Total 100 200 980 60 300 Output Total 1450 Balance 100 200 -470 60 300 Intake, IV 0 10 Intake, Oral 100 200 980 50 300 Number 2 Bowel Movements Output, Urine 1450 Patient 156 lb 155 lb 155 lb Weight Physical Exam: General Appearance Alert, Oriented X3, Cooperative HEENT Atraumatic, PERRLA, EOMI Cardiovascular Normal S1, Normal S2, tachycardic, irregular Lungs Clear to Auscultation, Normal Air Movement Abdomen Normal Bowel Sounds, Soft, No Hepatospenomegaly Neurological Normal Speech, Strength at 5/5 X4 Ext, Normal Tone, Sensation Intact, Cranial Nerves 3-12 NL Extremities No Clubbing, No Cyanosis, trace b/l le edema Current Medications: Current Medications Sig/Kvng Start time Last Medication Dose Route Stop Time Status Admin Acetaminophen 650 MG Q6P PRN 08/16 1645 AC PO Aspirin 325 MG DAILY 08/17 1000 AC 08/22 PO 09 Diltiazem HCl 360 MG DAILY 08/20 1000 AC 08/22 PO 09 Docusate Sodium 100 MG DAILY NEEDED PRN 08/19 1615 AC 08/19 PO 205 Folic Acid 1 MG DAILY 08/17 1000 AC 08/22 PO 09 Furosemide 40 MG DAILY 08/17 1000 DC 08/21 PO 09 Heparin Sodium 5,000 UNIT Q8 08/16 2199 AC 08/22 (Porcine) SC 0600 Lorazepam 0.5 MG AT BEDTIME 08/16 2199 AC 08/21 PO 08/239 2146 Omeprazole 40 MG DAILY AC 08/17 0700 AC 03/22 PO 0705 Oxybutynin Chloride 5 MG BID 08/21 2199 AC 08/21 PO 2145 Oxybutynin Chloride 2.5 MG BID 08/20 1320 DC 08/21 PO 0928 Oxycodone HCl 10 MG Q6P PRN 08/16 1645 AC 08/17 PO 0627 Oxycodone/ 1 TAB Q6P PRN 08/16 1645 AC Acetaminophen PO Patient Medication 1 ED .STK-MED ONE 08/21 1358 NC Teaching ED 08/21 1359 Potassium Chloride 10 MEQ DAILY 08/19 1000 AC 08/22 PO 0938 Senna/Docusate Sodium 1 TAB AT BEDTIME 08/16 2199 AC 08/21 PO 2146 Results Last 48 Hrs of Labs/Mics: Laboratory Tests 08/20/161644: Urine Color YEL, Urine Clarity HAZY H, Urine pH 6.0, Ur Specific [place] 1.010, Urine Protein NEG, Urine Ketones NEG, Urine Nitrite NEG, Urine Bilirubin NEG, Urine Urobilinogen 0.2, Ur Leukocyte Esterase MOD H, Ur Microscopic SEDIMENT EXAMINED, Urine RBC 5-10 H, Urine WBC 15-25 H, Ur Epithelial Cells MANY H, Urine Crystals 1+ CA OX H, Urine Bacteria MOD H, Urine Hemoglobin SMALL H, Urine Glucose NEG Assessment/Plan Assessment/Plan Assessment- 1. MAT vs SR/ST with bursts of atrial ectopy and nonsustained SVT 2. Hypertension 3. New onset congestive heart failure with a proBNP greater than 17,000, no previous echocardiogram in the medical record 4. History of hyperlipidemia 5. History rheumatoid arthritis 6. Recent diagnosis of left lower extremity DVT; on full aspirin and IVC filter placement secondary to epistaxis with full anticoagulation Recommendations: - COntinue current Cardizem dose - OOB as tolerated. - At the present time, the patient's heart rate is stable on her current dose. If there is any further issue with rapid heart rates, low dose metoprolol can be added to the regimen as an outpatient. -Neurology input noted. -Discharge planning for today. Outpatient follow-up with Dr. Sifuentes and Dr. Lucero. Continue telemetry? No
[2016-08-22 14:06] VITALS: BP 154/72
--- NOTE | 2016-08-22 15:40 | NUR ---
PT NOT DISCHARGED ON JT/ARB PER INFANT NANNY
== END 2016-08-22 15:10 | DRG 308 ==
LOC: ENRESERVDT → ENRESERVTM → ERH 13:02 → ERHI 17:08 → 1NO 17:08 → ENPENDDIS 17:08 → 1NO 20:15
PROVIDERS: Internal Medicine; Physician Assistant Surgical; ADMIT Internal Medicine Cardiovascular Disease
DX: I47.1 Supraventricular tachycardia (principal); I50.31 Acute diastolic (congestive) heart failure; I11.0 Hypertensive heart disease with heart failure; M06.9 Rheumatoid arthritis, unspecified; E87.6 Hypokalemia; R33.9 Retention of urine, unspecified; E78.5 Hyperlipidemia, unspecified; K21.9 Gastro-esophageal reflux disease without esophagitis; K44.9 Diaphragmatic hernia without obstruction or gangrene; Z79.01 Long term (current) use of anticoagulants
CPT/HCPCS: 1NSP; 36415; 81001; 82436; 93005; 93010; 93306; 96361; 96374; 96375; 97110-GO; 97116-GO; 97161-GP; 97530-GO; J1644; J1940; J3490